=== PATIENT | male | born 1940 | race Caucasian/White ===

== ENCOUNTER 2023-10-19 17:32 | Emergency (ER) | payer MEDICARE, SELFPAY ==
--- NOTE | ~2023-10-19 | CT_ITS ---
EXAMINATION: CT abdomen pelvis wo/w con DATE: 10/19/2023 21:24 INDICATION: Hematuria. Flank pain. TECHNIQUE: Computed tomography (CT) of the abdomen and pelvis was performed without and with intraven ous contrast using a total of 130 mL Omnipaque-350 intravenous contrast with a double-bolus technique for simultaneous opacification of the renal parenchyma and renal collecting system. Automated exposu re control and iterative reconstruction technique were employed. The dose-length product was 2902.31 mGy-cm. COMPARISON: None FINDINGS: The visualized portions of the lung bases demonstrate mild atelectasis. A calcified right lung nodule is consistent with old granulomatous disease. No pleural effusion. Cardiomegaly is noted. There are coronary artery calcifications. No pericardial effusion. The liver, gallbladder, spleen, pancreas, ad renal glands, and right kidney are normal. There is an 8 mm cyst in left kidney. There is no urolithi asis. The ureters are well opacified and are normal. The bladder is normal. The prostate is mildly en larged. There are brachytherapy seeds in the prostate. There is diverticulosis of the colon without e vidence of diverticulitis. There are no dilated loops of bowel. The appendix is normal. Aortic athero sclerosis is noted. There is a small sliding hiatal hernia. There are no pathologically enlarged lymp h nodes. There is no free intraperitoneal fluid. There is a total left hip arthroplasty. There is a c hronic burst fracture of L1. There is mild chronic anterior wedging of multiple thoracic vertebral janna dies. IMPRESSION: 1. No specific etiology for the patient's symptoms. Reviewed, dictated and finalized at location E.
[2023-10-19 17:34] VITALS: BP 138/85; PULSE 84; RESP 16; TEMP 36.5; O2SAT 97
[2023-10-19 17:37] VITALS: BP 138/85; PULSE 94; RESP 16; TEMP 36.5; O2SAT 97
--- NOTE | 2023-10-19 17:56 | PC.NURSE ---
Pt able to urinate and provide urine sample. Urine sample is dark red in color.
[2023-10-19 18:26] LABS: Add Urine Microscopic? YES; Appearance Urine Cloudy (Clear); Bacteria Urine Rare /hpf; Bilirubin Urine Negative (Negative); Blood Urine 2+ (Negative); Glucose Urine UA Negative (Negative); Ketones Urine Negative (Negative); Leukocyte Esterase Ur Negative LEU/UL (Negative); Need Manual Microscopic Reviewed; Nitrate Urine Negative (Negative); Non Pathogenic Casts 0-2; Protein Urine 3+ mg/dL (Negative); Specific Grav Ur 1.021 (1.001-1.035); Squamous Epithelial Cell Urine None Seen /hpf (Few)
[2023-10-19 18:27] LABS: RBC Urine >100 /hpf (0-2)
[2023-10-19 18:28] LABS: Color Urine Red (Yellow)
[2023-10-19 19:36] VITALS: BP 148/96; PULSE 69; RESP 18; O2SAT 100
[2023-10-19] MEDS: cefTRIAXone 2 GM/NS 100 ML 2 GM/100 ML BAG IVPB (19:36)
[2023-10-19 19:43] LABS: Basophils Percent Auto 0.3 % (0.2-1.2); Eosinophils Absolute Auto 0.1 K/mm3 (0-0.3); Eosinophils Percent Auto 1.5 % (0-4.4); Hematocrit 41.3 % (42.0-52.0); Hemoglobin 14.1 g/dL (14.0-18.0); Immature Granulocyte Absolute 0.01 K/mm3 (0.00-0.031); Immature Granulocyte Percent A 0.3 % (0-0.5); Lymphocytes Percent Auto 32.5 % (18.3-44.2); Mean Corpuscular HGB Conc 34.1 g/dl (32-36); Mean Corpuscular Hemoglobin 31.2 pg (26-34); Mean Corpuscular Volume 91.4 fl (80-100); Mean Platelet Volume 10.8 fl (7.4-10.4); Monocytes Absolute Auto 0.3 K/mm3 (0.1-0.6); Monocytes Percent Auto 7.4 % (2.6-8.5); Platelet Count Result 146 k/mm3 (150-375); Red Blood Count 4.52 M/mm3 (4.6-6.20); Red Cell Distribution Width 13.2 % (11.5-14.5); White Blood Count 3.4 K/mm3 (4.5-10.0)
[2023-10-19 19:54] LABS: Anion Gap 12 mmol/L (4-12); Blood Urea Nitrogen 24 mg/dL (9-20); Calcium 8.6 mg/dL (8.4-10.2); Carbon Dioxide 23 mmol/L (22-30); Chloride 101 mmol/L (98-107); Estimated CRCL calculation 48 ml/min; Estimated Glomerular Filt Rate 48; Glucose 152 mg/dL (65-110); Sodium 136 mmol/L (137-145)
--- NOTE | 2023-10-19 19:57 | ED.MALEGU ---
HPI - Male Genitourinary General Chief complaint: Urogenital-Male Stated complaint: inability to urinate, bleeding noted Time Seen by Provider: 10/19/23 19:22 History of Present Illness HPI Narrative: Patient has been having difficulty urinating and what is coming out is bloody. Has some mild back pain. Does have history of kidney stones. Related Data Allergies Allergy/AdvReac Type Severity Reaction Status Date / Time No Known Drug Allergies Allergy Verified 04/11/12 13:48 Review of Systems Review of Systems: All systems reviewed & are unremarkable except as noted in HPI and below Exam Narrative: EXAMINATION OF ORGAN SYSTEMS/BODY AREAS: Constitutional: Vital signs per nursing GENERAL:[No acute distress, non-toxic appearing.] HEAD: Normal with no signs of head trauma. EYES: EOMI, conjunctiva normal ENT: Hearing grossly intact LUNGS: Nonlabored breathing. HEART: [Regular rate and rhythm] ABD: [Soft], [nontender to palpation] EXT: Normal range of motion SKIN: [No rashes or lesions.] NEURO: [Alert and oriented x 3. No gross focal sensory or strength deficits.] PSYCH: Normal affect Course Vital Signs Vital signs: Vital Signs Temperature 97.7 F 10/19/23 17:34 Pulse Rate 84 10/19/23 17:34 Respiratory Rate 16 10/19/23 17:34 Blood Pressure 138/85 10/19/23 17:34 Pulse Oximetry 97 10/19/23 17:34 Temperature 97.7 F 10/19/23 17:37 Pulse Rate 69 10/19/23 19:36 Respiratory Rate 18 10/19/23 19:36 Blood Pressure 148/96 H 10/19/23 19:36 Pulse Oximetry 100 10/19/23 19:36 MDM - Male Genitourinary MDM Narrative Medical decision making narrative: Very pleasant gentleman presenting with urinary retention and gross hematuria. He is well-appearing in no distress, initial plan was to place a catheter for his CBI and to resolve her urinary retention, however he was actually able to urinate here in the emergency room and the bleeding has actually resolved as has the urinary retention. He would prefer to avoid a catheter at this time. I did obtain a CT with and without due to concern for possible etiologies including infection, stone, malignancy. UA with gross hematuria and some wbc's with rare bacteria so I will tentatively treated him as UTI and have him follow-up with his urologist. Strict return precautions provided for his return of hematuria and urinary retention which would require catheterization, Patient agreeable to this plan. Lab Data 10/19/23 19:37 10/19/23 19:37 Labs: Lab Results 10/19/23 10/19/23 Range/Units 17:55 19:37 WBC 3.4 L (4.5-10.0) K/mm3 RBC 4.52 L (4.6-6.20) M/mm3 Hgb 14.1 (14.0-18.0) g/dL Hct 41.3 L (42.0-52.0) % MCV 91.4 (80-100) fl MCH 31.2 (26-34) pg MCHC 34.1 (32-36) g/dl RDW 13.2 (11.5-14.5) % Plt Count 146 L (150-375) k/mm3 MPV 10.8 H (7.4-10.4) fl Immature Gran % (Auto) 0.3 (0-0.5) % Neut % (Auto) 58.0 (45.5-73.1) % Lymph % (Auto) 32.5 (18.3-44.2) % Labette % (Auto) 7.4 (2.6-8.5) % Eos % (Auto) 1.5 (0-4.4) % Baso % (Auto) 0.3 (0.2-1.2) % Lymph # (Auto) 1.10 (0.9-3.2) K/mm3 Labette # (Auto) 0.3 (0.1-0.6) K/mm3 Eos # (Auto) 0.1 (0-0.3) K/mm3 Baso # (Auto) 0.0 (0.0-0.1) K/mm3 Abs Immat Gran (auto) 0.01 (0.00-0.031) K/mm3 Absolute Neuts (auto) 2.0 (1.3-6.7) K/mm3 Absolute Nucleated RBC 0.000 (0.0-0.012) K/mm3 Nucleated RBC % 0.0 (0.0-0.2) % Sodium 136 L (137-145) mmol/L Potassium 4.0 (3.4-5.0) mmol/L Chloride 101 (98-107) mmol/L Carbon Dioxide 23 (22-30) mmol/L Anion Gap 12 (4-12) mmol/L BUN 24 H (9-20) mg/dL Creatinine 1.40 H (0.7-1.3) mg/dL Estim Creat Clear Calc 48 ml/min Estimated GFR 48 L (59 - ) Glucose 152 H (65-110) mg/dL Calcium 8.6 (8.4-10.2) mg/dL Urine Color Red H (Yellow) Urine Appearance Cloudy H (Clear) Urine pH 7.0 (5.0-9.0) Ur Specific [place] 1.021
--- NOTE | 2023-10-19 20:24 | PC.NURSE ---
pt refusing urinary catheter at this time. pt states, I know when to pee and can pee . edp dr. stroud made aware.
== END 2023-10-19 22:00 | disposition home or self-care (01) ==
PROVIDERS: Student in an Organized Health Care Education/Training Program; Emergency Provider Emergency Medicine
DX: N39.0 Urinary tract infection, site not specified (principal); R31.9 Hematuria, unspecified; Z87.442 Personal history of urinary calculi
CPT/HCPCS: 36415; 51702; 74178; 80048; 81001; 85025; 87086; 96365; 99284; J0696; Q9967

== ENCOUNTER 2024-08-10 16:57 | Emergency (ER) | payer MEDICARE, SELFPAY ==
--- OUTSIDE RECORDS SUMMARY | 2024-08-10 16:59 | XMS_ITS | Encounter Summary ---
Author Organization [facility] Address [address] [place] [address] Care Team Providers Care Spike Machine Operator Name Role Phone Sunil Zelaya MD Unavailable [phone] Mundo Smith MD Unavailable [phone] Filiberto Madrid MD Primary Care Provider [phone] Viviana Wagner MD Unavailable [phone] Heather Grant NP Unavailable [phone] Quinn Flannery MD Unavailable [phone] Nena Rogers PTA Unavailable Unavailable Omid Hoffman MD Unavailable [phone] Steffany Solomon NP Unavailable [phone] Carlos Ford MD Unavailable Gerardo Chávez MD Unavailable Irineo Moe MD Unavailable Nelson Schneider MD Unavailable [phone] Mirta Angeles Unavailable + [phone] John Khan MD PhD Unavailable [phone] Omid Emanuel DO Unavailable [phone] Sam Whelan MD Unavailable [phone] Quinn Flannery MD Unavailable [phone] Cristy Rodriguez MD Unavailable [phone] Brock Segura MD Unavailable [phone] MikalaTavonTung Sanjiv OD Unavailable [phone] Janell Orellana PA Unavailable [phone] Ashtyn Morrow Unavailable [phone] Ashtyn Morrow Unavailable [phone] Terence Edgar DMD Unavailable [phone] Encounter Details Date Type Department Care Team (Late st Contact Info) Description 10/04/2020 Telephone [facility] Radiation Oncology [address] [facility] [place] [address] Aida Blackburn RN Social History Tobacco Use Types Packs/Day Years Used Date Smoking Tobacco: Never Smokeless Tobacco: Never Alcohol Use Standard Drinks/Week Comments Yes 0 (1 standard drink = 0.6 oz pur e alcohol) Rarely AUDIT-C Answer Date Recorded Q1: How often do you have a drink containing alc ohol? Monthly or less 08/15/2020 Q2: How many drinks containi ng alcohol do you have on a typical day when you are drinking? 1 or 2 08/15/2020 Q3: How often do you have si x or more drinks on one occasion? 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 Gender Identity Not on file Sexual Orientation Not on file documented as of this encounter Plan of Treatment Not on file documented as of this encounter Visit Diagnoses Not on filedocumented in this encounter Additional Health Concerns Infection Onset Date Last Indicated Resolved Time COVID: Suspected 01/13/2022 01/13/2022 01/13/2022 5:25 PM OIL FIELD TESTER documented as of this encounter Care Teams Spike Machine Operator Relationship Specialty Start Date End Date Filiberto Madrid MD [address] [place] [address] PCP - General 12/18/16 Sunil Zelaya MD Consulting Physician Cardiovascular Disease 11/18/16 Mundo Smith MD Consulting Physician Neurosurgery 12/10/16 Viviana Wagner MD [address] [place] [address] Consulting Physician Pain Management 02/26/17 Heather Grant NP [address] [place] [address] Nurse Practitioner Neurosurgery 04/06/17 Quinn Flannery MD [address] [place] [address] Consulting Physician Pain Management 05/10/17 Nena Rogers [facility] Bacteriology Research Assistant Physical Therapy 10/06/17 Omid Hoffman MD Surgeon Orthopedic Surgery 11/02/17 Steffany Solomon NP Nurse Practitioner Pain Management 07/05/18 Carlos Ford MD Consulting Physician Neurology 09/20/18 Gerardo Chávez MD Referring Physician Urology 01/28/19 Irineo Moe MD Consulting Physician Dermatology 01/28/19 Nelson Schneider MD [address] [facility] [address] [place] [address] Consulting Physician Orthopedic Surgery 02/22/19 Mirta Angeles PA [address] [facility] [address] [place] [address] Physician Dental Service Technician Orthopedic Surgery 10/08/19 John Khan MD PhD [address] [facility] [place] [address] Radiation Oncologist Radiation Oncology 08/30/20 Omid Emanuel DO [address] [facility] [address] [place] [address] Consulting Physician Cardiovascular Disease 11/08/20 Sam Whelan MD [address] [facility] [address] [place] [address] Consulting Physician Ophthalmology 04/02/22 Quinn Flannery MD [address] [place] [place] [address] Consulting Physician Pain Management 06/19/22 [place] [address] [place] [address] Consulting Physician Neurosurgery 06/21/22 Brock Segura MD [address] [place] [address] [place] [address] Consulting Physician Cardiology 08/26/22 Tung Bach OD [address] [place] [address] Consulting Physician Optometry 07/31/22 Janell Orellana PA [address] [place] [address] Physician Dental Service Technician Orthopedic Surgery 09/12/22 Ashtyn Morrow PA [address] [place] [id number] [place] [address] Physician Dental Service Technician Colon and Rectal Surgery 04/04/23 05/27/23 Ashtyn Morrow PA [address] [place] [id number] [place] [address] Physician Dental Service Technician Colon and Rectal Surgery 04/30/23 Terence Edgar DMD [id number] [place] [address] Dentist Oral Surgery 09/04/23 documented as of this encounter
--- OUTSIDE RECORDS SUMMARY | 2024-08-10 16:59 | XMS_ITS | Encounter Summary ---
Author Organization [facility] Address [address] [place] [address] Care Team Providers Care Reliability Technician Name Role Phone Sunil Zelaya MD Unavailable [phone] Mundo Smith MD Unavailable [phone] Filiberto Madrid MD Primary Care Provider [phone] Viviana Wagner MD Unavailable [phone] Heather Grant NP Unavailable [phone] Quinn Flannery MD Unavailable [phone] Nena Rogers PTA Unavailable Unavailable Omid Hoffman MD Unavailable [phone] Steffany Solomon NP Unavailable [phone] Carlos Ford MD Unavailable Gerardo Chávez MD Unavailable Irineo Moe MD Unavailable Nelson Schneider MD Unavailable [phone] Mirta Angeles Unavailable + [phone] John Khan MD PhD Unavailable [phone] Adelfo Omid CalderonMyra KELLY Unavailable +[phone] Sam Whelan MD Unavailable [phone] Quinn Flannery MD Unavailable [phone] Cristy Rodriguez MD Unavailable [phone] Brock Segura MD Unavailable [phone] BachTung chaparro OD Unavailable [phone] Janell Orellana PA Unavailable [phone] Ashtyn Morrow PA Unavailable [phone] Ashtyn Morrow Unavailable [phone] Herve Terence Preston DMD Unavailable [phone] Encounter Details Date Type Department Care Team (Late st Contact Info) Description 09/01/2020 Orders Only [facility] Advanced Medicine Radiation Oncology [address] [facility] [place] [address] Jostin Baez MD [address] [facility] [address] [place] [address] Prostate cancer (HCC) (Primary Dx); Pre-operative laboratory examination Social History Tobacco Use Types Packs/Day Years [...] on file 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 Gender Identity Not on file Sexual Orientation Not on file documented as of this encounter Plan of Treatment Not on file documented as of this encounter Results * (ABNORMAL) Urinalysis reflex to microscopic and culture Urine, clean voided (09/15/2020 11:15 AM CDT) Color, ur Yellow Yellow [facility] Clarity, ur Clear Clear [facility]) Specific gravity, ur 1.009(L) 1.010 - 1.025 [facility]) pH, urine 6.0 [facility]) Protein, ur ql Negative Negative [facility]) Glucose, ur ql Negative Negative [facility]) Ketones, ur Negative Negative [facility]) Bilirubin, ur Negative Negative [facility]) Blood, ur Negative Negative [facility]) Urobilinogen, ur <2.0 <2.0 mg/dL [facility]) Nitrite, ur Negative Negative [facility]) Leukocyte esterase, ur Negative Negative [facility]) UA reflex comment Reflex conditions for microscopic UA and culture not met. [facility] Urine, clean voided 09/15/2020 11:15 AM CDT 09/15/2020 12:17 PM CDT Narrative [facility]) - 09/15/2020 12:27 PM CDT Urine pH is affected by diet, medications, systemic acid-base disturbances, and renal tubular function. pH may affect urinary stone formation. For example, urine pH below 6.0 may help reduce the tendency for calcium phosphate stones and pH greater than 6.0 may reduce the tendency for uric acid stone formation. Source: [employer]. Last revised 03-20-2017 us Jostin Baez MD LAB MICROBIOLOGY - GENERAL ORDERABLES Final Result [facility] ([place]) [address] [facility] Department [place] [address] documented in this encounter Visit Diagnoses Diagnosis Prostate cancer (HCC)- Primary Malignant neoplasm of prostate Pre-operative laboratory examination Pre-procedural laboratory examination Prostate cancer (HCC) Malignant neoplasm of prostate Pre-operative laboratory examination Pre-procedural laboratory examination documented in this encounter Additional Health Concerns Infection Onset Date Last Indicated Resolved Time COVID: Suspected 01/13/2022 01/13/2022 01/13/2022 5:25 PM HOTEL RECREATIONAL FACILITIES MANAGER documented as of this encounter Care Teams Reliability Technician Relationship Specialty Start Date End Date Filiberto Madrid MD [address] [place] [address] PCP - General 12/18/16 Sunil Zelaya MD Consulting Physician Cardiovascular Disease 11/18/16 Mundo Smith MD Consulting Physician Neurosurgery 12/10/16 Viviana Wagner MD [address] [place] [address] Consulting Physician Pain Management 02/26/17 Heather Grant NP [address] [place] [address] Nurse Practitioner Neurosurgery 04/06/17 Quinn Flannery MD [address] [place] [address] Consulting Physician Pain Management 05/10/17 Nena Rogers PTA Division Chair Physical Therapy 10/06/17 Omid Hoffman MD Surgeon Orthopedic Surgery 11/02/17 Steffany Solomon NP Nurse Practitioner Pain Management 07/05/18 Carlos Ford MD Consulting Physician Neurology 09/20/18 Gerardo Chávez MD Referring Physician Urology 01/28/19 Irineo Moe MD Consulting Physician Dermatology 01/28/19 Nelson Schneider MD [address] [facility] [address] [place], [place] [address] Consulting Physician Orthopedic Surgery 02/22/19 Mirta [place] PA [address] [facility] [address] [place], [place] [address] Physician Biostatistics Professor Orthopedic Surgery 10/08/19 John Khan MD PhD [address] [facility] [place] [address] Radiation Oncologist Radiation Oncology 08/30/20 Omid Emanuel DO [address] [facility] [address] [address] Consulting Physician Cardiovascular Disease 11/08/20 Sam Whelan MD [address] [facility] [address] [place] [address] Consulting Physician Ophthalmology 04/02/22 Quinn Flannery MD [address] [place] [address] Consulting Physician Pain Management 06/19/22 [place] [address] [place] [address] Consulting Physician Neurosurgery 06/21/22 Brock Segura MD [address] [place] [address] [address], [place] [address] Consulting Physician Cardiology 08/26/22 Tung Bach OD [address] [place], [place] [address] Consulting Physician Optometry 07/31/22 Janell Orellana PA [address] [place] [address] Physician Biostatistics Professor Orthopedic Surgery 09/12/22 Ashtyn Morrow PA [address] [place] [id number] [place] [address] Physician Biostatistics Professor Colon and Rectal Surgery 04/04/23 05/27/23 Ashtyn Morrow PA [address] [place] [id number] [place] [address] Physician Biostatistics Professor Colon and Rectal Surgery 04/30/23 Terence Edgar DMD [address] [place] [address] Dentist Oral Surgery 09/04/23 documented as of this encounter
--- OUTSIDE RECORDS SUMMARY | 2024-08-10 16:59 | XMS_ITS | Encounter Summary ---
Author Organization [facility] Address [address] [place] [address] Phone Care Team Providers Care Chief Airline Radio Operator Name Role Phone Sunil Zelaya MD Unavailable [phone] Joel Jamison MD Unavailable Mundo Smith MD Unavailable [phone] Filiberto Madrid MD Primary Care Provider [phone] Viviana Wagnre MD Unavailable [phone] Heather Grant NP Unavailable [phone] Quinn Flannery MD Unavailable [phone] Nena Rogers PTA Unavailable Unavailable Omid Hoffman MD Unavailable Steffany Solomon NP Unavailable [phone] Carlos Ford MD Unavailable Gerardo Chávez MD Unavailable Irineo Moe MD Unavailable Nelson Schneider MD Unavailable Mirta Angeles Unavailable [phone] John Khan MD PhD Unavailable Omid Emanuel DO Unavailable [phone] Sam Whelan MD Unavailable Quinn Flannery MD Unavailable [phone] Cristy Rodriguez MD Unavailable Brock Segura MD Unavailable [phone] Mikala Tung Sanjiv OD Unavailable Janell Orellana PA Unavailable Ashtyn Morrow Unavailable [phone] Ashtyn Morrow Unavailable [phone] Terence Edgar DMD Unavailable Encounter Details Date Type Department Care Team (Late st Contact Info) Description 12/23/2016 Orders Only [facility] [address] [place] [address] Filiberto Madrid MD [address] [address] Social History Tobacco Use Types Packs/Day Years Used Date Smoking Tobacco: Never Smokeless Tobacco: Never Alcohol Use Standard Drinks/Week Comments Yes 0 (1 standard drink = 0.6 oz pur e alcohol) Rarely Sex and Gender Information Value Date Recorded Sex Assigned at Not on file 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 Gender Identity Not on file Sexual Orientation Not on file documented as of this encounter Plan of Treatment Not on file documented as of this encounter Procedures Procedure Name Priority Date/Time Associated Diagnosis Comments SCAN - RADIOLOGY/IMAGING 12/23/2016 3:45 PM CDT documented in this encounter Results * SCAN - RADIOLOGY/IMAGING (12/23/2016 3:45 PM CDT) Anatomical Region Laterality Modality Other us Filiberto Madrid MD Final Result documented in this encounter Visit Diagnoses Not on filedocumented in this encounter Additional Health Concerns Infection Onset Date Last Indicated Resolved Time COVID: Suspected 01/13/2022 01/13/2022 01/13/2022 5:25 PM FIREARMS INSTRUCTOR documented as of this encounter Care Teams Chief Airline Radio Operator Relationship Specialty Start Date End Date Filiberto Madrid MD [address] [place] [address] PCP - General 12/18/16 Sunil Zelaya MD Consulting Physician Cardiovascular Disease 11/18/16 Joel Jamison MD [address] [facility] [facility] [address] [place] [address] Consulting Physician Urology 04/16/16 01/27/19 Mundo Smith MD [address] [facility] [address] [facility] [address] [place] [address] Consulting Physician Neurosurgery 12/10/16 Viviana Wagner MD [address] [place] [address] Consulting Physician Pain Management 02/26/17 Heather Grant NP [address] [place] [address] Nurse Practitioner Neurosurgery 04/06/17 Quinn Flannery MD [address] [place] [address] Consulting Physician Pain Management 05/10/17 Nena Rogers [facility] Textile Screen Maker Physical Therapy 10/06/17 Omid Hoffman MD Surgeon Orthopedic Surgery 11/02/17 Steffany Solomon INTERACTIVE DIGITAL MEDIA SPECIALIST Nurse Practitioner Pain Management 07/05/18 Carlos Ford MD Consulting Physician Neurology 09/20/18 Gerardo Chávez MD Referring Physician Urology 01/28/19 Irineo Moe MD Consulting Physician Dermatology 01/28/19 Nelson Schneider MD [address] [facility] [address] [place] [address] Consulting Physician Orthopedic Surgery 02/22/19 Mirta [place] PA [address] [facility] [address] [place] [address] Physician Applications Developer Orthopedic Surgery 10/08/19 John Khan MD PhD [address] [place] [address] Radiation Oncologist Radiation Oncology 08/30/20 Omid Emanuel DO [address] [place] [address] Consulting Physician Cardiovascular Disease 11/08/20 Sam Whelan MD [address] [place] [address] Consulting Physician Ophthalmology 04/02/22 Quinn Flannery MD [address] [place] [address] Consulting Physician Pain Management 06/19/22 [place] [address] [place] [address] Consulting Physician Neurosurgery 06/21/22 Brock Segura MD [address] [place] [address] [address], [place] [address] Consulting Physician Cardiology 08/26/22 Tung Bach OD [address] [place], [place] [address] Consulting Physician Optometry 07/31/22 Janell Orellana PA [address] [place] [address] Physician Applications Developer Orthopedic Surgery 09/12/22 Ashtyn Morrow PA [address] [place] [id number] [place] [address] Physician Applications Developer Colon and Rectal Surgery 04/04/23 05/27/23 Ashtyn Morrow PA [address] [place] [id number] [place] [address] Physician Applications Developer Colon and Rectal Surgery 04/30/23 Terence Edgar DMD [address] [place] [address] Dentist Oral Surgery 09/04/23 documented as of this encounter
--- OUTSIDE RECORDS SUMMARY | 2024-08-10 16:59 | XMS_ITS | Encounter Summary ---
Author Organization [facility] Address [address] [place] [address] Phone Care Team Providers Care Plant Director Name Role Phone Sunil Zelaya MD Unavailable [phone] Joel Jamison MD Unavailable Mundo Smith MD Unavailable [phone] Filiberto Madrid MD Primary Care Provider [phone] Viviana Wagner MD Unavailable [phone] Heather Grant NP Unavailable [phone] Quinn Flannery MD Unavailable [phone] Nena Rogers PTA Unavailable Unavailable Omid Hoffman MD Unavailable [phone] Steffany Solomon NP Unavailable [phone] Carlos Ford MD Unavailable Gerardo Chávez MD Unavailable Irineo Moe MD Unavailable Nelson Schneider MD Unavailable [phone] Mirta Angeles Unavailable [phone] John Khan MD PhD Unavailable [phone] Omid Emanuel MMyra KELLY Unavailable Sam Whelan MD Unavailable Quinn Flannery MD Unavailable [phone] Cristy Rodriguez MD Unavailable Brock Segura MD Unavailable [phone] Mikala Tung Kincaid OD Unavailable [phone] Janell Orellana PA Unavailable Ashtyn Morrow Unavailable [phone] Ashtyn Morrow Unavailable [phone] Terence Edgar DMD Unavailable Encounter Details Date Type Department Care Team (Late st Contact Info) Description 05/30/2017 Orders Only [facility] [address] [place] [address] Filiberto Madrid MD [address] [address] Social History Tobacco Use Types Packs/Day Years Used Date Smoking Tobacco: Never Smokeless Tobacco: Never Alcohol Use Standard Drinks/Week Comments Yes 0 (1 standard drink = 0.6 oz pur e alcohol) Rarely Sex and Gender Information Value Date Recorded Sex Assigned at Not on file Legal Sex 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 Gender Identity Not on file Sexual Orientation Not on file documented as of this encounter Plan of Treatment Not on file documented as of this encounter Procedures Procedure Name Priority Date/Time Associated Diagnosis Comments SCAN - LABS 05/30/2017 2:30 PM CDT documented in this encounter Results * SCAN - LABS (05/30/2017 2:30 PM CDT) us Filiberto Madrid MD Final Result documented in this encounter Visit Diagnoses Not on filedocumented in this encounter Additional Health Concerns Infection Onset Date Last Indicated Resolved Time COVID: Suspected 01/13/2022 01/13/2022 01/13/2022 5:25 PM UNIVERSITY PRESIDENT documented as of this encounter Care Teams Plant Director Relationship Specialty Start Date End Date Filiberto Madrid MD [address] [place] [address] PCP - General 12/18/16 Sunil Zelaya MD Consulting Physician Cardiovascular Disease 11/18/16 Joel Jamison MD [address] [facility] [address] [place] [address] Consulting Physician Urology 04/16/16 01/27/19 Mundo Smith MD [address] [facility] [address] [place] [address] Consulting Physician Neurosurgery 12/10/16 Viviana Wagner MD [address] [place] [address] Consulting Physician Pain Management 02/26/17 Heather Grant, JENNIFER [address] [place] [address] Nurse Practitioner Neurosurgery 04/06/17 Quinn Flannery MD [address] [place] [address] Consulting Physician Pain Management 05/10/17 Nena Rogers [facility] Machine Staker Physical Therapy 10/06/17 Omid Hoffman MD Surgeon Orthopedic Surgery 11/02/17 Steffany Solomon CROSSBAR SWITCH ADJUSTER Nurse Practitioner Pain Management 07/05/18 Carlos Ford MD Consulting Physician Neurology 09/20/18 Gerardo Chávez MD Referring Physician Urology 01/28/19 Irineo Moe MD Consulting Physician Dermatology 01/28/19 Nelson Schneider MD [address] [facility] [address] [place] [address] Consulting Physician Orthopedic Surgery 02/22/19 Mirta Angeles PA [address] [facility] [address] [place] [address] Physician Cigarette Making Machine Operator Orthopedic Surgery 10/08/19 John Khan MD PhD [address] [place] [address] Radiation Oncologist Radiation Oncology 08/30/20 Omid Emanuel DO [address] [place] [address] Consulting Physician Cardiovascular Disease 11/08/20 Sam Whelan MD [address] [place] [address] Consulting Physician Ophthalmology 04/02/22 Quinn Flannery MD [address] [place] [address] Consulting Physician Pain Management 06/19/22 [place] [address] [place] [address] Consulting Physician Neurosurgery 06/21/22 Brock Segura MD [address] [place] [address] [address], [place] [address] Consulting Physician Cardiology 08/26/22 Tung Bach OD [address] [place] [address] Consulting Physician Optometry 07/31/22 Janell Orellana PA [address] [place] [address] Physician Cigarette Making Machine Operator Orthopedic Surgery 09/12/22 Ashtyn Morrow PA [address] [place] [id number] [place] [address] Physician Cigarette Making Machine Operator Colon and Rectal Surgery 04/04/23 05/27/23 Ashtyn Morrow PA [address] [place] [id number] [place] [address] Physician Cigarette Making Machine Operator Colon and Rectal Surgery 04/30/23 Terence Edgar DMD [address] [place] [address] Dentist Oral Surgery 09/04/23 documented as of this encounter
--- OUTSIDE RECORDS SUMMARY | 2024-08-10 16:59 | XMS_ITS | Encounter Summary ---
Author Organization [facility] Address [address] [place] [address] Phone Care Team Providers Care Lead Technician Name Role Phone Pedro Cosme MD Primary Care Provider Sunil Zelaya MD Unavailable [phone] Joel Jamison MD Unavailable [phone] Mundo Smith MD Unavailable [phone] Filiberto Madrid MD Primary Care Provider [phone] Viviana Wagner MD Unavailable [phone] Heather Grant NP Unavailable [phone] Quinn Flannery MD Unavailable [phone] Nena Rogers PTA Unavailable Unavailable Omid Hoffman MD Unavailable [phone] Steffany Solomon NP Unavailable [phone] Carlos Ford MD Unavailable Gerardo Chávez MD Unavailable Irineo Moe MD Unavailable Nelson Schneider MD Unavailable Mirta Angeles Unavailable [phone] John Khan MD PhD Unavailable Omid Emanuel MMyra KELLY Unavailable [phone] Sam Whelan MD Unavailable Quinn Flannery MD Unavailable [phone] Cristy Rodriguez MD Unavailable Brock Segura MD Unavailable [phone] MikalaTung OD Unavailable Janell Orellana PA Unavailable [phone] Ashtyn Morrow Unavailable [phone] Ashtyn Morrow Unavailable [phone] Terence Edgar DMD Unavailable [phone] Encounter Details Date Type Department Care Team (Late st Contact Info) Description 12/03/2016 Orders Only [facility] [address] [place] [id number] Filiberto Madrid MD [address] [address] Social History Tobacco Use Types Packs/Day Years Used Date Smoking Tobacco: Never Smokeless Tobacco: Never Alcohol Use Standard Drinks/Week Comments Yes 0 (1 standard drink = 0.6 oz pur e alcohol) Rarely Sex and Gender Information Value Date Recorded Sex Assigned at Not on file 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 Gender Identity Not on file Sexual Orientation Not on file documented as of this encounter Plan of Treatment Not on file documented as of this encounter Procedures Procedure Name Priority Date/Time Associated Diagnosis Comments SCAN - RADIOLOGY/IMAGING 12/03/2016 9:37 AM CDT documented in this encounter Results * SCAN - RADIOLOGY/IMAGING (12/03/2016 9:37 AM CDT) Anatomical Region Laterality Modality Other Filiberto Madrid MD Final Result documented in this encounter Visit Diagnoses Not on filedocumented in this encounter Additional Health Concerns Infection Onset Date Last Indicated Resolved Time COVID: Suspected 01/13/2022 01/13/2022 01/13/2022 5:25 PM AUTOMOTIVE GLASS TECHNICIAN documented as of this encounter Care Teams Lead Technician Relationship Specialty Start Date End Date Pedro Cosme MD [address] [facility] [address] [place] [address] PCP - General 09/03/16 12/17/16 Filiberto Madrid MD [address] [place] [address] PCP - General 12/18/16 [place] [address] [place] [address] [address] [place] [address] Consulting Physician Cardiovascular Disease 11/18/16 Joel Jamison MD [address] [facility] [address] [place] [address] Consulting Physician Urology 04/16/16 01/27/19 Mundo Smith MD [address] [facility] [address] [place] [address] Consulting Physician Neurosurgery 12/10/16 Viviana Wagner MD [address] [place] [address] Consulting Physician Pain Management 02/26/17 Heather Grant NP [address] [place] [address] Nurse Practitioner Neurosurgery 04/06/17 Quinn Flannery MD [address] [address] Consulting Physician Pain Management 05/10/17 Nena Rogers SPREADER BOX OPERATOR [employer] Crm Developer Physical Therapy 10/06/17 Omid Hoffman MD Surgeon Orthopedic Surgery 11/02/17 Steffany Solomon NP Nurse Practitioner Pain Management 07/05/18 Carlos Ford MD Consulting Physician Neurology 09/20/18 Gerardo Chávez MD Referring Physician Urology 01/28/19 Irineo Moe MD Consulting Physician Dermatology 01/28/19 Nelson Schneider MD [address] [facility] [address] [place] [address] Consulting Physician Orthopedic Surgery 02/22/19 Mirta Angeles PA [address] [facility] [address] [place] [address] Physician Cooling Tower Operator Orthopedic Surgery 10/08/19 John Khan MD PhD [address] [place] [address] Radiation Oncologist Radiation Oncology 08/30/20 Omid Emanuel DO [address] [facility] [address] [place] [address] Consulting Physician Cardiovascular Disease 11/08/20 Sam Whelan MD [address] [place] [address] [address] [place] [address] Consulting Physician Ophthalmology 04/02/22 Quinn Flannery MD [address] [place] [address] Consulting Physician Pain Management 06/19/22 [place] [address] [place] [address] Consulting Physician Neurosurgery 06/21/22 Brock Segura MD [address] [place] [address] [address] [address] Consulting Physician Cardiology 08/26/22 Tung Bach OD [address] [place] [address] Consulting Physician Optometry 07/31/22 Janell Orellana PA [address] [place] [address] Physician Cooling Tower Operator Orthopedic Surgery 09/12/22 Ashtyn Morrow PA [address] [place] [phone] [place] [address] Physician Cooling Tower Operator Colon and Rectal Surgery 04/04/23 05/27/23 Ashtyn Morrow PA [address] [place] [phone] [place] [address] Physician Cooling Tower Operator Colon and Rectal Surgery 04/30/23 Terence Edgar, AISHWARYA [address] [place] [address] Dentist Oral Surgery 09/04/23 documented as of this encounter
--- OUTSIDE RECORDS SUMMARY | 2024-08-10 17:00 | XMS_ITS | Continuity of Care Document ---
Author Organization [facility] Address [address] [place] [address] [address] [place] [address] Phone Care Team Providers Care Bowling Ball Mold Assembler Name Role Phone Doisy, Edward Unavailable Unavailable Advance Directives Directive Yes / No Effective Date File Name No Information Encounters Encounter Description Practice Location Reason(s) For Visit Diagnoses Date Provider Providers Copied on Encounter [facility], [address] [place] [address] [address], [place], [place], [id number], [place] tel:[phone] [facility] No Information July-0 3-200 6 Doisy Edward. [address] , [address], [place], [address], [place]. tel:[phone] Family History Family Member Type Diagnosis Age At Onset No Information Payers Payer name Insurance type Covered green party ID Authoriza tion(s) Medicare [facility] [id number] [employer] [place] [id number] Social History Type Description Quantity Date Captured Comments Sex Male Smoking Status No Information Chief Complaint And Reason For Visit No Information Reason For Referral Reason For Referral No Information History Of Present Illness Encounter Date Complaint History Of Prese nt Illness No Information Functional Status Date Functional Assessmen t No Information Instructions Date Instruction Additional Infor mation No Information Assessments Type Assessment Date No Information Patient Care Teams Name Effective Dates (start - stop) Status Members No Information
--- OUTSIDE RECORDS SUMMARY | 2024-08-10 17:00 | XMS_ITS | Referral Summary ---
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 Name Role Phone Mundo Smith MD Unavailable [phone] Irena Rebolledo MD Primary Care Provider Viviana Wagner MD Unavailable [phone] Heather Grant NP Unavailable [phone] Quinn Flannery MD Unavailable [phone] Nena Rogers PTA Unavailable Unavailable Omid Hoffman MD Unavailable [phone] Steffany Solomon NP Unavailable [phone] Carlos Ford MD Unavailable Gerardo Chávez MD Unavailable Irineo Moe MD Unavailable Nelson Schneider MD Unavailable Mirta Angeles Unavailable [phone] John Khan MD PhD Unavailable [phone] Sam Whelan MD Unavailable [phone] Quinn Flannery MD Unavailable [phone] Cristy Rodriguez MD Unavailable Brock Segura MD Unavailable Tung Bach OD Unavailable [phone] Janell Orellana PA Unavailable [phone] Ashtyn Morrow PA Unavailable EdgarTerence DMD Unavailable Encounters Date Type Department Care Team Description 08/10/2024 Telephone [facility] [address] [place] [address] Irena Rebolledo MD 07/03/2024 Telephone [facility] [address] [place] [phone] Irena Rebolledo MD 07/03/2024 Results Follow-Up [facility] [address] [place] [id number] Irena Rebolledo MD Hepatitis B surface antibody (immune status) Blood, Hepatitis B Surface Antigen Blood, Basic metabolic panel, Additional followed-up results: 5 07/01/2024 2:30 PM CDT Office Visit [facility] [address] [place] [address] John Khan MD PhD Malignant neoplasm prostate (CMS/HCC) (HCC) 06/29/2024 12:00 PM CDT Lab [address] [address] Medicare annual wellness visit, subsequent; Need for hepatitis B screening test; Acute midline low back pain without sciatica 06/29/2024 11:55 AM CDT Lab [address] [address] Malignant neoplasm prostate (CMS/HCC) (HCC) 06/08/2024 Telephone [facility] [address] [place] [address] Irena Rebolledo MD 06/03/2024 1:00 PM CDT Office Visit [facility] [address] [place] [address] Genevieve Torres NP Upper respiratory tract infection, unspecified type (Primary Dx) 06/01/2024 Telephone [facility] [address] [place] [address] Irena Rebolledo MD Chest Congestion 05/10/2024 Telephone [facility] [address] [place] [address] Irena Rebolledo MD 05/10/2024 1:00 PM CARE GIVER Office Visit [facility] [address] [place] [address] Genevieve Torres NP Viral URI with cough (Primary Dx); Other chest pain; Paroxysmal atrial fibrillation (HCC) from Last 3 Months Allergies No known active allergies Medications Xarelto 20 mg tablet Take 1 tablet (20 mg total) by mouth daily Takes only 1/2 tablet due to urethral bleeding. 2 Active diphenhydrAMINE (BENADRYL) 25 mg capsule Take 1 tablet/capsule (25 mg total) by mouth nightly as needed 2 Active tamsulosin (FLOMAX) 0.4 mg extended release capsule TAKE 1 CAPSULE BY MOUTH IN THE EVENING AFTER DINNER 3 Active olopatadine (PATADAY) 0.2 % ophthalmic solution Administer 1 drop into both eyes daily as needed for allergies 3 Active amoxicillin 500 mg capsule Take 4 tablet/capsule (2,000 mg total) by mouth once as needed (Dental procedures.) 3 Active cholecalciferol, vitamin D3, 1,000 unit tablet,chewableI ndications:Vitam in D Deficiency Take 1 tablet/chew tab by mouth daily 3 Active dronedarone (MULTAQ) 400 mg tabletIndication s:Paroxysmal atrial fibrillation (HCC) Take 1 tablet (400 mg total) by mouth daily Prescribed 2 x daily, patient takes it once a day. 4 Active acetaminophen (Tylenol Extra Strength) 500 mg tablet Take 1-2 tablets (500-1,000 mg total) by mouth every 8 (eight) hours as needed for pain 4 Active tadalafiL (CIALIS) 5 mg tabletIndication s:Malignant neoplasm prostate (HCC) Take 1 tablet (5 mg total) by mouth daily as needed for erectile dysfunction 10 tablet 4 Active doxycycline hyclate (VIBRAMYCIN) 50 mg capsuleIndicatio ns:Acne rosacea Take 1 capsule (50 mg total) by mouth daily 90 capsule 3 4 Active Active Problems Problem Noted Date Diagnosed Date Acute cough 05/30/2024 Upper respiratory tract infection 05/10/2024 Assessment & Plan (05/10/2024 9:37 PM CARE GIVER): Acute, symptoms for approximately 1 week. Afebrile, no sick contacts. No acute findings on exam, lungs clear satting 97% on room air. Likely viral, You may take a cough suppressant to calm your cough (Robitussin, delsym, or nyquil). If your cough is productive or you have tight chest congestion with thick mucus- you can use a cough expectorant like Mucinex. Benadryl/Zyrtec/roland can be used to dry up a runny nose or post nasal drip. Avoid sudafed as it will raise your blood pressure and upset your heart. Flonase or Nasacort will also help with sinus pressure and nasal drip both. Tylenol/Ibuprofen as needed for pain. Increase fluids (water) Cool mist humidifier at night Use sinus rinses to help flush bacteria and help with congestion. Encouraged honey, marshmallows, gelatin, or chloraseptic to help coat throat. Call with any worsening or persistent symptoms. Microscopic hematuria 12/12/2023 Assessment & Plan (12/12/2023 4:37 PM CDT): Acute, symptoms for 1 week. See HPI for details. No acute findings, lesions, urethral discharge on exam today. PSA in June that was normal. CT KUB in October that was unremarkable. Keep follow with Oncology as scheduled. Discussed possibility of urethral irritation and or interstitial cystitis status post radiation-we will refer to Urology for likely cystoscopy. Finish Cipro as instructed. Push fluids, avoid caffeine and citrus. Gross hematuria 10/09/2023 Overview (04/12/2024): For several weeks when traveling in [place], saw a doctor there, got a medicine. He cut Xarelto dose in 03/11. Assessment & Plan (04/18/2024 6:17 AM CARE GIVER): Acute problem when he was travelling in [place] last fall, resolved with treatment sought there, details lacking. Consider follow up with urology. Other chest pain 09/25/2023 Assessment & Plan (05/10/2024 9:35 PM CARE GIVER): Acute, symptoms for 1 week. Tenderness to upper right sternal border, likely due to coughing from URI. See plan above. No acute cardiac symptoms or findings on exam, vitals stable. Assessment & Plan (09/25/2023 8:54 PM CDT): New problem, uncertain significance. About two weeks ago he had two days of fairly severe retrosternal pain. He denies associated symptoms such as nausea or diaphoresis. He denies radiation of the pain into the jaw, back or arms. On the second day, he started belching a lot which alleviated the discomfort, and by the third day the pain was gone. He denies any recurrence since then. There is no known prior history of coronary disease. There is a prior history of paroxysmal atrial fibrillation and diastolic dysfunction. He takes Xarelto and Multaq. EKG in the office today shows an sinus rhythm with PACs and a PVC, 72 BPM with no acute changes or evidence of old FL. The patient's symptoms are likely noncardiac. He reports having several stress tests many years ago at [facility]. He does not want to go through the chemical stress test ever again because of reported side effects, and he is not ready or in any shape to get on the treadmill due to gaining weight and still recovering from infection of left knee hardware. He has a scheduled follow-up with his investigation manager, Dr. Segura, in about two weeks. We discussed the EKG findings and his symptoms with his investigation manager. Return here early as needed, otherwise as scheduled for his annual in October. Low bone density 08/29/2022 Assessment & Plan (10/02/2022 3:28 PM CDT): He has low bone density at the lumbar spine, hip and femoral neck. We discussed this in relation to his recent vertebral body fragility fracture. Treatment with medication is an option, but unfortunately he is probably going to have some dental work including implants in the near future, so we are deferring any medical therapy at this time. Vitamin-D level was a little low and he will take an oral supplement. He used to take a supplement, but then read that sunlight will increase vitamin- D levels. However, the rate of vitamin-D synthesis is diminished in older folks so a supplement is appropriate. Iron deficiency anemia 08/26/2022 Assessment & Plan (02/20/2023 1:36 PM CARE GIVER): He continues to take an iron supplement about every 48 hours. We will check follow-up CBC and iron profile. Tricuspid regurgitation 06/20/2022 Fall 06/11/2022 Overview (06/21/2022): Fell at home in driveway. Acute back pain, MRI C/W L1 acute compression fracture. Assessment & Plan (07/01/2022 3:39 PM CDT): He is much more mobile. Gait appears stable at this time. Assessment & Plan (06/12/2022 9:21 AM CDT): Acute problem, occurred on Friday (about 3 days ago) Physical examination as documented - no signs/symptoms of serious illness noted CT scan of lumbar spine from 06/11/2022: IMPRESSION: No acute lumbar spine abnormality. Moderately severe degenerative changes with regions of spinal and neural foraminal stenosis as above. CT scan of abdomen/pelvis from 06/11/2022: IMPRESSION: No acute finding. Xray of lumbar spine from 06/11/2022: IMPRESSION: 1. Rotatory levoscoliosis. No acute findings lumbar spine. Xray of pelvis from 06/11/2022: IMPRESSION: 1. Changes of left hip arthroplasty. 2. No acute fracture. 3. 0.8 cm linear radiopaque foreign bodies x3 overlie the pelvis. Xray of sacrum/coccyx from 06/11/2022: IMPRESSION: Limited evaluation demonstrates no acute fracture within limitations of this examination. Small linear radiopaque foreign bodies overlie the pelvis. Recommended continuing pain medications as prescribed, trying lidocaine patches, managing constipation with supportive measures, and adding Medrol dose pack and muscle relaxant to regimen - patient agreeable to plan Patient educated that muscle relaxant can cause sedation and increased risk of falls, so he needs to be more careful when taking - patient verbalized understanding Recommended scheduling PT to start next week if feeling better - patient agreed initially with plan, but upon checking out, patient decided to delay PT referral at this time - patient would rather call back in 1 week if feeling better and have office place PT referral at this time Orders for [facility] STAFF to arrange PT referral - fall, low back pain Orders for Roman Stanley to arrange FOR CONSTIPATION: Continue drinking plenty of fluid Consider drinking prune juice Consider adding Miralax as needed Consider using OTC Colace as needed Continue monitoring symptoms - report persistent or worsening symptoms to the office or go to ER FOR LOW BACK PAIN: Start Medrol dose pack as prescribed - complete course, take with food in the morning to prevent stomach upset and insomnia Start cyclobenzaprine as needed for back spasm Continue oxycodone as needed for pain Consider ice/heat as needed Follow up with PT as recommended Continue monitoring symptoms - report persistent or worsening symptoms to the office or go to ER Call in 1 week with an update on condition - may have to get MRI to assess bulging disc noted on CT scan of lumbar spine Follow up as scheduled with Dr. Rebolledo or sooner if necessary Closed compression fracture of body of L1 verteb ra 06/11/2022 Assessment & Plan (07/21/2022 12:52 PM CDT): He still has moderate pain but is doing much better. He is much more mobile. He wears a Velcro binder which apparently helps. He was provided a clamshell brace for his torso but did not wear it, apparently due to poor fit (not custom made). We will refer him to physical therapy for appropriate evaluation and treatment. 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 He will participate in therapy and then do the exercises at home. Assessment & Plan (06/21/2022 3:12 PM CDT): MRI of the lumbar spine showed acute compression fracture of L1 with 30% loss of vertebral body height. He saw pain management yesterday and was given the option of a thoracolumbar brace versus kyphoplasty or vertebroplasty. He was uneasy about these options, so he got a second opinion in neurosurgery at [facility] today. They basically had the same recommendations. Exam today is stable. His pain has improved over the past 7 days or so. He does not like the side effects of the oxycodone, so he stopped taking it yesterday. It was causing constipation. We discussed options for treatment and settled on resuming Celebrex which he took in the past following an orthopedic procedure. Risks of medication discussed. For his constipation, I recommended MiraLax. Follow-up as scheduled in 10 days. Vitreous syneresis of both eyes 05/14/2022 Overview (06/15/2022): Sees Dr. Whelan, retinal detachment warnings provided. Age-related macular degeneration 04/02/2022 Overview (07/10/2024): Images from the original note were not included. Sees Sam Whelan MD, [facility]. Wet on right, dry on left. Also bilateral vitreous syneresis. [facility] note on 06/18/2024: Status post total left knee replacement 01/15/20 Assessment & Plan (01/30/2022 5:27 PM CARE GIVER): There is concern for his left prosthetic knee which has exhibited some warmth and swelling. This was tapped yesterday in orthopedics and there are around 65,000 nucleated cells. Microbiology preliminary report is negative. We will keep him on antibiotics (penicillin) pending further discussion with orthopedics. Assessment & Plan (01/15/2022 3:32 PM CARE GIVER): Patient had L total Knee arthroplasty on 08/28/21. Current use of mcc anticoagulation 021 Overview (11/24/2020): Xarelto for Afib. Assessment & Plan (12/12/2023 4:39 PM CDT): Takes xarelto daily for h/o a-fib. C/o blood from urethra as described above. No acute findings on exam, vitals stable. Heart rate regular without murmur today. No recent echo in chart. Ok to stop xarelto for 3 days to see if symptoms improve. See plan for microscopic hemturia above. Anxiety 07/07/2020 Assessment & Plan (11/06/2020 10:25 AM CDT): He has some anxiety, but rarely uses Xanax. We left it on his list for now. Assessment & Plan (07/28/2020 2:55 PM CDT): The patient was in the office about a month ago with moderate to severe anxiety. He could not sleep. He was given some Xanax which he took for a few doses, then the crisis resolved. He has not taken any further doses. We will monitor clinically. Assessment & Plan (07/07/2020 2:14 PM CDT): Patient is reporting increasing feelings of anxiety surrounding work. 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 Last night he felt so anxious and could not sleep, he reports he almost went to the ER for the anxiety. This am he is feeling improved. He has use alprazolam in the past and it has been helpful. Have discussed with Dr. Rebolledo and will prescribe for acute anxiety episodes. Discussed with patient that medication can be sedating and that he should avoid driving or alcohol while using medication. Patient voiced understanding. Patient has f/u in July with Dr. Rebolledo and can readdress at that time to determine continue need. Primary osteoarthritis of left knee 03/25/2019 Overview (02/20/2023): S/P LTKR 07/16/2021, got infected, had to have 2 stage replacement. Assessment & Plan (06/18/2021 11:28 AM CDT): He is scheduled for left total knee replacement with Dr. Hoffman on July 16. He is here for preoperative medical clearance. Labs are ordered but not done yet. If labs are unremarkable, there are no medical contraindications to having this surgery. He will also see his investigation manager for a specific cardiac clearance. Assessment & Plan (08/06/2020 10:39 AM CDT): He has severe osteoarthritis of the left knee. It is preventing him from staying active. A replacement is planned on 08/22/2020. There is no medical contraindication to having the surgery. He tolerated hip replacement a couple of years ago. He had an arthroscopy on the left knee more recently which did not alleviate his knee pain. He will be getting preoperative labs next week which we will review. He will stop his anticoagulation about five days prior to the surgery and wanted to know the possible risks. Risk is minimal but he should discuss this with his investigation manager as well. He can resume the anticoagulation after the knee surgery when it is okay with the surgeon, and this will reduce the risk of postoperative DVT. Rosacea 01/08/2019 Overview (01/28/2019): Sees Luis Hughes. Assessment & Plan (12/03/2019 2:46 PM CDT): He takes doxycycline for rosacea which seems to be under fair control, although exam is compromised by wearing a mask. Malignant neoplasm prostate (CMS/HCC) 11/18/2018 Cancer Staging:Clinical stage from 08/30/2020:Stage IIB(cT2b, cN0, cM0, PSA: 7.6, Grade Group: 2) - Signed by John Khan MD PhD on 08/30/2020 Overview (08/17/2020): Cancer in 6 cores, [place] 3 + 3 = 6 in 5 cores, 3 + 4 = 7 in [address] Chávez. Patient electing observation as of November 2018. MRI 08/15/2020: There is a lesion centered in the left medial mid gland and apex with gross extraprostatic extension contacting but not directly invading the rectum, obliterating the retro-prostatic angle and involving the neurovascular bundle. This lesion is at very high suspicion for malignancy with an overall PI RADS score of 5. Assessment & Plan (04/12/2024 4:25 AM CARE GIVER): Chronic, diagnosed 3-4 years ago, status post definitive radiation therapy, comanaged with Urology and Radiation therapy. Assessment & Plan (04/09/2023 4:58 PM CARE GIVER): He was treated with definitive radiation therapy alone (no androgen deprivation) which was completed on 11/23/2020. He is followed by Dr. Khan. He is doing well post radiation. Lab Results Component Value Date PSA 0.92 12/24/2022 PSA 0.99 06/14/2022 PSA 1.12 12/12/2021 Assessment & Plan (07/01/2022 3:40 PM CDT): He is followed by Dr. Khan. PSA is decreasing with radiation therapy. Lab Results Component Value Date PSA 0.99 06/14/2022 PSA 1.12 12/12/2021 PSA 1.44 08/20/2021 Assessment & Plan (12/19/2021 3:49 PM CDT): He has a follow-up soon with Dr. Khan. PSA has remained fairly low. He denies any significant urinary complaints. He does take tamsulosin to help him void completely. Assessment & Plan (01/29/2021 4:09 PM CARE GIVER): He completed radiation therapy. He has a follow-up PSA scheduled for February. He will also see Dr. Khan. Bone scan was negative for evidence of metastatic disease. Assessment & Plan (12/10/2020 6:44 PM CDT): He finished his last radiation treatment I believe yesterday. White blood cell count was a little bit low when last checked, but not severely depressed. He had some problems with diarrhea and constipation, and had a flare of hemorrhoids which she says he has never had before. There was a little bleeding. Examination shows circumferential external hemorrhoids without inflammation or bleeding at this time. He wanted a referral so we sent one to the surgeons to have them take a look and possibly treat. In the meantime if he has a flare, he can use hemorrhoidal cream or ointment obtained OTC. Assessment & Plan (11/07/2020 8:08 AM CDT): He is receiving radiation therapy for a prostate cancer that has extended outside the prostate but has not invaded the rectum. He gets five treatments a week. He has about two weeks to go. About a month ago, he started experiencing more fatigue than he is used to. He feels a little short of breath with exertion. He denies chest pain or pressure. He had a little trouble with urination when he first started radiation therapy, but this seems to have returned to his baseline frequency with no dysuria or hematuria. The radiation could be contributing to his fatigue. We will check some labs and monitor this situation clinically. Assessment & Plan (07/28/2020 2:51 PM CDT): He has a relatively low risk prostate cancer that is being observed. A follow-up MRI is planned about one week before his scheduled left total knee joint replacement. It will be done with some sedation because he is claustrophobic. The patient wanted to know if this would interfere with the planned knee surgery, but I do not see any contraindication to having the MRI with some sedation a week before the surgery. Assessment & Plan (12/03/2019 2:46 PM CDT): He has a small localized prostate cancer which is monitored by Dr. Chávez. He reports no urinary symptoms of concern. Obstructive sleep apnea 09/24/2018 Overview (12/03/2019): Moderate, see home sleep study. CPAP was delivered, but he never used. It. Assessment & Plan (04/09/2023 5:01 PM CARE GIVER): He was prescribed CPAP, but never used it. He has a lot of daytime sleepiness bit does not believe that he has sleep apnea. He has poor sleep hygiene which we discussed today. We encouraged him to improve his sleep habits. We will see him back in six months. Assessment & Plan (08/26/2022 11:24 AM CDT): He had moderate sleep apnea on a home study about four years ago. CPAP equipment was delivered but he never used it because of intolerance. He has poor sleep hygiene which we discussed today. This could definitely contribute to his current level of fatigue. He is not interested in pursuing any treatment of sleep apnea at this time. Assessment & Plan (06/21/2021 8:37 AM CDT): He never started using CPAP. He says he is sleeping well. He sleeps for 4-5 hours a night, gets up and watches a little TV and works on the computer, then goes back to bed for couple of hours. This is not ideal but he does not think he has a sleep problem and is not interested in re-evaluating his possible need for CPAP.. Assessment & Plan (12/10/2020 6:46 PM CDT): I encouraged him to start using his CPAP. He told me an anecdote about a friend whose lungs were weakened by CPAP, but I told him I think this is spurious information. Assessment & Plan (11/07/2020 8:07 AM CDT): He has been experiencing a lot of fatigue. Some of this could be due to untreated sleep apnea. He has the machine and all the associated equipment, but he has never used it because he did not think it would work for him. He is up frequently at night to urinate and the logistics are just to difficult. I did encourage him to try using it to see if this would help his energy level. Follow-up in two weeks. Assessment & Plan (12/11/2019 2:25 PM CDT): He has moderate obstructive sleep apnea documented by a home sleep study about a year ago. CPAP was ordered, but he never started it. He does not think he could tolerate the mask. He has a lot of fatigue, and untreated sleep apnea could be contributing. I encouraged him to consider a follow-up with Dr. Ford to discuss options for treatment. He wants to decrease caffeine intake, take Benadryl, and lose some weight first. Other chronic pain 09/20/2018 Overview (04/28/2019): Chronic LBP pain and other joints. Assessment & Plan (06/21/2021 8:31 AM CDT): He has various chronic pains including in the right upper posterior neck which radiates into his right scalp area. This pain occurs intermittently and a muscle relaxer he has from a prescription two years ago does help. He would like some physical therapy to assess and treat this area. We will put in a referral. Primary osteoarthritis of left hip 09/26/2017 Overview (09/26/2017): Added automatically from request for surgery [id number] Chronic left-sided headaches 03/19/2017 Overview (03/19/2017): New onset 3 months - CT & neuro consult Chronic fatigue 03/10/2017 Assessment & Plan (10/02/2022 3:27 PM CDT): His energy level is much better. He is taking iron tablets which make him a little constipated, but which he is otherwise tolerating well. We are deferring any additional evaluation. Assessment & Plan (09/15/2022 3:30 PM CDT): He has fairly longstanding complaints of fatigue, but symptoms seem worse since he had a left prosthetic knee infection requiring a two stage replacement. Symptoms were much worse last week so he made this appointment. Today he feels a little better. He denies running a fever. He has some congestion in his throat. Bowel and urinary habits are basically normal except for decreased urinary stream since having radiation for prostate cancer. We explored his symptoms a little more. He has poor sleep hygiene, naps during the daytime, watches TV until he falls asleep at night, then wakes up and has trouble falling back asleep. He has a history of obstructive sleep apnea but did not tolerate CPAP. He is also up frequently to urinate. Other possible contributing factors include a moderate anemia postoperatively. He also saw his investigation manager at [facility], and a test of some kind was done which was n ormal. The patient's fatigue is probably multifactorial. We will check some follow-up labs. We will get the report from Cardiology. We discussed the importance of good sleep hygiene. He plans to follow-up with Urology regarding the nocturia. We will see him back in a month as scheduled. Assessment & Plan (06/21/2021 8:33 AM CDT): His energy level seems about the same. We have evaluated multiple possible etiologies of this complaint, the main one being untreated sleep apnea. He actually had CPAP equipment but never used it. Assessment & Plan (02/18/2021 3:03 PM CARE GIVER): His energy level has improved considerably. He probably had some side effects from radiation therapy for prostate cancer. We will monitor clinically. Assessment & Plan (12/10/2020 6:46 PM CDT): He finished his last radiation treatment for prostate cancer. He is starting to feel a little bit better, a little more energy. Hopefully this will improve over time. We will monitor clinically. Follow-up in January as scheduled, or sooner if needed. Assessment & Plan (11/06/2020 10:26 AM CDT): He has a history of fatigue which we have evaluated in the past, but it seems to be worse since he started radiation therapy for prostate cancer. He feels dizzy and lightheaded at times. He does not have the exercise tolerance he once had. Exam shows he is back in atrial fibrillation, confirmed by EKG. This could definitely be a factor. Will refer him to Cardiology. We will check some labs. Follow-up in two weeks. Assessment & Plan (12/03/2019 2:42 PM CDT): He continues to complain of a lot of fatigue. He just has no energy. We checked another round of labs, and everything is normal. We reviewed his risks for sleep apnea. He did have a sleep study at home about a year ago and was noted to have moderate sleep apnea. He actually got the machine but never used it. See discussion elsewhere. He says he will cut back on coffee, take some Benadryl to help him sleep at night, and try to lose some more weight to see if this helps his energy level. He asked about testosterone replacement for a low normal level, but it is contraindicated because of the recent diagnosis of prostate cancer. Assessment & Plan (11/19/2019 4:36 PM CDT): Pt notices fatigue after having his knee scoped about 5-6 weeks ago. We will do labs: CBC, CMP, TSH, Vit B12 to R/O anemias, deficiencies, and other lab abnormalities that may help us determine the cause of his fatigue. I have also advised a chest x-ray today to R/O heart/lung problems that could be contributing. There is no chest x-ray on file. He has not seen Dr. De Los Santos since March so I advise that he f/u with him in 10-14 days. Assessment & Plan (09/02/2018 3:10 PM CDT): He continues to complain of fatigue. About a year ago, we did a complete metabolic evaluation and did not find an explanation. He is scheduled for a sleep study next week to see if he might have sleep apnea. We will be in touch with him about the results. Assessment & Plan (11/24/2017 3:56 PM CDT): He was in the office a couple of months ago complaining of fatigue. We checked some follow-up labs which were all normal except for a borderline elevation of blood sugar. He subsequently had his left hip replaced and did well. He has had good pain relief. He had a mild postoperative anemia. He was unable to take the prescribed iron because of stomach upset and constipation. He continues to have fatigue and wonders if his anemia has worsened. We will check a follow-up CBC. Otherwise fatigue seems to be fairly nonspecific. He has a fairly sedentary lifestyle and maybe deconditioned. Sleep seems to be somewhat of an issue. He goes to bed at 9:00 p.m. and wakes up at 7:00 a.m. giving him 10 hr to sleep. However, he is up at least once a night because of nocturia, and then stays up for a couple of hours playing computer games before he falls back asleep. He also takes a nap at noon for about 30 min. He says he could fall asleep at any time. He does not want a referral to a sleep specialist. We will see him back in about three months or sooner as needed. Assessment & Plan (09/27/2017 9:35 PM CDT): He continues to complain of fatigue. Says it has been worse over the last six months or so. We have checked thyroid hormone and B12 in the past, and they were normal. Last B12 may have been on a slight trend downward, so we will check again. Also check a CBC because he is on blood thinners. We explored his sleep regimen. He sleeps at least 7 or 8 hr a night and wakes up feeling refreshed. He does have to get up several times during the night to urinate. His hip pain also interferes with sleep sometimes. He has always taken a short 15 or 20 min nap during the day, even when he was younger. This pattern is unchanged. It does not sound like he has a high risk for sleep apnea. He does admit to being under a lot of stress for his age. 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 This could be a factor in his fatigue. For now, we are checking labs as ordered. Depending on result, additional workup and/or referral may be needed. Gastroesophageal reflux disease without esophagi tis 01/03/2017 Assessment & Plan (07/01/2022 3:40 PM CDT): He takes famotidine as needed. Continue same. Assessment & Plan (01/14/2022 4:00 PM CARE GIVER): Patient has a hx of GERD and takes Pepcid 20mg daily. Assessment & Plan (12/19/2021 3:49 PM CDT): He has tried Pepcid and omeprazole. The Pepcid seems to work better when taken as needed which is every few days or so depending on his diet. We sent in some refills. Assessment & Plan (07/07/2020 2:15 PM CDT): Patient is reporting over the last 6 months he has had increasing mucus production. There is concern that this is GERD related given known history, increased caffeine intake and discontinuation of PPI. Patient encouraged to resume medication and avoid irritants for reflux as discussed in AVS. He is to call or return with any worsening or persistent symptoms. Assessment & Plan (12/03/2019 2:42 PM CDT): He gets occasional heartburn. He takes omeprazole. Continue same. Assessment & Plan (11/19/2019 4:30 PM CDT): GERD most likely brought on by taking Ibuprofen after his knee scope. Will give him omeprazole 20mg to take daily. Other GERD instructions as outlined on the GERD guidelines from patient education. Assessment & Plan (09/27/2017 9:34 PM CDT): He only takes omeprazole as needed. He finds that if he takes his other medicine with a little food, he does not need the medicine for acid reflux. Continue to monitor. Spinal stenosis of lumbar region 12/16/2016 Assessment & Plan (12/03/2019 2:46 PM CDT): He seems to be doing okay with his back pain. He staying active. Assessment & Plan (09/08/2017 4:41 PM CDT): He was planning to see a spine surgeon about his spinal stenosis, but the doctor was too busy, so he saw the nurse practitioner who evaluated the situation. Apparently his chance of improvement with surgery is around 50% or less. The patient says he will probably not pursue this option. Assessment & Plan (01/22/2017 2:20 PM CARE GIVER): He never got a call from the spine surgeon where we had sent his records. However he notes an improvement in the low back pain so that it is not quite is debilitating. Dr. Wagner may be able to help him with this problem as well if it flares up again. Vitamin D deficiency 04/10/2016 Assessment & Plan (10/15/2022 7:26 PM CDT): He will start taking vitamin D3 1000 units daily obtained OTC. Male erectile disorder 02/08/2016 Overview (02/08/2017): Improved with Viagra. Other intervertebral disc degeneration, lumbar r egion 09/01/2015 Lumbosacral spondylosis without myelopathy 08/31 Basal cell carcinoma (BCC) of upper back 016 Thrombocytopenia 01/18/2015 Overview (06/30/2022): Mild, transient/intermittent. Assessment & Plan (04/15/2023 11:29 AM CARE GIVER): We are monitoring a mild and intermittent thrombocytopenia which could be due to radiation of his prostate cancer. There is also a mild chronic decrease in his white blood cell count of unknown cause or significance. Lab Results Component Value Date WBC 3.7 (L) 04/04/2023 HGB 13.6 04/04/2023 HCT 39.9 04/04/2023 MCV 89.1 04/04/2023 LABPLAT 175 04/04/2023 Assessment & Plan (07/01/2022 3:43 PM CDT): He had a mild thrombocytopenia of unknown cause which resolved on follow-up testing. It might have been due to other illness at the time (multiple issues over the last couple of years). We will continue to monitor periodically. Lab Results Component Value Date WBC 5.0 06/14/2022 HGB 10.2 (L) 06/14/2022 HCT 33.0 (L) 06/14/2022 MCV 78.6 (L) 06/14/2022 LABPLAT 247 06/14/2022 Assessment & Plan (08/06/2020 10:38 AM CDT): He has had some mild thrombocytopenia in the past, which seems to be transient, possibly related to low B12 levels. We will check a follow-up as part of his preoperative labs. Assessment & Plan (02/23/2018 3:30 PM CARE GIVER): Platelet count in the hospital when last checked at the time of left hip replacement was normal. He was taking B12 for awhile, but no longer takes it. We will monitor labs periodically. Assessment & Plan (01/22/2017 2:21 PM CARE GIVER): This was noted on one of his blood counts, and as I recall his B12 level was also slightly low so we asked him to take a supplement which she takes irregularly. Things seem to be stable so we will continue to monitor. Paroxysmal atrial fibrillation 11/08/2014 Overview (12/03/2019): On Multaq and Xarelto. Assessment & Plan (05/10/2024 9:36 PM CARE GIVER): Chronic, controlled on Multaq and Xarelto at this time. Heart rate regular upon auscultation camejo, vitals stable. See plan for URI above. Assessment & Plan (04/12/2024 4:25 AM CARE GIVER): Chronic/intermittent, present for 10 or more years, controlled on dronedarone 400 mg daily (patient's idiosyncratic dosing), and rivaroxaban 20 mg daily, comanaged with Cardiology. Assessment & Plan (10/09/2023 3:30 PM CDT): Chronic, heart rhythm is irregular but rate is controlled. He is on Xarelto and Multaq. He will keep his follow ups with Dr. Lee. Assessment & Plan (04/09/2023 5:00 PM CARE GIVER): Heart rhythm is regular. He is on Multaq and Xarelto. He denies any bleeding complications in the stool or urine. Assessment & Plan (10/02/2022 3:29 PM CDT): He is on Xarelto and Multaq. Heart rhythm is a little irregular, so we could be in atrial fibrillation at this time but rate is controlled and he is otherwise asymptomatic. We will have him continue current therapy and follow-up in six months. Assessment & Plan (07/01/2022 3:41 PM CDT): Heart rhythm is regular. He is on Multaq and Xarelto. Continue same. Assessment & Plan (04/16/2022 10:49 AM CARE GIVER): He is on Multaq and Xarelto. Continue same. The Xarelto will be held for two days before reimplantation of his left knee. Assessment & Plan (01/30/2022 5:24 PM CARE GIVER): He remains on Multaq. We corrected the dose to reflect what the patient reports he is taking, namely 400 mg twice a day instead the non standard 400 mg daily he took previously. Assessment & Plan (01/14/2022 3:57 PM CARE GIVER): Patient has a hx of A-fib and on Xarelto. Currently withheld in the setting of left knee joint effusion and recent fall. Assessment & Plan (12/19/2021 3:50 PM CDT): He is on Multaq and Xarelto. He is not requiring anything for rate control. Continue same. Assessment & Plan (06/21/2021 8:30 AM CDT): Cardiac rhythm is regular. He reduced the dose of Multaq about two or three weeks ago to once a day instead of twice a day because he was worried about possible side effects. He will discuss this with his investigation manager when he sees him for a cardiac clearance to have his left knee replaced. Assessment & Plan (01/29/2021 4:14 PM CARE GIVER): Heart rhythm is currently regular. He is on Multaq and Xarelto. He followed up once with a investigation manager but did not do the testing that was recommended because he started to feel much better. We will see him back in six months. Assessment & Plan (11/24/2020 10:29 AM CDT): He saw Dr. Emanuel who thought the EKG done several weeks ago actually showed an ectopic atrial rhythm, not atrial fibrillation. Today his rhythm is regular on the higher dose of Multaq. Several tests are pending including nuclear stress, echo, and rhythm monitoring. He will get these done and follow-up with Dr. Emanuel. Assessment & Plan (11/07/2020 8:07 AM CDT): He has been fatigued lately. He wonders if he is back in atrial fibrillation, and exam and EKG confirm that he is. He has only been taking one Multaq a day instead of the two doses daily that is usually recommended. He has done this for years and until now it seemed to be working. We will refer him to Cardiology to consider alternative therapy or possibly cardioversion given his symptoms. Assessment & Plan (08/07/2020 12:30 PM CDT): Scanned office note, Dr. Zelaya, [facility]. Also in Care Everywhere. Assessment & Plan (08/06/2020 10:39 AM CDT): Heart rhythm is regular. He is on Multaq and Xarelto. He plans to see his investigation manager, Dr. Zelaya, sometime next week to get a cardiac clearance for his upcoming replacement. He says an EKG will be done in the cardiology office. I asked him to get us a copy. Assessment & Plan (12/03/2019 2:44 PM CDT): He is on Multaq and Xarelto. Heart rhythm is regular. Continue same including follow-up with Cardiology. Assessment & Plan (09/02/2018 3:05 PM CDT): Heart rhythm is a little irregular in the office today. He probably has a recurrence of atrial fibrillation. It comes and goes. He remains on Multaq and Xarelto. He follows up with Cardiology as well. Assessment & Plan (02/23/2018 3:29 PM CARE GIVER): There is a history of paroxysmal atrial fibrillation. The patient seems skeptical of this diagnosis but he is taking Multaq and Xarelto. Exam today shows a slightly irregular heart rhythm which in the past on EKG has been read as showing junctional rhythm with frequent premature supraventricular beats. He will follow up with Cardiology and continue current therapy. Assessment & Plan (09/27/2017 9:36 PM CDT): Heart rhythm is regular today. He actually had a Holter monitor not too long ago which showed a few short runs of SVT that were thought to be atrial tachycardia. There was no atrial fibrillation. He continues on Multaq and Xarelto from his investigation manager. Sometimes he cuts the Multaq dose down if he is taking Motrin for his hip, because he does not want his blood to be too thin. He will follow up with Cardiology for all of these issues. Assessment & Plan (02/02/2017 5:13 PM CARE GIVER): Recent Holter ordered by Dr. Montanez showed sinus with PACs and short runs of SVT, but no atrial fibrillation (24 hours). Patient will discuss this with Dr. Montanez. A 30 day event monitor may give a better picture of his burden of atrial fibrillation. Pulse in the office today is regular. Rate is under good control, we may be able to stop the anticoagulation and have more flexibility in treating his osteoarthritic pain. Currently he generally avoids nonsteroidals but does take an occasional Advil or Aleve. He has been told to avoid nonsteroidals because of the anticoagulation which might put him at risk for gastric bleeding. If he chooses to take nonsteroidals, taking the omeprazole might provide some protection. Chronic diastolic heart failure 11/08/2013 Overview (04/12/2024): >>OVERVIEW FOR ACUTE ON CHRONIC DIASTOLIC HEART FAILURE (CMS/HCC) ([facility]) WRITTEN ON 04/09/2023 4:51 PM BY IRENA REBOLLEDO MD Hospital diagnosis, entered during stay for cellulitis of the left thigh. >>OVERVIEW FOR DIASTOLIC DYSFUNCTION WRITTEN ON 04/12/2024 4:21 AM BY IRENA REBOLLEDO MD Overview: Grade 2 Assessment & Plan (04/12/2024 4:24 AM CARE GIVER): Chronic, present for 10 or more years, not currently requiring diuretic or other medical therapy. We will monitor on periodic followups. Assessment & Plan (04/12/2024 4:21 AM CARE GIVER): >>ASSESSMENT AND PLAN FOR DIASTOLIC DYSFUNCTION WRITTEN ON 12/07/2017 5:56 AM BY IRENA REBOLLEDO MD About four years ago, he had an echocardiogram that showed early stage diastolic dysfunction. He does have trouble with recurring swelling in his legs. It is usually present at the end of the day, and goes down at night when he has his legs elevated. He has poor exercise tolerance, but denies dyspnea on exertion. Cardiac exam is unremarkable. He does have trace edema in his legs. Diastolic dysfunction is a possible explanation or contributing factor to his complaints of fatigue. He sees his investigation manager, Dr. Montanez, in about a month or two, and will ask him about diastolic dysfunction as a possible cause or contributing factor to his symptoms. Assessment & Plan (04/12/2024 4:21 AM CARE GIVER): >>ASSESSMENT AND PLAN FOR DIASTOLIC DYSFUNCTION WRITTEN ON 02/23/2018 3:27 PM BY IRENA REBOLLEDO MD He seems to be doing well. Blood pressure is normal. Lungs are clear. Oxygen saturation is satisfactory. He has a investigation manager he sees regularly, Dr. Zelaya. Continue to monitor. Assessment & Plan (04/12/2024 4:21 AM CARE GIVER): >>ASSESSMENT AND PLAN FOR DIASTOLIC DYSFUNCTION WRITTEN ON 08/26/2022 11:23 AM BY IRENA REBOLLEDO MD He wonders if he could have some blockage somewhere. He denies having chest pain. He had a test of some kind recently in Cardiology which we are requesting. Apparently there is a history of diastolic dysfunction but I do not have immediate access to the echocardiogram. There is no clinical evidence at this time of decompensated diastolic heart failure. He will keep his follow ups with Cardiology. Assessment & Plan (04/09/2023 4:53 PM CARE GIVER): He has trace pretibial pitting edema. Lungs are clear in oxygenation is normal. He has not requiring any diuretic therapy at this time. We will monitor clinically. Assessment & Plan (04/03/2022 2:45 PM CARE GIVER): He seems to be clinically stable with no significant edema, no crackles in his lungs. Oxygen saturation is normal. We will monitor clinically without medication. Primary osteoarthritis involving multiple joints 07/08/2012 Assessment & Plan (04/12/2024 4:26 AM CARE GIVER): Chronic, present for 10 or more years, uncontrolled but managed with acetaminophen 500-1000 mg every 8 hours as needed. Assessment & Plan (10/09/2023 3:31 PM CDT): Chronic, fair to poor control. He sometimes resorts to Motrin to control symptoms, which I advised against due to also being on Xarelto. He will try Tylenol instead. Assessment & Plan (12/19/2021 3:51 PM CDT): He seems to be getting along pretty well. He had his left knee replaced in July of this year, and his left hip about four years ago. There is a little more swelling in his left leg than the right, but everything else seems in good shape. Assessment & Plan (02/18/2021 3:01 PM CARE GIVER): He continues to have various aches and pains, currently in the right shoulder where he has a longstanding rotator cuff injury, and left knee which gets stiff if he walks too much. He wanted to know about surgery on either of these joints. This would depend on the level of disability and pain. He will keep his follow ups with orthopedics. Assessment & Plan (12/11/2019 2:26 PM CDT): He has had lot of trouble with various joint pains, most recently the left knee which required an arthroscopy for a damaged cartilage. It took him quite a while to get over this procedure but he is finally doing better. For awhile he took a lot of ibuprofen but stopped taking it about two weeks ago. He is trying to stay active. Weight loss would help his joints. Assessment & Plan (02/23/2018 3:30 PM CARE GIVER): He continues to have problems with aches and pains here and there. He did have a very good result left hip replacement recently. He stays active with swimming and other activities. Varicose veins of both lower extremities with pa in 08/08/2006 Overview (06/14/2016): Varicose veins Assessment & Plan (12/19/2021 3:53 PM CDT): He has bilateral lower leg varicose veins which pop out when he stands up. They are otherwise asymptomatic and he wondered if he should get them fixed. Years ago he had a procedure, but since his current veins are asymptomatic I recommended that we simply monitor clinically. Assessment & Plan (09/08/2018 3:33 PM CDT): He has varicose veins in both lower legs with some discomfort. He also feels they are ugly looking. There are no complications such as venous stasis ulcers, but he does have swelling during the daytime that resolves overnight. Many years ago, he had a procedure on some of the varicose veins. We will refer back to vascular surgery for evaluation of possible vein stripping or other procedure. Mixed hyperlipidemia 07/08/2006 Overview (08/02/2016): Hyperlipidemia Assessment & Plan (10/09/2023 3:30 PM CDT): Chronic, uncontrolled. Mostly HDL is low, and triglycerides are slightly elevated. He enjoys his sweets. He had an episode of chest pain recently that was evaluated by his investigation manager at [facility], Dr. Lee. It was felt to be noncardiac. He will continue current therapy and try to improve his diet. Lab Results Component Value Date CHOL 200 (H) 10/03/2023 CHOL 198 06/14/2022 CHOL 223 (H) 08/24/2018 Lab Results Component Value Date HDL 37 (L) 10/03/2023 HDL 52 06/14/2022 HDL 33 (L) 08/24/2018 Lab Results Component Value Date LDLCALC 128 10/03/2023 LDLCALC 123 06/14/2022 LDLCALC 141 (H) 08/24/2018 LDL 142 (H) 09/12/2017 LDL 167 (H) 11/22/2015 Lab Results Component Value Date TRIG 176 (H) 10/03/2023 TRIG 113 06/14/2022 TRIG 244 (H) 08/24/2018 Lab Results Component Value Date ALT 10 10/03/2023 AST 16 10/03/2023 ALKPHOS 68 10/03/2023 BILITOT 0.7 10/03/2023 Assessment & Plan (04/09/2023 4:58 PM CARE GIVER): He does not take anything for cholesterol at this time. We recommended attention to his diet. We will check lipids before his next visit in six months. Assessment & Plan (07/01/2022 3:41 PM CDT): He is not currently taking anything for cholesterol. We will review again at his next office visit in three months. Lab Results Component Value Date CHOL 198 06/14/2022 CHOL 223 (H) 08/24/2018 CHOL 214 (H) 09/12/2017 Lab Results Component Value Date HDL 52 06/14/2022 HDL 33 (L) 08/24/2018 HDL 33 (L) 09/12/2017 Lab Results Component Value Date LDLCALC 123 06/14/2022 LDLCALC 141 (H) 08/24/2018 LDL 142 (H) 09/12/2017 LDL 167 (H) 11/22/2015 Lab Results Component Value Date TRIG 113 06/14/2022 TRIG 244 (H) 08/24/2018 TRIG 255 (H) 09/12/2017 Assessment & Plan (12/19/2021 3:50 PM CDT): He is not taking anything for cholesterol right now and would like to check his lipids before his next visit in six months. Assessment & Plan (06/18/2021 11:31 AM CDT): He is not currently taking anything for his cholesterol. He does not like taking medications, especially with those with possible side effects on the liver. We will check a follow-up lipid profile before his next in about six months. This will give him feedback on his diet. Assessment & Plan (01/29/2021 4:10 PM CARE GIVER): He is not currently taking anything for cholesterol. We will check his lipids before his next visit and reconsider therapy. Assessment & Plan (12/03/2019 2:43 PM CDT): He has moderate cholesterol abnormalities which probably reflect his diet. He is not currently taking any medication for cholesterol. We have discussed this in the past. He will work on his diet. Assessment & Plan (09/08/2018 3:32 PM CDT): His cholesterol numbers are not the greatest. He realizes he has to eat better and lose some weight and is working on that. For awhile, he was taking statin medication, initially simvastatin and then resuvastatin. Nothing is currently on his medication list in this regard. Consider resuming cholesterol medicine. Assessment & Plan (02/23/2018 3:27 PM CARE GIVER): He decided to stop taking cholesterol medicine awhile back. His most recent cholesterol panel about six months ago was somewhat unfavorable. We discussed cardiovascular risk. He wants to work on his diet and check it again before his next visit in six months. Assessment & Plan (09/08/2017 4:34 PM CDT): He is on a low-dose of generic Crestor. He seems to be tolerating it reasonably well, but needs a refill. We will check for samples, if no samples are available, we will send in a prescription. Assessment & Plan (01/22/2017 2:16 PM CARE GIVER): He is tolerating his medication without apparent side effects. We will continue the same and monitor labs periodically when appropriate. Idiopathic chronic gout of multiple sites alfie ponce 08[birth year]08/1998 Overview (06/14/2016): Gout Assessment & Plan (12/11/2019 2:23 PM CDT): He is on allopurinol. Uric acid levels still run a little high but he has had no gouty attacks recently. Continue to monitor clinically. Assessment & Plan (11/19/2019 4:36 PM CDT): Pt requesting uric acid level along with his other labs as he states he has not been taking his allopurinol. Last uric acid WNL at 7.3 in August 2018. Assessment & Plan (09/02/2018 3:01 PM CDT): He has not taken gout medicine for over a year now, he has not had a flare of gout. Uric acid is actually improved from about a year ago. He is trying to eat better. Continue same. Assessment & Plan (09/08/2017 4:33 PM CDT): For awhile, he was taking allopurinol, but his sister in [place] told him it was bad for his liver, so he stopped taking it. He has not had a flare of gout. Typically it will show up first in his hands, sometimes in his feet. Exam today is unremarkable. We will check a follow-up uric acid. Consider resuming allopurinol if he is willing to take it. Assessment & Plan (01/22/2017 1:59 PM CARE GIVER): No new attacks of gout while on allopurinol. Resolved Problems Problem Noted Date Diagnosed Date Resolved Date Rectal bleeding 05/30/2023 12/12/2023 Chronic infection of left knee 04/08/2023 04/12/2024 Overview (04/12/2024): Resolved after two stage replacement of prosthetic joint. Assessment & Plan (04/09/2023 4:53 PM CARE GIVER): There is no evidence of any relapse of the left prosthetic knee infection following two-stage replacement. He is thinking of going back to [place] to swim, and I think this would be fine. Intractable left heel pain 02/03/2023 1 Assessment & Plan (04/15/2023 11:25 AM CARE GIVER): He seems to be doing well with regard to most pain complaints, including left heel pain. However, his right wrist carpometacarpal joints flare up from time to time. He presumes it is due to gout. When it happens, he eats cherries which he says makes the problem go away. Assessment & Plan (02/20/2023 1:35 PM CARE GIVER): He notes a sharp pain in his left heel, mostly at nighttime. It is intermittent. It interferes with sleep. Exam is unremarkable. There is a history of plantar fasciitis in the past, but details are lacking. This is a possible consideration for the current pain. Neuropathy is a consideration. He has relatively flat feet. We recommended that he get good shoe inserts to see if this helps alleviate the discomfort. He does not want a referral or other investigation at this time. He wants to try the shoe inserts first. Follow-up as currently scheduled in about six weeks. Influenza B 12/10/2022 04/08/2023 Overview (04/08/2023): Saw HERON Ferris, Tamiflu Rx. Assessment & Plan (12/24/2022 8:22 AM CDT): Patient presents with cough, sneezing, runny nose, mild aches and chills x 3 days. Has recently returned from a trip to [place]. No acute findings on exam today. Patient is positive for Influenza B in office today. Rx for Tamiflu x 5 days, tessalon perles every 8 hours as needed for cough. Patient to call or follow-up as needed if symptoms do not improve. Orthostatic hypotension 07/27/2022 10/0 06/2023 Assessment & Plan (08/18/2022 5:26 PM CDT): See office BP readings. Infection of total left knee replacement, subsequent encounter 04/10/2022 06/30/2022 Overview (06/30/2022): Orthopedics, Dr. Hoffman. 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 Assessment & Plan (04/03/2022 2:46 PM CARE GIVER): Surgery to reimplant his left knee is planned for next week. He sees Dr. Hoffman tomorrow for a preoperative evaluation. 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 Assessment & Plan (04/03/2022 2:47 PM CARE GIVER): He had explantation of the infected joint prosthesis followed by six weeks of ceftriaxone which was discontinued last week. Sedimentation rate and CRP are still mildly elevated but definitely improved. He has moderate pain with weight- bearing and movement of the left knee which is not surprising. There is also some persistent warmth and redness surrounding the knee, but no definite joint effusion. He sees Dr. Hoffman for further evaluation tomorrow. Lab Results Component Value Date SEDRATE 37 (H) 04/03/2022 Lab Results Component Value Date CRP 15.6 (H) 04/03/2022 Lab Results Component Value Date WBC 3.6 (L) 04/03/2022 HGB 13.2 04/03/2022 HCT 38.7 (L) 04/03/2022 MCV 86.8 04/03/2022 LABPLAT 271 04/03/2022 Lab Results Component Value Date GLUCOSE 114 04/03/2022 CALCIUM 9.4 04/03/2022 SODIUM 137 04/03/2022 POTASSIUM 4.4 04/03/2022 CO2 26 04/03/2022 CHLORIDE 101 04/03/2022 BUNSER 15 04/03/2022 CREATININE 1.12 04/03/2022 Antibiotic-associated diarrhea 01/22/2022 06/30/2022 Overview (06/30/2022): Omnicef and Clinda, clinda stopped. Penicillin started. Diarrhea resolved. Assessment & Plan (01/30/2022 5:23 PM CARE GIVER): His diarrhea has improved significantly. He has two more days of Omnicef. We are extending his antibiotics, but with a more narrow spectrum antibiotic, namely penicillin to cover the Strep dysgalactiae that was in his blood and could possibly have infected his left prosthetic knee. Hypophosphatemia 01/16/2022 06/30/2022 Overview (06/30/2022): During hospitalization for cellulitis and sepsis. Cellulitis of left knee 01/15/202206/09 Overview (06/30/2022): See hospital and office records. Assessment & Plan (01/19/2022 3:49 PM CARE GIVER): The cellulitis involved much of the left leg including the area over the knee. He does have a moderate apparent left knee effusion, but CT of the knee (replaced about 6 months ago) did not show any evidence of definite acute infection. He is ambulating with mild discomfort using a cane. We will continue his antibiotics. We hope that he has not seeded the prosthetic joint. We will see him back early as needed. Bacteremia 01/14/2022 06/30/2022 Overview (01/29/2022): Strep dysgalactiae due to left leg cellulitis. Assessment & Plan (01/19/2022 3:48 PM CARE GIVER): He was hospitalized recently for a streptococcal bacteremia. The presumed source was left leg cellulitis. Only one of four blood cultures was positive (have not been finalized). He was treated with IV antibiotics in the hospital and is now on Omnicef and clindamycin. He denies having fever. The swelling and discomfort in the left leg is improving and shows considerable clinical improvement compared to my evaluation about five days ago. We will see him back in 1-2 weeks if he does not get back to his baseline. Assessment & Plan (01/15/2022 3:32 PM CARE GIVER): Blood cultures from 01/12 now growing strep dysgalactiae with repeat blood cultures pending. - On Cefepime and vancomycin (01/13- Post-procedural fever 01/13/20222022 Overview (06/30/2022): Cellulitis of left leg resulting in sepsis and infection of left knee replacement. Assessment & Plan (01/13/2022 6:48 PM CARE GIVER): I was called by the patient's son at 14:15 p.m. (same name) who reported that the patient was not well. He was in the ER yesterday evening. He was thought to be behind on fluids. Admission was recommended but the patient refused. He had an injection of some kind in the eye (I believe the right side) the previous day. He had been extremely nervous about the procedure, but got through it with some Xanax prescribed for that purpose. Otherwise symptoms were reported as fairly nonspecific, just extreme weakness, being unable to get out of bed to use the bathroom, being lethargic and not communicating well. I went to the patient's home and arrived there at 15:00 p.m. BP was 106/60, P 75 and slightly irregular. Temperature was 102 F. Respirations were unlabored without tachypnea. He was oriented to person and place only. He followed simple commands and no focal deficits were noted on exam, although he seemed generally and diffusely lethargic. He denied headache, chest pain, shortness of breath, abdominal pain or other symptoms of concern. He had slight difficulty opening his right eye, but there was no swelling, redness or discharge from either eye. Pupils appeared equal, and gaze was conjugate. There was no tenderness with neck movement. Lungs were clear. Heart rhythm was slightly irregular (history of Afib) and no murmur was audible. Bowels sounds were normal, and there was no tenderness on palpation. There was 2+ symmetrical pitting edema in the distal lower extremities. There was mild hypoperfusion of the ands (cool to touch), but no cyanosis. I advised the patient's son that the patient could be septic and evaluation in the ER was recommended. He planned to call an ambulance. I left the home at 15:20 p.m. Delirium 01/13/2022 06/30/2022 Assessment & Plan (01/18/2022 5:10 PM CARE GIVER): When I assessed him five days ago at his home, he was markedly confused, more properly encephalopathic then delirious. He improved rapidly with treatment in the hospital and seems back to normal. Assessment & Plan (01/13/2022 6:49 PM CARE GIVER): Probably due to fever and suspected sepsis. Cellulitis of left thigh 01/13/2022 Overview (06/30/2022): See hospital records, [facility]. Assessment & Plan (01/18/2022 5:09 PM CARE GIVER): He says the cellulitis started on his lower leg and spread up to the thigh. On exam, most of the left leg shows significant improvement with minimal warmth still noted over the knee joint and some redness over the anterior thigh but no areas of significant induration, and no ulcers or drainage. He has about another week of antibiotics. We will see him back early as needed. Assessment & Plan (01/15/2022 3:33 PM CARE GIVER): Patient currently has a left knee that is erythematous, swollen and tender concerning for cellulitis s/p left TKA by Dr. Hoffman in July of this year. - started on cefepime 1g IV Q8 hrs and vancomycin 1,750 mg Q12 hours - Ortho consulted and recommended plan to monitor the patient on continued IV antibiotics, may consider an aspiration shall his symptoms fail to improve. Difficult to determine if this is an acute hemarthrosis versus septic TKA. In the setting of his overlying cellulitis, there is a risk of introducing bacteria into the knee via aspiration if it is not already septic. - Patient continues to improve and will transition to oral abx tomorrow. Dehydration 01/13/2022 12/12/2023 Assessment & Plan (08/18/2022 5:24 PM CDT): He was feeling dehydrated. The visiting nurse documented orthostatic changes in blood pressure so he was referred to the emergency room where he was evaluated, treated and released. He admits to avoiding fluids, especially later in the day due to nocturia x4 if he drinks too much. Other contributions to orthostatic change in blood pressure and pulse probably include Flomax which he takes for his prostate. He is also weak and deconditioned from a recent two-stage left knee replacement for infection. He was laid up for long period of time, so vascular reflexes are probably somewhat compromised. Having said all that, currently he seems to be doing well. Orthostatic blood pressure readings in the office today show no significant change from lying to sitting to standing. We encouraged him to stay hydrated, stay active to improve his generalized weakness and deconditioning, and to return as needed if he thinks he is getting dehydrated. Assessment & Plan (01/30/2022 5:23 PM CARE GIVER): He has been drinking fluid and is making plenty of urine. Blood pressure is in a better range. Assessment & Plan (01/29/2022 5:54 AM CARE GIVER): He called the office today. He has been feeling very weak, and has no energy. No fever. He is getting over a left leg cellulitis with bacteremia. Appetite has been poor. He has intermittent loose stools and firm stools but no abdominal pain. Exam is fairly unremarkable except for significant orthostatic drop in his blood pressure. Labs done at the hospital today are unremarkable. He is probably significantly behind on his fluids. He does not want to go to the ER for IV hydration. We advised him to drink 8-12 oz of fluid every 1-2 hours over the next 24 hours while awake. Goal is to drink about 1.5 gal of fluid over the next 24 hours. We will check on him by phone tomorrow. In the meantime, if he gets worse, he should go to the emergency room. COVID-19 11/01/2021 06/30/2022 Overview (06/30/2022): Moderate symptoms, positive home test, MAB ordered. Exhaustion 11/15/2020 01/18/2022 Overview (01/18/2022): Multifactorial, saw cardiology, Dr. Emanuel. Assessment & Plan (11/15/2020 10:55 AM CDT): Patient's exhaustion is likely multifactorial including his recent need for radiation, potentially some underlying diastolic CHF, possible paroxysmal atrial fibrillation with persistent recurrence, sleep apnea, deconditioning. A plan to further investigate this with event monitoring looking for evidence for recurrence of PAF. Upon my review of his electrocardiogram in October this was not atrial fibrillation but ectopic atrial rhythm. I do agree with the b.i.d. dosing of Multaq as Multaq is not intended to be a once a day med. It is not clear to me why he is on Xarelto 15 mg per day. Would appear his dosing regimen should be 20 mg daily. I plan to further investigate his filling pressures with echocardiography and proBNP value. Because of his exertional symptoms I have also suggested Cardiolite treadmill stress testing. I will see him in follow-up to discuss those results and establish plan of care. Obesity due to excess calories 11/15/2020 06/17/2021 Overview (06/17/2021): Duplicate entry. Assessment & Plan (11/15/2020 10:53 AM CDT): In light of the patient's history of atrial fibrillation and obesity would be reasonable to consider further evaluation for RADHA. Acute gout involving toe of left foot 11/14/2020 12/12/2023 Overview (11/24/2020): Resolved with colchicine. Assessment & Plan (12/10/2020 6:45 PM CDT): We sent in a refill of colchicine which he requested. Orthopedic aftercare 10/18/2019 020 Overview (12/03/2019): See office notes. Acute medial meniscus tear of left knee 09/28/2019 12/03/2019 Overview (12/03/2019): Added automatically from request for surgery [id number], arthroscopy 10/08/2019, Dr. Hoffman, [facility]. Internal derangement of left knee 09/28/2019 12/03/2019 Overview (12/03/2019): Added automatically from request for surgery [id number], arthroscopy 10/08/2019. Acute gout of knee 03/08/2019 0 Overview (12/03/2019): See office note. Assessment & Plan (03/27/2019 3:18 PM CARE GIVER): He has a history of gout, but has not had an attack for quite a while. He had some colchicine from prior prescriptions which he discarded a couple of months ago because he figured it was out of date. About 2 weeks ago, he called the office and requested a refill of allopurinol. It's a little unclear if he was having left knee at that time, or if it developed later. There is no history of fever or injury to the knee. He says he has never had problems with his knees before. His pain persists despite is use of ibuprofen. He would like to try colchicine. We sent in a prescription for acute use. If he does not have a response, we will most likely give him some steroids. Acute pain of left knee 03/08/201911/09 Overview (12/03/2019): Sudden onset of pain and swelling in left knee, no fever. Treated empirically as gout, see office note. Assessment & Plan (03/27/2019 3:20 PM CARE GIVER): He denies any history of knee pain prior to this episode in his left knee starting around the New Year. The pain was sudden in onset in that when he woke up in the morning, he could barely stand on it. It is not improved with Motrin. He is not running a fever. There is no history of injury. Exam shows no evidence of inflammatory change in either knee. The knees are stable. There is no palpable effusion. We discussed the differential diagnosis which includes gout (see discussion elsewhere), degenerative joint disease, septic arthritis, and possibly others. I think the most likely diagnosis is gout. We are trying colchicine first. If that doesn't help, we will give him a course of steroids if this is okay with his orthopedic surgeon, Dr. Schneider. His right shoulder is due for surgery soon, so the steroids might delay intervention on the shoulder. He will call tomorrow with results of colchicine therapy. We will consider imaging, referral for arthrocentesis, or other intervention. Nontraumatic complete tear o f right rotator cuff 02/26/2019 12/12/2023 Overview (02/27/2019): IMPRESSION: 1. Large, full-thickness right rotator cuff tear involving the the entire supraspinatus and infraspinatus tendons, with a smaller subcentimeter subscapularis tendon tear anteriorly. 2. Moderate right subacromial/subdeltoid bursitis. Radiculopathy of lumbosacral region 09/20/2018 12/12/2023 Left shoulder tendonitis 09/20/201806/2023 Assessment & Plan (01/28/2019 2:16 PM CARE GIVER): The left superior trapezius/supraspinatus area has been bothering him for the last 1-2 weeks. He says it feels tight. It is somewhat painful. This, along with his chronic right upper arm pain is suggestive of possible disc disease. Other etiologies are possible such as tendinitis or myositis. We will have him follow up with Dr. Wagner for further evaluation of his pain complaints. Right arm pain 01/08/2018 12/12/2023 Overview (02/27/2019): Likely due to rotator cuff tear and subacromial bursitis, see MRI report. Assessment & Plan (01/28/2019 2:15 PM CARE GIVER): He has had pain in his right upper arm for about a year now. He first came by the office in March of this year with this complaint. We did an x-ray of the shoulder and the arm which showed no abnormality. The pain localizes to the mid to distal humerus, biceps and triceps, mostly lateral aspect. The patient was referred to Dr. Wagner for this symptom. He had a couple injections in or around the shoulder which he says helped a little bit, but the pain persists. Now he is also having left supraspinatus/superior trapezius pain in the last couple of weeks. Symptoms are somewhat suggestive of a possible disc problem with referred pain. Otherwise, I do not have a good explanation for the localized pain in his right upper arm. It could be due to overuse. We will try some topical capsaicin cream. We will get a CT of his neck to evaluate for disc disease (he is very claustrophobic and can't have an MRI). We recommend he go back and see Dr. Wagner for further evaluation and treatment. Return here as scheduled in March or sooner as needed. Assessment & Plan (03/26/2018 9:46 AM CARE GIVER): For a couple of months or more he has had a discomfort in the right upper arm. It seems to localize mostly around the mid to distal humerus, biceps and triceps. He does have some discomfort in his shoulder with certain movements, especially external rotation of the shoulder. He seems to have full range of motion for his age with some limitation probably based on degenerative changes, especially in external rotation. Both shoulders and arms are similar in passive and active range of motion and in size. He has a good right radial artery pulse. Left radial artery pulses not detected, but left ulnar pulse is 1+ or 2+. We will get a baseline x-ray of his shoulder and arm. He does swim a lot, so I recommended a couple weeks of rest for possible overuse syndrome. Consider referral to Pain Management for a shoulder injection if indicated. Aftercare following left hip joint replacement surgery 10/26/2017 03/08/2019 Osteoarthritis of left hip 01/08/2017 1 04/26/2017 Overview (02/23/2018): S/P left THR. Dr. Hoffman [facility]. Assessment & Plan (09/08/2017 4:40 PM CDT): He has radiographically severe osteoarthritis in his left hip. He has quite a bit of pain there as well, and takes Motrin fairly frequently in order to function. He wanted advice about possibly having a hip replacement. It sounds like he may be a good candidate because the pain really does interfere with his activities and even his sleep. He says he will start looking for a surgeon that may be able to help him with this issue. Assessment & Plan (02/02/2017 5:14 PM CARE GIVER): This is his main concern at this time. It really impairs his quality of life. He has trouble getting his left sock and shoe on. Right now it is not so bad, but there are times when pain is quite severe, and he resorts to an [id number] nonsteroidal. Recent x-ray showed severe osteoarthritis of the left hip. We will refer to physical therapy and also to Dr. Wagner. A local injection may be helpful. Ultimately, joint replacement may be necessary but we should try to delay that if possible. Elevated prostate specific antigen (PSA) 04/10/2016 11/06/2020 Overview (03/08/2019): Elevated PSA, referred to urology, Dr. Kolton Jamison in 2017, Dr. Chávez in 2019. Localized Ca diagnosed 11/2018. Assessment & Plan (09/02/2018 3:00 PM CDT): About 18 months ago, a a PSA was mildly elevated at 4.9, and he followed up with Dr. Kolton Jamison. No further procedures were performed. He had another rectal exam about a year ago in Dr. Jamison's office he thinks. Today, prostate is moderately enlarged and quite firm. The median raphae is obliterated. There may be a nodule. He does not have any new prostate symptoms. We will check a follow-up PSA and if higher than before, refer to Dr. Jamison for re-evaluation. Assessment & Plan (09/08/2017 4:31 PM CDT): This is being followed by Dr. Ulises Jamison. The patient denies having any new urinary symptoms of concern. PSA has been stable, only minimally elevated. He will continue follow-up with Urology. Skin neoplasm 07/04/2015 12/12/2023 Increased frequency of urination 08/08/2014 12/12/2023 Overview (06/14/2016): Urinary frequency Assessment & Plan (11/06/2020 10:24 AM CDT): He has urinary frequency. Dr. Khan started him on oxybutynin, but the patient read about the side effects and decided not to take it. He said the difficulty he was having with urination when he first started prostate cancer radiation has resolved and he is back to his usual nocturia times 3-4 as well as daytime frequency. He does take one tamsulosin a day. Dependent edema 08/08/2014 12/12/2023 Overview (06/14/2016): Dependent edema Pain in testicle 12/31/2011 03/08/2019 Overview (03/08/2019): Details lacking. Acute midline low back pain without sciatica 6 12/12/2023 Overview (06/19/2022): Low back pain, chronic. Acute flare after fall at home June 2022. Assessment & Plan (10/09/2023 3:28 PM CDT): Acute problem, ongoing. He has periodic flares of lower back pain including recently when he overdid it in the swimming pool. He denies radiation of the pain into his legs. Symptoms improved by taking ibuprofen which I cautioned against due to being on Xarelto. Tylenol would be safer. We also suggested a trial of nighttime Flexeril which he has at home from prior prescriptions. Straight leg raise is negative. Gait is normal. We ordered physical therapy to facilitate additional improvement. Assessment & Plan (06/21/2022 3:12 PM CDT): There is no tenderness over the spine at this time. Imaging findings are discussed elsewhere. Assessment & Plan (06/29/2022 10:26 AM CDT): He fell in his driveway on 06/11/2022. He went to the ER because of pain. CT showed disc bulging at L4-5 which could be chronic. There was some moderate to severe foraminal narrowing and some spinal canal stenosis. Other levels looked okay. He saw HERON Manzanares yesterday and was given a muscle relaxer and a Medrol Dosepak. His pain remains very severe. He says it radiates from the lower back up into his midback along both sides of the spine. He denies any change in bowel or urinary habits such as retention or incontinence. He is a little constipated from the oxycodone prescribed by orthopedics for his left knee replacement so he has not been taking it regularly. He does not think the muscle relaxer is helping his pain. On exam, he has a mildly antalgic gait. Strength is normal in both legs. There is no subjective or overt objective sensory deficit. He seems relatively mobile and states he did take oxycodone before coming to the office with some relief of pain. I reviewed the ER record including personally reviewing the CT scan and comparing it to a CT abdomen and pelvis from about two years ago. The patient has severe pain. It is unbearable at times, but he has not been taking oxycodone because it makes him constipated. I suggested that he could take the oxycodone more regularly since it did provide him with pain relief. He could counteract the constipation with MiraLax. We added gabapentin to hopefully modulate his pain. We will check a blood count to see if there is undetected soft tissue bleeding (he is on Xarelto). We discussed getting an MRI which will probably be needed if his pain persists. We will arrange for follow-up with pain management. Return here in one week, or sooner if needed. Assessment & Plan (06/12/2022 9:20 AM CDT): Chronic problem, recently exacerbated due to fall See assessment and plan for fall Obesity (BMI 30-39.9) 11/08/19842024 Overview (06/14/2016): Obesity Assessment & Plan (04/09/2023 4:59 PM CARE GIVER): He struggles with his weight. He eats supper early and then feels hungry in the middle of the night so he gets up and eats again. He has poor sleep hygiene, see discussion elsewhere. We discussed options for improving sleep, but after reviewing risks versus benefits of various medications, he decided to stick with Benadryl which he uses at night as needed. Assessment & Plan (02/20/2023 1:37 PM CARE GIVER): He would like to lose some weight. However, he has a sweet tooth and is constantly hungry. He wondered about trying one of the GLP-1 agonists. I think lifestyle changes would be our first recommendations so he will give that a try and we will discuss possible medical aids to weight loss at his next visit in about six weeks. Assessment & Plan (01/14/2022 3:56 PM CARE GIVER): Patient BMI of 32.83. Assessment & Plan (12/19/2021 3:50 PM CDT): We encouraged attention to his diet, and hopefully some weight loss. Assessment & Plan (06/21/2021 8:31 AM CDT): I urged attention to his diet, and hopefully some weight loss. Assessment & Plan (01/29/2021 4:10 PM CARE GIVER): We encouraged attention to his diet, and hopefully a little bit of weight loss. Assessment & Plan (11/06/2020 10:21 AM CDT): He has reformed his eating habits and has lost about 10 lb. Hopefully this will help some of his nonspecific symptoms including fatigue. Assessment & Plan (12/03/2019 2:43 PM CDT): He has lost few lb and plans to continue efforts. I think this will help his joints a lot, and may also help his sleep apnea. Assessment & Plan (01/22/2017 2:17 PM CARE GIVER): Weight loss could help some of his other issues, especially the pain he has from spinal stenosis and left hip osteoarthritis. He is down a few pounds, and he will continue efforts in this regard. Sepsis due to Streptococcus species without acute organ dysfunction 01/29/2022 06/30/2022 Overview (06/30/2022): See hospital records, [facility]. Assessment & Plan (01/30/2022 5:27 PM CARE GIVER): One of several lood cultures was positive for Strep dysgalactiae. Follow-up blood cultures on antibiotics were negative. There is concern for his left prosthetic knee which has exhibited some warmth and swelling. See discussion elsewhere. Assessment & Plan (01/18/2022 5:11 PM CARE GIVER): He was septic, but organ function remained normal with good urine output. He denies any significant new symptoms now except for infrequent loose stools which could be antibiotic associated as opposed to C diff. There is no cramping or blood in the stools. We suggested a trial of a bulk fiber laxative to absorb some of the fluid. If things do not improve, he will need some testing or empiric treatment for C diff. Immunizations Immunization Administration Dates Next Due Influenza, Quad, Adjuvantate d, Intramuscular 12/12/2019 Influenza, Quadrivalent, Hig h Dose, Preservative Free, Intrr 12/19/2021,12/09/2020 Influenza, Quadrivalent, Spl it, Preservative Free, Intramuscular 01/05/2015,01/05/2015 Influenza, Trivalent, High D ose, Split, Preservative Free, Intramuscular 11/12/2023,12/10/2018,12/12/2017,12/11,03/05/2016 Influenza, Trivalent, IM (MDV) 12/13/2013,2012 Influenza, Unspecified 01/02/2023(Deferr ed: Patient Refused),12/18/2022(Deferred: Patient Refused),03/06/2016,03/06/2016, 014,12/13/2013 Pfizer SARS-CoV-2 Monovalent Vaccination (12+ Yrs) PURPLE 11/01/2020,05/03/2020,04/12/2020 Pneumococcal Conjugate PCV 13 01/13/2015, 015 Pneumococcal Polysaccharide PPV23 03/10/2011,03/2011 RSV, Bivalent, Protein Subun it Rsvpref, Diluent (Abrysvo) 10/15/2023 TD Preservative Free 10/29/2023 ZOSTER LIVE 01/08/2012 ZOSTER Recombinant 03/24/2017,03/24/2017 Social History Tobacco Use Types Packs/Day Years Used Date Smoking Tobacco: Never Smokeless Tobacco: Never Tobacco Cessation:Counseling Given: Not Answered Alcohol Use Standard Drinks/Week Comments Yes 0 (1 standard drink = 0.6 oz pur e alcohol) Rarely OASIS D0700: Social Isolation Answer Da te Recorded Frequency of experiencing loneliness or isolatio n Never 04/26/2022 OASIS A1250: Transportation Answer Date Recorded Lack of Transportation (Medical) No 04/26/2022 Lack of Transportation (Non-Medical) No 04/26/2022 Patient Unable or Declines to Respond No 04/26/2022 OASIS B1300: Health Literacy Answer Ar e Recorded Frequency of needing help to read materials from doctor or pharmacy Never 04/26/2022 Social Connection and Isolat ion Panel [NHANES] Answer Date Recorded In a typical week, how many times do you talk on the phone with family, friends, or neighbors? More than three times a week 02/06/2022 How often do you get togethe r with friends or relatives? More than three times a week 02/06/2022 Attends Congregation Services Not on file 02/06 Do you belong to any clubs o r organizations such as mormonism groups, unions, fraternal or athletic groups, or school groups? No 02/06/2022 How often do you attend meet ings of the clubs or organizations you belong to? Never 02/06/2022 Are you , , di vorced, , never , or living with a partner? 02/06/2022 AUDIT-C Answer Date Recorded Q1: How often do you have a drink containing alc ohol? Monthly or less 06/24/2023 Average Number of Drinks Not on file 024 Frequency of Binge Drinking Not on file 06/08 Overall Financial Resource Strain (CARDIA) Answe r Date Recorded How hard is it for you to pa y for the very basics like food, housing, medical care, and heating? Not hard at all 02/06/2022 PHQ-2 Answer Date Recorded PHQ-2 Total Score (If total score is 3 or more points, staff should administer the PHQ-9) 0 05/10/2024 Hunger Vital Sign Answer Date Recorded Within the past 12 months, y ou worried that your food would run out before you got the money to buy more. Never true 02/07/20 22 Within the past 12 months, t he food you bought just didn't last and you didn't have money to get more. Never true 02/06/2022 PRAPARE - Transportation Answer Date Re corded In the past 12 months, has l ack of transportation kept you from medical appointments or from getting medications? No 01/10 In the past 12 months, has l ack of transportation kept you from meetings, work, or from getting things needed for daily living? No 02/06/2022 Personal Safety Answer Date Recorded Have you ever been in or are you currently in a harmful physical or emotional relationship or is someone making you feel afraid or unsafe? Denies 06/24/2023 Sex and Gender Information Value Date Recorded Sex Assigned at Not on file Legal Sex Male 7:22 PM CARE GIVER Gender Identity Not on file Sexual Orientation Not on file Last Filed Vital Signs Vital Sign Reading Time Taken Comments Blood Pressure 133/85 07/01/2024 2:30 PM CDT Pulse 65 07/01/2024 2:30 PM CDT Temperature 36.6 C (97.8 F) 07/01/2024 2:30 PM CDT Respiratory Rate 18 07/01/2024 2:30 PM CDT Oxygen Saturation 98% 07/01/2024 2:30 PM CDT Inhaled Oxygen Concentration - - Weight 115.7 kg (255 lb) 07/01/2024 2:30 PM CDT Height 185.4 cm (6' 1) 06/03/2024 12:57 PM CDT Body Mass Index 33.64 06/03/2024 12:57 PM CDT Plan of Treatment Not on file Medical Devices Implanted Type Area Preschool Head Teacher Device Identifier Shelf Expiration Date Model / Serial / Lot [employer] [id number] Colbert 58mm Sector Hip Shell Acetabular Gription Sterile Latex Free - [id number] Implanted:Qty: 1 on 10/13/2017 by Omid Hoffman MD at [facility] Left: Hip [employer] 03/09/2027 [id number] / / [id number] [employer] [id number] Colbert 58mm 36mm Hip Neutral Liner Acetabular Altrx Sterile Latex Free - [id number] Implanted:Qty: 1 on 10/13/2017 by Omid Hoffman MD at [facility] Left: Hip [employer] 06/07/2022 [id number] / / [id number] [employer] [id number] Actis Collar Hip 8 Standard Offset Stem Femoral - [id number] Implanted:Qty: 1 on 10/13/2017 by Omid Hoffman MD at [facility] Left: Hip [employer] 07/08/2027 [id number] / / [id number] [employer] 1365-36-330 Articul/Giacomo 36mm Cementless Hip +8.5mm 12/14 Taper Head Femoral Latex Free - [id number] Implanted:Qty: 1 on 10/13/2017 by Omid Hoffman MD at [facility] Left: Hip [employer] 08/07/2022 1365-36-330 / / [id number] [employer] Cement Bone Simplex Gentamicin High Viscosity 40 6195-1-001 - [id number] Implanted:Qty: 1 on 07/16/2021 by Omid Hoffman MD at [facility] Left: Knee [employer] 12/07/2022 6195-1-001 / / [id number] [employer] Cement Bone Simplex Gentamicin High Viscosity 40 6195-1-001 - [id number] Implanted:Qty: 1 on 07/16/2021 by Omid Hoffman MD at [facility] Left: Knee [employer] 12/07/2022 6195-1-001 / / [id number] [employer] Palacos R+G High Viscosity Cement Bone Gentamicin Arthroplasty 9134212 - [id number] Implanted:Qty: 1 on 02/04/2022 by Omid Hoffman MD at [facility] Left: Knee [employer] C1713 05/07/2022 [id number] / / [id number] [employer] Palacos R+G High Viscosity Cement Bone Gentamicin Arthroplasty 6364927 - [id number] Implanted:Qty: 1 on 02/04/2022 by Omid Hoffman MD at [facility] Left: Knee [employer] C1713 05/07/2022 [id number] / / [id number] [employer] [place] R+G High Viscosity Cement Bone Gentamicin Arthroplasty 4449058 - [id number] Implanted:Qty: 1 on 02/04/2022 by Omid Hoffman MD at [facility] Left: Knee [employer] C1713 05/07/2022 [id number] / / [id number] [employer] [place] R+G High Viscosity Cement Bone Gentamicin Arthroplasty 5510821 - [id number] Implanted:Qty: 1 on 02/04/2022 by Omid Hoffman MD at [facility] Left: Knee [employer] C1713 05/07/2022 [id number] / / [id number] [employer] Cement Bone Simplex Gentamicin High Viscosity 40 6195-1-001 - [id number] Implanted:Qty: 1 on 04/10/2022 by Omid Hoffman MD at [facility] Left: Knee [employer] 06/08/2023 6195-1-001 / / [id number] [employer] Cement Bone Simplex Gentamicin High Viscosity [employer] 6195-1-001 - [id number] Implanted:Qty: 1 on 04/10/2022 by Omid Hoffman MD at [facility] Left: Knee [employer] 06/08/2023 6195-1-001 / / [id number] [employer] Attune Cement Revision Rotate Platform Knee 6 Baseplate Tibial [id number] - [id number] Implanted:Qty: 1 on 04/10/2022 by Omid Hoffman MD at [facility] Left: Knee [employer] [id number] 09/07/2031 [id number] / / [id number] [employer] Attune 22mm 60mm Revision Press Fit Knee Stem Femoral Sterile Latex Free [id number] - [id number] Implanted:Qty: 1 on 04/10/2022 by Omid Hoffman MD at [facility] Left: Knee [employer] [id number] 09/06/2028 [id number] / / [id number] [employer] Attune L53 Mm Revision Full Coated Knee Sleeve Tibial Porocoat Sterile Latex Free 235167535 - [id number] Implanted:Qty: 1 on 04/10/2022 by Omid Hoffman MD at [facility] Left: Knee [employer] 05/08/2031 [id number] / / [id number] Attune Knee System Revision Femoral Sleeve Porocoat Fully Coated Implanted:Qty: 1 on 04/10/2022 by Omid Hoffman MD at [facility] Left: Knee [employer] C1776 06/07/2029 [id number] / / [id number] [employer] Attune H4 Mm Revision Cement Knee Distal 7 Augment Femoral Sterile Latex Free [id number] - [id number] Implanted:Qty: 1 on 04/10/2022 by Omid Hoffman MD at [facility] Left: Knee [employer] 04/09/2031 [id number] / / [id number] [employer] Attune Revision Cement Constrain Knee Left 7 Component Femoral Sterile 526633035 - [id number] Implanted:Qty: 1 on 04/10/2022 by Omid Hoffman MD at [facility] Left: Knee [employer] 03/09/2031 [id number] / / [id number] [employer] Attune 22mm 60mm Revision Press Fit Knee Stem Femoral Sterile Latex Free [id number] - [id number] Implanted:Qty: 1 on 04/10/2022 by Omid Hoffman MD at [facility] Left: Knee [employer] 10/07/2029 [id number] / / [id number] [employer] Attune H4 Mm Revision Cement Knee Posterior 7 Augment Femoral Sterile Latex Free 525205072 - [id number] Implanted:Qty: 1 on 04/10/2022 by Omid Hoffman MD at [facility] Left: Knee [employer] 03/09/2031 [id number] / / [id number] [employer] Attune H4 Mm Revision Cement Knee Distal 7 Augment Femoral Sterile Latex Free 112922422 - [id number] Implanted:Qty: 1 on 04/10/2022 by Omid Hoffman MD at [facility] Left: Knee [employer] 04/09/2031 [id number] / / [id number] [employer] Attune 38mm Cemented Medialize Knee Dome Patellar Aox Sterile [id number] - [id number] Implanted:Qty: 1 on 04/10/2022 by Omid Hoffman MD at [facility] Left: Knee [employer] 01/07/2027 [id number] / / [id number] [employer] Attune H8 Mm Revision Constrain Rotate Platform Knee 6 Insert Tibial Aox Sterile [id number] - Sn/A - [id number] Implanted:Qty: 1 on 04/10/2022 by Omid Hoffman MD at [facility] Left: Knee [employer] C1776 10/07/2022 [id number] / N/A / [id number] Explanted Type Area Preschool Head Teacher Device Identifier Shelf Expiration Date Model / Serial / Lot [employer] [id number] Attune S+ Cement Fix Bearing Knee 7 Baseplate Tibial - [id number] Implanted:Qty: 1 on 07/16/2021 by Omid Hoffman MD at [facility] Explanted:Qty: 1 on 02/04/2022 at [facility] Left: Knee [employer] 06/08/2031 [id number] / / [id number] [employer] [id number] Attune Cemented Posterior Stabilize Knee Left 7 Component Femoral - [id number] Implanted:Qty: 1 on 07/16/2021 by Omid Hoffman MD at [facility] Explanted:Qty: 1 on 02/04/2022 at [facility] Left: Knee [employer] 11/07/2028 [id number] / / [id number] [employer] [id number] Attune 8mm Posterior Stabilize Fix Bearing Knee 7 Insert Tibial - [id number] Implanted:Qty: 1 on 07/16/2021 by Omid Hoffman MD at [facility] Explanted:Qty: 1 on 02/04/2022 at [facility] Left: Knee [employer] 04/09/2026 [id number] / / [id number] Procedures Procedure Name Priority Date/Time Associated Diagnosis Comments EGFR Routine 06/29/2024 12:10 PM CDT Medicare annual wellness visit, subsequent DIFFERENTIAL AUTO Routine 06/29/2024 12: 10 PM CDT Medicare annual wellness visit, subsequent URIC ACID Routine 06/29/2024 12:10 PM CDT Medicare annual wellness visit, subsequent Acute midline low back pain without sciatica CBC WITH AUTO DIFFERENTIAL Routine 06/29/2024 12:10 PM CDT Medicare annual wellness visit, subsequent BASIC METABOLIC PANEL Routine 06/29/2024 12:10 PM CDT Medicare annual wellness visit, subsequent PSA DIAGNOSTIC Routine 06/29/2024 12:10 PM CDT Malignant neoplasm prostate (CMS/HCC) (HCC) HEPATITIS B CORE ANTIBODY, TOTAL Routine 06/29/2024 12:10 PM CDT Medicare annual wellness visit, subsequent Need for hepatitis B screening test HEPATITIS B SURFACE ANTIGEN Routine 06/29/2024 12:10 PM CDT Medicare annual wellness visit, subsequent Need for hepatitis B screening test HEPATITIS B SURFACE ANTIBODY (IMMUNE STATUS) Routine 06/29/2024 12:10 PM CDT Medicare annual wellness visit, subsequent Need for hepatitis B screening test from Last 3 Months Results * (ABNORMAL) eGFR (06/29/2024 12:10 PM CDT) eGFR 56(L) >=60 mL/min/1. 73 m2 Comment: Interpretive Data Reference Interval Normal >/= 90 mL/min/1.73m2 Mildly decreased* 60 - 89 mL/min/1.73m2 Mildly to moderately decreased 45 - 59 mL/min/1.73m2 Moderately to severely decreased 30 - 44 mL/min/1.73m2 Severely decreased 15 - 29 mL/min/1.73m2 Kidney Failure < 15 mL/min/1.73m2 *Relative to young adult level Estimated glomerular filtration rate is determined by the 2020 CKD-EPI equation recommended by the National Kidney Foundation (A Unifying Approach to GFR Estimation: Recommendations of the NKF-ASK Task Force on Reassessing the Inclusion of Race in Diagnosing Kidney Disease, JASN 2020). The CKD-EPI equation should not be used for patients with unstable renal function and has not been validated in children and those over 70. Current interpretive data was last reviewed 2021. Blood 06/29/2024 12:1 0 PM CDT 06/29/2024 12:20 PM CDT us Irena Rebolledo MD LAB BLOOD ORDERABLES Final Re sult [facility] ([place]) [address] [facility] [place] [address] * Differential, auto (06/29/2024 12:10 PM CDT) Neutrophil abs 1.80 1.50 - 6.50 K/cumm Imm gran abs 0.01 0.00 - 0.10 K/cumm [facility] ([place]) Lymphocyte abs 1.01 0.80 - 3.30 K/cumm [facility] ([place]) Monocyte abs 0.30 0.20 - 0.80 K/cumm [facility] ([place]) Eosinophil abs 0.05 0.00 - 0.50 K/cumm [facility] ([place]) Basophil abs 0.01 0.00 - 0.10 K/cumm [facility] ([place]) Neutrophil pct 56.6 % [facility] ([place]) Comment: Interpretive Data Percent cell count reference ranges are not reported, since discordance with absolute values may lead to misinterpretation of CBC data. Current Interpretive Data was last revised on 2017. Imm gran pct 0.3 % [facility] ([place]) Comment: Interpretive Data Percent cell count reference ranges are not reported, since discordance with absolute values may lead to misinterpretation of CBC data. Current Interpretive Data was last revised on 2017. Lymphocyte pct 31.8 % [facility] ([place]) Comment: Interpretive Data Percent cell count reference ranges are not reported, since discordance with absolute values may lead to misinterpretation of CBC data. Current Interpretive Data was last revised on 2017. Monocyte pct 9.4 % [facility] ([place]) Comment: Interpretive Data Percent cell count reference ranges are not reported, since discordance with absolute values may lead to misinterpretation of CBC data. Current Interpretive Data was last revised on 2017. Eosinophil pct 1.6 % [facility] ([place]) Comment: Interpretive Data Percent cell count reference ranges are not reported, since discordance with absolute values may lead to misinterpretation of CBC data. Current Interpretive Data was last revised on 2017. Basophil pct 0.3 % [facility] ([place]) Comment: Interpretive Data Percent cell count reference ranges are not reported, since discordance with absolute values may lead to misinterpretation of CBC data. Current Interpretive Data was last revised on 2017. Blood 06/29/2024 12:1 0 PM CDT 06/29/2024 12:20 PM CDT us Irena Rebolledo MD LAB BLOOD ORDERABLES Final Re sult [facility] ([place]) [address] [facility] [place] [address] * (ABNORMAL) CBC with auto differential (06/29/2024 12:10 PM CDT) WBC 3.18(L) 3.80 - 9.90 K/cumm Hgb 13.8 13.0 - 17.5 g/dL [facility]) Hct 40.0 38.9 - 50.3 % [facility] ([place]) Plt 138(L) 150 - 400 K/cumm [facility] ([place]) MPV 10.6 9.1 - 12.3 fL [facility] ([place]) RBC 4.44 4.30 - 5.80 M/cumm [facility] ([place]) MCV 90.1 81.3 - 96.4 fL [facility] MCH 31.1 27.1 - 33.3 pg [facility] MCHC 34.5 32.3 - 35.7 g/dL [facility] ([place]) RDW CV 12.9 11.1 - 14.9 % [facility] RDW SD 42.5 35.7 - 48.1 fL [facility] NRBC abs 0.00 0.00 - 0.01 K/cumm [facility] Blood 06/29/2024 12:1 0 PM CDT 06/29/2024 12:20 PM CDT us Irena Rebolledo MD LAB BLOOD ORDERABLES Final Re sult Performing Organization Address City/[facility]/ZIP Co de Phone Number [facility] ([place]) [address] [facility] [employer] [place], [place] [id number] * (ABNORMAL) Hepatitis B core antibody, total Blood (06/29/2024 12:10 PM CDT) Hep B core IgG/IgM Reactive( A) Nonreactive Comment:Testing performed by : , [address] [place]., [address] Blood 06/29/2024 12:1 0 PM CDT 06/29/2024 8:10 PM CDT Irena Rebolledo MD LAB MICROBIOLOGY - GENERAL OR DERABLES Final Result [facility] ([place]) [address] [facility] [employer] [place] [address] * Hepatitis B surface antibody (immune status) Blood (06/29/2024 12:10 PM CDT) Pathologist [facility] HBsAb (immune status) Reactive Comment: Interpretive Data Nonreactive: This result is consistent with a lack of immunity to Hepatitis B Virus when used in the setting of routine screening. Equivocal: The immune status of the individual should be further assessed, if appropriate, after consideration of clinical status, risk factors, and additional diagnostic information. Reactive: This result is consistent with immunity to Hepatitis B Virus when used in the setting of routine screening. Current interpretive data was last revised on 19. Testing performed by: [facility], [address] [place] [address]., [id number] HBsAb (immune status) index 967.0 mIUnits/m L [facility] ([place]) Comment:Testing performed by : [address], [address] Blood 06/29/2024 12:1 0 PM CDT 06/29/2024 4:42 PM CDT Irena Rebolledo MD LAB MICROBIOLOGY - GENERAL OR DERABLES Final Result [facility] ([place]) [address] [facility] [place] [address] * Hepatitis B Surface Antigen Blood (06/29/2024 12:10 PM CDT) [facility] HepBsAg Nonreactive Nonreactive Comment:Testing performed by : [facility], [address] [place] [address]., [id number] Blood 06/29/2024 12:1 0 PM CDT 06/29/2024 4:42 PM CDT Irena Rebolledo MD LAB MICROBIOLOGY - GENERAL OR DERABLES Final Result [facility] ([place]) 1 [facility] [place] [address] * Uric acid (06/29/2024 12:10 PM CDT) [facility] Uric acid 7.3 3.0 - 8.0 mg/dL Blood 06/29/2024 12:1 0 PM CDT 06/29/2024 12:20 PM CDT Irena Rebolledo MD LAB BLOOD ORDERABLES Final Re sult Performing Organization Address [facility] Co de Phone Number [facility] ([place] 1 [place] [address] * PSA diagnostic (06/29/2024 12:10 PM CDT) [facility] PSA-Total 1.66 <=6.20 ng/mL Comment: Interpretive Data AGE SEX REFERENCE INTERVAL 0 minutes-150 years Female None 0 minutes-49 years Male None 50-59 years Male 0-3.90 60-69 years Male 0-5.40 70-79 years Male 0-6.20 80-150 years Male 0-6.20 The Levy PSA Total assay procedure was used. Results from different manufacturers or methods may not be comparable. Serial testing should be performed using the same method. Current interpretive data last revised 21. Blood 06/29/2024 12:1 0 PM CDT 06/29/2024 12:20 PM CDT John Khan MD PhD LAB BLOOD ORDERABLES F inal Result Performing Organization Address [facility] Co de Phone Number [facility] ([place] 1 [place] [address] * Basic metabolic panel (06/29/2024 12:10 PM CDT) Pathologist [facility] Sodium 140 135 - 145 mmol/L Potassium, pl 4.2 3.3 - 4.9 mmol/L [facility] ([place]) Chloride 106 97 - 110 mmol/L [facility] ([place]) CO2 23 22 - 32 mmol/L [facility] ([place]) Anion gap 11 2 - 15 mmol/L [facility] ([place]) BUN 22 6 - 25 mg/dL [facility] Creatinine 1.26 0.80 - 1.30 mg/dL [facility] ([place]) Glucose 107 70 - 199 mg/dL [facility] ([place]) Comment: Interpretive Data Fasting glucose >/= 126 mg/dl is diagnostic for diabetes. Fasting is defined as no caloric intake for at least 8 hours. Fasting glucose between 100 mg/dl to 125 mg/dl is diagnostic of prediabetes. In a patient with classic symptoms of hyperglycemia or hyperglycemic crisis, a random glucose >/= 200 mg/dl is diagnostic for diabetes. In the absence of unequivocal hyperglycemia, results should be confirmed by repeat testing. The classification and Diagnosis of Diabetes Diabetes Care 202; 46: S19-S40. Current interpretive data was last revised 2022. Calcium 9.1 8.5 - 10.3 mg/dL [facility] Blood 06/29/2024 12:1 0 PM CDT 06/29/2024 12:20 PM CDT Irena Rebolledo MD LAB BLOOD ORDERABLES Final Re sult [facility] ([place]) 1 [facility] [place] [address] from Last 3 Months Insurance MEDICARE [facility] MEDICARE [facility] MEDICARE SUPPLEMENT MEDICARE [facility] MEDICARE [facility] MEDICARE [facility] MEDICARE SUPPLEMENT [facility] Advance Directives For more information, please contact: [phone] * Full Code (Latest Code Status on File) Date Activated Date Inactivated Comments 04/10/2022 4:59 PM 04/11/2022 8:42 PM * Full Code Date Activated Date Inactivated Comments 02/04/2022 6:26 PM 02/08/2022 5:59 PM * Full Code Date Activated Date Inactivated Comments 01/13/2022 7:39 PM 01/17/2022 7:25 PM * Full Code Date Activated Date Inactivated Comments 07/16/2021 2:26 PM 07/17/2021 4:45 PM * Full Code Date Activated Date Inactivated Comments 10/15/2017 4:12 PM 10/19/2017 9:01 PM Care Teams Cable Maintainer Relationship Specialty Start Date End Date Irena Rebolledo MD [address] [place] [address] PCP - General 12/18/16 Mundo Smith MD Consulting Physician Neurosurgery 12/10/16 Viviana Wagner MD [address] [address] Consulting Physician Pain Management 02/26/17 Heather Grant NP [address] [place] [address] Nurse Practitioner Neurosurgery 04/06/17 Quinn Flannery MD [address] [place] [address] Consulting Physician Pain Management 05/10/[address] [facility] Road Cleaner Physical Therapy 10/06/17 Omid Hoffman MD Surgeon Orthopedic Surgery 11/02/17 Steffany Solomon NP Nurse Practitioner Pain Management 07/05/18 Carlos Ford MD Consulting Physician Neurology 09/20/18 Gerardo Chávez MD Referring Physician Urology 01/28/19 Irineo Moe MD Consulting Physician Dermatology 01/28/19 Nelson Schneider MD [address] [facility] [address] [place] [address] Consulting Physician Orthopedic Surgery 02/22/19 Mirta Angeles PA [address] [facility] [address] [place] [address] Physician Finger Waver Orthopedic Surgery 10/08/19 John Khan MD PhD [address] [place] [address] Radiation Oncologist Radiation Oncology 08/30/20 Sam Whelan MD [address] [place] [address] Consulting Physician Ophthalmology 04/02/22 Quinn Flannery MD [address] [address] Consulting Physician Pain Management 06/19/22 [place] [address] [place] [address] Consulting Physician Neurosurgery 06/21/22 Brock Segura MD [address] [place] [address] [address], [place] [address] Consulting Physician Cardiology 08/26/22 Tung Bach OD [address] [place] [address] Consulting Physician Optometry 07/31/22 Janell Orellana PA [address] [place] [id number] Physician Finger Waver Orthopedic Surgery 09/12/22 Ashtyn Morrow PA [address] [place] [phone] [place] [address] Physician Finger Waver Colon and Rectal Surgery 04/30/23 Terence Edgar DMD [address] [place] [address] Dentist Oral Surgery 09/04/23
--- OUTSIDE RECORDS SUMMARY | 2024-08-10 17:00 | XMS_ITS | Clinical Summary ---
Author Organization [facility] Address [address] [facility] [place] [address] Care Team Providers Care Licensing Representative Name Role Phone Sunil Zelaya MD Unavailable [phone] Filiberto Madrid MD Primary Care Provider [phone] Source Comments [facility],non-owned Affiliates and Associated Physician Practices is amultiple site organization consisting of ambulatory clinics and hospital sitesin [place], [place], [place] and [place]. This disclosure is being madepursuant to the Care Everywhere program and may not contain all information available regarding this patient. Last updated 17.[facility] Allergies No known active allergies Medications * Be aware that medications may not be up to date on this document. Alwaysverify current medications with the patient. sildenafil (VIAGRA) 50 MG tablet Take 1 Tab by mouth once as needed for up to 1 dose. 6 Tab 0 4 Active ibuprofen (MOTRIN) 800 MG tablet Take 1 (one) tablet by mouth every 6 hours as needed pain 50 tablet 2 1 Active omeprazole (PRILOSEC) 40 MG capsule Take 1 (one) capsule by mouth once daily as needed for Heartburn 1 Active XARELTO 15 MG tablet TAKE 1 TABLET BY MOUTH DAILY WITH FOOD 90 tablet 3 1 Active MULTAQ 400 MG tablet TAKE 1 TABLET BY MOUTH TWICE DAILY WITH THE MORNING AND EVENING MEAL 180 tablet 3 2 Active Active Problems Problem Noted Date Diagnosed Date Gastroesophageal reflux disease without esophagi tis 01/03/2017 Thrombocytopenia 01/18/2015 Gout Hyperlipidemia LDL goal <130 Paroxysmal atrial fibrillation Diastolic dysfunction Overview (10/17/2013): Grade 2 Immunizations Immunization Administration Dates Next Due INFLUENZA VACCINE 12/13/2013 INFLUENZA VACCINE, QUADR. (F LUZONE; FLULAVAL; FLUARIX; AFLURIA QUADRIVALENT; 6MO+), 0.5 ML (IIV4) 01/05/2015 PNEUMOCOCCAL PPSV23 03/10/2011 Pneumococcal Pcv13 Conj 01/08/2015 Family History Medical History Relation Name Comments CAD (Coronary Artery Disease) Mother Relation Name Status Comments Father (Age 85) [place] Mother (Age 91) Social History Tobacco Use Types Packs/Day Years Used Date Smoking Tobacco: Never Smokeless Tobacco: Never Tobacco Cessation:Counseling Given: Yes Alcohol Use Standard Drinks/Week Comments Yes 0 (1 standard drink = 0.6 oz pur e alcohol) Glass of wine occasionally PHQ-2 Answer Date Recorded PHQ2 TOTAL SCORE 0 06/19/2021 Sex and Gender Information Value Date Recorded Sex Assigned at Not on file Legal Sex Male 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 Gender Identity Not on file Sexual Orientation Not on file Last Filed Vital Signs Vital Sign Reading Time Taken Comments Blood Pressure 128/70 06/19/2021 1:55 PM CDT Pulse 72 06/19/2021 1:55 PM CDT Temperature 36.2 C (97.2 F) 06/19/2021 1:55 PM CDT Respiratory Rate 17 02/20/2019 1:54 PM PIANO REGULATOR Oxygen Saturation 98% 10/23/2020 2:45 PM CDT Inhaled Oxygen Concentration - - Weight 114.5 kg (252 lb 6.4 oz) 06/19/2021 1:55 PM CDT Height 188 cm (6' 2) 02/20/2019 1:28 PM PIANO REGULATOR Body Mass Index 32.41 02/20/2019 1:28 PM PIANO REGULATOR Plan of Treatment Health Maintenance Due Date Last Done Comments DTAP/TDAP/TD VACCINES (1 - Tdap) 1957 ZOSTER VACCINE (1 of 2) 1988 Respiratory Syncytial Virus (RSV) Vaccine Pt: or over 60 yrs (1 - 1-dose 75+ series) 2013 MEDICARE AWV 12 MONTHS 06/30/2015 06/29/2014 PROSTATE CA SCREENING 06/15/2023 06/14/2022 , 01/14/2014, 03/10/2013 COVID-19 VACCINE ( season) 2023 11/01/2020, 05/03/2020, 04/12/2020 DEPRESSION SCREENING 03/10/2024 INFLUENZA VACCINE (Season Ended) 2024 12/12/2019, 12/10/2018, 12/12/2017, Additional history exists PNEUMOCOCCAL VACCINE 50+ Completed 01/08/2015, 03/2011 HEPATITIS B VACCINE Aged Out No longe r eligible based on patient's age to complete this topic HIB VACCINE Aged Out No longer eligi ble based on patient's age to complete this topic HPV VACCINE Aged Out No longer eligi ble based on patient's age to complete this topic MENINGOCOCCAL (Group B) VACCINE SHARED DECISION-MAKING Aged Out No longer eligible based on patient's age to complete this topic MENINGOCOCCAL GROUPS A/C/Y/W VACCINE Aged Out No longer eligible based on patient's age to complete this topic Procedures Procedure Name Priority Date/Time Associated Diagnosis Comments PROSTATE SPECIFIC ANTIGEN SCREEN Routine 01/14/2014 7:14 AM PIANO REGULATOR Prostate cancer screening from Last 3 Months or Most Recently Relevant to Health Maintenance Results * PROSTATE SPECIFIC ANTIGEN SCREEN (01/14/2014 7:14 AM PIANO REGULATOR) PSA 3.9 0.0 - 4.0 ng/mL [facility] INSURANCE BILL Comment: Levy ECLIA methodology. . According to the [place] [employer], Serum PSA should decrease and remain at undetectable levels after radical prostatectomy. The AUA defines biochemical recurrence as an initial PSA value 0.2 ng/mL or greater followed by a subsequent confirmatory PSA value 0.2 ng/mL or greater. Values obtained with different assay methods or kits cannot be used interchangeably. Results cannot be interpreted as absolute evidence of the presence or absence of malignant disease. Blood specimen (specimen) BLOOD SPECIMEN / Unknown 01/14/2014 7:14 AM PIANO REGULATOR 01/14/2014 2:18 PM PIANO REGULATOR Narrative Resulting Agency Comment [place] [id number] [facility] [id number] Pedro Cosme MD LAB - CHEMISTRY ORDERABLES Final Result [facility] INSURANCE BILL [address] [place] [address] from Last 3 Months or Most Recently Relevant to Health Maintenance Insurance [facility]ICARE [facility] Care Teams Licensing Representative Relationship Specialty Start Date End Date Filiberto Madrid MD [address] [place] [address] PCP - General Internal Medicine 05/03/16 Sunil Zelaya MD [address] [facility] [address] [place] [address] Cardiovascular Disease 12/29/13
--- OUTSIDE RECORDS SUMMARY | 2024-08-10 17:00 | XMS_ITS | Encounter Summary ---
Author Organization [facility] Address [address] [place] [address] Care Team Providers Care Bilingual Middle School Teacher Name Role Phone Mundo Smith MD Unavailable [phone] Filiberto Madrid MD Primary Care Provider [phone] Viviana Wagner MD Unavailable [phone] Heather Grant NP Unavailable Quinn Flannery MD Unavailable [phone] Nena Rogers PTA Unavailable Unavailable Omid Hoffman MD Unavailable [phone] Steffany Solomon NP Unavailable [phone] Carlos Ford MD Unavailable Gerardo Chávez MD Unavailable Irineo Moe MD Unavailable Nelson Schneider MD Unavailable [phone] Mirta Angeles Unavailable [phone] John Khan MD PhD Unavailable Sam Whelan MD Unavailable [phone] Quinn Flannery MD Unavailable [phone] Cristy Rodriguez MD Unavailable [phone] Brock Segura MD Unavailable [phone] MikalaTung OD Unavailable Janell Orellana PA Unavailable Ashtyn Morrow PA Unavailable [phone] Terence Edgar DMD Unavailable Encounter Details Date Type Department Care Team (Late st Contact Info) Description 07/03/2024 Results Follow-Up [facility] [address] [place] [address] Filiberto Madrid MD [address] [place] [address] Hepatitis B surface antibody (immune status) Blood, Hepatitis B Surface Antigen Blood, Basic metabolic panel, Additional followed-up results: 5 Social History Tobacco Use Types Packs/Day Years [...] than three times a week 02/06/2022 Attends Gnosticist Services Not on file 02/06 Do you belong to any clubs o r organizations such as gnosticist groups, unions, fraternal or athletic groups, or [...] on file Legal 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 Gender Identity Not on file Sexual Orientation Not on file documented as of this encounter Plan of Treatment Not on file documented as of this encounter Visit Diagnoses Not on filedocumented in this encounter Care Teams Bilingual [employer] Teacher Relationship Specialty Start Date End Date Filiberto Madrid MD [address] [place] [address] PCP - General 12/18/16 Munod Smith MD Consulting Physician Neurosurgery 12/10/16 Viviana Wagner MD [address] [place] [address] Consulting Physician Pain Management 02/26/17 Heather Grant NP [address] [place] [address] Nurse Practitioner Neurosurgery 04/06/17 Quinn Flannery MD [address] [place] [address] Consulting Physician Pain Management 05/10/17 Nena Rogers [facility] Supervisor Beam Department Physical Therapy 10/06/17 Omid Hoffman MD Surgeon Orthopedic Surgery 11/02/17 Steffany Solomon NP Nurse Practitioner Pain Management 07/05/18 Carlos Ford MD Consulting Physician Neurology 09/20/18 Gerardo Chávez MD Referring Physician Urology 01/28/19 Irineo Moe MD Consulting Physician Dermatology 01/28/19 Nelson Schneider MD [address] [facility] [address] [facility] [address] [place] [address] Consulting Physician Orthopedic Surgery 02/22/19 Mirta Angeles PA [address] [facility] [address] [facility] [address] [place] [address] Physician Sorter Lumber Straightener Orthopedic Surgery 10/08/19 John Khan MD PhD [address] [place] [address] Radiation Oncologist Radiation Oncology 08/30/20 Sam Whelan MD [address] [place] [address] Consulting Physician Ophthalmology 04/02/22 Quinn Flannery MD [address] [place] [address] Consulting Physician Pain Management 06/19/22 [place] [address] [place] [address] Consulting Physician Neurosurgery 06/21/22 Brock Segura MD [address] [place] [address] [address], [place] [address] Consulting Physician Cardiology 08/26/22 Tung Bach OD [address] [facility] [address] Consulting Physician Optometry 07/31/22 Janell Orellana PA [address] [place] [address] Physician Sorter Lumber Straightener Orthopedic Surgery 09/12/22 Ashtyn Morrow PA [address] [place] [place] [phone] [place] [address] Physician Sorter Lumber Straightener Colon and Rectal Surgery 04/30/23 Terence Edgar DMD [address] [place] [address] Dentist Oral Surgery 09/04/23 documented as of this encounter
--- OUTSIDE RECORDS SUMMARY | 2024-08-10 17:00 | XMS_ITS ---
Author Organization [facility] [employer] Address [address] [place] [address] Phone Care Team Providers Care Hearing Aid Assistant Name Role Phone Mundo Smith MD Unavailable [phone] Irena Rebolledo MD Primary Care Provider Viviana Wagner MD Unavailable [phone] Heather Grant NP Unavailable [phone] Quinn Flannery MD Unavailable [phone] Nena Rogers PTA Unavailable Unavailable Omid Hoffman MD Unavailable [phone] Steffany Solomon NP Unavailable [phone] Carlos Ford MD Unavailable Gerardo Chávez MD Unavailable Iirneo Moe MD Unavailable Nelson Schneider MD Unavailable Mrita Angeles Unavailable [phone] John Khan MD PhD Unavailable [phone] Sma Whelan MD Unavailable Quinn Flannery MD Unavailable [phone] Cristy Rodriguez MD Unavailable [phone] Brock Segura MD Unavailable [phone] Tung Bach OD Unavailable [phone] Janell Orellana PA Unavailable [phone] Ashtyn Morrow PA Unavailable Terence Edgar DMD Unavailable Active Problems Problem Noted Date Diagnosed Date Acute cough 05/30/2024 Upper respiratory tract infection 05/10/2024 Assessment & Plan (05/10/2024 9:37 PM AEROLOGIST): Acute, symptoms for approximately 1 week. Afebrile, [...] 03/11. Assessment & Plan (04/18/2024 6:17 AM AEROLOGIST): Acute problem when he was travelling in [place] last fall, resolved with treatment sought there, details lacking. Consider follow up with urology. Other chest pain 09/25/2023 Assessment & Plan (05/10/2024 9:35 PM AEROLOGIST): Acute, symptoms for 1 week. Tenderness to [...] no acute changes or evidence of old MA. The patient's symptoms are likely noncardiac. He reports having several stress tests many years ago at [facility]. He does not want to go through the chemical stress test ever again because of reported side effects, and he is not ready or in any shape to get on the treadmill due to gaining weight and still recovering from infection of left knee hardware. He has a scheduled follow-up with his personal property appraiser, Dr. Segura, in about two weeks. We discussed the EKG findings and his symptoms with his personal property appraiser. Return here early as needed, otherwise as [...] 08/26/2022 Assessment & Plan (02/20/2023 1:36 PM AEROLOGIST): He continues to take an iron supplement [...] - fall, low back pain Orders for Pancho Fischer to arrange FOR CONSTIPATION: Continue drinking plenty [...] got a second opinion in neurosurgery at [facility] today. They basically had the same [...] not included. Sees Sam Whelan MD, Retina Secretary. Wet on right, dry on left. Also bilateral vitreous syneresis. Retina Secretary note on 06/18/2024: Status post total left knee replacement 01/15/20 Assessment & Plan (01/30/2022 5:27 PM AEROLOGIST): There is concern for his left prosthetic knee which has exhibited some warmth and swelling. This was tapped yesterday in orthopedics and there are around 65,000 nucleated cells. Microbiology preliminary report is negative. We will keep him on antibiotics (penicillin) pending further discussion with orthopedics. Assessment & Plan (01/15/2022 3:32 PM AEROLOGIST): Patient had L total Knee arthroplasty on 08/28/21. Current use of police surgeon anticoagulation 021 Overview (11/24/2020): Xarelto for Afib. [...] this surgery. He will also see his personal property appraiser for a specific cardiac clearance. Assessment & [...] but he should discuss this with his personal property appraiser as well. 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 Assessment & Plan (04/12/2024 4:25 AM AEROLOGIST): Chronic, diagnosed 3-4 years ago, status post definitive radiation therapy, comanaged with Urology and Radiation therapy. Assessment & Plan (04/09/2023 4:58 PM AEROLOGIST): He was treated with definitive radiation therapy [...] completely. Assessment & Plan (01/29/2021 4:09 PM AEROLOGIST): He completed radiation therapy. He has a [...] It. Assessment & Plan (04/09/2023 5:01 PM AEROLOGIST): He was prescribed CPAP, but never used [...] (09/26/2017): Added automatically from request for surgery [id number] Chronic left-sided headaches 03/19/2017 Overview (03/19/2017): New [...] moderate anemia postoperatively. He also saw his personal property appraiser at [facility], and a test of some kind was [...] it. Assessment & Plan (02/18/2021 3:03 PM AEROLOGIST): His energy level has improved considerably. He [...] same. Assessment & Plan (01/14/2022 4:00 PM AEROLOGIST): Patient has a hx of GERD and [...] option. Assessment & Plan (01/22/2017 2:20 PM AEROLOGIST): He never got a call from the [...] transient/intermittent. Assessment & Plan (04/15/2023 11:29 AM AEROLOGIST): We are monitoring a mild and intermittent [...] labs. Assessment & Plan (02/23/2018 3:30 PM AEROLOGIST): Platelet count in the hospital when last checked at the time of left hip replacement was normal. He was taking B12 for awhile, but no longer takes it. We will monitor labs periodically. Assessment & Plan (01/22/2017 2:21 PM AEROLOGIST): This was noted on one of his blood counts, and as I recall his B12 level was also slightly low so we asked him to take a supplement which she takes irregularly. Things seem to be stable so we will continue to monitor. Paroxysmal atrial fibrillation 11/08/2014 Overview (12/03/2019): On Multaq and Xarelto. Assessment & Plan (05/10/2024 9:36 PM AEROLOGIST): Chronic, controlled on Multaq and Xarelto at this time. Heart rate regular upon auscultation camejo, vitals stable. See plan for URI above. Assessment & Plan (04/12/2024 4:25 AM AEROLOGIST): Chronic/intermittent, present for 10 or more years, controlled on dronedarone 400 mg daily (patient's idiosyncratic dosing), and rivaroxaban 20 mg daily, comanaged with Cardiology. Assessment & Plan (10/09/2023 3:30 PM CDT): Chronic, heart rhythm is irregular but rate is controlled. He is on Xarelto and Multaq. He will keep his follow ups with Dr. Lee. Assessment & Plan (04/09/2023 5:00 PM AEROLOGIST): Heart rhythm is regular. He is on [...] same. Assessment & Plan (04/16/2022 10:49 AM AEROLOGIST): He is on Multaq and Xarelto. Continue same. The Xarelto will be held for two days before reimplantation of his left knee. Assessment & Plan (01/30/2022 5:24 PM AEROLOGIST): He remains on Multaq. We corrected the dose to reflect what the patient reports he is taking, namely 400 mg twice a day instead the non standard 400 mg daily he took previously. Assessment & Plan (01/14/2022 3:57 PM AEROLOGIST): Patient has a hx of A-fib and [...] effects. He will discuss this with his personal property appraiser when he sees him for a cardiac clearance to have his left knee replaced. Assessment & Plan (01/29/2021 4:14 PM AEROLOGIST): Heart rhythm is currently regular. He is on Multaq and Xarelto. He followed up once with a personal property appraiser but did not do the testing that [...] PM CDT): Scanned office note, Dr. Zelaya, [facility]. Also in Care Everywhere. Assessment & Plan (08/06/2020 10:39 AM CDT): Heart rhythm is regular. He is on Multaq and Xarelto. He plans to see his personal property appraiser, Dr. Zelaya, sometime next week to get [...] well. Assessment & Plan (02/23/2018 3:29 PM AEROLOGIST): There is a history of paroxysmal atrial [...] continues on Multaq and Xarelto from his personal property appraiser. Sometimes he cuts the Multaq dose down if he is taking Motrin for his hip, because he does not want his blood to be too thin. He will follow up with Cardiology for all of these issues. Assessment & Plan (02/02/2017 5:13 PM AEROLOGIST): Recent Holter ordered by Dr. Montanez showed [...] ACUTE ON CHRONIC DIASTOLIC HEART FAILURE (CMS/HCC) (HCC) WRITTEN ON 04/09/2023 4:51 PM BY IRENA REBOLLEDO MD Hospital diagnosis, entered during stay for cellulitis of the left thigh. >>OVERVIEW FOR DIASTOLIC DYSFUNCTION WRITTEN ON 04/12/2024 4:21 AM BY IRENA REBOLLEDO MD Overview: Grade 2 Assessment & Plan (04/12/2024 4:24 AM AEROLOGIST): Chronic, present for 10 or more years, not currently requiring diuretic or other medical therapy. We will monitor on periodic followups. Assessment & Plan (04/12/2024 4:21 AM AEROLOGIST): >>ASSESSMENT AND PLAN FOR DIASTOLIC DYSFUNCTION WRITTEN [...] his complaints of fatigue. He sees his personal property appraiser, Dr. Montanez, in about a month or two, and will ask him about diastolic dysfunction as a possible cause or contributing factor to his symptoms. Assessment & Plan (04/12/2024 4:21 AM AEROLOGIST): >>ASSESSMENT AND PLAN FOR DIASTOLIC DYSFUNCTION WRITTEN ON 02/23/2018 3:27 PM BY IRENA REBOLLEDO MD He seems to be doing well. Blood pressure is normal. Lungs are clear. Oxygen saturation is satisfactory. He has a personal property appraiser he sees regularly, Dr. Zelaya. Continue to monitor. Assessment & Plan (04/12/2024 4:21 AM AEROLOGIST): >>ASSESSMENT AND PLAN FOR DIASTOLIC DYSFUNCTION WRITTEN [...] Cardiology. Assessment & Plan (04/09/2023 4:53 PM AEROLOGIST): He has trace pretibial pitting edema. Lungs are clear in oxygenation is normal. He has not requiring any diuretic therapy at this time. We will monitor clinically. Assessment & Plan (04/03/2022 2:45 PM AEROLOGIST): He seems to be clinically stable with no significant edema, no crackles in his lungs. Oxygen saturation is normal. We will monitor clinically without medication. Primary osteoarthritis involving multiple joints 07/08/2012 Assessment & Plan (04/12/2024 4:26 AM AEROLOGIST): Chronic, present for 10 or more years, [...] shape. Assessment & Plan (02/18/2021 3:01 PM AEROLOGIST): He continues to have various aches and [...] joints. Assessment & Plan (02/23/2018 3:30 PM AEROLOGIST): He continues to have problems with aches [...] pain recently that was evaluated by his personal property appraiser at [facility], Dr. Lee. It was felt to [...] 10/03/2023 Assessment & Plan (04/09/2023 4:58 PM AEROLOGIST): He does not take anything for cholesterol [...] diet. Assessment & Plan (01/29/2021 4:10 PM AEROLOGIST): He is not currently taking anything for [...] medicine. Assessment & Plan (02/23/2018 3:27 PM AEROLOGIST): He decided to stop taking cholesterol medicine [...] prescription. Assessment & Plan (01/22/2017 2:16 PM AEROLOGIST): He is tolerating his medication without apparent [...] it. Assessment & Plan (01/22/2017 1:59 PM AEROLOGIST): No new attacks of gout while on allopurinol. Current Treatment and Therapy Plans No current plan information found. Past Treatment and Therapy Plans Radiation Treatments * Course C1 10/05/2020 - 11/23/2020 Treatment Period Energy Fraction Dose Fractions Total Dose Plans Planned IMRT Pelvis 11/20/2020 - 11/23/2020 250 4 / 1,000 P+ PELVIS_r 10/09/2020 - 11/16/2020 250 23 / 6,750 P+ PELVIS 10/05/2020 - 10/05/2020 250 1 / 7,000 Reference Points Delivered PTV_7000 11/20/2020 - 11/23/2020 1,000 P+ PELVIS_r 10/09/2020 - 11/16/2020 5,758 P+ PELVIS1 10/05/2020 - 10/05/2020 250 Lifetime Dose Tracking * Chemical Lifetime Dose Automatic Entry Manual Entr y Fluoro Time 0.233 minutes 0.233 minutes 0 minutes Resolved Problems Problem Noted Date Diagnosed Date Resolved Date Rectal bleeding 05/30/2023 12/12/2023 Chronic infection of left knee 04/08/2023 04/12/2024 Overview (04/12/2024): Resolved after two stage replacement of prosthetic joint. Assessment & Plan (04/09/2023 4:53 PM AEROLOGIST): There is no evidence of any relapse of the left prosthetic knee infection following two-stage replacement. He is thinking of going back to [place] to swim, and I think this would be fine. Intractable left heel pain 02/03/2023 1 Assessment & Plan (04/15/2023 11:25 AM AEROLOGIST): He seems to be doing well with regard to most pain complaints, including left heel pain. However, his right wrist carpometacarpal joints flare up from time to time. He presumes it is due to gout. When it happens, he eats cherries which he says makes the problem go away. Assessment & Plan (02/20/2023 1:35 PM AEROLOGIST): He notes a sharp pain in his [...] (06/30/2022): Added automatically from request for surgery [id number], s/p successful 2-stage replacement (revision on 04/10/2022). Assessment & Plan (04/03/2022 2:46 PM AEROLOGIST): Surgery to reimplant his left knee is planned for next week. He sees Dr. Hoffman tomorrow for a preoperative evaluation. 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 Assessment & Plan (04/03/2022 2:47 PM AEROLOGIST): He had explantation of the infected joint [...] resolved. Assessment & Plan (01/30/2022 5:23 PM AEROLOGIST): His diarrhea has improved significantly. He has [...] records. Assessment & Plan (01/19/2022 3:49 PM AEROLOGIST): The cellulitis involved much of the left [...] cellulitis. Assessment & Plan (01/19/2022 3:48 PM AEROLOGIST): He was hospitalized recently for a streptococcal [...] baseline. Assessment & Plan (01/15/2022 3:32 PM AEROLOGIST): Blood cultures from 01/12 now growing strep dysgalactiae with repeat blood cultures pending. - On Cefepime and vancomycin (01/13- Post-procedural fever 01/13/20222022 Overview (06/30/2022): Cellulitis of left leg resulting in sepsis and infection of left knee replacement. Assessment & Plan (01/13/2022 6:48 PM AEROLOGIST): I was called by the patient's son [...] 06/30/2022 Assessment & Plan (01/18/2022 5:10 PM AEROLOGIST): When I assessed him five days ago at his home, he was markedly confused, more properly encephalopathic then delirious. He improved rapidly with treatment in the hospital and seems back to normal. Assessment & Plan (01/13/2022 6:49 PM AEROLOGIST): Probably due to fever and suspected sepsis. Cellulitis of left thigh 01/13/2022 Overview (06/30/2022): See hospital records, [facility]. Assessment & Plan (01/18/2022 5:09 PM AEROLOGIST): He says the cellulitis started on his [...] needed. Assessment & Plan (01/15/2022 3:33 PM AEROLOGIST): Patient currently has a left knee that [...] dehydrated. Assessment & Plan (01/30/2022 5:23 PM AEROLOGIST): He has been drinking fluid and is making plenty of urine. Blood pressure is in a better range. Assessment & Plan (01/29/2022 5:54 AM AEROLOGIST): He called the office today. He has [...] (12/03/2019): Added automatically from request for surgery [id number], arthroscopy 10/08/2019, Dr. Hoffman, [facility]. Internal derangement of left knee 09/28/2019 12/03/2019 Overview (12/03/2019): Added automatically from request for surgery [id number], arthroscopy 10/08/2019. Acute gout of knee 03/08/2019 0 Overview (12/03/2019): See office note. Assessment & Plan (03/27/2019 3:18 PM AEROLOGIST): He has a history of gout, but [...] note. Assessment & Plan (03/27/2019 3:20 PM AEROLOGIST): He denies any history of knee pain [...] 09/20/201806/2023 Assessment & Plan (01/28/2019 2:16 PM AEROLOGIST): The left superior trapezius/supraspinatus area has been [...] report. Assessment & Plan (01/28/2019 2:15 PM AEROLOGIST): He has had pain in his right [...] needed. Assessment & Plan (03/26/2018 9:46 AM AEROLOGIST): For a couple of months or more [...] 04/26/2017 Overview (02/23/2018): S/P left THR. Dr. Yasmin BOWLING. Assessment & Plan (09/08/2017 4:40 PM CDT): [...] issue. Assessment & Plan (02/02/2017 5:14 PM AEROLOGIST): This is his main concern at this time. It really impairs his quality of life. He has trouble getting his left sock and shoe on. Right now it is not so bad, but there are times when pain is quite severe, and he resorts to an [id number] nonsteroidal. Recent x-ray showed severe osteoarthritis of [...] Obesity Assessment & Plan (04/09/2023 4:59 PM AEROLOGIST): He struggles with his weight. He eats [...] needed. Assessment & Plan (02/20/2023 1:37 PM AEROLOGIST): He would like to lose some weight. [...] weeks. Assessment & Plan (01/14/2022 3:56 PM AEROLOGIST): Patient BMI of 32.83. Assessment & Plan (12/19/2021 3:50 PM CDT): We encouraged attention to his diet, and hopefully some weight loss. Assessment & Plan (06/21/2021 8:31 AM CDT): I urged attention to his diet, and hopefully some weight loss. Assessment & Plan (01/29/2021 4:10 PM AEROLOGIST): We encouraged attention to his diet, and [...] apnea. Assessment & Plan (01/22/2017 2:17 PM AEROLOGIST): Weight loss could help some of his other issues, especially the pain he has from spinal stenosis and left hip osteoarthritis. He is down a few pounds, and he will continue efforts in this regard. Sepsis due to Streptococcus species without acute organ dysfunction 01/29/2022 06/30/2022 Overview (06/30/2022): See hospital records, [facility]. Assessment & Plan (01/30/2022 5:27 PM AEROLOGIST): One of several lood cultures was positive for Strep dysgalactiae. Follow-up blood cultures on antibiotics were negative. There is concern for his left prosthetic knee which has exhibited some warmth and swelling. See discussion elsewhere. Assessment & Plan (01/18/2022 5:11 PM AEROLOGIST): He was septic, but organ function remained [...]
--- OUTSIDE RECORDS SUMMARY | 2024-08-10 17:00 | XMS_ITS | Clinical Summary ---
Author Organization [facility] [address] [employer] Address [address] [place] [address] Phone Care Team Providers Care Washtub Worker Name Role Phone Mundo Smith MD Unavailable [phone] Irena Rebolledo MD Primary Care Provider Viviana Wagner MD Unavailable [phone] Heather Grant NP Unavailable [phone] Quinn Flannery MD Unavailable [phone] Nena Rogers PTA Unavailable Unavailable Omid Hoffman MD Unavailable [phone] Steffany Solomon NP Unavailable [phone] Carlos Ford MD Unavailable Gerardo Chávez MD Unavailable Irineo Moe MD Unavailable Nelson Schneider MD Unavailable Mirta Angeles Unavailable [phone] John Khan MD PhD Unavailable [phone] Sam Whelan MD Unavailable Quinn Flannery MD Unavailable [phone] Cristy Rodriguez MD Unavailable Brock Segura MD Unavailable BachTung OD Unavailable Janell Orellana PA Unavailable [phone] Ashtyn Morrow PA Unavailable HerveTerence DMD Unavailable [phone] Allergies No known active allergies Medications Xarelto [...] 05/10/2024 Assessment & Plan (05/10/2024 9:37 PM HEEL WASHER STRINGING MACHINE OPERATOR): Acute, symptoms for approximately 1 week. Afebrile, [...] 03/11. Assessment & Plan (04/18/2024 6:17 AM HEEL WASHER STRINGING MACHINE OPERATOR): Acute problem when he was travelling in [place] last fall, resolved with treatment sought there, details lacking. Consider follow up with urology. Other chest pain 09/25/2023 Assessment & Plan (05/10/2024 9:35 PM HEEL WASHER STRINGING MACHINE OPERATOR): Acute, symptoms for 1 week. Tenderness to [...] no acute changes or evidence of old GA. The patient's symptoms are likely noncardiac. He reports having several stress tests many years ago at [facility]. He does not want to go through the chemical stress test ever again because of reported side effects, and he is not ready or in any shape to get on the treadmill due to gaining weight and still recovering from infection of left knee hardware. He has a scheduled follow-up with his safety instructor, Dr. Segura, in about two weeks. We discussed the EKG findings and his symptoms with his safety instructor. Return here early as needed, otherwise as [...] 08/26/2022 Assessment & Plan (02/20/2023 1:36 PM HEEL WASHER STRINGING MACHINE OPERATOR): He continues to take an iron supplement [...] got a second opinion in neurosurgery at [facility] today. They basically had the [...] not included. Sees Sam Whelan MD, [facility]. Wet on right, dry on left. Also bilateral vitreous syneresis. [facility] note on 06/18/2024: Status post total left knee replacement 01/15/20 22 Assessment & Plan (01/30/2022 5:27 PM HEEL WASHER STRINGING MACHINE OPERATOR): There is concern for his left prosthetic knee which has exhibited some warmth and swelling. This was tapped yesterday in orthopedics and there are around 65,000 nucleated cells. Microbiology preliminary report is negative. We will keep him on antibiotics (penicillin) pending further discussion with orthopedics. Assessment & Plan (01/15/2022 3:32 PM HEEL WASHER STRINGING MACHINE OPERATOR): Patient had L total Knee arthroplasty on 08/28/21. Current use of intermediate accountant anticoagulation 021 Overview (11/24/2020): Xarelto for Afib. [...] this surgery. He will also see his safety instructor for a specific cardiac clearance. Assessment & [...] but he should discuss this with his safety instructor as well. He can resume the anticoagulation [...] by wearing a mask. Malignant neoplasm prostate ([facility]) 11/18/2018 Cancer Staging:Clinical stage from 08/30/2020:Stage IIB(cT2b, cN0, cM0, PSA: 7.6, Grade Group: 2) - Signed by John Khan MD PhD on 08/30/2020 Overview (08/17/2020): Cancer in 6 cores, Ubaldo 3 + 3 = 6 in 5 [...] 5. Assessment & Plan (04/12/2024 4:25 AM HEEL WASHER STRINGING MACHINE OPERATOR): Chronic, diagnosed 3-4 years ago, status post definitive radiation therapy, comanaged with Urology and Radiation therapy. Assessment & Plan (04/09/2023 4:58 PM HEEL WASHER STRINGING MACHINE OPERATOR): He was treated with definitive radiation therapy [...] completely. Assessment & Plan (01/29/2021 4:09 PM HEEL WASHER STRINGING MACHINE OPERATOR): He completed radiation therapy. He has a [...] It. Assessment & Plan (04/09/2023 5:01 PM HEEL WASHER STRINGING MACHINE OPERATOR): He was prescribed CPAP, but never used [...] (09/26/2017): Added automatically from request for surgery [id number] Chronic left-sided headaches 03/19/2017 Overview (03/19/2017): New [...] moderate anemia postoperatively. He also saw his safety instructor at [facility] recently, and a test of some kind was [...] it. Assessment & Plan (02/18/2021 3:03 PM HEEL WASHER STRINGING MACHINE OPERATOR): His energy level has improved considerably. He [...] same. Assessment & Plan (01/14/2022 4:00 PM HEEL WASHER STRINGING MACHINE OPERATOR): Patient has a hx of GERD and [...] option. Assessment & Plan (01/22/2017 2:20 PM HEEL WASHER STRINGING MACHINE OPERATOR): He never got a call from the [...] transient/intermittent. Assessment & Plan (04/15/2023 11:29 AM HEEL WASHER STRINGING MACHINE OPERATOR): We are monitoring a mild and intermittent [...] labs. Assessment & Plan (02/23/2018 3:30 PM HEEL WASHER STRINGING MACHINE OPERATOR): Platelet count in the hospital when last checked at the time of left hip replacement was normal. He was taking B12 for awhile, but no longer takes it. We will monitor labs periodically. Assessment & Plan (01/22/2017 2:21 PM HEEL WASHER STRINGING MACHINE OPERATOR): This was noted on one of his blood counts, and as I recall his B12 level was also slightly low so we asked him to take a supplement which she takes irregularly. Things seem to be stable so we will continue to monitor. Paroxysmal atrial fibrillation 11/08/2014 Overview (12/03/2019): On Multaq and Xarelto. Assessment & Plan (05/10/2024 9:36 PM HEEL WASHER STRINGING MACHINE OPERATOR): Chronic, controlled on Multaq and Xarelto at this time. Heart rate regular upon auscultation camejo, vitals stable. See plan for URI above. Assessment & Plan (04/12/2024 4:25 AM HEEL WASHER STRINGING MACHINE OPERATOR): Chronic/intermittent, present for 10 or more years, controlled on dronedarone 400 mg daily (patient's idiosyncratic dosing), and rivaroxaban 20 mg daily, comanaged with Cardiology. Assessment & Plan (10/09/2023 3:30 PM CDT): Chronic, heart rhythm is irregular but rate is controlled. He is on Xarelto and Multaq. He will keep his follow ups with Dr. Lee. Assessment & Plan (04/09/2023 5:00 PM HEEL WASHER STRINGING MACHINE OPERATOR): Heart rhythm is regular. He is on [...] same. Assessment & Plan (04/16/2022 10:49 AM HEEL WASHER STRINGING MACHINE OPERATOR): He is on Multaq and Xarelto. Continue same. The Xarelto will be held for two days before reimplantation of his left knee. Assessment & Plan (01/30/2022 5:24 PM HEEL WASHER STRINGING MACHINE OPERATOR): He remains on Multaq. We corrected the dose to reflect what the patient reports he is taking, namely 400 mg twice a day instead the non standard 400 mg daily he took previously. Assessment & Plan (01/14/2022 3:57 PM HEEL WASHER STRINGING MACHINE OPERATOR): Patient has a hx of A-fib and [...] effects. He will discuss this with his safety instructor when he sees him for a cardiac clearance to have his left knee replaced. Assessment & Plan (01/29/2021 4:14 PM HEEL WASHER STRINGING MACHINE OPERATOR): Heart rhythm is currently regular. He is on Multaq and Xarelto. He followed up once with a safety instructor but did not do the testing that [...] PM CDT): Scanned office note, Dr. Zelaya, [facility]. Also in Care Everywhere. Assessment & Plan (08/06/2020 10:39 AM CDT): Heart rhythm is regular. He is on Multaq and Xarelto. He plans to see his safety instructor, Dr. Zelaya, sometime next week to get [...] well. Assessment & Plan (02/23/2018 3:29 PM HEEL WASHER STRINGING MACHINE OPERATOR): There is a history of paroxysmal atrial [...] continues on Multaq and Xarelto from his safety instructor. Sometimes he cuts the Multaq dose down if he is taking Motrin for his hip, because he does not want his blood to be too thin. He will follow up with Cardiology for all of these issues. Assessment & Plan (02/02/2017 5:13 PM HEEL WASHER STRINGING MACHINE OPERATOR): Recent Holter ordered by Dr. Montanez showed [...] 2 Assessment & Plan (04/12/2024 4:24 AM HEEL WASHER STRINGING MACHINE OPERATOR): Chronic, present for 10 or more years, not currently requiring diuretic or other medical therapy. We will monitor on periodic followups. Assessment & Plan (04/12/2024 4:21 AM HEEL WASHER STRINGING MACHINE OPERATOR): >>ASSESSMENT AND PLAN FOR DIASTOLIC DYSFUNCTION WRITTEN [...] his complaints of fatigue. He sees his safety instructor, Dr. Montanez, in about a month or two, and will ask him about diastolic dysfunction as a possible cause or contributing factor to his symptoms. Assessment & Plan (04/12/2024 4:21 AM HEEL WASHER STRINGING MACHINE OPERATOR): >>ASSESSMENT AND PLAN FOR DIASTOLIC DYSFUNCTION WRITTEN ON 02/23/2018 3:27 PM BY IRENA REBOLLEDO MD He seems to be doing well. Blood pressure is normal. Lungs are clear. Oxygen saturation is satisfactory. He has a safety instructor he sees regularly, Dr. Zelaya. Continue to monitor. Assessment & Plan (04/12/2024 4:21 AM HEEL WASHER STRINGING MACHINE OPERATOR): >>ASSESSMENT AND PLAN FOR DIASTOLIC DYSFUNCTION WRITTEN [...] Cardiology. Assessment & Plan (04/09/2023 4:53 PM HEEL WASHER STRINGING MACHINE OPERATOR): He has trace pretibial pitting edema. Lungs are clear in oxygenation is normal. He has not requiring any diuretic therapy at this time. We will monitor clinically. Assessment & Plan (04/03/2022 2:45 PM HEEL WASHER STRINGING MACHINE OPERATOR): He seems to be clinically stable with no significant edema, no crackles in his lungs. Oxygen saturation is normal. We will monitor clinically without medication. Primary osteoarthritis involving multiple joints 07/08/2012 Assessment & Plan (04/12/2024 4:26 AM HEEL WASHER STRINGING MACHINE OPERATOR): Chronic, present for 10 or more years, [...] shape. Assessment & Plan (02/18/2021 3:01 PM HEEL WASHER STRINGING MACHINE OPERATOR): He continues to have various aches and [...] joints. Assessment & Plan (02/23/2018 3:30 PM HEEL WASHER STRINGING MACHINE OPERATOR): He continues to have problems with aches [...] pain recently that was evaluated by his safety instructor at [facility], Dr. Lee. It was felt [...] 10/03/2023 Assessment & Plan (04/09/2023 4:58 PM HEEL WASHER STRINGING MACHINE OPERATOR): He does not take anything for cholesterol [...] diet. Assessment & Plan (01/29/2021 4:10 PM HEEL WASHER STRINGING MACHINE OPERATOR): He is not currently taking anything for [...] medicine. Assessment & Plan (02/23/2018 3:27 PM HEEL WASHER STRINGING MACHINE OPERATOR): He decided to stop taking cholesterol medicine [...] prescription. Assessment & Plan (01/22/2017 2:16 PM HEEL WASHER STRINGING MACHINE OPERATOR): He is tolerating his medication without apparent [...] it. Assessment & Plan (01/22/2017 1:59 PM HEEL WASHER STRINGING MACHINE OPERATOR): No new attacks of gout while on allopurinol. Resolved Problems Problem Noted Date Diagnosed Date Resolved Date Rectal bleeding 05/30/2023 12/12/2023 Chronic infection of left knee 04/08/2023 04/12/2024 Overview (04/12/2024): Resolved after two stage replacement of prosthetic joint. Assessment & Plan (04/09/2023 4:53 PM HEEL WASHER STRINGING MACHINE OPERATOR): There is no evidence of any relapse of the left prosthetic knee infection following two-stage replacement. He is thinking of going back to [place] to swim, and I think this would be fine. Intractable left heel pain 02/03/2023 1 Assessment & Plan (04/15/2023 11:25 AM HEEL WASHER STRINGING MACHINE OPERATOR): He seems to be doing well with regard to most pain complaints, including left heel pain. However, his right wrist carpometacarpal joints flare up from time to time. He presumes it is due to gout. When it happens, he eats cherries which he says makes the problem go away. Assessment & Plan (02/20/2023 1:35 PM HEEL WASHER STRINGING MACHINE OPERATOR): He notes a sharp pain in his [...] (06/30/2022): Added automatically from request for surgery [id number], s/p successful 2-stage replacement (revision on 04/10/2022). Assessment & Plan (04/03/2022 2:46 PM HEEL WASHER STRINGING MACHINE OPERATOR): Surgery to reimplant his left knee is planned for next week. He sees Dr. Hoffman tomorrow for a preoperative evaluation. 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 Assessment & Plan (04/03/2022 2:47 PM HEEL WASHER STRINGING MACHINE OPERATOR): He had explantation of the infected joint [...] resolved. Assessment & Plan (01/30/2022 5:23 PM HEEL WASHER STRINGING MACHINE OPERATOR): His diarrhea has improved significantly. He has [...] records. Assessment & Plan (01/19/2022 3:49 PM HEEL WASHER STRINGING MACHINE OPERATOR): The cellulitis involved much of the left [...] cellulitis. Assessment & Plan (01/19/2022 3:48 PM HEEL WASHER STRINGING MACHINE OPERATOR): He was hospitalized recently for a streptococcal [...] baseline. Assessment & Plan (01/15/2022 3:32 PM HEEL WASHER STRINGING MACHINE OPERATOR): Blood cultures from 01/12 now growing strep dysgalactiae with repeat blood cultures pending. - On Cefepime and vancomycin (01/13- Post-procedural fever 01/13/20222022 Overview (06/30/2022): Cellulitis of left leg resulting in sepsis and infection of left knee replacement. Assessment & Plan (01/13/2022 6:48 PM HEEL WASHER STRINGING MACHINE OPERATOR): I was called by the patient's son [...] 06/30/2022 Assessment & Plan (01/18/2022 5:10 PM HEEL WASHER STRINGING MACHINE OPERATOR): When I assessed him five days ago at his home, he was markedly confused, more properly encephalopathic then delirious. He improved rapidly with treatment in the hospital and seems back to normal. Assessment & Plan (01/13/2022 6:49 PM HEEL WASHER STRINGING MACHINE OPERATOR): Probably due to fever and suspected sepsis. Cellulitis of left thigh 01/13/2022 Overview (06/30/2022): See hospital records, [facility]. Assessment & Plan (01/18/2022 5:09 PM HEEL WASHER STRINGING MACHINE OPERATOR): He says the cellulitis started on his [...] needed. Assessment & Plan (01/15/2022 3:33 PM HEEL WASHER STRINGING MACHINE OPERATOR): Patient currently has a left knee that [...] dehydrated. Assessment & Plan (01/30/2022 5:23 PM HEEL WASHER STRINGING MACHINE OPERATOR): He has been drinking fluid and is making plenty of urine. Blood pressure is in a better range. Assessment & Plan (01/29/2022 5:54 AM HEEL WASHER STRINGING MACHINE OPERATOR): He called the office today. He has [...] (12/03/2019): Added automatically from request for surgery [id number], arthroscopy 10/08/2019, Dr. Hoffman, [facility]. Internal derangement of left knee 09/28/2019 12/03/2019 Overview (12/03/2019): Added automatically from request for surgery [id number], arthroscopy 10/08/2019. Acute gout of knee 03/08/2019 0 Overview (12/03/2019): See office note. Assessment & Plan (03/27/2019 3:18 PM HEEL WASHER STRINGING MACHINE OPERATOR): He has a history of gout, but [...] note. Assessment & Plan (03/27/2019 3:20 PM HEEL WASHER STRINGING MACHINE OPERATOR): He denies any history of knee pain [...] is okay with his orthopedic surgeon, Dr. Wyatt. His right shoulder is due for surgery [...] 09/20/201806/2023 Assessment & Plan (01/28/2019 2:16 PM HEEL WASHER STRINGING MACHINE OPERATOR): The left superior trapezius/supraspinatus area has been [...] report. Assessment & Plan (01/28/2019 2:15 PM HEEL WASHER STRINGING MACHINE OPERATOR): He has had pain in his right [...] needed. Assessment & Plan (03/26/2018 9:46 AM HEEL WASHER STRINGING MACHINE OPERATOR): For a couple of months or more [...] Overview (02/23/2018): S/P left THR. Dr. Hoffman [facility]. Assessment & Plan (09/08/2017 4:40 PM CDT): [...] issue. Assessment & Plan (02/02/2017 5:14 PM HEEL WASHER STRINGING MACHINE OPERATOR): This is his main concern at this time. It really impairs his quality of life. He has trouble getting his left sock and shoe on. Right now it is not so bad, but there are times when pain is quite severe, and he resorts to an [id number] nonsteroidal. Recent x-ray showed severe osteoarthritis of the left hip. We will refer to physical therapy and also to Dr. Wagner. A local injection may be helpful. Ultimately, joint replacement may be necessary but we should try to delay that if possible. Elevated prostate specific antigen (PSA) 04/10/2016 11/06/2020 Overview (03/08/2019): Elevated PSA, referred to urology, Dr. Kolton Jamison in 2016, Dr. Chávez in 2019. Localized Ca diagnosed [...] Obesity Assessment & Plan (04/09/2023 4:59 PM HEEL WASHER STRINGING MACHINE OPERATOR): He struggles with his weight. He eats [...] needed. Assessment & Plan (02/20/2023 1:37 PM HEEL WASHER STRINGING MACHINE OPERATOR): He would like to lose some weight. [...] weeks. Assessment & Plan (01/14/2022 3:56 PM HEEL WASHER STRINGING MACHINE OPERATOR): Patient BMI of 32.83. Assessment & Plan (12/19/2021 3:50 PM CDT): We encouraged attention to his diet, and hopefully some weight loss. Assessment & Plan (06/21/2021 8:31 AM CDT): I urged attention to his diet, and hopefully some weight loss. Assessment & Plan (01/29/2021 4:10 PM HEEL WASHER STRINGING MACHINE OPERATOR): We encouraged attention to his diet, and [...] apnea. Assessment & Plan (01/22/2017 2:17 PM HEEL WASHER STRINGING MACHINE OPERATOR): Weight loss could help some of his other issues, especially the pain he has from spinal stenosis and left hip osteoarthritis. He is down a few pounds, and he will continue efforts in this regard. Sepsis due to Streptococcus species without acute organ dysfunction 01/29/2022 06/30/2022 Overview (06/30/2022): See hospital records, [facility]. Assessment & Plan (01/30/2022 5:27 PM HEEL WASHER STRINGING MACHINE OPERATOR): One of several lood cultures was positive for Strep dysgalactiae. Follow-up blood cultures on antibiotics were negative. There is concern for his left prosthetic knee which has exhibited some warmth and swelling. See discussion elsewhere. Assessment & Plan (01/18/2022 5:11 PM HEEL WASHER STRINGING MACHINE OPERATOR): He was septic, but organ function remained [...] testing or empiric treatment for C diff. Encounters Date Type Department Care Team Description 08/10/2024 Telephone [facility] [address] [place] [phone] Irena Rebolledo MD 07/03/2024 Telephone [facility] [address] [facility] [address] [place] [address] Irena Rebolledo MD 07/03/2024 Results Follow-Up [facility] [address] [place] [phone] Irena Rebolledo MD Hepatitis B surface antibody (immune status) Blood, Hepatitis B Surface Antigen Blood, Basic metabolic panel, Additional followed-up results: 5 07/01/2024 2:30 PM CDT Office Visit [facility] [address] [place] [address] John Khan MD PhD Malignant neoplasm prostate (CMS/HCC) (HCC) 06/29/2024 12:00 PM CDT Lab [address] [phone] Medicare annual wellness visit, subsequent; Need for hepatitis B screening test; Acute midline low back pain without sciatica 06/29/2024 11:55 AM CDT Lab [address] [phone] Malignant neoplasm prostate (CMS/HCC) (HCC) 06/08/2024 Telephone [facility] [address] [place] [address] Irena Rebolledo MD 06/03/2024 1:00 PM CDT Office Visit [facility] [address] [place] [phone] Genevieve Torres, TIGHT BARREL INSPECTOR Upper respiratory tract infection, unspecified type (Primary Dx) 06/01/2024 Telephone [facility] [address] [place] [phone] Irena Rebolledo MD Chest Congestion 05/10/2024 1:00 PM HEEL WASHER STRINGING MACHINE OPERATOR Office Visit [facility] [address] [place] [phone] Genevieve Torres, JENNIFER Viral URI with cough (Primary Dx); Other chest pain; Paroxysmal atrial fibrillation (HCC) 05/10/2024 Telephone [facility] [address] [place] [address] Irena Rebolledo MD from Last 3 Months Immunizations Immunization Administration Dates Next Due Influenza, [...] 10/29/2023 ZOSTER LIVE 01/08/2012 ZOSTER Recombinant 03/24/2017,03/24/2017 Surgical History Surgery Date Site/Laterality Comments TOTAL HIP ARTHROPLASTY 10/13/[address] Hoffman, [facility]. BASAL CELL CARCINOMA EXCISION 07/04/2015 Left Shave biopsy, left shoulder. ORAL SURGERY 07/07/1998 Resection of benign fibrolipoma, Luis. BASAL CELL CARCINOMA EXCISION 10/28/2007 Right Resection from right side of jaw, tumor present at margin. PROSTATE BIOPSY 11/11/2018 Positive for prostate cancer, Dr. Chávez, [facility]. KNEE ARTHROSCOPY 10/08/2019 Left Partial medial & lateral meniscectomies, lateral & patellofemoral compartment chondroplasties, Dr. Hoffman, [facility]. DC ARTHRP ACETBLR/PROX FEM PROSTC AGRFT/ALGRFT Left TOTAL KNEE ARTHROPLASTY 07/16/[address] Hoffman, [facility]. KNEE SURGERY 02/04/2022 Left Stage I complete revision left total knee arthroplasty, entire femoral and entire tibial components. This includes explant of existing components, radical synovectomy with thorough irrigation and debridement, and implantation of static antibiotic spacer with femoral and tibial intramedullary dowels, Dr. Hoffman. REVISION TOTAL KNEE ARTHROPLASTY 04/10/2022 Left Left knee stage II complete revision, femoral, tibial, and patellar components with reimplantation, Dr. Hoffman, [facility]. HM DEXA SCAN 08/28/2022 N/A Low Bone Mass. FLEXIBLE SIGMOIDOSCOPY 06/24/2023 N/A Multiple small localized angioectasias with stigmata of recent bleeding were found in the distal rectum. kA few diverticuli noted, Dr. Bell. Medical History Medical History Date Comments Hypercholesteremia Gout Atrial fibrillation (HCC) Elevated PSA 04/10/2016 PSA = 4.9 on 04/10 Osteoarthritis of left hip 01/08/2017 S/P l eft THR. Dr. Hoffman [facility]. Prostate cancer (HCC) 11/18/2018 Cancer in 6 cores, Ubaldo 3 + 3 = 6 in 5 cores, 3 + 4 = 7 in 1 core. Aftercare following left hip joint replacement surgery 10/26/2017 Pain in testicle 12/31/2011 Details lacking . Acute medial meniscus tear of left knee 09/28/19 20 Added automatically from request for surgery [id number], arthroscopy 10/08/2019, Dr. Hoffman, [facility]. Acute pain of left knee 03/08/2019 Sudden o nset of pain and swelling in left knee, no fever. Treated empirically as gout, see office note. Acute gout of knee 03/08/2019 See office no te. Internal derangement of left knee 09/28/2019 Added automatically from request for surgery [id number], arthroscopy 10/08/2019. Orthopedic aftercare 10/18/2019 See office notes. Obstructive sleep apnea 09/24/2018 Elevated prostate specific a ntigen (PSA) 04/10/2016 Elevated PSA, referred to leni, Dr. Kolton Jamison in 2017, Dr. Chávez in 2018. Localized Ca diagnosed 11/2018. Non morbid obesity 11/08/1984 Obesity Obesity due to excess calories 11/15/2020 D uplicate entry. Exhaustion 11/15/2020 Multifactorial, saw cardiology, Dr. Emanuel. GERD (gastroesophageal reflux disease) Hypoglycemic reaction Post-procedural fever 01/13/2022 Cellulitis of left leg resulting in sepsis and infection of left knee replacement. Sepsis due to Streptococcus species without acute organ dysfunction (HCC) 01/13/2022 See hospital rec ords, [facility]. 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 History of removal of joint prosthesis of left knee due to infection 03/27/2022 Added automatically from request for surgery [id number], s/p successful 2-stage replacement (revision on 04/10/2022). Hypophosphatemia 01/16/2022 During hospital ization for cellulitis and sepsis. Infection of total left knee replacement, subsequent encounter 04/10/2022 Orthopedics, [place]. Covid-19 11/01/2021 Moderate symptom s, positive home test, MAB ordered. Duplicate entry Covid-19 11/01/2021 Moderate symptom s, positive home test, MAB ordered. Delirium 01/13/2022 Cellulitis of left thigh 01/13/2022 See hos pital records, [facility]. Cellulitis of left knee 01/15/2022 See hosp ital and office records. Bacteremia 01/14/2022 Strep dysgalacti ae due to left leg cellulitis. Antibiotic-associated diarrhea 01/22/2022 O mnicef and Clinda, clinda stopped. Penicillin started. Diarrhea resolved. Influenza B 12/10/2022 Saw Brenda Bergeron, ANP, Tamiflu Rx. 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 Gender Identity Not on file Sexual Orientation Not on file Obstetrics History Last Filed Vital Signs Vital Sign Reading [...] 06/03/2024 12:57 PM CDT Plan of Treatment Health Maintenance Due Date Last Done Comments DTaP/Tdap/Td Vaccine (1 - Tdap) 2023 Covid-19 Vaccine (2023-2 5 season) 2024 11/17/2023, 02/25/2023, 07/04/2021, Additional history exists Fall Risk Assessment 10/08/2024 10/09/2023, 06/24/2023, 07/01/2022, Additional history exists Well Visit 65+ 10/08/2024 10/09/2023, 06/09, 01/29/2021, Additional history exists Depression Screening 05/10/2025 05/10/2024, 10/09/2023, 07/01/2022, Additional history exists Pneumococcal vaccine 65+ Completed 015, 01/08/2015, 03/10/2011, Additional history exists Zoster Vaccine Completed 03/24/2017, 03/10, 01/08/2012 Influenza Vaccine Completed 11/12/2023, , 12/09/2020, Additional history exists Hepatitis B Screening Completed 06/29/2024 Medical Devices Implanted Type Area Link Cutter Device Identifier Shelf Expiration Date Model / Serial / Lot [employer] [id number] [place] 58mm Sector Hip Shell Acetabular Gription Sterile Latex Free - [id number] Implanted:Qty: 1 on 10/13/2017 by Omid Hoffman MD at [facility] Left: Hip [employer] 03/09/2027 [id number] / / [id number] [employer] [id number] [place] 58mm 36mm Hip Neutral Liner Acetabular Altrx Sterile Latex Free - [id number] Implanted:Qty: 1 on 10/13/2017 by Omid Hoffman MD at [facility] Left: Hip [employer] 06/07/2022 [id number] / / [id number] [employer] [id number] Actis Collar Hip 8 Standard Offset Stem Femoral - [id number] Implanted:Qty: 1 on 10/13/2017 by Omid Hoffman MD at [facility] Left: Hip [employer] 07/08/2027 [id number] / / [id number] [employer] 1365-36-330 Articul/Giacomo 36mm Cementless Hip +8.5mm 12/14 Taper Head Femoral Latex Free - [id number] Implanted:Qty: 1 on 10/13/2017 by Omid Hoffman MD at [facility] Left: Hip [employer] 08/07/2022 136536-330 / / [id number] [employer] Cement Bone Simplex Gentamicin High Viscosity [facility] 6195-1-001 - [id number] Implanted:Qty: 1 on 07/16/2021 by Omid Hoffman MD at [facility] Left: Knee [employer] 12/07/2022 6195-1-001 / / [id number] [employer] Cement Bone Simplex Gentamicin High Viscosity [facility] 6195-1-001 - [id number] Implanted:Qty: 1 on 07/16/2021 by Omid Hoffman MD at [facility] Left: Knee [employer] 12/07/2022 6195-1-001 / / [id number] [employer] Palacos R+G High Viscosity Cement Bone Gentamicin Arthroplasty 5342930 - [id number] Implanted:Qty: 1 on 02/04/2022 by Omid Hoffman MD at [facility] Left: Knee [employer] C1713 05/07/2022 [id number] / / [id number] [employer] Palacos R+G High Viscosity Cement Bone Gentamicin Arthroplasty 8634446 - [id number] Implanted:Qty: 1 on 02/04/2022 by Omid Hoffman MD at [facility] Left: Knee [employer] C1713 05/07/2022 [id number] / / [id number] [employer] [place]os R+G High Viscosity Cement Bone Gentamicin Arthroplasty 8399504 - [id number] Implanted:Qty: 1 on 02/04/2022 by Omid Hoffman MD at [facility] Left: Knee [employer] C1713 05/07/2022 [id number] / / [id number] [employer] [place]os R+G High Viscosity Cement Bone Gentamicin Arthroplasty 1376066 - [id number] Implanted:Qty: 1 on 02/04/2022 by Omid Hoffman MD at [facility] Left: Knee [employer] C1713 05/07/2022 [id number] / / [id number] [employer] Cement Bone Simplex Gentamicin High Viscosity 40 6195-1-001 - [id number] Implanted:Qty: 1 on 04/10/2022 by Omid Hoffman MD at [facility] Left: Knee [employer] 06/08/2023 6195-1-001 / / [id number] [employer] Cement Bone Simplex Gentamicin High Viscosity 40 6195-1-001 - [id number] Implanted:Qty: 1 on 04/10/2022 by Omid Hoffman MD at [facility] Left: Knee [employer] 06/08/2023 6195-1-001 / / [id number] [employer] Attune Cement Revision Rotate Platform Knee 6 Baseplate Tibial 755900144 - [id number] Implanted:Qty: 1 on 04/10/2022 by Omid Hoffman MD at [facility] Left: Knee [employer] [id number] 09/07/2031 [id number] / / [id number] [employer] Attune 22mm 60mm Revision Press Fit Knee Stem Femoral Sterile Latex Free 783789161 - [id number] Implanted:Qty: 1 on 04/10/2022 by Omid Hoffman MD at [facility] Left: Knee [employer] [id number] 09/06/2028 [id number] / / [id number] [employer] Attune L53 Mm Revision Full Coated Knee Sleeve Tibial Porocoat Sterile Latex Free 948903060 - [id number] Implanted:Qty: 1 on 04/10/2022 by Omid Hoffman MD at [facility] Left: Knee [employer] 05/08/2031 [id number] / / [id number] Attune Knee System Revision Femoral Sleeve Porocoat Fully Coated Implanted:Qty: 1 on 04/10/2022 by Omid Hoffman MD at [facility] Left: Knee [employer]uy [employer] C1776 06/07/2029 [id number] / / [id number] [employer] Attune H4 Mm Revision Cement Knee Distal 7 Augment Femoral Sterile Latex Free [id number] - [id number] Implanted:Qty: 1 on 04/10/2022 by Omid Hoffman MD at [facility] Left: Knee [employer] 04/09/2031 [id number] / / [id number] [employer] Attune Revision Cement Constrain Knee Left 7 Component Femoral Sterile 663192291 - [id number] Implanted:Qty: 1 on 04/10/2022 by Omid Hoffman MD at [facility] Left: Knee [employer] 03/09/2031 [id number] / / [id number] [employer] Attune 22mm 60mm Revision Press Fit Knee Stem Femoral Sterile Latex Free 598772732 - [id number] Implanted:Qty: 1 on 04/10/2022 by Omid Hoffman MD at [facility] Left: Knee [employer] 10/07/2029 [id number] / / [id number] [employer] Attune H4 Mm Revision Cement Knee Posterior 7 Augment Femoral Sterile Latex Free 993140333 - [id number] Implanted:Qty: 1 on 04/10/2022 by Omid Hoffman MD at [facility] Left: Knee [employer] 03/09/2031 [id number] / / [id number] [employer] Attune H4 Mm Revision Cement Knee Distal 7 Augment Femoral Sterile Latex Free [id number] - [id number] Implanted:Qty: 1 on 04/10/2022 by Omid Hoffman MD at [facility] Left: Knee [employer] 04/09/2031 [id number] / / [id number] [employer] Attune 38mm Cemented Medialize Knee Dome Patellar Aox Sterile 416667692 - [id number] Implanted:Qty: 1 on 04/10/2022 by Omid Hoffman MD at [facility] Left: Knee [employer] 01/07/2027 [id number] / / [id number] [employer] Attune H8 Mm Revision Constrain Rotate Platform Knee 6 Insert Tibial Aox Sterile 472410128 - Sn/A - [id number] Implanted:Qty: 1 on 04/10/2022 by Omid Hoffman MD at [facility] Left: Knee [employer] C1776 10/07/2022 [id number] / N/A / [id number] Explanted Type Area Link Cutter Device Identifier Shelf Expiration Date Model / Serial / Lot [employer] [id number] Attune S+ Cement Fix Bearing Knee 7 Baseplate Tibial - [id number] Implanted:Qty: 1 on 07/16/2021 by Omid Hoffman MD at [facility] Explanted:Qty: 1 on 02/04/2022 at [facility] Left: Knee [employer] 06/08/2031 [id number] / / [id number] [employer] [id number] Attune Cemented Posterior Stabilize Knee Left 7 Component Femoral - [id number] Implanted:Qty: 1 on 07/16/2021 by Omid Hoffman MD at [facility] Explanted:Qty: 1 on 02/04/2022 at [facility] Left: Knee [employer] 11/07/2028 [id number] / / [id number] [employer] [id number] Attune 8mm Posterior Stabilize Fix Bearing Knee 7 Insert Tibial - [id number] Implanted:Qty: 1 on 07/16/2021 by Omid Hoffman MD at [facility] Explanted:Qty: 1 on 02/04/2022 at [facility] Left: Knee [employer] 04/09/2026 [id number] / / [id number] Procedures Procedure Name Priority Date/Time Associated Diagnosis [...] LAB BLOOD ORDERABLES Final Re sult [facility] 1 [facility] [place] [address] * Differential, auto (06/29/2024 12:10 PM CDT) Neutrophil abs 1.80 1.50 - 6.50 K/cumm Imm gran abs 0.01 0.00 - 0.10 K/cumm [facility] ([place]) Lymphocyte abs 1.01 0.80 - 3.30 K/cumm [facility] ([place]) Monocyte abs 0.30 0.20 - 0.80 K/cumm [facility] ([place]) Eosinophil abs 0.05 0.00 - 0.50 K/cumm [facility] ([place]) Basophil abs 0.01 0.00 - 0.10 K/cumm [facility] ([place]) Neutrophil pct 56.6 % [facility] Comment: Interpretive Data Percent cell count reference ranges are not reported, since discordance with absolute values may lead to misinterpretation of CBC data. Current Interpretive Data was last revised on 2017. Imm gran pct 0.3 % [facility] ([place]) Comment: Interpretive Data Percent cell count reference ranges are not reported, since discordance with absolute values may lead to misinterpretation of CBC data. Current Interpretive Data was last revised on 2017. Lymphocyte pct 31.8 % [facility] Comment: Interpretive Data Percent cell count reference ranges are not reported, since discordance with absolute values may lead to misinterpretation of CBC data. Current Interpretive Data was last revised on 2017. Monocyte pct 9.4 % [facility] ([place]) Comment: Interpretive Data Percent cell count reference [...] revised on 2017. Basophil pct 0.3 % [facility] ([place]) Comment: Interpretive Data Percent cell count reference ranges are not reported, since discordance with absolute values may lead to misinterpretation of CBC data. Current Interpretive Data was last revised on 2017. Blood 06/29/2024 12:1 0 PM CDT 06/29/2024 12:20 PM CDT us Irena Rebolledo MD LAB BLOOD ORDERABLES Final Re sult [facility] ([place]) 1 [facility] [place] [address] * (ABNORMAL) CBC with auto differential (06/29/2024 12:10 PM CDT) WBC 3.18(L) 3.80 - 9.90 K/cumm Hgb 13.8 13.0 - 17.5 g/dL [facility] Hct 40.0 38.9 - 50.3 % [facility] Plt 138(L) 150 - 400 K/cumm [facility] ([place]) MPV 10.6 9.1 - 12.3 fL [facility] RBC 4.44 4.30 - 5.80 M/cumm [facility] MCV 90.1 81.3 - 96.4 fL [facility] MCH 31.1 27.1 - 33.3 pg [facility] MCHC 34.5 32.3 - 35.7 g/dL [facility] RDW CV 12.9 11.1 - 14.9 % [facility] RDW SD 42.5 35.7 - 48.1 fL [facility] NRBC abs 0.00 0.00 - 0.01 K/cumm [facility] Blood 06/29/2024 12:1 0 PM CDT 06/29/2024 12:20 PM CDT Irena Rebolledo MD LAB BLOOD ORDERABLES Final Re sult [facility] ([place] 1 [facility] [place] [address] * (ABNORMAL) Hepatitis B core antibody, total Blood (06/29/2024 12:10 PM CDT) Hep B core IgG/IgM Reactive( A) Nonreactive Comment:Testing performed by : [facility], [address] [place] [address], [address] Blood 06/29/2024 12:1 0 PM CDT 06/29/2024 8:10 PM CDT Irena Rebolledo MD LAB MICROBIOLOGY - GENERAL OR DERABLES Final Result Performing Organization Address City/[facility]/ZIP Co de Phone Number [facility] ([place]) [address] [place] [address] [employer] [place] [address] * Hepatitis B surface antibody (immune status) Blood (06/29/2024 12:10 PM CDT) HBsAb (immune status) Reactive Comment: Interpretive Data [...] last revised on 19. Testing performed by: [address] [address] HBsAb (immune status) index 967.0 mIUnits/m L [facility] ([place]) Comment:Testing performed by : [address] [place]., [address] Blood 06/29/2024 12:1 0 PM CDT 06/29/2024 4:42 PM CDT Irena Rebolledo MD LAB MICROBIOLOGY - GENERAL OR DERABLES Final Result Performing Organization Address [facility]/ZIP Co de Phone Number [facility] ([place]) 1 [facility] [employer] [place] [address] * Hepatitis B Surface Antigen Blood (06/29/2024 12:10 PM CDT) HepBsAg Nonreactive Nonreactive Comment:Testing performed by : [facility], [address] [place] [address], [address] Blood 06/29/2024 12:1 0 PM CDT 06/29/2024 4:42 PM CDT us Irena Rebolledo MD LAB MICROBIOLOGY - GENERAL OR DERABLES Final Result Performing Organization Address [facility] Co de Phone Number [facility] ([place]) 1 [facility] [employer] [place] [address] * Uric acid (06/29/2024 12:10 PM CDT) Uric acid 7.3 3.0 - 8.0 mg/dL Blood 06/29/2024 12:1 0 PM CDT 06/29/2024 12:20 PM CDT Irena Rebolledo MD LAB BLOOD ORDERABLES Final Re sult Performing Organization Address City/[facility]/ZIP Co de Phone Number [facility] ([place]) 1 [facility] [place] [address] * PSA diagnostic (06/29/2024 12:10 PM CDT) PSA-Total 1.66 <=6.20 ng/mL Comment: Interpretive Data [...] PM CDT 06/29/2024 12:20 PM CDT us John Khan MD PhD LAB BLOOD ORDERABLES F inal Result [facility] ([place] 1 [facility] [place] [address] * Basic metabolic panel (06/29/2024 12:10 PM CDT) Sodium 140 135 - 145 mmol/L Potassium, pl 4.2 3.3 - 4.9 mmol/L [facility] Chloride 106 97 - 110 mmol/L [facility] CO2 23 22 - 32 mmol/L [facility]) Anion gap 11 2 - 15 mmol/L [facility] ([place]) BUN 22 6 - 25 mg/dL [facility]) Creatinine 1.26 0.80 - 1.30 mg/dL [facility] ([place]) Glucose 107 70 - 199 mg/dL [facility] ([place]) Comment: Interpretive Data Fasting glucose [...] 2022. Calcium 9.1 8.5 - 10.3 mg/dL [facility] ([place]) Blood 06/29/2024 12:1 0 PM CDT 06/29/2024 12:20 PM CDT Irena Rebolledo MD LAB BLOOD ORDERABLES Final Re sult [facility] ([place] 1 [facility] [place] [address] from Last 3 Months Insurance MEDICARE [facility] MEDICARE [employer]UE [employer] MEDICARE SUPPLEMENT MEDICARE [facility] MEDICARE [facility] MEDICARE [employer] MEDICARE SUPPLEMENT [facility] Advance Directives For more information, please contact: [phone] * Full Code (Latest Code Status on [...] 4:12 PM 10/19/2017 9:01 PM Care Teams Washtub Worker Relationship Specialty Start Date End Date Irena Rebolledo MD [address] [place] [address] PCP - General 12/18/16 Mundo Smith MD Consulting Physician Neurosurgery 12/10/16 Viviana Wagner MD [address] [place] [address] Consulting Physician Pain Management 02/26/17 Heather Grant NP [address] [place] [address] Nurse Practitioner Neurosurgery 04/06/17 Quinn Flannery MD [address] [address] Consulting Physician Pain Management 05/10/[address] [facility] Data Collection Interviewer Physical Therapy 10/06/17 Omid Hoffman MD Surgeon Orthopedic Surgery 11/02/17 Steffany Solomon NP Nurse Practitioner Pain Management 07/05/18 Carlos Ford MD Consulting Physician Neurology 09/20/18 Gerardo Chávez MD Referring Physician Urology 01/28/19 Irineo Moe MD Consulting Physician Dermatology 01/28/19 Nelson Schneider MD [address] [facility] [address] [place], [place] [id number] Consulting Physician Orthopedic Surgery 02/22/19 Mirta Angeles PA [address] [facility] [address] [place], [place] [id number] [facility] Orthopedic Surgery 10/08/19 John Khan MD PhD [address] [place] [address] Radiation Oncologist Radiation Oncology 08/30/20 Sam Whelan MD [address] [place] [address] [place] [address] Consulting Physician Ophthalmology 04/02/22 Quinn Flanenry MD [address] [place] [address] Consulting Physician Pain Management 06/19/22 [place] [address] [place] [address] Consulting Physician Neurosurgery 06/21/22 Brock Segura MD [address] [place] [address] [address], [place] [address] Consulting Physician Cardiology 08/26/22 Tung Bach OD [address] [place] [address] Consulting Physician Optometry 07/31/22 Janell Orellana PA [address] [place] [address] [facility] Orthopedic Surgery 09/12/22 Ashtyn Morrow PA [address] [place] [id number] [place] [address] [facility] Colon and Rectal Surgery 04/30/23 Terence Edgar DMD [address] [place] [address] Dentist Oral Surgery 09/04/23
--- OUTSIDE RECORDS SUMMARY | 2024-08-10 17:00 | XMS_ITS | Continuity of Care Document ---
Author Organization [facility] Address [address] [facility] [address] [place] [address] Phone Care Team Providers Care Boat Buffer Plastic Name Role Phone Tomi Villalobos MD Unavailable Unavailable Allergies, Adverse Reactions, Alerts Substance Reaction Status Criticality No Known Allergies Active No Inform ation Medications Medication Instructions Dosage Effective Dates (start - stop) Status Comments Ultram 50 mg tablet Take 1 or 2 tablets by mouth every 6 to 8 hours as needed for pain - Active MULTAQ (unknown strength) Not Available - Active Xarelto 10 mg tablet - Active Procedures Procedure Date POSTOP FOLLOW-UP VISIT POSTOP FOLLOW-UP VISIT OFFICE/OUTPATIENT VISIT EST OFFICE/OUTPATIENT VISIT EST OFFICE/OUTPATIENT VISIT EST OFFICE/OUTPATIENT VISIT EST OFFICE/OUTPATIENT VISIT NEW OFFICE/OUTPATIENT VISIT EST Advance Directives Directive Yes / No Effective Date File Name No Information Encounters Encounter Description Practice Location Reason(s) For Visit Diagnoses Date Provider Providers Copied on Encounter [facility], [address] [place] [address], [address], [place] tel:[phone] [facility] facet jt injection (chief complaint) Spondylosis of lumbosacral joint without myelopathy 7 Wilfredo Krishna. [address] [place] [address], [id number] . tel: [phone] [facility], [address] [place] [address], [address], [place] tel:[phone] [facility] Follow Up of lbp (chief complaint) Spondylosis of lumbosacral joint without myelopathyLow back pain 7 Wilfredo Krishna. [address] [place], [place], [id number] . 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 [address], [place], [place], [id number] . tel: [phone] OFFICE/OUTPA TIENT VISIT [facility], [address] [place] [address], [address], [place] [phone] [facility] BACK RAKESH (chief complaint) Spinal stenosis of lumbar regionRadiculo ward of lumbosacral region Sep-0 6 Hamilton Mcnair. [address], [place], [place], [id number] . tel: [phone] OFFICE/OUTPA TIENT VISIT [facility], [address] [place] [address], [address], [place] [phone] [facility] [place] Follow Up of mri lumbar spine (chief complaint) Spinal stenosis of lumbar regionOther intervertebral disc degeneration, lumbar regionSpondylo sis of lumbosacral joint without myelopathy 6 Hamilton Mcnair. [address], [place], [place], [id number] . tel: [phone] [facility], [address] [place] [address], [address], [place] [phone] [facility] facet joint injection (chief complaint) Spondyls w/o myelopathy or radiculopathy, lumbosacr regionLow back painOther intervertebral disc degeneration, lumbar region Adriano- 6 Hamilton Mcnair. [address], [place], [place], [id number] . tel: [phone] OFFICE/OUTPA TIENT VISIT [facility], [address] [address], [place], [address], [place] [phone] [facility] [place] lbp (chief complaint) Other intervertebral disc degeneration, lumbar regionSpondylo sis of lumbosacral joint without myelopathy 6 Hamilton Mcnair. [address], [place], [place], [id number] . tel: [phone] [facility], [address] [place] [address], [place], [address], [place] [phone] [facility] Follow Up of lbp (chief complaint) Lumbosacral spondylosis without myelopathyLumb ago 5 Wilfredo Krishna. [address] [place], [place], [id number] . tel: [phone] OFFICE/OUTPA TIENT VISIT [facility], [address] [place] [address], [place], [address], [place] [phone] [facility] [place] Follow Up of chronic LBP (chief complaint) Spinal stenosis, lumbarChronic low back painOther chronic pain 5 Trey Krishna. [address], [place], [place], [id number] . tel: [phone] OFFICE/OUTPA TIENT VISIT [facility], [address] [place] [address], [place], [address], [place] [phone] [facility] Facet injections L4/5 (chief complaint) Lumbosacral spondylosis without myelopathyLumb ago 3 Wilfredo Krishna. [address] [place] [address], [id number] . tel: [phone] Referring Provider: Sherif Banerjee, Not in Practice [address] [facility], [place], [address] . tel:[phone] [facility], [address] [place] [address], [place], [address], tel:[phone] [facility] Ruth low back pain (chief complaint) Lumbosacral spondylosis without myelopathy 3 Wilfredomelita Krishna. [address] [place], [place], [id number] . tel: [phone] Family History Family Member Type Diagnosis Age At Onset Father Problem (finding) 85 Father Problem (finding) congestive hea rt failure (Cause Of ) 75 Payers Payer name Insurance type Covered constitution party ID Authoriza tion(s) Medicare E2 OT [id number] Social History Type Description Quantity Date Captured Comments Alcohol Use Details Unknown Caffeine Use Details Unknown Tobacco Use Status No Information Smoking Status No Information Sex Male Chief Complaint And Reason For Visit From encounter dated '07/19/2016 11:20'. facet jt injection (chief complaint) Reason For Referral Reason For Referral No Information Plan Of Treatment Date Type Action Status Referral Ordered: MRI SPI CANAL&CNTS LMBR C-MATRL Appointment date/timeframe: 09/14/2015 ordered History Of Present Illness Encounter Date Complaint History Of Prese nt Illness facet jt injection Follow Up of lbp op/storm sash maker eval Lt shoulder BACK RAKESH Follow Up of mri lumbar spine facet joint injection Patient pr esents for planned spinal injection. Continues to endorse axial low back pain. facet joint injection lbp Follow Up of lbp Last seen in . Facet injections at that time helped. Having increased LBP. Interested in repeat injection. HH and meds reviewed. Off Xarelto for a week. Follow Up of chronic LBP Functional Status Date Functional Assessmen t No Information Instructions Date Instruction Additional Infor mation Activity as tolerated. Related t o Spondylosis of lumbosacral joint without myelopathy Avoid prolonged bed rest. Relate d to Spondylosis of lumbosacral joint without myelopathy Take medication as directed. Rel ated to Spinal stenosis of lumbar region Activity as tolerated. Related t o Spinal stenosis of lumbar region Activity as tolerated. Related t o Spondyls w/o myelopathy or radiculopathy, lumbosacr region Avoid prolonged bed rest. Relate d to Spondyls w/o myelopathy or radiculopathy, lumbosacr region Activity as tolerated. Related t o Spondyls w/o myelopathy or radiculopathy, lumbosacr region Avoid prolonged bed rest. Relate d to Spondyls w/o myelopathy or radiculopathy, lumbosacr region Activity as tolerated. Related t o Spondylosis of lumbosacral joint without myelopathy Avoid prolonged bed rest. Relate d to Spondylosis of lumbosacral joint without myelopathy Activity as tolerated. Related t o Lumbosacral spondylosis without myelopathy Avoid prolonged bed rest. Relate d to Lumbosacral spondylosis without myelopathy Take medication as prescribed. R elated to Lumbosacral spondylosis without myelopathy Assessments Type Assessment Date assessment Spondylosis of lumbosacral joint without myelopathy Patient Care Teams Name Effective Dates (start - stop) Status Members No Information
--- OUTSIDE RECORDS SUMMARY | 2024-08-10 17:00 | XMS_ITS | Encounter Summary ---
Author Organization formerly [facility] Address [address] [place] [address] Care Team Providers Care Sales And Marketing Executive Name Role Phone Mundo Smith MD Unavailable [phone] Filiberto Madrid MD Primary Care Provider Viviana Wagner MD Unavailable [phone] Heather Grant NP Unavailable [phone] Quinn Flannery MD Unavailable [phone] Nena Rogers PTA Unavailable Unavailable Omid Hoffman MD Unavailable [phone] Steffany Solomon NP Unavailable [phone] Carlos Ford MD Unavailable Gerardo Chávez MD Unavailable Irineo Moe MD Unavailable Nelson Schneider MD Unavailable Mirta Angeles Unavailable [phone] John Khan MD PhD Unavailable Sam Whelan MD Unavailable [phone] Quinn Flannery MD Unavailable [phone] Cristy Rodriguez MD Unavailable Brock Segura MD Unavailable [phone] MikalaTavonTung Sanjiv OD Unavailable Janell Orellana PA Unavailable Ashtyn Morrow PA Unavailable Terence Edgar DMD Unavailable Encounter Details Date Type Department Care Team (Late st Contact Info) Description 08/10/2024 Telephone [facility] [address] [place] [address] Filiberto Madrid MD [address] [place] [address] Social History Tobacco Use Types Packs/Day [...] than three times a week 02/06/2022 Attends Religion Services Not on file 02/06 Do you belong to any clubs o r organizations such as voodoo groups, unions, fraternal or athletic groups, or [...] on file 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 * Telephone Encounter - Natasha Emery - 08/10/2024 2:17 PM CDT Patient called stating that on 08/08 he was bit by a bat. States that he was bit on the right hand index finger. [phone] Spoke to ANITA Hall who stated that patient needs to go to ER for shots. Let patient know. Patient voiced understanding. documented in this encounter Plan of Treatment Not on file documented as of this encounter Visit Diagnoses Not on filedocumented in this encounter Care Teams Sales And Marketing Executive Relationship Specialty Start Date End Date Filiberto Madrid MD [address] [place] [address] PCP - General 12/18/16 Mundo Smith MD Consulting Physician Neurosurgery 12/10/16 Viviana Wagner MD [address] [place] [address] Consulting Physician Pain Management 02/26/17 Heather Grant NP [address] [place] [address] Nurse Practitioner Neurosurgery 04/06/17 Quinn Flannery MD [address] [place] [address] Consulting Physician Pain Management 05/10/17 Nena Rogers PTA Health Care Assistant Physical Therapy 10/06/17 Omid Hoffman MD Surgeon Orthopedic Surgery 11/02/17 Steffany Solomon NASCAR [employer]AC[employer] Nurse Practitioner Pain Management 07/05/18 Carlos Ford MD Consulting Physician Neurology 09/20/18 Gerardo Chávez MD Referring Physician Urology 01/28/19 Irineo Moe MD Consulting Physician Dermatology 01/28/19 Nelson Schneider MD [address] [facility] [address] [place] [address] Consulting Physician Orthopedic Surgery 02/22/19 Mirta Angeles PA [address] [facility] [address] [place] [address] Physician Rail Equipment Operator Orthopedic Surgery 10/08/19 John Khan MD PhD [address] [place] [address] Radiation Oncologist Radiation Oncology 08/30/20 Sam Whelan MD [address] [place] [address] Consulting Physician Ophthalmology 04/02/22 Quinn Flannery MD [address] [address] Consulting Physician Pain Management 06/19/22 [place] [address] [place] [address] Consulting Physician Neurosurgery 06/21/22 Brock Segura MD [address] [place] [address] [place] [address] Consulting Physician Cardiology 08/26/22 Tung Bach OD [address] [place], [place] [address] Consulting Physician Optometry 07/31/22 Janell Orellana PA [address] [place], [place] [address] Physician Rail Equipment Operator Orthopedic Surgery 09/12/22 Ashtyn Morrow PA [address] [place] [address] [place] [address] Physician Rail Equipment Operator Colon and Rectal Surgery 04/30/23 Terence Edgar DMD [address] [place] [address] Dentist Oral Surgery 09/04/23 documented as of this encounter
--- OUTSIDE RECORDS SUMMARY | 2024-08-10 17:02 | XMS_ITS | CONTINUITY OF CARE DOCUMENT ---
Author Name yu nicholas Address Unknown Organization [facility] Address [address] [place] [address] [address] [place] [address] Phone [phone] Care Team Providers Care Labor Relations Manager Name Role Phone Manda GONZALES, Anahy Unavailable ADDISON REBOLLEDO MD Unavailable [phone] ADDISON REBOLLEDO MD Unavailable [phone] INSURANCE PROVIDERS Payer name Policy type / Coverage type [place] red republican ID [facility] [id number] [place] Medicare [id number]
--- OUTSIDE RECORDS SUMMARY | 2024-08-10 17:02 | XMS_ITS | Encounter Summary ---
Author Organization [facility] Address [address] [place] [address] Care Team Providers Care Tobacco Wrapping Machine Tender Name Role Phone Mundo Smith MD Unavailable [phone] Filiberto Madrid MD Primary Care Provider Viviana Wagner MD Unavailable [phone] Heather Grant NP Unavailable [phone] Quinn Flannery MD Unavailable [phone] Nena Rogers PTA Unavailable Unavailable Omid Hoffman MD Unavailable Steffany Solomon NP Unavailable [phone] Carlos Ford MD Unavailable Gerardo Chávez MD Unavailable Irineo Moe MD Unavailable Nelson Schneider MD Unavailable Mirta Angeles Unavailable [phone] John Khan MD PhD Unavailable Omid Emanuel DO Unavailable [phone] Sam Whelan MD Unavailable [phone] Quinn Flannery MD Unavailable [phone] Cristy Rodriguez MD Unavailable [phone] Brock Segura MD Unavailable [phone] Tung Bach OD Unavailable [phone] Janell Orellana PA Unavailable [phone] Ashtyn Morrow Unavailable [phone] Ashtyn Morrow Unavailable [phone] Terence Preston DMD Unavailable [phone] Encounter Details Date Type Department Care Team (Late st Contact Info) Description 08/28/2022 Telephone [facility] [address] [place] [address] Chyna Wall, Social History Tobacco Use Types Packs/Day Years [...] than three times a week 02/06/2022 Attends Yarsani Services Not on file 02/06 Do you belong to any clubs o r organizations such as uatsdin groups, unions, fraternal or athletic groups, or school groups? No 02/06/2022 How often do you attend meet ings of the clubs or organizations you belong to? Never 02/06/2022 Are you , , di vorced, , never , or living with a partner? 02/06/2022 AUDIT-C Answer Date Recorded Q1: How often do you have a drink containing alc ohol? 2-4 times a month 04/10/2022 Q2: How many drinks containi ng alcohol do you have on a typical day when you are drinking? 1 or 2 04/10/2022 Q3: How often do you have si x or more drinks on one occasion? Never 04/10/2022 Overall Financial Resource Strain (CARDIA) Answe r Date Recorded How hard is it for you to pa y for the very basics like food, housing, medical care, and heating? Not hard at all 02/06/2022 PHQ-2 Answer Date Recorded PHQ-2 Total Score (If total score is 3 or more points, staff should administer the PHQ-9) 0 07/01/2022 Hunger Vital Sign Answer Date Recorded Within the past 12 months, y ou worried that your food would run out before you got the money to buy more. Never true 02/07/20 Within the past 12 months, t he [...] making you feel afraid or unsafe? 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 Gender Identity Not on file Sexual Orientation Not on file documented as of this encounter Plan of Treatment Not on file documented as of this encounter Visit Diagnoses Not on filedocumented in this encounter Care Teams Tobacco Wrapping Machine Tender Relationship Specialty Start Date End Date Filiberto Madrid MD [address] [place] PCP - General 12/18/16 Mundo Smith MD Consulting Physician Neurosurgery 12/10/16 Viviana Wagner MD [address] [place] [address] Consulting Physician Pain Management 02/26/17 Heather Grant, JENNIFER [address] [place] [address] Nurse Practitioner Neurosurgery 04/06/17 Quinn Flannery MD [address] [place] [address] Consulting Physician Pain Management 05/10/17 Nena Rogers [facility] Apprenticeship Training Representative Physical Therapy 10/06/17 Omid Hoffman MD Surgeon Orthopedic Surgery 11/02/17 Steffany Solomon NP Nurse Practitioner Pain Management 07/05/18 Carlos Ford MD Consulting Physician Neurology 09/20/18 Gerardo Chávez MD Referring Physician Urology 01/28/19 Irineo Moe MD Consulting Physician Dermatology 01/28/19 Nelson Schneider MD [address] [facility] [address] [place] [address] Consulting Physician Orthopedic Surgery 02/22/19 Mirta Angeles PA [address] [facility] [address] [place] [address] Physician Cook Pressure Orthopedic Surgery 10/08/19 John Khan MD PhD [address] [place] [address] [place] [address] Radiation Oncologist Radiation Oncology 08/30/20 Omid Emanuel DO [address] [facility] [address] [place] [address] Consulting Physician Cardiovascular Disease 11/08/20 Sam Whelan MD [address] [facility] [address] [place] [address] Consulting Physician Ophthalmology 04/02/22 Quinn Flannery MD [address] [place] [address] Consulting Physician Pain Management 06/19/22 [place] [address] [place] [address] Consulting Physician Neurosurgery 06/21/22 Brock Segura MD [address] [place] [address] [address], [place] [address] Consulting Physician Cardiology 08/26/22 Tung Bach, EDMAR [address] [place] [address] Consulting Physician Optometry 07/31/22 Janell Orellana PA [address] [place] [address] Physician Cook Pressure Orthopedic Surgery 09/12/22 Ashtyn Morrow PA [address] [place] [id number] [place] [address] Physician Cook Pressure Colon and Rectal Surgery 04/04/23 05/27/23 Ashtyn Morrow PA [address] [place] [id number] [place] [address] Physician Cook Pressure Colon and Rectal Surgery 04/30/23 Terence Edgar DMD [id number] [place] [address] Dentist Oral Surgery 09/04/23 documented as of this encounter
--- OUTSIDE RECORDS SUMMARY | 2024-08-10 17:02 | XMS_ITS | Continuity of Care Document ---
Author Organization [facility] Address [address] [place] [address] [place] [phone] Phone Care Team Providers Care Fur Ironer Name Role Phone Gretta Anaya PT Unavailable Unavailable Procedures Procedure Date Progress Note Therapeutic Exercise Therapeutic Activities Therapeutic Exercise Neuromuscular Re-Ed Therapeutic Exercise Neuromuscular Re-Ed Neuromuscular Re-Ed Therapeutic Exercise Therapeutic Activities Therapeutic Activities Neuromuscular Re-Ed Therapeutic Exercise Therapeutic Activities Neuromuscular Re-Ed Therapeutic Exercise Therapeutic Activities Neuromuscular Re-Ed Therapeutic Exercise Therapeutic Activities Neuromuscular Re-Ed Therapeutic Exercise Progress Note Therapeutic Activities Neuromuscular Re-Ed Therapeutic Exercise Therapeutic Activities Neuromuscular Re-Ed Therapeutic Exercise Therapeutic Exercise Therapeutic Activities Neuromuscular Re-Ed Therapeutic Activities Neuromuscular Re-Ed Therapeutic Exercise Therapeutic Activities Neuromuscular Re-Ed Therapeutic Exercise Therapeutic Activities Therapeutic Exercise Neuromuscular Re-Ed Therapeutic Activities Neuromuscular Re-Ed Therapeutic Exercise Therapeutic Activities Neuromuscular Re-Ed Therapeutic Exercise Therapeutic Activities Neuromuscular Re-Ed Therapeutic Exercise Progress Note Neuromuscular Re-Ed Therapeutic Exercise Therapeutic Activities Therapeutic Activities Therapeutic Exercise Therapeutic Activities Neuromuscular Re-Ed Therapeutic Exercise Therapeutic Activities Neuromuscular Re-Ed Manual Therapy Therapeutic Activities Neuromuscular Re-Ed Therapeutic Exercise Therapeutic Activities Therapeutic Exercise Neuromuscular Re-Ed Therapeutic Exercise Neuromuscular Re-Ed Therapeutic Exercise Neuromuscular Re-Ed Therapeutic Exercise PT Evaluation Low Complexity Therapeutic Activities Therapeutic Exercise Therapeutic Activities Therapeutic Exercise Therapeutic Exercise Therapeutic Activities Hot or Cold Pack Therapeutic Exercise Therapeutic Activities Hot or Cold Pack Therapeutic Activities Progress Note Hot or Cold Pack Therapeutic Exercise Therapeutic Exercise Neuromuscular Re-Ed Therapeutic Activities Therapeutic Activities Therapeutic Exercise Therapeutic Activities Therapeutic Exercise Therapeutic Activities Therapeutic Exercise Therapeutic Activities Therapeutic Exercise Hot or Cold Pack Progress Note Therapeutic Exercise Therapeutic Activities Therapeutic Activities Therapeutic Exercise Therapeutic Activities Therapeutic Exercise Hot or Cold Pack Therapeutic Activities Hot or Cold Pack Therapeutic Exercise Therapeutic Exercise Hot or Cold Pack Therapeutic Activities Therapeutic Exercise Hot or Cold Pack Therapeutic Exercise Therapeutic Activities Hot or Cold Pack PT Evaluation Low Complexity Therapeutic Exercise Hot or Cold Pack Therapeutic Activities Hot or Cold Pack Therapeutic Exercise Therapeutic Activities Therapeutic Exercise Hot or Cold Pack Therapeutic Activities Therapeutic Exercise Hot or Cold Pack Progress Note Therapeutic Activities Therapeutic Exercise Hot or Cold Pack Hot or Cold Pack Therapeutic Exercise Therapeutic Activities Hot or Cold Pack Therapeutic Activities Therapeutic Exercise Therapeutic Activities Therapeutic Exercise Hot or Cold Pack Therapeutic Exercise Hot or Cold Pack Therapeutic Activities Therapeutic Activities Therapeutic Exercise Hot or Cold Pack Therapeutic Activities Therapeutic Exercise Hot or Cold Pack Therapeutic Activities Hot or Cold Pack Therapeutic Exercise Therapeutic Activities Therapeutic Exercise Hot or Cold Pack Progress Note Therapeutic Activities Therapeutic Exercise Hot or Cold Pack Therapeutic Activities Therapeutic Exercise Hot or Cold Pack Therapeutic Activities Therapeutic Exercise Hot or Cold Pack Therapeutic Activities Therapeutic Exercise Hot or Cold Pack Therapeutic Activities Therapeutic Exercise Therapeutic Activities Therapeutic Exercise Hot or Cold Pack Therapeutic Activities Therapeutic Exercise Hot or Cold Pack PT Evaluation Low Complexity Therapeutic Activities Therapeutic Exercise Hot or Cold Pack Advance Directives Directive Yes / No Effective Date File Name No Information Encounters Encounter Description Practice Location Reason(s) For Visit Diagnoses Date Provider Providers Copied on Encounter [facility], [id number], tel:[phone] [facility] No Information 1 Crawford Rgetta. . Referring Provider: Filiberto Madrid, [address], [place], [address]. tel:[phone] [address] [place] [address] [address], [id number], tel:[phone] [facility] No Information 1 Crawford Gretta. . Referring Provider: Filiberto Madrid, [address], [place], [address]. tel:[phone] [place] [address] [address], [id number], tel:[phone] [facility] No Information 1 Crawford Gretta. . Referring Provider: Filiberto Madrid, [address], [place], [address]. tel:[phone] [place] [address] [address], [id number], tel:[phone] [facility] No Information 1 Crawford Gretta. . Referring Provider: Filiberto Madrid, [address], [place], [address]. tel:[phone] [place] [address] [facility] [address], [place], [id number], tel:[phone] [facility] No Information Apr-2 1 Crawford Gretta. . Referring Provider: Filiberto Madrid, [address], [place], [address]. tel:[phone] [place] [address] [address], [place], [address], [place] tel:[phone] [facility] No Information 2 1 Crawford Gretat. . Referring Provider: Filiberto Madrid, [address], [place], [address]. tel:[phone] [place] [address] [facility] [address], [place], [address], [place] tel:[phone] [facility] No Information Apr-1 1 Crawford Gretta. . Referring Provider: Filiberto Madrid, [address], [place], [address]. tel:[phone] [place], [place] [address], [place], [address], [place] tel:[phone] [facility] No Information Jun-1 1 Crawford Gretta. . Referring Provider: Filiberto Madrid, [address], [place], [address]. tel:[phone] [place] [address] [facility] [address], [place], [address], [place] tel:[phone] [facility] No Information Apr-0 1 Crawford Gretta. . Referring Provider: Filiberto Madrid, [address], [place], [address]. tel:[phone] [place] [address] [facility] [address], [place], [address], [place] tel:[phone] [facility] No Information Apr-0 1 Crawford Gretta. . Referring Provider: Filiberto Madrid, [address], [place], [address]. tel:[phone] [place] [address] [facility] [address], [place], [place], [address], tel:[phone] [facility] No Information May- 1 Crawford Gretta. . Referring Provider: Filiberto Madrid, [address], [place], [address]. tel:[phone] [place] [address] [facility] [address], [place], [address], [place] tel:[phone] [facility] No Information May- 1 Crawford Gretta. . Referring Provider: Filiberto Madrid, [address], [place], [address]. tel:[phone] [place] [address] [facility] [address], [place], [address], [place] tel:[phone] [facility] No Information May- 1 Crawford Gretta. . Referring Provider: Filiberto Madrid, [address], [place], [address]. tel:[phone] [place] [address] [facility] [address], [place], [address], [place] tel:[phone] [facility] No Information 1 Crawford Gretta. . Referring Provider: Filiberto Madrid, [address], [place], [address]. tel:[phone] [place] [address] [facility] [address], [place], [address], [place] tel:[phone] [facility] No Information 1 Crawford Gretta. . Referring Provider: Filiberto Madrid, [address], [place], [address]. tel:[phone] [place] [address] [address], [place], [address], [place] tel:[phone] [facility] No Information May- 2- 1 Crawford Gretta. . Referring Provider: Filiberto Madrid, [address], [place], [address]. tel:[phone] [place] [address], [facility] [address], [place], [address], tel:[phone] [facility] No Information May- 0- 1 Crawford Gretta. . Referring Provider: Filiberto Madrid, [address], [place], [address]. tel:[phone] [place] [address] [address], [place], [address], tel:[phone] [facility] No Information May-0 - 1 Crawford Gretta. . Referring Provider: Filiberto Madrid, [address], [place], [address]. tel:[phone] [place] [address] [place], [place] [address], [place], [address], [place] tel:[phone] [facility] No Information May-0 1 Crawford Gretta. . Referring Provider: Filiberto Madrid, [address], [place], [address]. tel:[phone] [place], [place] [address], [place], [address], tel:[phone] [facility] No Information 1 Crawford Gretta. . Referring Provider: Filiberto Madrid, [address], [place], [address]. tel:[phone] [place] [address] [address], [place], [address], [place] tel:[phone] [facility] No Information 1 Simba Ibarra. . Referring Provider: Filiberto Madrid, [address], [place], [address]. tel:[phone] [place] [address], [place], [address], [place] tel:[phone] [facility] No Information 1 Simba Ibarra. . Referring Provider: Filiberto Madrid, [address], [place], [address]. tel:[phone] [place] [address], [address] [facility], [place], [address], [place] tel:[phone] [facility] No Information 1 Simba Ibarra. . Referring Provider: Filiberto Madrid, [address], [place], [address]. tel:[phone] [place] [address] [address] [facility], [place], [address], [place] tel:[phone] [facility] No Information 1 Crawford Gretta. . Referring Provider: Filiberto Madrid, [address], [place], [address]. tel:[phone] [place] [address], [address] [facility], [place], [address], [place] tel:[phone] [facility] No Information 1 Crawford Gretta. . Referring Provider: Filiberto Madrid, [address], [place], [address]. tel:[phone] [place] [address] [address] [facility], [place], [address], [place] tel:[phone] [facility] No Information 1 Crawford Gretta. . Referring Provider: Filiberto Madrid, [address], [place], [address]. tel:[phone] [place] [address] [facility] [address], [place], [address], [place] tel:[phone] [facility] No Information 1 Crawford Gretta. . Referring Provider: Filiberto Madrid, [address], [place], [address]. tel:[phone] [facility] [address] [place] [address], [place], [address], [place] tel:[phone] [facility] No Information Nov-0 4-202 0 Crawford Gretta. . Referring Provider: Susana Street, [address] [place] [address], [address]. tel:[phone] [place] [address], [id number], [place] tel:[phone] [facility] No Information Oct-3 0-202 0 Crawford Gretta. . Referring Provider: Susana Street, [address] [place] [address], [address]. tel:[phone] [place] [address] [place] [address], [place], [address], tel:[phone] [facility] No Information Oct-2 8-202 0 Crawford Gretta. . Referring Provider: Susana Street, [address] [place] [address], [address]. tel:[phone] [place] [address] [place] [address], [id number], [place] tel:[phone] [facility] No Information Oct-2 3-202 0 Crawford Gretta. . Referring Provider: Susana Street [address] [place] [address], [address]. tel:[phone] [place] [address] [place] [address], [id number], [place] tel:[phone] [facility] No Information Oct-1 4-202 0 Sabanagic Eric. . Referring Provider: Susana Street [address] [place] [address], [address]. tel:[phone] [place] [address] [address] [facility] [address], [place], [address], [place] tel:[phone] [facility] No Information Oct-0 9-202 0 Crawford Gretta. . Referring Provider: Susana Street, [address] [place] [address], [address]. tel:[phone] [place] [address] [address] [facility], [place], [address], [place] tel:[phone] [facility] No Information Oct-0 7-202 0 Crawford Gretta. . Referring Provider: Susana Street, [address] [place] [address], [address]. tel:[phone] [place] [address] [facility] 300, [place], [address], [place] tel:[phone] [facility] No Information Oct-0 2-202 0 Crawford Gretta. . Referring Provider: Susana Street, [address] [place] [address], [address]. tel:[phone] [place] [address] [place] [address], [place], [address], [place] tel:[phone] [facility] No Information Sep-3 0-202 0 Crawford Gretta. . Referring Provider: Susana Street, [address] [place] [address], [address]. tel:[phone] [place] [address] [place] [address], [id number], [place] tel:[phone] [facility] No Information Sep-1 8-202 0 Crawford Gretta. . Referring Provider: Susana Street, [address] [place] [address], [address]. tel:[phone] [place] [address] 2[address] [facility] 300, [place], [place], [address], [place] tel:[phone] [facility] No Information Sep-1 6-202 0 Crawford Gretta. . Referring Provider: Susana Street, [address] [place] [address], [address]. tel:[phone] [place] [address] [facility] [address], [place], [address], [place] tel:[phone] [facility] No Information Sep-0 4-202 0 Crawford Gretta. . Referring Provider: Susana Street, [address] [place] [address], [address]. tel:[phone] [place] [address] [facility] [address], [place], [address], [place] tel:[phone] [facility] No Information Sep-0 2-202 0 Crawford Gretta. . Referring Provider: Susana Street, [address] [place] [address], [address]. tel:[phone] [place] [address] [address] [place] [address], [place], [address], [place] tel:[phone] [facility] No Information 8 0 Crawford Gretta. . Referring Provider: Susana Street, [address] [place] [address], [address]. tel:[phone] [place] [address] [facility] [address], [place], [address], [place] tel:[phone] [facility] No Information Oct-2 6- 0 Crawford Gretta. . Referring Provider: Susana Street, [address] [place] [address], [address]. tel:[phone] [place] [address] [place], [place] [address], [place], [address], [place] tel:[phone] [facility] No Information 0 Crawford Gretta. . Referring Provider: Susana tSreet, [address] [place] [address], [address]. tel:[phone] [place] [address] [address] [place] [address], [place], [address], [place] tel:[phone] [facility] No Information 0 Crawford Gretta. . Referring Provider: Susana Street, [address] [place] [address], [address]. tel:[phone] [place] [address] [place] [address], [place], [address], [place] tel:[phone] [facility] No Information Gee-2 9-202 0 Crawford Gretta. . Referring Provider: Nelson Banerjee [address] [facility] [address], [place], [address]. tel:[phone] [place] [address], [address] [place] [address] 300, [place], [address], tel:[phone] [facility] No Information Sep-2 4-202 0 Crawford Gretta. . Referring Provider: Nelson Banerjee [address] [facility] [address], [place], [address]. tel:[phone] [place] [address], [address] [place] [address] 300, [place], [address], [place] tel:[phone] [facility] No Information Sep-2 2-202 0 Crawford Gretta. . Referring Provider: Nelson Banerjee [address] [address], [place], [address]. tel:[phone] [place] [address] 300, [place], [address], [place] tel:[phone] [facility] No Information Gee-0 8-202 0 Crawford Gretta. . Referring Provider: Nelson Banerjee [address] [address], [place], [address]. tel:[phone] [place] [address], [place], [address], tel:[phone] [facility] No Information Gee-0 1-202 0 Crawford Gretta. . Referring Provider: Nelson Banerjee [address] [facility] [address], [place], [address]. tel:[phone] [place] [address] 300, [place], [address], [place] tel:[phone] [facility] No Information Adriano-2 6-202 0 Crawford Gretta. . Referring Provider: Nelson Banerjee [address] [address], [place], [address]. tel:[phone] [place] [address], [address] [facility] [address], [place], [place], [address], [place] tel:[phone] [facility] No Information Adriano-2 4-202 0 Crawford Gretta. . Referring Provider: Nelson Banerjee [address] [facility] [address], [place], [address]. tel:[phone] [place], [place] [address], [place], [place], [address], [place] tel:[phone] [facility] No Information Adriano-1 7-202 0 Crawford Gretta. . Referring Provider: Nelson Banerjee [address] [facility] [address], [place], [address]. tel:[phone] [place] [address], [address] [place], [place] [address]e 300, [place], [address], [place] tel:[phone] [facility] No Information Adriano-1 2-202 0 Crawford Gretta. . Referring Provider: Nelson Banerjee [address] [facility] [address], [place], [address]. tel:[phone] [place] [address] 300, [place], [address], [place] tel:[phone] [facility] No Information Adriano-1 0-202 0 Crawford Gretta. . Referring Provider: Nelson Banerjee [address] [facility] [address], [place], [address]. tel:[phone] [place] [address], [address] [facility] [address], [place], [address], [place] tel:[phone] [facility] No Information Adriano-0 5-202 0 Crawford Gretta. . Referring Provider: Nelson Banerjee [address] [facility] [address], [place], [address]. tel:[phone] [place] [address], [address] [place], [place] [address] [address], [place], [address], [place] tel:[phone] [facility] No Information Adriano-0 3-202 0 Crawford Gretta. . Referring Provider: Nelson Banerjee [address] [address], [place], [address]. tel:[phone] [place] [address], [address] [place] [address] 300, [place], [address], tel:[phone] [facility] No Information July-2 9-202 0 Crawford Gretta. . Referring Provider: Nelson Banerjee [address] [address], [place], [address]. tel:[phone] [place] [address], [address] [place] [address] 300, [place], [address], [place] tel:[phone] [facility] No Information July-2 7-202 0 Crawford Gretta. . Referring Provider: Nelson Banerjee [address] [address], [place], [address]. tel:[phone] [place] [address] 300, [place], [address], [place] tel:[phone] [facility] No Information July-2 0-202 0 Crawford Gretta. . Referring Provider: Nelson Banerjee [address] [address], [place], [address]. tel:[phone] [place] [address], [place], [address], tel:[phone] [facility] No Information July-1 5-202 0 Crawford Gretta. . Referring Provider: Nelson Banerjee [address] [address], [place], [address]. tel:[phone] [place] [address] 300, [place], [address], [place] tel:[phone] [facility] No Information July-1 3-202 0 Crawford Gretta. . Referring Provider: Nelson Banerjee [address] [address], [place], [address]. tel:[phone] [place] [address], [address] [facility] 300, [place], [place], [address], tel:[phone] [facility] No Information May-0 8-202 0 Crawford Gretta. . Referring Provider: Nelson Banerjee, [address] [facility] [address], [place], [address]. tel:[phone] [place] [address], [address] [place] [address] 300, [place], [address], tel:[phone] [facility] No Information May-0 4-202 0 Crawford Gretta. . Referring Provider: Nelson Banerjee, [address] [facility] [address], [place], [address]. tel:[phone] [address] [place] [address], [address] [place] [address] 300, [place], [address], tel:[phone] [facility] No Information May-0 1-202 0 Crawford Gretta. . Referring Provider: Nelson Banerjee, [address] [facility] [address], [place], [address]. tel:[phone] Family History Family Member Type Diagnosis Age At Onset No Information Payers Payer name Insurance type Covered libertarian ID Baylee siddiqui(s) [place] [id number] [facility] [id number] Social History Type Description Quantity Date Captured Comments Sex Male Smoking Status No Information Chief Complaint And Reason For Visit No Information Reason For Referral Reason For Referral No Information History Of Present Illness Encounter Date Complaint History Of Prese nt Illness No Information Functional Status Date Functional Assessmen t No Information Instructions Date Instruction Additional Infor mation Giving encouragement to exercise Related to Overweight Giving encouragement to exercise Related to Overweight Giving encouragement to exercise Related to Overweight Giving encouragement to exercise Related to Overweight Giving encouragement to exercise Related to Overweight Assessments Type Assessment Date No Information Patient Care Teams Name Effective Dates (start - stop) Status Members No Information
[2024-08-10 17:03] VITALS: BP 116/67; PULSE 99; RESP 16; TEMP 36.8; O2SAT 99
--- NOTE | 2024-08-10 17:32 | ED.ANIMALBIT ---
HPI - Animal Bite General Chief Complaint: Animal Bite Stated Complaint: BAT BITE Time Seen by Provider: 08/10/24 17:08 History of Present Illness HPI narrative: Patient had noticed something wedged between the window and grabbed it, it turned out to be a bat which bit his R index finger then flew away. This happened 2 days ago. Related Data Allergies Allergy/AdvReac Type Severity Reaction Status Date / Time No Known Drug Allergies Allergy Verified 04/11/12 13:48 Review of Systems Review of Systems: All systems reviewed & are unremarkable except as noted in HPI and below Exam Narrative: EXAMINATION OF ORGAN SYSTEMS/BODY AREAS: Constitutional: Vital signs per nursing GENERAL:[No acute distress, non-toxic appearing.] HEAD: Normal with no signs of head trauma. EYES: EOMI, conjunctiva normal ENT: Hearing grossly intact LUNGS: Nonlabored breathing. HEART: [Regular rate and rhythm] ABD: [Soft], [nontender to palpation] EXT: Normal range of motion SKIN: [No rashes or lesions.] NEURO: [Alert and oriented x 3. No gross focal sensory or strength deficits.] PSYCH: Normal affect Course Vital Signs Vital signs: Vital Signs Temperature 98.3 F 08/10/24 17:03 Pulse Rate 99 08/10/24 17:03 Respiratory Rate 16 08/10/24 17:03 Blood Pressure 116/67 08/10/24 17:03 Pulse Oximetry 99 08/10/24 17:03 Oxygen Delivery Room Air 08/10/24 17:03 Temperature 98.3 F 08/10/24 17:03 Pulse Rate 99 08/10/24 17:03 Respiratory Rate 16 08/10/24 17:03 Blood Pressure 116/67 08/10/24 17:03 Pulse Oximetry 99 08/10/24 17:03 Oxygen Delivery Room Air 08/10/24 17:03 MDM - Animal Bite MDM Narrative Medical decision making narrative: Patient presents here after being bitten by a bat, he is very well-appearing in no distress, there is barely any wound visible on his right index finger. His tetanus is up-to-date. I will start him on Augmentin and the rabies vaccine is initiated here with instructions on follow-up for the next 3 doses. Patient tolerated the injection well. I have given him return precautions and follow-up instructions. Discharge Plan Discharge Clinical Impression: Bat bite of finger Patient Disposition: Home Condition: Stable Instructions: Antibiotic Form, Animal Bite (ED), Rabies (ED) Additional Instructions: Please come back for the rest of your rabies vaccines on 08/13, 08/17, and 08/24. Patient Language: East Timorese Prescriptions: New amoxicillin-pot clavulanate 875-125 mg tablet 1 tablet PO Q12H Qty: 10 0RF No Action levofloxacin 750 mg tablet 750 mg PO DAILY Qty: 6 0RF Follow-up/Referrals: [facility],Filiberto Thrasher MD [Primary Care Provider] -
--- OUTSIDE RECORDS SUMMARY | 2024-08-10 18:03 | XMS_ITS ---
Author Organization [facility] [address] Address [address] [place] [address] Phone Care Team Providers Care Overlock Elastic Attacher Name Role Phone Mundo Smith MD Unavailable [phone] Irena Rebolledo MD Primary Care Provider Viviana Wagner MD Unavailable [phone] Heather Grant NP Unavailable [phone] Quinn Flannery MD Unavailable [phone] Nena Rogers PTA Unavailable Unavailable Omid Hoffman MD Unavailable [phone] Steffany Solomon NP Unavailable [phone] Carlos Ford MD Unavailable Gerardo Chávez MD Unavailable Irineo Moe MD Unavailable Nelson Schneider MD Unavailable Mirta Angeles Unavailable [phone] John Khan MD PhD Unavailable [phone] Sam Whelan MD Unavailable Quinn Flannery MD Unavailable [phone] Cristy Rodriguez MD Unavailable Brock Segura MD Unavailable Tung Bach OD Unavailable [phone] Janell Orellana PA Unavailable Ashtyn Morrow PA Unavailable [phone] Terence Edgar DMD Unavailable [phone] Active Problems Problem Noted Date Diagnosed Date Acute cough 05/30/2024 Upper respiratory tract infection 05/10/2024 Assessment & Plan (05/10/2024 9:37 PM FRONT DESK ASSISTANT): Acute, symptoms for approximately 1 week. Afebrile, [...] 03/11. Assessment & Plan (04/18/2024 6:17 AM FRONT DESK ASSISTANT): Acute problem when he was travelling in [place] last fall, resolved with treatment sought there, details lacking. Consider follow up with urology. Other chest pain 09/25/2023 Assessment & Plan (05/10/2024 9:35 PM FRONT DESK ASSISTANT): Acute, symptoms for 1 week. Tenderness to [...] no acute changes or evidence of old VT. The patient's symptoms are likely noncardiac. He [...] He has a scheduled follow-up with his university demonstrator, Dr. Segura, in about two weeks. We discussed the EKG findings and his symptoms with his university demonstrator. Return here early as needed, otherwise as [...] 08/26/2022 Assessment & Plan (02/20/2023 1:36 PM FRONT DESK ASSISTANT): He continues to take an iron supplement [...] got a second opinion in neurosurgery at [facility] today. They basically had the same recommendations. [...] not included. Sees Sam Whelan MD, [facility]. Wet on right, dry on left. Also bilateral vitreous syneresis. [facility] note on 06/18/2024: Status post total left knee replacement 01/15/20 Assessment & Plan (01/30/2022 5:27 PM FRONT DESK ASSISTANT): There is concern for his left prosthetic knee which has exhibited some warmth and swelling. This was tapped yesterday in orthopedics and there are around 65,000 nucleated cells. Microbiology preliminary report is negative. We will keep him on antibiotics (penicillin) pending further discussion with orthopedics. Assessment & Plan (01/15/2022 3:32 PM FRONT DESK ASSISTANT): Patient had L total Knee arthroplasty on 08/28/21. Current use of termite treater anticoagulation 021 Overview (11/24/2020): Xarelto for Afib. [...] this surgery. He will also see his university demonstrator for a specific cardiac clearance. Assessment & [...] but he should discuss this with his university demonstrator as well. 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 Assessment & Plan (04/12/2024 4:25 AM FRONT DESK ASSISTANT): Chronic, diagnosed 3-4 years ago, status post definitive radiation therapy, comanaged with Urology and Radiation therapy. Assessment & Plan (04/09/2023 4:58 PM FRONT DESK ASSISTANT): He was treated with definitive radiation therapy [...] completely. Assessment & Plan (01/29/2021 4:09 PM FRONT DESK ASSISTANT): He completed radiation therapy. He has a [...] It. Assessment & Plan (04/09/2023 5:01 PM FRONT DESK ASSISTANT): He was prescribed CPAP, but never used [...] (09/26/2017): Added automatically from request for surgery [id number] Chronic left-sided headaches 03/19/2017 Overview (03/19/2017): New [...] moderate anemia postoperatively. He also saw his university demonstrator at [facility], and a test of some kind was [...] it. Assessment & Plan (02/18/2021 3:03 PM FRONT DESK ASSISTANT): His energy level has improved considerably. He [...] same. Assessment & Plan (01/14/2022 4:00 PM FRONT DESK ASSISTANT): Patient has a hx of GERD and [...] option. Assessment & Plan (01/22/2017 2:20 PM FRONT DESK ASSISTANT): He never got a call from the [...] transient/intermittent. Assessment & Plan (04/15/2023 11:29 AM FRONT DESK ASSISTANT): We are monitoring a mild and intermittent [...] labs. Assessment & Plan (02/23/2018 3:30 PM FRONT DESK ASSISTANT): Platelet count in the hospital when last checked at the time of left hip replacement was normal. He was taking B12 for awhile, but no longer takes it. We will monitor labs periodically. Assessment & Plan (01/22/2017 2:21 PM FRONT DESK ASSISTANT): This was noted on one of his blood counts, and as I recall his B12 level was also slightly low so we asked him to take a supplement which she takes irregularly. Things seem to be stable so we will continue to monitor. Paroxysmal atrial fibrillation 11/08/2014 Overview (12/03/2019): On Multaq and Xarelto. Assessment & Plan (05/10/2024 9:36 PM FRONT DESK ASSISTANT): Chronic, controlled on Multaq and Xarelto at this time. Heart rate regular upon auscultation camejo, vitals stable. See plan for URI above. Assessment & Plan (04/12/2024 4:25 AM FRONT DESK ASSISTANT): Chronic/intermittent, present for 10 or more years, controlled on dronedarone 400 mg daily (patient's idiosyncratic dosing), and rivaroxaban 20 mg daily, comanaged with Cardiology. Assessment & Plan (10/09/2023 3:30 PM CDT): Chronic, heart rhythm is irregular but rate is controlled. He is on Xarelto and Multaq. He will keep his follow ups with Dr. Lee. Assessment & Plan (04/09/2023 5:00 PM FRONT DESK ASSISTANT): Heart rhythm is regular. He is on [...] same. Assessment & Plan (04/16/2022 10:49 AM FRONT DESK ASSISTANT): He is on Multaq and Xarelto. Continue same. The Xarelto will be held for two days before reimplantation of his left knee. Assessment & Plan (01/30/2022 5:24 PM FRONT DESK ASSISTANT): He remains on Multaq. We corrected the dose to reflect what the patient reports he is taking, namely 400 mg twice a day instead the non standard 400 mg daily he took previously. Assessment & Plan (01/14/2022 3:57 PM FRONT DESK ASSISTANT): Patient has a hx of A-fib and [...] effects. He will discuss this with his university demonstrator when he sees him for a cardiac clearance to have his left knee replaced. Assessment & Plan (01/29/2021 4:14 PM FRONT DESK ASSISTANT): Heart rhythm is currently regular. He is on Multaq and Xarelto. He followed up once with a university demonstrator but did not do the testing that [...] PM CDT): Scanned office note, Dr. Zelaya, [facility]. Also in Care Everywhere. Assessment & Plan (08/06/2020 10:39 AM CDT): Heart rhythm is regular. He is on Multaq and Xarelto. He plans to see his university demonstrator, Dr. Zelaya, sometime next week to get [...] well. Assessment & Plan (02/23/2018 3:29 PM FRONT DESK ASSISTANT): There is a history of paroxysmal atrial [...] continues on Multaq and Xarelto from his university demonstrator. Sometimes he cuts the Multaq dose down if he is taking Motrin for his hip, because he does not want his blood to be too thin. He will follow up with Cardiology for all of these issues. Assessment & Plan (02/02/2017 5:13 PM FRONT DESK ASSISTANT): Recent Holter ordered by Dr. Montanez showed [...] 2 Assessment & Plan (04/12/2024 4:24 AM FRONT DESK ASSISTANT): Chronic, present for 10 or more years, not currently requiring diuretic or other medical therapy. We will monitor on periodic followups. Assessment & Plan (04/12/2024 4:21 AM FRONT DESK ASSISTANT): >>ASSESSMENT AND PLAN FOR DIASTOLIC DYSFUNCTION WRITTEN [...] his complaints of fatigue. He sees his university demonstrator, Dr. Montanez, in about a month or two, and will ask him about diastolic dysfunction as a possible cause or contributing factor to his symptoms. Assessment & Plan (04/12/2024 4:21 AM FRONT DESK ASSISTANT): >>ASSESSMENT AND PLAN FOR DIASTOLIC DYSFUNCTION WRITTEN ON 02/23/2018 3:27 PM BY IRENA REBOLLEDO MD He seems to be doing well. Blood pressure is normal. Lungs are clear. Oxygen saturation is satisfactory. He has a university demonstrator he sees regularly, Dr. Zelaya. Continue to monitor. Assessment & Plan (04/12/2024 4:21 AM FRONT DESK ASSISTANT): >>ASSESSMENT AND PLAN FOR DIASTOLIC DYSFUNCTION WRITTEN [...] Cardiology. Assessment & Plan (04/09/2023 4:53 PM FRONT DESK ASSISTANT): He has trace pretibial pitting edema. Lungs are clear in oxygenation is normal. He has not requiring any diuretic therapy at this time. We will monitor clinically. Assessment & Plan (04/03/2022 2:45 PM FRONT DESK ASSISTANT): He seems to be clinically stable with no significant edema, no crackles in his lungs. Oxygen saturation is normal. We will monitor clinically without medication. Primary osteoarthritis involving multiple joints 07/08/2012 Assessment & Plan (04/12/2024 4:26 AM FRONT DESK ASSISTANT): Chronic, present for 10 or more years, [...] shape. Assessment & Plan (02/18/2021 3:01 PM FRONT DESK ASSISTANT): He continues to have various aches and [...] joints. Assessment & Plan (02/23/2018 3:30 PM FRONT DESK ASSISTANT): He continues to have problems with aches [...] pain recently that was evaluated by his university demonstrator at [facility], Dr. Lee. It was felt to be [...] 10/03/2023 Assessment & Plan (04/09/2023 4:58 PM FRONT DESK ASSISTANT): He does not take anything for cholesterol [...] diet. Assessment & Plan (01/29/2021 4:10 PM FRONT DESK ASSISTANT): He is not currently taking anything for [...] medicine. Assessment & Plan (02/23/2018 3:27 PM FRONT DESK ASSISTANT): He decided to stop taking cholesterol medicine [...] prescription. Assessment & Plan (01/22/2017 2:16 PM FRONT DESK ASSISTANT): He is tolerating his medication without apparent [...] it. Assessment & Plan (01/22/2017 1:59 PM FRONT DESK ASSISTANT): No new attacks of gout while on [...] joint. 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 He is thinking of going back to [place] to swim, and I think this would be fine. Intractable left heel pain 02/03/2023 1 Assessment & Plan (04/15/2023 11:25 AM FRONT DESK ASSISTANT): He seems to be doing well with regard to most pain complaints, including left heel pain. However, his right wrist carpometacarpal joints flare up from time to time. He presumes it is due to gout. When it happens, he eats cherries which he says makes the problem go away. Assessment & Plan (02/20/2023 1:35 PM FRONT DESK ASSISTANT): He notes a sharp pain in his [...] (06/30/2022): Added automatically from request for surgery [id number], s/p successful 2-stage replacement (revision on 04/10/2022). Assessment & Plan (04/03/2022 2:46 PM FRONT DESK ASSISTANT): Surgery to reimplant his left knee is planned for next week. He sees Dr. Hoffman tomorrow for a preoperative evaluation. 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 Assessment & Plan (04/03/2022 2:47 PM FRONT DESK ASSISTANT): He had explantation of the infected joint [...] resolved. Assessment & Plan (01/30/2022 5:23 PM FRONT DESK ASSISTANT): His diarrhea has improved significantly. He has [...] records. Assessment & Plan (01/19/2022 3:49 PM FRONT DESK ASSISTANT): The cellulitis involved much of the left [...] cellulitis. Assessment & Plan (01/19/2022 3:48 PM FRONT DESK ASSISTANT): He was hospitalized recently for a streptococcal [...] baseline. Assessment & Plan (01/15/2022 3:32 PM FRONT DESK ASSISTANT): Blood cultures from 01/12 now growing strep dysgalactiae with repeat blood cultures pending. - On Cefepime and vancomycin (01/13- Post-procedural fever 01/13/20222022 Overview (06/30/2022): Cellulitis of left leg resulting in sepsis and infection of left knee replacement. Assessment & Plan (01/13/2022 6:48 PM FRONT DESK ASSISTANT): I was called by the patient's son [...] 06/30/2022 Assessment & Plan (01/18/2022 5:10 PM FRONT DESK ASSISTANT): When I assessed him five days ago at his home, he was markedly confused, more properly encephalopathic then delirious. He improved rapidly with treatment in the hospital and seems back to normal. Assessment & Plan (01/13/2022 6:49 PM FRONT DESK ASSISTANT): Probably due to fever and suspected sepsis. Cellulitis of left thigh 01/13/2022 Overview (06/30/2022): See hospital records, [facility]. Assessment & Plan (01/18/2022 5:09 PM FRONT DESK ASSISTANT): He says the cellulitis started on his [...] needed. Assessment & Plan (01/15/2022 3:33 PM FRONT DESK ASSISTANT): Patient currently has a left knee that [...] dehydrated. Assessment & Plan (01/30/2022 5:23 PM FRONT DESK ASSISTANT): He has been drinking fluid and is making plenty of urine. Blood pressure is in a better range. Assessment & Plan (01/29/2022 5:54 AM FRONT DESK ASSISTANT): He called the office today. He has [...] (12/03/2019): Added automatically from request for surgery [id number], arthroscopy 10/08/2019, Dr. Hoffman, [facility]. Internal derangement of left knee 09/28/2019 12/03/2019 Overview (12/03/2019): Added automatically from request for surgery [id number], arthroscopy 10/08/2019. Acute gout of knee 03/08/2019 0 Overview (12/03/2019): See office note. Assessment & Plan (03/27/2019 3:18 PM FRONT DESK ASSISTANT): He has a history of gout, but [...] note. Assessment & Plan (03/27/2019 3:20 PM FRONT DESK ASSISTANT): He denies any history of knee pain [...] 09/20/201806/2023 Assessment & Plan (01/28/2019 2:16 PM FRONT DESK ASSISTANT): The left superior trapezius/supraspinatus area has been [...] report. Assessment & Plan (01/28/2019 2:15 PM FRONT DESK ASSISTANT): He has had pain in his right [...] needed. Assessment & Plan (03/26/2018 9:46 AM FRONT DESK ASSISTANT): For a couple of months or more [...] issue. Assessment & Plan (02/02/2017 5:14 PM FRONT DESK ASSISTANT): This is his main concern at this time. It really impairs his quality of life. He has trouble getting his left sock and shoe on. Right now it is not so bad, but there are times when pain is quite severe, and he resorts to an [id number] nonsteroidal. Recent x-ray showed severe osteoarthritis of [...] Obesity Assessment & Plan (04/09/2023 4:59 PM FRONT DESK ASSISTANT): He struggles with his weight. He eats [...] needed. Assessment & Plan (02/20/2023 1:37 PM FRONT DESK ASSISTANT): He would like to lose some weight. [...] weeks. Assessment & Plan (01/14/2022 3:56 PM FRONT DESK ASSISTANT): Patient BMI of 32.83. Assessment & Plan (12/19/2021 3:50 PM CDT): We encouraged attention to his diet, and hopefully some weight loss. Assessment & Plan (06/21/2021 8:31 AM CDT): I urged attention to his diet, and hopefully some weight loss. Assessment & Plan (01/29/2021 4:10 PM FRONT DESK ASSISTANT): We encouraged attention to his diet, and [...] apnea. Assessment & Plan (01/22/2017 2:17 PM FRONT DESK ASSISTANT): Weight loss could help some of his other issues, especially the pain he has from spinal stenosis and left hip osteoarthritis. He is down a few pounds, and he will continue efforts in this regard. Sepsis due to Streptococcus species without acute organ dysfunction 01/29/2022 06/30/2022 Overview (06/30/2022): See hospital records, [facility]. Assessment & Plan (01/30/2022 5:27 PM FRONT DESK ASSISTANT): One of several lood cultures was positive for Strep dysgalactiae. Follow-up blood cultures on antibiotics were negative. There is concern for his left prosthetic knee which has exhibited some warmth and swelling. See discussion elsewhere. Assessment & Plan (01/18/2022 5:11 PM FRONT DESK ASSISTANT): He was septic, but organ function remained [...]
--- OUTSIDE RECORDS SUMMARY | 2024-08-10 18:03 | XMS_ITS | Encounter Summary ---
Author Organization [facility] Address [address] [place] [address] Care Team Providers Care Honey Processor Name Role Phone Mundo Smith MD Unavailable [phone] Filiberto Madrid MD Primary Care Provider [phone] Viviana Wagner MD Unavailable [phone] Heather Grant NP Unavailable [phone] Quinn Flannery MD Unavailable [phone] Nena Rogers PTA Unavailable Unavailable Omid Hoffman MD Unavailable Steffany Solomon NP Unavailable [phone] Carlos Ford MD Unavailable Gerardo Chávez MD Unavailable Irineo Moe MD Unavailable Nelson Schneider MD Unavailable Mirta Angeles Unavailable [phone] John Khan MD PhD Unavailable Sam Whelan MD Unavailable [phone] Quinn Flannery MD Unavailable [phone] Cristy Rodriguez MD Unavailable Brock Segura MD Unavailable [phone] MikalaTung OD Unavailable [phone] Janell Orellana PA Unavailable Ashtyn Morrow PA Unavailable [phone] Terence Edgar DMD Unavailable Encounter Details Date Type Department Care Team (Late st Contact Info) Description 07/03/2024 Results Follow-Up [facility] [address] [place] [address] Filiberto Madrid MD [address] [place] [address] Hepatitis B surface antibody (immune [...] than three times a week 02/06/2022 Attends [employer] Not on file 02/06 Do you belong to any clubs o r organizations such as orthodoxy groups, unions, fraternal or athletic groups, or [...] on file Legal Sex Male 7:22 PM ADVANCED REGISTERED NURSE Gender Identity Not on file Sexual Orientation Not on file documented as of this encounter Plan of Treatment Not on file documented as of this encounter Visit Diagnoses Not on filedocumented in this encounter Care Teams Honey Processor Relationship Specialty Start Date End Date Filiberto Madrid MD [address] [place] [address] PCP - General 12/18/16 Mundo Smith MD Consulting Physician Neurosurgery 12/10/16 Viviana Wagnre MD [address] [place] [address] Consulting Physician Pain Management 02/26/17 Heather Grant NP [address] [place] [address] Nurse Practitioner Neurosurgery 04/06/17 Quinn Flannery MD [address] [place] [address] Consulting Physician Pain Management 05/10/17 Nena Rogers [facility] Mails Supervisor Physical Therapy 10/06/17 Omid Hoffman MD Surgeon Orthopedic Surgery 11/02/17 Steffany Solomon NP Nurse Practitioner Pain Management 07/05/18 Carlos Ford MD Consulting Physician Neurology 09/20/18 Gerardo Chávez MD Referring Physician Urology 01/28/19 Irineo Moe MD Consulting Physician Dermatology 01/28/19 Nelson Schneider MD [address] [facility] [address] [place] [address] Consulting Physician Orthopedic Surgery 02/22/19 Mirta Angeles PA [address] [facility] [address] [place] [address] Physician Risk Developer Orthopedic Surgery 10/08/19 John Khan MD PhD [address] [place] [address] Radiation Oncologist Radiation Oncology 08/30/20 Sam Whelan MD [address] [place] [address] Consulting Physician Ophthalmology 04/02/22 Quinn Flannery MD [address] [place] [address] Consulting Physician Pain Management 06/19/22 [place] [address] [place] [address] Consulting Physician Neurosurgery 06/21/22 Brock Segura MD [address] [place] [address] [address] [address] Consulting Physician Cardiology 08/26/22 Tung Bach OD [address] [facility] [place] [address] Consulting Physician Optometry 07/31/22 Janell Orellana PA [address] [place] [address] Physician Risk Developer Orthopedic Surgery 09/12/22 Ashtyn Morrow PA [address] [place] [id number] [place] [address] Physician Risk Developer Colon and Rectal Surgery 04/30/23 Terence Edgar DMD [address] [place] [address] Dentist Oral Surgery 09/04/23 documented as of this encounter
--- OUTSIDE RECORDS SUMMARY | 2024-08-10 18:03 | XMS_ITS | Encounter Summary ---
Author Organization [facility] Address [address] [place] [address] Phone Care Team Providers Care Substance Abuse Clinician Name Role Phone Sunil Zelaya MD Unavailable [phone] Joel Jamison MD Unavailable Mundo Smith MD Unavailable [phone] Filiberto Madrid MD Primary Care Provider [phone] Viviana Wagner MD Unavailable +[phone] Heather Grant NP Unavailable [phone] Quinn Flannery MD Unavailable +[phone] Nena Rogers PTA Unavailable Unavailable Omid Hoffman MD Unavailable Steffany Solomon NP Unavailable [phone] Carlos Ford MD Unavailable Gerardo Chávez MD Unavailable Irineo Moe MD Unavailable Nelson Schneider MD Unavailable Mirta Angeles Unavailable [phone] John Khan MD PhD Unavailable Omid Emanuel MMyra KELLY Unavailable +[phone] Sam Whelan MD Unavailable [phone] Quinn Flannery MD Unavailable [phone] Cristy Rodriguez MD Unavailable Brock Segura MD Unavailable [phone] Mikala Tung Kincaid OD Unavailable [phone] Janell Orellana PA Unavailable Ashtyn Morrow Unavailable +[phone] Ashtyn Morrow Unavailable [phone] Terence Edgar DMD Unavailable Encounter Details Date Type Department Care Team (Late st Contact Info) Description 05/30/2017 Orders Only [facility] [address] [place] [address] Filiberto Madrid MD [address] [address] Social History Tobacco Use Types Packs/Day Years Used Date Smoking Tobacco: Never Smokeless Tobacco: Never Alcohol Use Standard Drinks/Week Comments Yes 0 (1 standard drink = 0.6 oz pur e alcohol) Rarely Sex and Gender Information Value Date Recorded Sex Assigned at Not on file Legal Sex Male 7:22 PM FABRICATOR FOAM RUBBER Gender Identity Not on file Sexual Orientation [...] COVID: Suspected 01/13/2022 01/13/2022 01/13/2022 5:25 PM FABRICATOR FOAM RUBBER documented as of this encounter Care Teams Substance Abuse Clinician Relationship Specialty Start Date End Date Filiberto Madrid MD [address] [place] [address] PCP - General 12/18/16 Sunil Zelaya MD Consulting Physician Cardiovascular Disease 11/18/16 Joel Jamison MD [address] [facility] [address] [place] [address] Consulting Physician Urology 04/16/16 01/27/19 Mundo Smith MD [address] [facility] [address] [place] [address] Consulting Physician Neurosurgery 12/10/16 Viviana Wagner MD [address] [place] [address] Consulting Physician Pain Management 02/26/17 Heather Grant, JENNIFER [address] [place] [address] Nurse Practitioner Neurosurgery 04/06/17 Quinn Flannery MD [address] [place] [address] Consulting Physician Pain Management 05/10/17 Nena Rogers [facility] Quitline Counselor Physical Therapy 10/06/17 Omid Hoffman MD Surgeon Orthopedic Surgery 11/02/17 Steffany Solomon BOTANY TEACHER Nurse Practitioner Pain Management 07/05/18 Carlos Ford MD Consulting Physician Neurology 09/20/18 Gerardo Chávez MD Referring Physician Urology 01/28/19 Irineo Moe MD Consulting Physician Dermatology 01/28/19 Nelson Schneider MD [address] [facility] [address] [place] [address] Consulting Physician Orthopedic Surgery 02/22/19 Mirta Angeles PA [address] [facility] [address] [place] [address] Physician Can Capper Orthopedic Surgery 10/08/19 John Khan MD PhD 6 [place] [address] Radiation Oncologist Radiation Oncology 08/30/20 Omid Emanuel DO [address] [place] [address] Consulting Physician Cardiovascular Disease 11/08/20 Sam Whelan MD [address] [place] [address] Consulting Physician Ophthalmology 04/02/22 Quinn Flannery MD [address] [place] [address] Consulting Physician Pain Management 06/19/22 [place] [address] [place] [address] Consulting Physician Neurosurgery 06/21/22 Brock Segura MD [address] [place] [address] [address], [place] [address] Consulting Physician Cardiology 08/26/22 Tung Bach OD [address] [place] [address] Consulting Physician Optometry 07/31/22 Janell Orellana PA [address] [place] [address] Physician Can Capper Orthopedic Surgery 09/12/22 Ashtyn Morrow PA [address] [place] 5738-6870-59 [place] [address] Physician Can Capper Colon and Rectal Surgery 04/04/23 05/27/23 Ashtyn Morrow PA [address] [place] 7967-4236-75 [place] [address] Physician Can Capper Colon and Rectal Surgery 04/30/23 Terence Edgar DMD [address] [place] [address] Dentist Oral Surgery 09/04/23 documented as of this encounter
--- OUTSIDE RECORDS SUMMARY | 2024-08-10 18:03 | XMS_ITS | Encounter Summary ---
Author Organization [facility] Address [address] [place] [address] Phone Care Team Providers Care Insurance Sales Supervisor Name Role Phone Pedro Cosme MD Primary Care Provider Sunil Zelaya MD Unavailable [phone] Joel Jamison MD Unavailable Mundo Smith MD Unavailable [phone] Filiberto Madrid MD Primary Care Provider [phone] Viviana Wagner MD Unavailable [phone] Heather Grant NP Unavailable [phone] Quinn Flannery MD Unavailable +[phone] Nena Rogers PTA Unavailable Unavailable Omid Hoffman MD Unavailable +[phone] Steffany Solomon NP Unavailable [phone] Carlos Ford MD Unavailable Gerardo Chávez MD Unavailable Irineo Moe MD Unavailable Nelson Schneider MD Unavailable Mirta Angeles Unavailable [phone] John Khan MD PhD Unavailable [phone] Omid Emanuel MMyra KELLY Unavailable Sam Whelan MD Unavailable Quinn Flannery MD Unavailable [phone] Cristy Rodriguez MD Unavailable Brock Segura MD Unavailable [phone] MikalaTung OD Unavailable [phone] Janell Orellana PA Unavailable Ashtyn Morrow Unavailable [phone] Ashtyn Morrow Unavailable [phone] Terence Edgar DMD Unavailable Encounter Details Date Type Department Care Team (Late st Contact Info) Description 12/03/2016 Orders Only [facility] [address] [place] [id number] iFliberto Madrid MD [address] [address] Social History Tobacco Use Types Packs/Day Years Used Date Smoking Tobacco: Never Smokeless Tobacco: Never Alcohol Use Standard Drinks/Week Comments Yes 0 (1 standard drink = 0.6 oz pur e alcohol) Rarely Sex and Gender Information Value Date Recorded Sex Assigned at Not on file 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 Gender Identity Not on file Sexual [...] COVID: Suspected 01/13/2022 01/13/2022 01/13/2022 5:25 PM COMPUTER SUPPORT TECHNICIAN documented as of this encounter Care Teams Insurance Sales Supervisor Relationship Specialty Start Date End Date Pedro Cosme MD [address] [facility] [address] [place] [address] PCP - General 09/03/16 12/17/16 Filiberto Madrid MD [address] [place] [address] PCP - General 12/18/16 [place] [address] [place] [address] [address] [place] [address] Consulting Physician Cardiovascular Disease 11/18/16 Joel Jamison MD [address] [facility] [address] [place] [address] Consulting Physician Urology 04/16/16 01/27/19 Mundo Smith MD [address] [facility] [address] [place] [address] Consulting Physician Neurosurgery 12/10/16 Viviana Wagner MD [address] [place] [address] Consulting Physician Pain Management 02/26/17 Heather Grant NP [address] [place] [address] Nurse Practitioner Neurosurgery 04/06/17 Quinn Flannery MD [address] [address] Consulting Physician Pain Management 05/10/17 Nena Rogers ETHERNET NETWORK ARCHITECT Bill Poster Installer Physical Therapy 10/06/17 Omid Hoffman MD Surgeon Orthopedic Surgery 11/02/17 Steffany Solomon NP Nurse Practitioner Pain Management 07/05/18 Carlos Ford MD Consulting Physician Neurology 09/20/18 Gerardo Chávez MD Referring Physician Urology 01/28/19 Irineo Moe MD Consulting Physician Dermatology 01/28/19 Nelson Schneider MD [address] [facility] 130 [place] [address] Consulting Physician Orthopedic Surgery 02/22/19 Mirta Angeles PA [address] [facility] [address] [place] [address] Physician Pickling Machine Operator Orthopedic Surgery 10/08/19 John Khan MD PhD 6 [place] [address] Radiation Oncologist Radiation Oncology 08/30/20 Omid Emanuel DO [address] [facility] [address] [place] [address] Consulting Physician Cardiovascular Disease 11/08/20 Sam Whelan MD [address] [place] [address] [address] [place] [address] Consulting Physician Ophthalmology 04/02/22 Quinn Flannery MD [address] [place] [address] Consulting Physician Pain Management 06/19/22 [place] [address] [place] [address] Consulting Physician Neurosurgery 06/21/22 Brock Segura MD [address] [place] [address] [address], [place] [address] Consulting Physician Cardiology 08/26/22 Tung Bach OD [address] [place] [address] Consulting Physician Optometry 07/31/22 Janell Orellana PA [address] [place] [address] Physician Pickling Machine Operator Orthopedic Surgery 09/12/22 Ashtyn Morrow PA [address] [place] [address]-39 [place] [address] Physician Pickling Machine Operator Colon and Rectal Surgery 04/04/23 05/27/23 Ashtyn Morrow PA [address] [place] 2825-[address]-27 [place] [address] Physician Pickling Machine Operator Colon and Rectal Surgery 04/30/23 Terence Edgar, AISHWARYA [address] [place] [address] Dentist Oral Surgery 09/04/23 documented as of this encounter
--- OUTSIDE RECORDS SUMMARY | 2024-08-10 18:03 | XMS_ITS | Encounter Summary ---
Author Organization [facility] Address [address] [place] [address] Care Team Providers Care Cabin Cleaner Name Role Phone Mundo Smith MD Unavailable [phone] Filiberto Madrid MD Primary Care Provider [phone] Viviana Wagner MD Unavailable [phone] Heather Grant NP Unavailable [phone] Quinn Flannery MD Unavailable +[phone] Nena Rogers PTA Unavailable Unavailable Omid Hoffman MD Unavailable +[phone] Steffany Solomon NP Unavailable [phone] Carlos Ford MD Unavailable Gerardo Chávez MD Unavailable Irineo Moe MD Unavailable Nelson Schneider MD Unavailable Mirta Angeles Unavailable [phone] John Khan MD PhD Unavailable Sam Whelan MD Unavailable [phone] Quinn Flannery MD Unavailable Cristy Rodriguez MD Unavailable Brock Segura MD Unavailable MikalaTavonTung Sanjiv OD Unavailable [phone] Janell Orellana PA Unavailable [phone] Ashtyn Morrow PA Unavailable Terence Edgar DMD Unavailable [phone] Encounter Details Date Type Department Care Team (Late st Contact Info) Description 08/10/2024 Telephone [facility] [address] [place] [address] Filiberto Madrid MD [address] [place] [address] Social History Tobacco Use Types [...] than three times a week 02/06/2022 Attends [employer] Services Not on file 02/06 Do you belong to any clubs o r organizations such as rastafarian groups, unions, fraternal or athletic groups, or [...] on file 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 [phone] Spoke to ANITA Hall who stated that patient needs to go to ER for shots. Let patient know. Patient voiced understanding. documented in this encounter Plan of Treatment Not on file documented as of this encounter Visit Diagnoses Not on filedocumented in this encounter Care Teams Cabin Cleaner Relationship Specialty Start Date End Date Filiberto Madrid MD [address] [place] [address] PCP - General 12/18/16 Mundo Smith MD Consulting Physician Neurosurgery 12/10/16 Viviana Wagner MD [address] [place] [address] Consulting Physician Pain Management 02/26/17 Heather Grant NP [address] [place] [address] Nurse Practitioner Neurosurgery 04/06/17 Quinn Flannery MD [address] [place] [address] Consulting Physician Pain Management 05/10/17 Nena Rogers PTA Material Control Clerk Physical Therapy 10/06/17 Omid Hoffman MD Surgeon Orthopedic Surgery 11/02/17 Steffany Solomon ENTRY LEVEL ACCOUNT REPRESENTATIVE Nurse Practitioner Pain Management 07/05/18 Carlos Ford MD Consulting Physician Neurology 09/20/18 Gerardo Chávez MD Referring Physician Urology 01/28/19 Irineo Moe MD Consulting Physician Dermatology 01/28/19 Nelson Schneider MD [address] [facility] 130 [place] [address] Consulting Physician Orthopedic Surgery 02/22/19 Mirta Angeles PA [address] [facility] [address] [place] [address] Physician Child Care Development Specialist Orthopedic Surgery 10/08/19 John Khan MD PhD [address] [place] [address] Radiation Oncologist Radiation Oncology 08/30/20 Sam Whelan MD [address] [place] [address] Consulting Physician Ophthalmology 04/02/22 Quinn Flannery MD [address] [address] Consulting Physician Pain Management 06/19/22 [place] [address] [place] [address] Consulting Physician Neurosurgery 06/21/22 Brock Segura MD [address] [place] [address] [place] [address] Consulting Physician Cardiology 08/26/22 Tung Bach OD [address] [place], [place] [address] Consulting Physician Optometry 07/31/22 Janell Orellana PA [address] [place], [place] [address] Physician Child Care Development Specialist Orthopedic Surgery 09/12/22 Ashtyn [place] PA [address] [place] 5650-8060-70 [place] [address] Physician Child Care Development Specialist Colon and Rectal Surgery 04/30/23 Terence Edgar DMD [address] [place] [address] Dentist Oral Surgery 09/04/23 documented as of this encounter
--- OUTSIDE RECORDS SUMMARY | 2024-08-10 18:03 | XMS_ITS | Encounter Summary ---
Author Organization [facility] Address [address] [place] [address] Care Team Providers Care Manager Strategy & Account Name Role Phone Sunil Zelaya MD Unavailable [phone] Mundo Smith MD Unavailable [phone] Filiberto Madrid MD Primary Care Provider [phone] Viviana Wagner MD Unavailable +[phone] Heather Grant NP Unavailable [phone] Quinn Flannery MD Unavailable +[phone] Nena Rogers PTA Unavailable Unavailable Omid Hoffman MD Unavailable [phone] Steffany Solomon NP Unavailable [phone] Carlos Ford MD Unavailable Gerardo Chávez MD Unavailable Irineo Moe MD Unavailable Nelson Schneider MD Unavailable +[phone] Mirta Angeles Unavailable + [phone] John Khan MD PhD Unavailable [phone] Omid Emanuel DO Unavailable [phone] Sam Whelan MD Unavailable [phone] Quinn Flannery MD Unavailable [phone] Cristy Rodriguez MD Unavailable [phone] Brock Segura MD Unavailable [phone] MikalaTavonTung Sanjiv OD Unavailable [phone] Janell Orellana PA Unavailable [phone] Ashtyn Morrow Unavailable +[phone] Ashtyn [place]row Unavailable +[phone] Terence Edgar DMD Unavailable [phone] Encounter Details Date Type Department Care Team (Late st Contact Info) Description 10/04/2020 Telephone [facility] Advanced Medicine Radiation Oncology [address] [facility] [place] [address] Aida Blackburn RN Social History Tobacco Use [...] on file Legal Sex 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 Gender Identity Not on file Sexual Orientation Not on file documented as of this encounter Plan of Treatment Not on file documented as of this encounter Visit Diagnoses Not on filedocumented in this encounter Additional Health Concerns Infection Onset Date Last Indicated Resolved Time COVID: Suspected 01/13/2022 01/13/2022 01/13/2022 5:25 PM LEGAL ADMINISTRATIVE ASSISTANT documented as of this encounter Care Teams Manager Strategy & Account Relationship Specialty Start Date End Date Filiberto Madrid MD [address] [place] [address] PCP - General 12/18/16 Sunil Zelaya MD Consulting Physician Cardiovascular Disease 11/18/16 Mundo Smith MD Consulting Physician Neurosurgery 12/10/16 Viviana Wagner MD [address] [place] [address] Consulting Physician Pain Management 02/26/17 Heather Grant NP [address] [place] [address] Nurse Practitioner Neurosurgery 04/06/17 Quinn Flannery MD [address] [place] [address] Consulting Physician Pain Management 05/10/17 Nena Rogers [facility] Otologist Physical Therapy 10/06/17 Omid Hoffman MD Surgeon Orthopedic Surgery 11/02/17 Steffany Solomon NP Nurse Practitioner Pain Management 07/05/18 Carlos Ford MD Consulting Physician Neurology 09/20/18 Gerardo Chávez MD Referring Physician Urology 01/28/19 Irineo Moe MD Consulting Physician Dermatology 01/28/19 Nelson Schneider MD [address] [facility] [address] [place] [address] Consulting Physician Orthopedic Surgery 02/22/19 Mirta Angeles PA [address] [facility] [address] [place] [address] Physician Doll Surgeon Orthopedic Surgery 10/08/19 John Khan MD PhD [address] [facility] [place] [address] Radiation Oncologist Radiation Oncology 08/30/20 Omid Emanuel DO [address] [facility] [address] [place] [address] Consulting Physician Cardiovascular Disease 11/08/20 Sam Whelan MD [address] [facility] [address] [place] [address] Consulting Physician Ophthalmology 04/02/22 Quinn Flannery MD [address] [place] [address] Consulting Physician Pain Management 06/19/22 [place] [address] [place] [address] Consulting Physician Neurosurgery 06/21/22 Brock Segura MD [address] [place] [address] [place] [address] Consulting Physician Cardiology 08/26/22 Tung Bach OD [address] [place] [address] Consulting Physician Optometry 07/31/22 Janell Orellana PA [address] [place] [address] Physician Doll Surgeon Orthopedic Surgery 09/12/22 Ashtyn Morrow PA [address] 4703-7767-53 [place] [address] Physician Doll Surgeon Colon and Rectal Surgery 04/04/23 05/27/23 Ashtyn Morrow PA [address] 7232-0415-42 [place] [address] Physician Doll Surgeon Colon and Rectal Surgery 04/30/23 Terence Edgar DMD [id number] [place] [address] Dentist Oral Surgery 09/04/23 documented as of this encounter
--- OUTSIDE RECORDS SUMMARY | 2024-08-10 18:03 | XMS_ITS | Encounter Summary ---
Author Organization [facility] Address [address] [place] [address] Care Team Providers Care Service Coordinator Elderly Facility Name Role Phone Sunil Zelaya MD Unavailable [phone] Mundo Smith MD Unavailable +[phone] Filiberto Madrid MD Primary Care Provider [phone] Viviana Wagner MD Unavailable +[phone] Heather Grant NP Unavailable [phone] Quinn Flannery MD Unavailable +[phone] Nena Rogers PTA Unavailable Unavailable Omid Hoffman MD Unavailable +[phone] Steffany Solomon NP Unavailable +[phone] Carlos Ford MD Unavailable Gerardo Chávez MD Unavailable Irineo Moe MD Unavailable Nelson Schneider MD Unavailable +[phone] Mirta Angeles Unavailable + [phone] John Khan MD PhD Unavailable [phone] Adelfo Omid CalderonMyra KELLY Unavailable +[phone] Sam Whelan MD Unavailable [phone] Quinn Flannery MD Unavailable [phone] Cristy Rodriguez MD Unavailable [phone] Brock Segura MD Unavailable [phone] BachTung chaparro OD Unavailable +[phone] Janell Orellana PA Unavailable +[phone] Ashtyn Morrow PA Unavailable +[phone] Ashtyn [place]row Unavailable +[phone] Herve Terence Preston DMD Unavailable +[phone] Encounter Details Date Type Department Care Team (Late st Contact Info) Description 09/01/2020 Orders Only [facility] Advanced Medicine Radiation Oncology [address] [facility] Advanced Medicine [place] [address] Jostin Baez MD [address] [facility] [address] [facility] [address] [place] [address] Prostate cancer (HCC) (Primary Dx); Pre-operative laboratory [...] on file 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 Source: [employer]isto. Last revised 03-20-2017 us Jostin Baez MD LAB MICROBIOLOGY - GENERAL ORDERABLES Final Result LISA BOWLING ([place]) 1 [facility] Department [place] [address] documented in this encounter Visit Diagnoses Diagnosis Prostate cancer (HCC)- Primary Malignant neoplasm of prostate Pre-operative laboratory examination Pre-procedural laboratory examination Prostate cancer (HCC) Malignant neoplasm of prostate Pre-operative laboratory examination Pre-procedural laboratory examination documented in this encounter Additional Health Concerns Infection Onset Date Last Indicated Resolved Time COVID: Suspected 01/13/2022 01/13/2022 01/13/2022 5:25 PM PHOTOGRAPHIC HAND DEVELOPER documented as of this encounter Care Teams Service Coordinator Elderly Facility Relationship Specialty Start Date End Date Filiberto Madrid MD [address] [place] [address] PCP - General 12/18/16 Sunil Zelaya MD Consulting Physician Cardiovascular Disease 11/18/16 Mundo Smith MD Consulting Physician Neurosurgery 12/10/16 Viivana Wagner MD [address] [place] [address] Consulting Physician Pain Management 02/26/17 Heather Grant NP [address] [place] [address] Nurse Practitioner Neurosurgery 04/06/17 Quinn Flannery MD [address] [place] [address] Consulting Physician Pain Management 05/10/17 Nena Rogers PTA Contracts Analyst Physical Therapy 10/06/17 Omid Hoffman MD Surgeon Orthopedic Surgery 11/02/17 Steffany Solomon NP Nurse Practitioner Pain Management 07/05/18 Carlos Ford MD Consulting Physician Neurology 09/20/18 Gerardo Chávez MD Referring Physician Urology 01/28/19 Irineo Moe MD Consulting Physician Dermatology 01/28/19 Nelson Schneider MD [address] [facility] [address] [place], [place] [address] Consulting Physician Orthopedic Surgery 02/22/19 Mirta Angeles PA [address] [facility] 130 [place], [place] [address] Physician Operator Bearer Systems Orthopedic Surgery 10/08/19 John Khan MD PhD 6 [facility] [place] [address] Radiation Oncologist Radiation Oncology 08/30/20 Omid Emanuel DO 2 [facility] [address] [address] Consulting Physician Cardiovascular Disease 11/08/20 Sam Whelan MD [address] [facility] [address] [place] [address] Consulting Physician Ophthalmology 04/02/22 Quinn Flannery MD [address] [place] [address] Consulting Physician Pain Management 06/19/22 [place] [address] [place] [address] Consulting Physician Neurosurgery 06/21/22 Brock Segura MD [address] [place] [address] [address], [place] [address] Consulting Physician Cardiology 08/26/22 Tung Bach OD [address] [place], [place] [address] Consulting Physician Optometry 07/31/22 Janell Orellana PA [address] [place] [address] Physician Operator Be[employer] Systems Orthopedic Surgery 09/12/22 Ashtyn [place] PA [address] 6759-4224-31 [place] [address] Physician Operator [employer] Systems Colon and Rectal Surgery 04/04/23 05/27/23 Ashtyn Morrow PA [address] 4197-8531-52 [place] [address] Physician Operator [employer] Systems Colon and Rectal Surgery 04/30/23 Terence Edgar DMD [address] [place] [address] Dentist Oral Surgery 09/04/23 documented as of this encounter
--- OUTSIDE RECORDS SUMMARY | 2024-08-10 18:03 | XMS_ITS | Referral Summary ---
Author Organization [facility] [address] [email or web address] [address] Phone Care Team Providers Care Director Of Occupational Health Name Role Phone Mundo Smith MD Unavailable [phone] Irena Rebolledo MD Primary Care Provider Viviana Wagner MD Unavailable [phone] Heather Grant NP Unavailable [phone] Quinn Flannery MD Unavailable [phone] Nena Rogers PTA Unavailable Unavailable Omid Hoffman MD Unavailable [phone] Steffany Solomon NP Unavailable [phone] Carlos Ford MD Unavailable Gerardo Chávez MD Unavailable Irineo Moe MD Unavailable Nelson Schneider MD Unavailable Mirta Angeles Unavailable [phone] John Khan MD PhD Unavailable [phone] Sam Whelan MD Unavailable Quinn Flannery MD Unavailable [phone] Cristy Rodriguez MD Unavailable [phone] Brock Segura MD Unavailable Tung Bach OD Unavailable Janell Orellana PA Unavailable Ashtyn Morrow PA Unavailable EdgarTerence DMD Unavailable [phone] Encounters Date Type Department Care Team Description 08/10/2024 [facility]phone [facility] [address] [place] [address] Irena Rebolledo MD 07/03/2024 Telephone [facility] [address] [place] [phone] Irena Rebolledo MD 07/03/2024 Results Follow-Up [facility] [address] [place] [phone] Irena Rebolledo MD Hepatitis B surface antibody (immune status) Blood, Hepatitis B Surface Antigen Blood, Basic metabolic panel, Additional followed-up results: 5 07/01/2024 2:30 PM CDT Office Visit [facility] [address] [place] [address] John Khan MD PhD Malignant neoplasm prostate (CMS/HCC) (HCC) 06/29/2024 12:00 PM CDT Lab [address] [phone] Medicare annual wellness visit, subsequent; Need for hepatitis B screening test; Acute midline low back pain without sciatica 06/29/2024 11:55 AM CDT Lab [address] [address] Malignant neoplasm prostate (CMS/HCC) (HCC) 06/08/2024 Telephone [facility] [address] [place] [address] Irena Rebolledo MD 06/03/2024 1:00 PM CDT Office Visit [facility] [address] [place] [address] Genevieve Torres NP Upper respiratory tract infection, unspecified type (Primary Dx) 06/01/2024 Telephone [facility] [address] [place] [address] Irena Rebolledo MD Chest Congestion 05/10/2024 Telephone [facility] [address] [place] [address] Irena Rebolledo MD 05/10/2024 1:00 PM CLIENT ADVISOR Office Visit [facility] [address] [place] [address] Genevieve Torres NP Viral URI with cough [...] 05/10/2024 Assessment & Plan (05/10/2024 9:37 PM CLIENT ADVISOR): Acute, symptoms for approximately 1 week. Afebrile, [...] 03/11. Assessment & Plan (04/18/2024 6:17 AM CLIENT ADVISOR): Acute problem when he was travelling in [place] last fall, resolved with treatment sought there, details lacking. Consider follow up with urology. Other chest pain 09/25/2023 Assessment & Plan (05/10/2024 9:35 PM CLIENT ADVISOR): Acute, symptoms for 1 week. Tenderness to [...] no acute changes or evidence of old [place]. The patient's symptoms are likely noncardiac. He reports having several stress tests many years ago at [facility]. He does not want to go through the chemical stress test ever again because of reported side effects, and he is not ready or in any shape to get on the treadmill due to gaining weight and still recovering from infection of left knee hardware. He has a scheduled follow-up with his apple peeler operator, Dr. Segura, in about two weeks. We discussed the EKG findings and his symptoms with his apple peeler operator. Return here early as needed, otherwise as [...] 08/26/2022 Assessment & Plan (02/20/2023 1:36 PM CLIENT ADVISOR): He continues to take an iron supplement [...] got a second opinion in neurosurgery at [facility] today. They basically had the same [...] not included. Sees Sam Whelan MD, [facility]. Wet on right, dry on left. Also bilateral vitreous syneresis. [facility] note on 06/18/2024: Status post total left knee replacement 01/15/20 Assessment & Plan (01/30/2022 5:27 PM CLIENT ADVISOR): There is concern for his left prosthetic knee which has exhibited some warmth and swelling. This was tapped yesterday in orthopedics and there are around 65,000 nucleated cells. Microbiology preliminary report is negative. We will keep him on antibiotics (penicillin) pending further discussion with orthopedics. Assessment & Plan (01/15/2022 3:32 PM CLIENT ADVISOR): Patient had L total Knee arthroplasty on 08/28/21. Current use of penitentiary anticoagulation 021 Overview (11/24/2020): Xarelto for Afib. [...] this surgery. He will also see his apple peeler operator for a specific cardiac clearance. Assessment & [...] but he should discuss this with his apple peeler operator as well. 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 Assessment & Plan (04/12/2024 4:25 AM CLIENT ADVISOR): Chronic, diagnosed 3-4 years ago, status post definitive radiation therapy, comanaged with Urology and Radiation therapy. Assessment & Plan (04/09/2023 4:58 PM CLIENT ADVISOR): He was treated with definitive radiation therapy [...] completely. Assessment & Plan (01/29/2021 4:09 PM CLIENT ADVISOR): He completed radiation therapy. He has a [...] It. Assessment & Plan (04/09/2023 5:01 PM CLIENT ADVISOR): He was prescribed CPAP, but never used [...] (09/26/2017): Added automatically from request for surgery [id number] Chronic left-sided headaches 03/19/2017 Overview (03/19/2017): New [...] moderate anemia postoperatively. He also saw his apple peeler operator at [facility], and a test of some kind [...] it. Assessment & Plan (02/18/2021 3:03 PM CLIENT ADVISOR): His energy level has improved considerably. He [...] same. Assessment & Plan (01/14/2022 4:00 PM CLIENT ADVISOR): Patient has a hx of GERD and [...] option. Assessment & Plan (01/22/2017 2:20 PM CLIENT ADVISOR): He never got a call from the [...] transient/intermittent. Assessment & Plan (04/15/2023 11:29 AM CLIENT ADVISOR): We are monitoring a mild and intermittent [...] labs. Assessment & Plan (02/23/2018 3:30 PM CLIENT ADVISOR): Platelet count in the hospital when last checked at the time of left hip replacement was normal. He was taking B12 for awhile, but no longer takes it. We will monitor labs periodically. Assessment & Plan (01/22/2017 2:21 PM CLIENT ADVISOR): This was noted on one of his blood counts, and as I recall his B12 level was also slightly low so we asked him to take a supplement which she takes irregularly. Things seem to be stable so we will continue to monitor. Paroxysmal atrial fibrillation 11/08/2014 Overview (12/03/2019): On Multaq and Xarelto. Assessment & Plan (05/10/2024 9:36 PM CLIENT ADVISOR): Chronic, controlled on Multaq and Xarelto at this time. Heart rate regular upon auscultation camejo, vitals stable. See plan for URI above. Assessment & Plan (04/12/2024 4:25 AM CLIENT ADVISOR): Chronic/intermittent, present for 10 or more years, controlled on dronedarone 400 mg daily (patient's idiosyncratic dosing), and rivaroxaban 20 mg daily, comanaged with Cardiology. Assessment & Plan (10/09/2023 3:30 PM CDT): Chronic, heart rhythm is irregular but rate is controlled. He is on Xarelto and Multaq. He will keep his follow ups with Dr. Lee. Assessment & Plan (04/09/2023 5:00 PM CLIENT ADVISOR): Heart rhythm is regular. He is on [...] same. Assessment & Plan (04/16/2022 10:49 AM CLIENT ADVISOR): He is on Multaq and Xarelto. Continue same. The Xarelto will be held for two days before reimplantation of his left knee. Assessment & Plan (01/30/2022 5:24 PM CLIENT ADVISOR): He remains on Multaq. We corrected the dose to reflect what the patient reports he is taking, namely 400 mg twice a day instead the non standard 400 mg daily he took previously. Assessment & Plan (01/14/2022 3:57 PM CLIENT ADVISOR): Patient has a hx of A-fib and [...] effects. He will discuss this with his apple peeler operator when he sees him for a cardiac clearance to have his left knee replaced. Assessment & Plan (01/29/2021 4:14 PM CLIENT ADVISOR): Heart rhythm is currently regular. He is on Multaq and Xarelto. He followed up once with a apple peeler operator but did not do the testing that [...] PM CDT): Scanned office note, Dr. Zelaya, [facility]. Also in Care Everywhere. Assessment & Plan (08/06/2020 10:39 AM CDT): Heart rhythm is regular. He is on Multaq and Xarelto. He plans to see his apple peeler operator, Dr. Zelaya, sometime next week to get [...] well. Assessment & Plan (02/23/2018 3:29 PM CLIENT ADVISOR): There is a history of paroxysmal atrial [...] continues on Multaq and Xarelto from his apple peeler operator. Sometimes he cuts the Multaq dose down if he is taking Motrin for his hip, because he does not want his blood to be too thin. He will follow up with Cardiology for all of these issues. Assessment & Plan (02/02/2017 5:13 PM CLIENT ADVISOR): Recent Holter ordered by Dr. Montanez showed [...] ACUTE ON CHRONIC DIASTOLIC HEART FAILURE (CMS/HCC) ([facility]) WRITTEN ON 04/09/2023 4:51 PM BY IRENA REBOLLEDO MD Hospital diagnosis, entered during stay for cellulitis of the left thigh. >>OVERVIEW FOR DIASTOLIC DYSFUNCTION WRITTEN ON 04/12/2024 4:21 AM BY IRENA REBOLLEDO MD Overview: Grade 2 Assessment & Plan (04/12/2024 4:24 AM CLIENT ADVISOR): Chronic, present for 10 or more years, not currently requiring diuretic or other medical therapy. We will monitor on periodic followups. Assessment & Plan (04/12/2024 4:21 AM CLIENT ADVISOR): >>ASSESSMENT AND PLAN FOR DIASTOLIC DYSFUNCTION WRITTEN [...] his complaints of fatigue. He sees his apple peeler operator, Dr. Montanez, in about a month or two, and will ask him about diastolic dysfunction as a possible cause or contributing factor to his symptoms. Assessment & Plan (04/12/2024 4:21 AM CLIENT ADVISOR): >>ASSESSMENT AND PLAN FOR DIASTOLIC DYSFUNCTION WRITTEN ON 02/23/2018 3:27 PM BY IRENA REBOLLEDO MD He seems to be doing well. Blood pressure is normal. Lungs are clear. Oxygen saturation is satisfactory. He has a apple peeler operator he sees regularly, Dr. Zelaya. Continue to monitor. Assessment & Plan (04/12/2024 4:21 AM CLIENT ADVISOR): >>ASSESSMENT AND PLAN FOR DIASTOLIC DYSFUNCTION WRITTEN [...] Cardiology. Assessment & Plan (04/09/2023 4:53 PM CLIENT ADVISOR): He has trace pretibial pitting edema. Lungs are clear in oxygenation is normal. He has not requiring any diuretic therapy at this time. We will monitor clinically. Assessment & Plan (04/03/2022 2:45 PM CLIENT ADVISOR): He seems to be clinically stable with no significant edema, no crackles in his lungs. Oxygen saturation is normal. We will monitor clinically without medication. Primary osteoarthritis involving multiple joints 07/08/2012 Assessment & Plan (04/12/2024 4:26 AM CLIENT ADVISOR): Chronic, present for 10 or more years, [...] shape. Assessment & Plan (02/18/2021 3:01 PM CLIENT ADVISOR): He continues to have various aches and [...] joints. Assessment & Plan (02/23/2018 3:30 PM CLIENT ADVISOR): He continues to have problems with aches [...] pain recently that was evaluated by his apple peeler operator at [facility], Dr. Lee. It was felt to [...] 10/03/2023 Assessment & Plan (04/09/2023 4:58 PM CLIENT ADVISOR): He does not take anything for cholesterol [...] diet. Assessment & Plan (01/29/2021 4:10 PM CLIENT ADVISOR): He is not currently taking anything for [...] medicine. Assessment & Plan (02/23/2018 3:27 PM CLIENT ADVISOR): He decided to stop taking cholesterol medicine [...] prescription. Assessment & Plan (01/22/2017 2:16 PM CLIENT ADVISOR): He is tolerating his medication without apparent [...] it. Assessment & Plan (01/22/2017 1:59 PM CLIENT ADVISOR): No new attacks of gout while on allopurinol. Resolved Problems Problem Noted Date Diagnosed Date Resolved Date Rectal bleeding 05/30/2023 12/12/2023 Chronic infection of left knee 04/08/2023 04/12/2024 Overview (04/12/2024): Resolved after two stage replacement of prosthetic joint. Assessment & Plan (04/09/2023 4:53 PM CLIENT ADVISOR): There is no evidence of any relapse of the left prosthetic knee infection following two-stage replacement. He is thinking of going back to [place] to swim, and I think this would be fine. Intractable left heel pain 02/03/2023 1 Assessment & Plan (04/15/2023 11:25 AM CLIENT ADVISOR): He seems to be doing well with regard to most pain complaints, including left heel pain. However, his right wrist carpometacarpal joints flare up from time to time. He presumes it is due to gout. When it happens, he eats cherries which he says makes the problem go away. Assessment & Plan (02/20/2023 1:35 PM CLIENT ADVISOR): He notes a sharp pain in his [...] (06/30/2022): Added automatically from request for surgery [id number], s/p successful 2-stage replacement (revision on 04/10/2022). Assessment & Plan (04/03/2022 2:46 PM CLIENT ADVISOR): Surgery to reimplant his left knee is planned for next week. He sees Dr. Hoffman tomorrow for a preoperative evaluation. 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 Assessment & Plan (04/03/2022 2:47 PM CLIENT ADVISOR): He had explantation of the infected joint [...] resolved. Assessment & Plan (01/30/2022 5:23 PM CLIENT ADVISOR): His diarrhea has improved significantly. He has [...] records. Assessment & Plan (01/19/2022 3:49 PM CLIENT ADVISOR): The cellulitis involved much of the left [...] cellulitis. Assessment & Plan (01/19/2022 3:48 PM CLIENT ADVISOR): He was hospitalized recently for a streptococcal [...] baseline. Assessment & Plan (01/15/2022 3:32 PM CLIENT ADVISOR): Blood cultures from 01/12 now growing strep dysgalactiae with repeat blood cultures pending. - On Cefepime and vancomycin (01/13- Post-procedural fever 01/13/20222022 Overview (06/30/2022): Cellulitis of left leg resulting in sepsis and infection of left knee replacement. Assessment & Plan (01/13/2022 6:48 PM CLIENT ADVISOR): I was called by the patient's son [...] 06/30/2022 Assessment & Plan (01/18/2022 5:10 PM CLIENT ADVISOR): When I assessed him five days ago at his home, he was markedly confused, more properly encephalopathic then delirious. He improved rapidly with treatment in the hospital and seems back to normal. Assessment & Plan (01/13/2022 6:49 PM CLIENT ADVISOR): Probably due to fever and suspected sepsis. Cellulitis of left thigh 01/13/2022 Overview (06/30/2022): See hospital records, [facility]. Assessment & Plan (01/18/2022 5:09 PM CLIENT ADVISOR): He says the cellulitis started on his [...] needed. Assessment & Plan (01/15/2022 3:33 PM CLIENT ADVISOR): Patient currently has a left knee that [...] dehydrated. Assessment & Plan (01/30/2022 5:23 PM CLIENT ADVISOR): He has been drinking fluid and is making plenty of urine. Blood pressure is in a better range. Assessment & Plan (01/29/2022 5:54 AM CLIENT ADVISOR): He called the office today. He has [...] (12/03/2019): Added automatically from request for surgery [id number], arthroscopy 10/08/2019, Dr. Hoffman, [facility]. Internal derangement of left knee 09/28/2019 12/03/2019 Overview (12/03/2019): Added automatically from request for surgery [id number], arthroscopy 10/08/2019. Acute gout of knee 03/08/2019 0 Overview (12/03/2019): See office note. Assessment & Plan (03/27/2019 3:18 PM CLIENT ADVISOR): He has a history of gout, but [...] note. Assessment & Plan (03/27/2019 3:20 PM CLIENT ADVISOR): He denies any history of knee pain [...] 09/20/201806/2023 Assessment & Plan (01/28/2019 2:16 PM CLIENT ADVISOR): The left superior trapezius/supraspinatus area has been [...] report. Assessment & Plan (01/28/2019 2:15 PM CLIENT ADVISOR): He has had pain in his right [...] needed. Assessment & Plan (03/26/2018 9:46 AM CLIENT ADVISOR): For a couple of months or more [...] Overview (02/23/2018): S/P left THR. Dr. Hoffman [facility]. Assessment & Plan (09/08/2017 4:40 PM CDT): [...] issue. Assessment & Plan (02/02/2017 5:14 PM CLIENT ADVISOR): This is his main concern at this time. It really impairs his quality of life. He has trouble getting his left sock and shoe on. Right now it is not so bad, but there are times when pain is quite severe, and he resorts to an pusn-lus-cvgkzka nonsteroidal. Recent x-ray showed severe osteoarthritis of [...] Obesity Assessment & Plan (04/09/2023 4:59 PM CLIENT ADVISOR): He struggles with his weight. He eats [...] needed. Assessment & Plan (02/20/2023 1:37 PM CLIENT ADVISOR): He would like to lose some weight. [...] weeks. Assessment & Plan (01/14/2022 3:56 PM CLIENT ADVISOR): Patient BMI of 32.83. Assessment & Plan (12/19/2021 3:50 PM CDT): We encouraged attention to his diet, and hopefully some weight loss. Assessment & Plan (06/21/2021 8:31 AM CDT): I urged attention to his diet, and hopefully some weight loss. Assessment & Plan (01/29/2021 4:10 PM CLIENT ADVISOR): We encouraged attention to his diet, and [...] apnea. Assessment & Plan (01/22/2017 2:17 PM CLIENT ADVISOR): Weight loss could help some of his other issues, especially the pain he has from spinal stenosis and left hip osteoarthritis. He is down a few pounds, and he will continue efforts in this regard. Sepsis due to Streptococcus species without acute organ dysfunction 01/29/2022 06/30/2022 Overview (06/30/2022): See hospital records, [facility]. Assessment & Plan (01/30/2022 5:27 PM CLIENT ADVISOR): One of several lood cultures was positive for Strep dysgalactiae. Follow-up blood cultures on antibiotics were negative. There is concern for his left prosthetic knee which has exhibited some warmth and swelling. See discussion elsewhere. Assessment & Plan (01/18/2022 5:11 PM CLIENT ADVISOR): He was septic, but organ function remained [...] than three times a week 02/06/2022 Attends Shinto Services Not on file 02/06 Do you belong to any clubs o r organizations such as mandaeism groups, unions, fraternal or athletic groups, or [...] on file Legal Sex Male 7:22 PM CLIENT ADVISOR Gender Identity Not on file Sexual Orientation [...] on file Medical Devices Implanted Type [employer] [facility] Coach Device Identifier Shelf Expiration Date Model / Serial / Lot [employer] [id number] [place] 58mm Sector Hip Shell Acetabular Gription Sterile Latex Free - [id number] Implanted:Qty: 1 on 10/13/2017 by Omid Hoffman MD at [facility] Left: Hip [employer] 03/09/2027 [id number] / / [id number] [employer] [id number] [place] 58mm 36mm Hip Neutral Liner Acetabular Altrx Sterile Latex Free - [id number] Implanted:Qty: 1 on 10/13/2017 by Omid Hoffman MD at [facility] Left: Hip [employer] 06/07/2022 [id number] / / [id number] [employer] [id number] Actis Collar Hip 8 Standard Offset Stem Femoral - [id number] Implanted:Qty: 1 on 10/13/2017 by Omid Hoffman MD at [facility] Left: Hip [employer] 07/08/2027 [id number] / / [id number] [employer] 1365-36-330 Articul/G[place]omo 36mm Cementless Hip +8.5mm 12/14 T[place] Head Femoral Latex Free - [id number] Implanted:Qty: 1 on 10/13/2017 by Omid Hoffman MD at [facility] Left: Hip [employer] 08/07/2022 1365-36-330 / / [id number] [employer] Cement Bone Simplex Gentamicin High Viscosity 40 6195-1-001 - [id number] Implanted:Qty: 1 on 07/16/2021 by Omid Hoffman MD at [facility] Left: Knee [employer] 12/07/2022 6195-1-001 / / [id number] [employer] Cement Bone Simplex Gentamicin High Viscosity 40 6195-1-001 - [id number] Implanted:Qty: 1 on 07/16/2021 by Omid Hoffman MD at [facility] Left: Knee [employer] 12/07/2022 6195-1-001 / / [id number] [employer] [place]os R+G High Viscosity Cement Bone Gentamicin Arthroplasty 5117637 - [id number] Implanted:Qty: 1 on 02/04/2022 by Omid Hoffman MD at [facility] Left: Knee [employer] C1713 05/07/2022 [id number] / / [id number] [employer] [place] R+G High Viscosity Cement Bone Gentamicin Arthroplasty 0565805 - [id number] Implanted:Qty: 1 on 02/04/2022 by Omid Hoffman MD at [facility] Left: Knee [employer] C1713 05/07/2022 [id number] / / [id number] [employer] [place] R+G High Viscosity Cement Bone Gentamicin Arthroplasty 4137931 - [id number] Implanted:Qty: 1 on 02/04/2022 by Omid Hoffman MD at [facility] Left: Knee [employer] C1713 05/07/2022 [id number] / / [id number] [employer] [place] R+G High Viscosity Cement Bone Gentamicin Arthroplasty 5163627 - [id number] Implanted:Qty: 1 on 02/04/2022 by Omid Hoffman MD at [facility] Left: Knee [employer] C1713 05/07/2022 [id number] / / [id number] [employer] Cement Bone Simplex Gentamicin High Viscosity 40 6195-1-001 - [id number] Implanted:Qty: 1 on 04/10/2022 by Omid Hoffman MD at [facility] Left: Knee [employer] 06/08/2023 6195-1-001 / / [id number] [employer] Cement Bone Simplex Gentamicin High Viscosity [facility] 6195-1-001 - [id number] Implanted:Qty: 1 on 04/10/2022 by Omid Hoffman MD at [facility] Left: Knee [employer] 06/08/2023 6195-1-001 / / [id number] [employer] Attune Cement Revision Rotate Platform Knee 6 Baseplate Tibial [id number] - [id number] Implanted:Qty: 1 on 04/10/2022 by Omid Hoffman MD at [facility] Left: Knee [employer] [id number] 09/07/2031 [id number] / / [id number] [employer] Attune 22mm 60mm Revision Press Fit Knee Stem Femoral Sterile Latex Free [id number] - [id number] Implanted:Qty: 1 on 04/10/2022 by Omid Hoffman MD at [facility] Left: Knee [employer] [id number] 09/06/2028 [id number] / / [id number] [employer] Attune L53 Mm Revision Full Coated Knee Sleeve Tibial [place]oat Sterile Latex Free [id number] - [id number] Implanted:Qty: 1 on 04/10/2022 by Omid Hoffman MD at [facility] Left: Knee [employer] 05/08/2031 [id number] / / [id number] Attune Knee System Revision Femoral Sleeve [place] Fully Coated Implanted:Qty: 1 on 04/10/2022 by Omid Hoffman MD at [facility] Left: Knee [employer]uy [employer] [id number] 06/07/2029 [id number] / / [id number] [employer] Attune H4 Mm Revision Cement Knee Distal 7 Augment Femoral Sterile Latex Free [id number] - [id number] Implanted:Qty: 1 on 04/10/2022 by Omid Hoffman MD at [facility] Left: Knee [employer] 04/09/2031 [id number] / / [id number] [employer] Attune Revision Cement Constrain Knee Left 7 Component Femoral Sterile [id number] - [id number] Implanted:Qty: 1 on 04/10/2022 by Omid Hoffman MD at [facility] Left: Knee [employer] 03/09/2031 [id number] / / [id number] [employer] Attune 22mm 60mm Revision Press Fit Knee Stem Femoral Sterile Latex Free [id number] - [id number] Implanted:Qty: 1 on 04/10/2022 by Omid Hoffman MD at [facility] Left: Knee [employer] 10/07/2029 [id number] / / [id number] [employer] Attune H4 Mm Revision Cement Knee Posterior 7 Augment Femoral Sterile Latex Free 788442806 - [id number] Implanted:Qty: 1 on 04/10/2022 by Omid Hoffman MD at [facility] Left: Knee [employer] 03/09/2031 [id number] / / [id number] [employer] Attune H4 Mm Revision Cement Knee Distal 7 Augment Femoral Sterile Latex Free [id number] - [id number] Implanted:Qty: 1 on 04/10/2022 by Omid Hoffman MD at [facility] Left: Knee [employer] 04/09/2031 [id number] / / [id number] [employer] Attune 38mm Cemented Medialize Knee Dome Patellar Aox Sterile [id number] - [id number] Implanted:Qty: 1 on 04/10/2022 by Omid Hoffman MD at [facility] Left: Knee [employer] 01/07/2027 [id number] / / [id number] [employer] Attune H8 Mm Revision Constrain Rotate Platform Knee 6 Insert Tibial Aox Sterile [id number] - Sn/A - [id number] Implanted:Qty: 1 on 04/10/2022 by Omid Hoffman MD at [facility] Left: Knee [employer] [id number] 10/07/2022 [id number] / N/A / [id number] Explanted Type Area [employer] Well[employer] Coach Device Identifier Shelf Expiration Date Model / Serial / Lot [employer] [id number] Attune S+ Cement Fix Bearing Knee 7 Baseplate Tibial - [id number] Implanted:Qty: 1 on 07/16/2021 by Omid Hoffman MD at [facility] Explanted:Qty: 1 on 02/04/2022 at [facility] Left: Knee [employer] 06/08/2031 [id number] / / [id number] [employer] [id number] Attune Cemented Posterior Stabilize Knee Left 7 Component Femoral - [id number] Implanted:Qty: 1 on 07/16/2021 by Omid Hoffman MD at [facility] Explanted:Qty: 1 on 02/04/2022 at [facility] Left: Knee [employer] 11/07/2028 [id number] / / [id number] [employer] [id number] Attune 8mm Posterior Stabilize Fix Bearing Knee 7 Insert Tibial - [id number] Implanted:Qty: 1 on 07/16/2021 by Omid Hoffman MD at [facility] Explanted:Qty: 1 on 02/04/2022 at [facility] Left: Knee [employer] 04/09/2026 [id number] / / [id number] Procedures Procedure Name Priority Date/Time Associated Diagnosis [...] MD LAB BLOOD ORDERABLES Final Re sult [facility] ([place]) 1 [facility] Department [place] [address] * Differential, auto (06/29/2024 12:10 PM CDT) Neutrophil abs 1.80 1.50 - 6.50 K/cumm Imm gran abs 0.01 0.00 - 0.10 K/cumm [facility] ([place]) Lymphocyte abs 1.01 0.80 - 3.30 K/cumm [facility] ([place]) Monocyte abs 0.30 0.20 - 0.80 K/cumm [facility] ([place]) Eosinophil abs 0.05 0.00 - 0.50 K/cumm [facility] ([place]) Basophil abs 0.01 0.00 - 0.10 K/cumm [facility] ([place]) Neutrophil pct 56.6 % [facility] ([place] Comment: Interpretive Data Percent cell count reference [...] Final Re sult [facility] ([place] 1 [facility] Department [place] [address] * (ABNORMAL) CBC with auto [...] ([place]) MCV 90.1 81.3 - 96.4 fL [facility] ([place] MCH 31.1 27.1 - 33.3 pg [facility] MCHC 34.5 32.3 - 35.7 g/dL [facility] ([place]) RDW CV 12.9 11.1 - 14.9 % [facility] RDW SD 42.5 35.7 - 48.1 fL [facility] ([place] NRBC abs 0.00 0.00 - 0.01 K/cumm [facility] Blood 06/29/2024 12:1 0 PM CDT 06/29/2024 12:20 PM CDT us Irena Rebolledo MD LAB BLOOD ORDERABLES Final Re sult Performing Organization Address City/[facility]/ZIP Co de Phone Number [facility] ([place]) 1 [facility] [employer] [place], [place] [id number] * (ABNORMAL) Hepatitis B core antibody, total Blood (06/29/2024 12:10 PM CDT) Hep B core IgG/IgM Reactive( A) Nonreactive Comment:Testing performed by : [facility], 1 [facility] [place]., [address] Blood 06/29/2024 12:1 0 PM CDT 06/29/2024 8:10 PM CDT Irena Rebolledo MD LAB MICROBIOLOGY - GENERAL OR DERABLES Final Result [facility] ([place]) 1 [facility] [place] [address] * Hepatitis B surface antibody (immune status) Blood (06/29/2024 12:10 PM CDT) Pathologist [facility] HBsAb (immune status) Reactive Comment: Interpretive Data [...] last revised on 19. Testing performed by: [facility], [address] [place] [address]., [address] HBsAb (immune status) index 967.0 mIUnits/m L [facility] ([place]) Comment:Testing performed by : [address], [address] Blood 06/29/2024 12:1 0 PM CDT 06/29/2024 4:42 PM CDT Irena Rebolledo MD LAB MICROBIOLOGY - GENERAL OR DERABLES Final Result [facility] ([place]) 1 [facility] [place] [address] * Hepatitis B Surface Antigen Blood (06/29/2024 12:10 PM CDT) [facility] HepBsAg Nonreactive Nonreactive Comment:Testing performed by : [facility], [address] [place] [address]., [address] Blood 06/29/2024 12:1 0 PM CDT 06/29/2024 4:42 PM CDT Irena Rebolledo MD LAB MICROBIOLOGY - GENERAL OR DERABLES Final Result [facility] ([place] 1 [facility] [place] [address] * Uric acid (06/29/2024 12:10 PM CDT) [facility] Uric acid 7.3 3.0 - 8.0 mg/dL Blood 06/29/2024 12:1 0 PM CDT 06/29/2024 12:20 PM CDT Irena Rebolledo MD LAB BLOOD ORDERABLES Final Re sult Performing Organization Address [facility] Co de Phone Number [facility] ([place] 1 [place] [address] * PSA diagnostic (06/29/2024 12:10 PM CDT) [facility] PSA-Total 1.66 <=6.20 ng/mL Comment: Interpretive [...] PM CDT 06/29/2024 12:20 PM CDT John Khna MD PhD LAB BLOOD ORDERABLES F inal Result Performing Organization Address [facility] Co de Phone Number [facility] ([place] 1 [place] [address] * Basic metabolic panel (06/29/2024 12:10 PM CDT) Pathologist [facility] Sodium 140 135 - 145 mmol/L Potassium, pl 4.2 3.3 - 4.9 mmol/L [facility] ([place] Chloride 106 97 - 110 mmol/L [facility] ([place] CO2 23 22 - 32 mmol/L [facility] ([place] Anion gap 11 2 - 15 mmol/L [facility] ([place] BUN 22 6 - 25 mg/dL [facility] ([place] Creatinine 1.26 0.80 - 1.30 mg/dL [facility] [...] Final Re sult [facility] ([place]) 1 [facility] Department [place] [address] from Last 3 Months Insurance MEDICARE [facility] MEDICARE [facility] MEDICARE SUPPLEMENT MEDICARE [facility] MEDICARE [facility] MEDICARE [facility] MEDICARE SUPPLEMENT [facility] Advance Directives For more information, please contact: [phone] * Full Code (Latest Code Status on [...] 4:12 PM 10/19/2017 9:01 PM Care Teams Director Of Occupational Health Relationship Specialty Start Date End Date Irena Rebolledo MD [address] [place] [address] PCP - General 12/18/16 Mundo Smith MD Consulting Physician Neurosurgery 12/10/16 Viviana Wagner MD [address] [place] [address] Consulting Physician Pain Management 02/26/17 Heather Grant NP [address] [place] [address] Nurse Practitioner Neurosurgery 04/06/17 Quinn Flannery MD [address] [place] [address] Consulting Physician Pain Management 05/10/17 Nena Rogers [facility] Construction Car[employer]ers [employer]per Physical Therapy 10/06/17 Omid Hoffman MD Surgeon Orthopedic Surgery 11/02/17 Steffany Solomon NP Nurse Practitioner Pain Management 07/05/18 Carlos Ford MD Consulting Physician Neurology 09/20/18 Gerardo Chávez MD Referring Physician Urology 01/28/19 Irineo Moe MD Consulting Physician Dermatology 01/28/19 Nelson Schneider MD [address] [facility] [address] [place] [address] Consulting Physician Orthopedic Surgery 02/22/19 Mirta Angeles PA [address] [facility] [address] [place] [address] Physician Chief Chemist Orthopedic Surgery 10/08/19 John Khan MD PhD [address] [place] [address] Radiation Oncologist Radiation Oncology 08/30/20 Sam Whelan MD [address] [place] [address] Consulting Physician Ophthalmology 04/02/22 Quinn Flannery MD [address] [address] Consulting Physician Pain Management 06/19/22 [place] [address] [place] [address] Consulting Physician Neurosurgery 06/21/22 Brock Segura MD [address] [place] [address] [address] [address] Consulting Physician Cardiology 08/26/22 Tung Bach OD [address] [place] [address] Consulting Physician Optometry 07/31/22 Janell Orellana PA [address] [place] [id number] Physician Chief Chemist Orthopedic Surgery 09/12/22 Ashtyn Morrow PA [address] [place] [id number] [place] [address] Physician Chief Chemist Colon and Rectal Surgery 04/30/23 Terence Edgar DMD [address] [place] [address] Dentist Oral Surgery 09/04/23
--- OUTSIDE RECORDS SUMMARY | 2024-08-10 18:03 | XMS_ITS | Encounter Summary ---
Author Organization [place] [facility] Address [address] [place] [address] Phone Care Team Providers Care Supervisor Filling And Packing Name Role Phone Sunil Zelaya MD Unavailable [phone] Joel Jamison MD Unavailable [phone] Mundo Smith MD Unavailable [phone] Filiberto Madrid MD Primary Care Provider [phone] Viviana Wagner MD Unavailable [phone] Heather Grant NP Unavailable [phone] Quinn Flannery MD Unavailable [phone] Nena Rogers PTA Unavailable Unavailable Omid Hoffman MD Unavailable Steffany Solomon NP Unavailable [phone] Carlos Ford MD Unavailable Gerardo Chávez MD Unavailable Irineo Moe MD Unavailable Nelson Schneider MD Unavailable Mirta Angeles Unavailable [phone] John Khan MD PhD Unavailable [phone] Omid Emanuel DO Unavailable Sam Whelan MD Unavailable Quinn Flannery MD Unavailable [phone] Cristy Rodriguez MD Unavailable Brock Segura MD Unavailable [phone] Mikala Tung Sanjiv OD Unavailable Janell Orellana PA Unavailable [phone] Ashtyn Morrow Unavailable [phone] Ashtyn Morrow Unavailable [phone] Terence Edgar DMD Unavailable Encounter Details Date Type Department Care Team (Late st Contact Info) Description 12/23/2016 Orders Only [facility] [address] [place] [address] Filiberto Madrid MD [address] [address] Social History Tobacco Use Types Packs/Day Years Used Date Smoking Tobacco: Never Smokeless Tobacco: Never Alcohol Use Standard Drinks/Week Comments Yes 0 (1 standard drink = 0.6 oz pur e alcohol) Rarely Sex and Gender Information Value Date Recorded Sex Assigned at Not on file Legal Sex Male 7:22 PM [employer] Gender Identity Not on file Sexual Orientation [...] COVID: Suspected 01/13/2022 01/13/2022 01/13/2022 5:25 PM [employer] [facility] documented as of this encounter Care Teams Supervisor Filling And Packing Relationship Specialty Start Date End Date Filiberto Madrid MD [address] [place] [address] PCP - General 12/18/16 Sunil Zelaya MD Consulting Physician Cardiovascular Disease 11/18/16 Joel Jamison MD [address] [facility] [address] [place] [address] Consulting Physician Urology 04/16/16 01/27/19 Mundo Smith MD [address] [facility] [address] [place] [address] Consulting Physician Neurosurgery 12/10/16 Viviana Wagner MD [address] [place] [address] Consulting Physician Pain Management 02/26/17 Heather Grant NP [address] [place] [address] Nurse Practitioner Neurosurgery 04/06/17 Quinn Flannery MD [address] [place] [address] Consulting Physician Pain Management 05/10/17 Nena Rogers [facility] Instrumental Musician Physical Therapy 10/06/17 Omid Hoffman MD Surgeon Orthopedic Surgery 11/02/17 Steffany Solomon [employer] Nurse Practitioner Pain Management 07/05/18 Carlos Ford MD Consulting Physician Neurology 09/20/18 Gerardo Chávez MD Referring Physician Urology 01/28/19 Irineo Moe MD Consulting Physician Dermatology 01/28/19 Nelson Schneider MD [address] [facility] [address] [place] [address] Consulting Physician Orthopedic Surgery 02/22/19 Mirta Angeles PA [address] [facility] [address] [place] [address] Physician Computer Animator Orthopedic Surgery 10/08/19 John Khan MD PhD 6 [place] [address] Radiation Oncologist Radiation Oncology 08/30/20 Omid Emanuel DO [address] [place] [address] Consulting Physician Cardiovascular Disease 11/08/20 Sam Whelan MD [address] [place] [address] Consulting Physician Ophthalmology 04/02/22 Quinn Flannery MD [address] [place] [address] Consulting Physician Pain Management 06/19/22 [place] [address] [place] [address] Consulting Physician Neurosurgery 06/21/22 Brock Segura MD [address] [place] [address] [address], [place] [address] Consulting Physician Cardiology 08/26/22 Tung Bach OD [address] [place], [place] [address] Consulting Physician Optometry 07/31/22 Janell Orellana PA [address] [place] [address] Physician Computer Animator Orthopedic Surgery 09/12/22 Ashtyn Morrow PA [address] [place] [phone] [place] [address] Physician Computer Animator Colon and Rectal Surgery 04/04/23 05/27/23 Ashtyn Morrow PA [address] [place] [phone] [place] [address] Physician Computer Animator Colon and Rectal Surgery 04/30/23 Terence Edgar DMD [address] [place] [address] Dentist Oral Surgery 09/04/23 documented as of this encounter
--- OUTSIDE RECORDS SUMMARY | 2024-08-10 18:03 | XMS_ITS | Continuity of Care Document ---
Author Organization [facility] Address [address] [place] [address] [place] [phone] Phone Care Team Providers Care [employer] Name Role Phone Gretta Anaya PT Unavailable Unavailable Procedures Procedure Date Progress Note Therapeutic Exercise Therapeutic Activities Therapeutic Exercise Neuromuscular Re-Ed Therapeutic Exercise Neuromuscular Re-Ed Neuromuscular Re-Ed Therapeutic Exercise Therapeutic Activities Therapeutic Activities Neuromuscular Re-Ed Therapeutic Exercise Therapeutic Activities Neuromuscular Re-Ed Therapeutic Exercise Neuromuscular Re-Ed Therapeutic Activities Therapeutic Exercise Therapeutic Activities Neuromuscular Re-Ed Therapeutic Exercise Progress Note Therapeutic Activities Neuromuscular Re-Ed Therapeutic Exercise Neuromuscular Re-Ed Therapeutic Activities Therapeutic Exercise Neuromuscular Re-Ed Therapeutic Activities Therapeutic Exercise Therapeutic Activities Neuromuscular Re-Ed Therapeutic Exercise Therapeutic Activities Neuromuscular Re-Ed Therapeutic Exercise Therapeutic Activities Neuromuscular Re-Ed Therapeutic Exercise Therapeutic Exercise Therapeutic Activities Neuromuscular Re-Ed Neuromuscular Re-Ed Therapeutic Activities Therapeutic Exercise Therapeutic Activities Therapeutic Exercise Neuromuscular Re-Ed Progress Note Neuromuscular Re-Ed Therapeutic Exercise Therapeutic Activities Therapeutic Exercise Therapeutic Activities Neuromuscular Re-Ed Therapeutic Activities Therapeutic Exercise Therapeutic Activities Manual Therapy Neuromuscular Re-Ed Therapeutic Activities Therapeutic Exercise Neuromuscular Re-Ed Therapeutic Activities Therapeutic Exercise Therapeutic Exercise Neuromuscular Re-Ed Neuromuscular Re-Ed Therapeutic Exercise Neuromuscular Re-Ed Therapeutic Exercise PT Evaluation Low Complexity Therapeutic Activities Therapeutic Exercise Therapeutic Activities Therapeutic Exercise Hot or Cold Pack Therapeutic Exercise Therapeutic Activities Therapeutic Exercise Therapeutic Activities Hot or Cold Pack Progress Note Therapeutic Activities Therapeutic Exercise Hot or Cold Pack Therapeutic Activities Neuromuscular Re-Ed Therapeutic Exercise Therapeutic Activities Therapeutic Exercise Therapeutic Activities Therapeutic Exercise Therapeutic Activities Therapeutic Exercise Therapeutic Activities Therapeutic Exercise Hot or Cold Pack Therapeutic Activities Therapeutic Exercise Progress Note Therapeutic Activities Therapeutic Exercise Therapeutic Activities Therapeutic Exercise Hot or Cold Pack Therapeutic Activities Hot or Cold Pack Therapeutic Exercise Therapeutic Exercise Hot or Cold Pack Therapeutic Activities Therapeutic Exercise Hot or Cold Pack Therapeutic Exercise Therapeutic Activities Hot or Cold Pack PT Evaluation Low Complexity Hot or Cold Pack Therapeutic Exercise Therapeutic Activities Hot or Cold Pack Therapeutic Exercise Therapeutic Activities Therapeutic Exercise Hot or Cold Pack Therapeutic Activities Therapeutic Exercise Hot or Cold Pack Progress Note Therapeutic Activities Hot or Cold Pack Therapeutic Exercise Hot or Cold Pack Therapeutic Activities Therapeutic Exercise Therapeutic Exercise Therapeutic Activities Hot or Cold Pack Therapeutic Activities Therapeutic Exercise Hot or Cold Pack Therapeutic Exercise Therapeutic Activities Hot or Cold Pack Therapeutic Activities Therapeutic Exercise Hot or Cold Pack Therapeutic Activities Therapeutic Exercise Hot or Cold Pack Hot or Cold Pack Therapeutic Exercise Therapeutic Activities Therapeutic Activities Therapeutic Exercise Hot [...] Diagnoses Date Provider Providers Copied on Encounter [facility], [id number], tel:[phone] [facility] No Information 1 Mesa Gretta. . Referring Provider: Filiberto Madrdi, [address], [place], [address]. tel:[phone] [address] [place] [address] [address], [id number], tel:[phone] [facility] No Information 1 Mesa Gretta. . Referring Provider: Filiberto Madrid, [address], [place], [address]. tel:[phone] [place] [address] [address], [id number], tel:[phone] [facility] No Information 1 Mesa Gretta. . Referring Provider: Filiberto Madrid, [address], [place], [address]. tel:[phone] [place] [address] [address], [place], [id number], tel:[phone] [facility] No Information 1 Mesa Gretta. . Referring Provider: Filiberto Madrid, [address], [place], [address]. tel:[phone] [place] [address] [facility] [address], [place], [place], [id number], tel:[phone] [facility] No Information Apr-2 1 Mesa Gretta. . Referring Provider: Filiberto Madrid, [address], [place], [address]. tel:[phone] [place] [address] [address], [place], [address], [place] tel:[phone] [facility] No Information 2 1 Mesa Gretta. . Referring Provider: Filiberto Madrid, [address], [place], [address]. tel:[phone] [place] [address] [facility] [address], [place], [place], [address], [place] tel:[phone] [facility] No Information Apr-1 1 Mesa Gretta. . Referring Provider: Filiberto Madrid, [address], [place], [address]. tel:[phone] [place], [place] [address], [place], [address], [place] tel:[phone] [facility] No Information Jun-1 1 Mesa Gretta. . Referring Provider: Filiberto Madrid, [address], [place], [address]. tel:[phone] [place] [address] [facility] [address], [place], [place], [address], [place] tel:[phone] [facility] No Information Apr-0 1 Mesa Gretta. . Referring Provider: Filiberto Madrid, [address], [place], [address]. tel:[phone] [place] [address] [facility] [address], [place], [place], [address], [place] tel:[phone] [facility] No Information Apr-0 1 Mesa Gretta. . Referring Provider: Filiberto Madrid, [address], [place], [address]. tel:[phone] [place] [address] [facility] [address], [place], [place], [address], tel:[phone] [facility] No Information May- 1 Mesa Gretta. . Referring Provider: Filiberto Madrid, [address], [place], [address]. tel:[phone] [place] [address] [facility] [address], [place], [place], [address], [place] tel:[phone] [facility] No Information May- 1 Mesa Gretta. . Referring Provider: Filiberto Madrid, [address], [place], [address]. tel:[phone] [place] [address] [facility] [address], [place], [address], [place] tel:[phone] [facility] No Information May- 1 Mesa Gretta. . Referring Provider: Filiberto Madrid, [address], [place], [address]. tel:[phone] [place] [address] [facility] [address], [place], [place], [address], [place] tel:[phone] [facility] No Information 1 Mesa Gretta. . Referring Provider: Filiberto Madrid, [address], [place], [address]. tel:[phone] [place] [address] [facility] [address], [place], [place], [address], [place] tel:[phone] [facility] No Information 1 Mesa Gretta. . Referring Provider: Filiberto Madrid, [address], [place], [address]. tel:[phone] [place] [address] [address], [place], [place], [address], [place] tel:[phone] [facility] No Information May- 2- 1 Mesa Gretta. . Referring Provider: Filiberto Madrid, [address], [place], [address]. tel:[phone] [place] [address], [facility] [address], [place], [place], [address], tel:[phone] [facility] No Information May- 0- 1 Mesa Gretta. . Referring Provider: Filiberto Madrid, [address], [place], [address]. tel:[phone] [place] [address] [address], [place], [place], [address], tel:[phone] [facility] No Information May-0 - 1 Mesa Gretta. . Referring Provider: Filiberto Madrid, [address], [place], [address]. tel:[phone] [place] [address] [place], [place] [address], [place], [address], [place] tel:[phone] [facility] No Information May-0 1 Mesa Gretta. . Referring Provider: Filiberto Madrid, [address], [place], [address]. tel:[phone] [place], [place] [address], [place], [place], [address], tel:[phone] [facility] No Information 1 Mesa Gretta. . Referring Provider: Filiberto Madrid, [address], [place], [address]. tel:[phone] [place] [address] [address], [place], [address], [place] tel:[phone] [facility] No Information 1 Simba Ibarra. . Referring Provider: Filiberto Madrid, [address], [place], [address]. tel:[phone] [place] [address]e [address], [place], [address], [place] tel:[phone] [facility] No Information 1 Simba Ibarra. . Referring Provider: Filiberto Madrid, [address], [place], [address]. tel:[phone] [place] [address], [address] [facility], [place], [address], [place] tel:[phone] [facility] No Information 1 Simba Ibarra. . Referring Provider: Filiberto Madrid, [address], [place], [address]. tel:[phone] [place] [address] [address] [facility], [place], [address], [place] tel:[phone] [facility] No Information 1 Mesa Gretta. . Referring Provider: Filiberto Madrid, [address], [place], [address]. tel:[phone] [place] [address], [address] [facility], [place], [id number], [place] tel:[phone] [facility] No Information 1 Mesa Gretta. . Referring Provider: Filiberto Madrid, [address], [place], [address]. tel:[phone] [place] [address] [address] [facility], [place], [address], [place] tel:[phone] [facility] No Information 1 Mesa Gretta. . Referring Provider: Filiberto Madrid, [address], [place], [address]. tel:[phone] [place] [address] [facility], [place], [address], [place] tel:[phone] [facility] No Information 1 Mesa Gretta. . Referring Provider: Filiberto Madrid, [address], [place], [address]. tel:[phone] [facility] [address] [place] [address], [place], [address], [place] tel:[phone] [facility] No Information Nov-0 4-202 0 Mesa Gretta. . Referring Provider: Susana Street, [address] [place] [address], [address]. tel:[phone] [place] [address], [id number], [place] tel:[phone] [facility] No Information Oct-3 0-202 0 Mesa Gretta. . Referring Provider: Susana Street, [address] [place] [address], [address]. tel:[phone] [place] [address] [place] [address], [place], [address], tel:[phone] [facility] No Information Oct-2 8-202 0 Mesa Gretta. . Referring Provider: Susana Street, [address] [place] [address], [address]. tel:[phone] [place] [address] [place] [address], [id number], [place] tel:[phone] [facility] No Information Oct-2 3-202 0 Mesa Gretta. . Referring Provider: Susana Street [address] [place] [address], [address]. tel:[phone] [place] [address] [place] [address], [id number], [place] tel:[phone] [facility] No Information Oct-1 4-202 0 Sabanagic Eric. . Referring Provider: Susana Street [address] [place] [address], [address]. tel:[phone] [place] [address] 2[address] [facility], [place], [address], [place] tel:[phone] [facility] No Information Oct-0 9-202 0 Mesa Gretta. . Referring Provider: Susana Street, [address] [place] [address], [address]. tel:[phone] [place] [address] 2121 [facility], [place], [address], [place] tel:[phone] [facility] No Information Oct-0 7-202 0 Mesa Gretta. . Referring Provider: Susana Street, [address] [place] [address], [address]. tel:[phone] [place], [place] [address] [facility] 300, [place], [address], [place] tel:[phone] [facility] No Information Oct-0 2-202 0 Mesa Gretta. . Referring Provider: Susana Street, [address] [place] [address], [address]. tel:[phone] [place] [address] [place] [address], [place], [address], [place] tel:[phone] [facility] No Information Sep-3 0-202 0 Mesa Gretta. . Referring Provider: Susana Street, [address] [place] [address], [address]. tel:[phone] [place] [address] [place] [address], [id number], [place] tel:[phone] [facility] No Information Sep-1 8-202 0 Mesa Gretta. . Referring Provider: Susana Street, [address] [place] [address], [address]. tel:[phone] [place] [address] 2121 [facility] 300, [place], [place], [address], [place] tel:[phone] [facility] No Information Sep-1 6-202 0 Mesa Gretta. . Referring Provider: Susana Street, [address] [place] [address], [address]. tel:[phone] [place], [place] [address] [facility], [place], [address], [place] tel:[phone] [facility] No Information Sep-0 4-202 0 Mesa Gretta. . Referring Provider: Susana Street, [address] [place] [address], [address]. tel:[phone] [place] [address] [facility] [address], [place], [place], [address], [place] tel:[phone] [facility] No Information Sep-0 2-202 0 Mesa Gretta. . Referring Provider: Susana Street, [address] [place] [address], [address]. tel:[phone] [place] [address] [address] [place] [address], [place], [address], [place] tel:[phone] [facility] No Information 8 0 Mesa Gretta. . Referring Provider: Susana Street, [address] [place] [address], [address]. tel:[phone] [place] [address] [facility] [address], [place], [place], [address], [place] tel:[phone] [facility] No Information Oct-2 6- 0 Mesa Gretta. . Referring Provider: Susana Street, [address] [place] [address], [address]. tel:[phone] [place] [address] [place], [place] [address], [place], [address], [place] tel:[phone] [facility] No Information 0 Mesa Gretta. . Referring Provider: Susana Street, [address] [place] [address], [address]. tel:[phone] [place] [address] [address] [place] [address], [place], [place], [address], [place] tel:[phone] [facility] No Information 0 Mesa Gretta. . Referring Provider: Susana Street, [address] [place] [address], [address]. tel:[phone] [place], [place] [address] [place] [address], [place], [place], [address], [place] tel:[phone] [facility] No Information Gee-2 9-202 0 Mesa Gretta. . Referring Provider: Nelson Banerjee [address] [facility] [address], [place], [address]. tel:[phone] [place] [address], [address] [place] [address] 300, [place], [place], [address], tel:[phone] [facility] No Information Sep-2 4-202 0 Mesa Gretta. . Referring Provider: Nelson Banerjee [address] [facility] [address], [place], [address]. tel:[phone] [place] [address], [address] [place] [address] 300, [place], [address], [place] tel:[phone] [facility] No Information Sep-2 2-202 0 Mesa Grteta. . Referring Provider: Nelson Banerjee [address] [address], [place], [address]. tel:[phone] [place] [address] 300, [place], [place], [address], [place] tel:[phone] [facility] No Information Gee-0 8-202 0 Mesa Gretta. . Referring Provider: Nelson Banerjee [address] [address], [place], [address]. tel:[phone] [place] [address], [place], [place], [address], tel:[phone] [facility] No Information Gee-0 1-202 0 Mesa Gretta. . Referring Provider: Nelson Banerjee [address] [facility] [address], [place], [address]. tel:[phone] [place] [address] 300, [place], [place], [address], [place] tel:[phone] [facility] No Information Adriano-2 6-202 0 Mesa Gretta. . Referring Provider: Nelson Banerjee [address] [address], [place], [address]. tel:[phone] [place] [address], [address] [facility], [place], [address], [place] tel:[phone] [facility] No Information Adriano-2 4-202 0 Mesa Gretta. . Referring Provider: Nelson Banerjee [address] [facility] [address], [place], [address]. tel:[phone] [place], [place] [address], [place], [place], [address], [place] tel:[phone] [facility] No Information Adriano-1 7-202 0 Mesa Gretta. . Referring Provider: Nelson Banerjee [address] [facility] [address], [place], [address]. tel:[phone] [place] [address], [address] [place], [place] [address]e 300, [place], [address], [place] tel:[phone] [facility] No Information Adriano-1 2-202 0 Mesa Gretta. . Referring Provider: Nelson Banerjee [address] [facility] [address], [place], [address]. tel:[phone] [place] [address] 300, [place], [address], [place] tel:[phone] [facility] No Information Adriano-1 0-202 0 Mesa Gretta. . Referring Provider: Nelson Banerjee [address] [facility] [address], [place], [address]. tel:[phone] [place] [address], [address] [facility], [place], [address], [place] tel:[phone] [facility] No Information Adriano-0 5-202 0 Mesa Gretta. . Referring Provider: Nelson Banerjee [address] [facility] [address], [place], [address]. tel:[phone] [place] [address], [address] [place], [place] [address], [place], [address], [place] tel:[phone] [facility] No Information Adriano-0 3-202 0 Mesa Gretta. . Referring Provider: Nelson Banerjee [address] [address], [place], [address]. tel:[phone] [place] [address], [address] [place] [address] 300, [place], [address], tel:[phone] [facility] No Information July-2 9-202 0 Mesa Gretta. . Referring Provider: Nelson Banerjee [address] [address], [place], [address]. tel:[phone] [place] [address], [address] [place] [address] 300, [place], [address], [place] tel:[phone] [facility] No Information July-2 7-202 0 Mesa Gretta. . Referring Provider: Nelson Banerjee [address] [address], [place], [address]. tel:[phone] [place] [address] 300, [place], [address], [place] tel:[phone] [facility] No Information July-2 0-202 0 Mesa Gretta. . Referring Provider: Nelson Banerjee [address] [address], [place], [address]. tel:[phone] [place] [address], [place], [place], [address], tel:[phone] [facility] No Information July-1 5-202 0 Mesa Gretta. . Referring Provider: Nelson Banerjee [address] [address], [place], [address]. tel:[phone] [place] [address] 300, [place], [address], [place] tel:[phone] [facility] No Information July-1 3-202 0 Mesa Gretta. . Referring Provider: Nelson Banerjee [address] [address], [place], [address]. tel:[phone] [place] [address], 2121 [facility] 300, [place], [place], [address], tel:[phone] [facility] No Information May-0 8-202 0 Mesa Gretta. . Referring Provider: Nelson Banerjee, [address] [facility] [address], [place], [address]. tel:[phone] [place] [address], [address] [place] [address] 300, [place], [place], [address], tel:[phone] [facility] No Information May-0 4-202 0 Mesa Gretta. . Referring Provider: Nelson Banerjee, [address] [facility] [address], [place], [address]. tel:[phone] [address] [place] [address], [address] [place] [address] 300, [place], [place], [address], tel:[phone] [facility] No Information May-0 1-202 0 Mesa Gretta. . Referring Provider: Nelson Banerjee, [address] [facility] [address], [place], [address]. tel:[phone] Family History Family Member Type Diagnosis Age At Onset No Information Payers Payer name Insurance type Covered libertarian ID Baylee siddiqui(s) [place] [id number] [facility] [id number] Social History Type Description Quantity Date Captured [...]
--- OUTSIDE RECORDS SUMMARY | 2024-08-10 18:03 | XMS_ITS | Clinical Summary ---
Author Organization [facility] [employer] Address [address] [place] [address] Phone Care Team Providers Care Speech Language Pathologist Travel Name Role Phone Mundo Smith MD Unavailable [phone] Irena Rebolledo MD Primary Care Provider Viviana Wagner MD Unavailable [phone] Heather Grant NP Unavailable [phone] Quinn Flannery MD Unavailable [phone] Nena Rogers PTA Unavailable Unavailable Omid Hoffman MD Unavailable [phone] Steffany Solomon NP Unavailable [phone] Carlos Ford MD Unavailable Gerardo Chávez MD Unavailable Irineo Moe MD Unavailable Nelson Schneider MD Unavailable [phone] Mirta Angeles Unavailable [phone] John Khan MD PhD Unavailable [phone] Sam Whelan MD Unavailable [phone] Quinn Flannery MD Unavailable [phone] Cristy Rodriguez MD Unavailable Brock Segura MD Unavailable [phone] BachTung OD Unavailable [phone] Janell Orellana PA Unavailable Ashtyn Morrow PA Unavailable HerveTerence DMD Unavailable Allergies No known active allergies Medications Xarelto [...] 05/10/2024 Assessment & Plan (05/10/2024 9:37 PM HOUSESMITH): Acute, symptoms for approximately 1 week. Afebrile, [...] 03/11. Assessment & Plan (04/18/2024 6:17 AM HOUSESMITH): Acute problem when he was travelling in [place] last fall, resolved with treatment sought there, details lacking. Consider follow up with urology. Other chest pain 09/25/2023 Assessment & Plan (05/10/2024 9:35 PM HOUSESMITH): Acute, symptoms for 1 week. Tenderness to [...] no acute changes or evidence of old IN. The patient's symptoms are likely noncardiac. He [...] He has a scheduled follow-up with his boot maker, Dr. Segura, in about two weeks. We discussed the EKG findings and his symptoms with his boot maker. Return here early as needed, otherwise as [...] 08/26/2022 Assessment & Plan (02/20/2023 1:36 PM HOUSESMITH): He continues to take an iron supplement [...] got a second opinion in neurosurgery at [facility] today. They basically had the same recommendations. [...] not included. Sees Sam Whelan MD, [facility]. Wet on right, dry on left. Also bilateral vitreous syneresis. [facility] note on 06/18/2024: Status post total left knee replacement 01/15/20 22 Assessment & Plan (01/30/2022 5:27 PM HOUSESMITH): There is concern for his left prosthetic knee which has exhibited some warmth and swelling. This was tapped yesterday in orthopedics and there are around 65,000 nucleated cells. Microbiology preliminary report is negative. We will keep him on antibiotics (penicillin) pending further discussion with orthopedics. Assessment & Plan (01/15/2022 3:32 PM HOUSESMITH): Patient had L total Knee arthroplasty on 08/28/21. Current use of keno terminal operator anticoagulation 021 Overview (11/24/2020): Xarelto for Afib. [...] this surgery. He will also see his boot maker for a specific cardiac clearance. Assessment & [...] but he should discuss this with his boot maker as well. He can resume the anticoagulation [...] by wearing a mask. Malignant neoplasm prostate ([facility]) 11/18/2018 Cancer Staging:Clinical stage from [...] 5. Assessment & Plan (04/12/2024 4:25 AM HOUSESMITH): Chronic, diagnosed 3-4 years ago, status post definitive radiation therapy, comanaged with Urology and Radiation therapy. Assessment & Plan (04/09/2023 4:58 PM HOUSESMITH): He was treated with definitive radiation therapy [...] completely. Assessment & Plan (01/29/2021 4:09 PM HOUSESMITH): He completed radiation therapy. He has a [...] It. Assessment & Plan (04/09/2023 5:01 PM HOUSESMITH): He was prescribed CPAP, but never used [...] (09/26/2017): Added automatically from request for surgery [id number] Chronic left-sided headaches 03/19/2017 Overview (03/19/2017): New [...] moderate anemia postoperatively. He also saw his boot maker at [facility] recently, and a test of some kind [...] it. Assessment & Plan (02/18/2021 3:03 PM HOUSESMITH): His energy level has improved considerably. He [...] same. Assessment & Plan (01/14/2022 4:00 PM HOUSESMITH): Patient has a hx of GERD and [...] option. Assessment & Plan (01/22/2017 2:20 PM HOUSESMITH): He never got a call from the [...] transient/intermittent. Assessment & Plan (04/15/2023 11:29 AM HOUSESMITH): We are monitoring a mild and intermittent [...] labs. Assessment & Plan (02/23/2018 3:30 PM HOUSESMITH): Platelet count in the hospital when last checked at the time of left hip replacement was normal. He was taking B12 for awhile, but no longer takes it. We will monitor labs periodically. Assessment & Plan (01/22/2017 2:21 PM HOUSESMITH): This was noted on one of his blood counts, and as I recall his B12 level was also slightly low so we asked him to take a supplement which she takes irregularly. Things seem to be stable so we will continue to monitor. Paroxysmal atrial fibrillation 11/08/2014 Overview (12/03/2019): On Multaq and Xarelto. Assessment & Plan (05/10/2024 9:36 PM HOUSESMITH): Chronic, controlled on Multaq and Xarelto at this time. Heart rate regular upon auscultation camejo, vitals stable. See plan for URI above. Assessment & Plan (04/12/2024 4:25 AM HOUSESMITH): Chronic/intermittent, present for 10 or more years, controlled on dronedarone 400 mg daily (patient's idiosyncratic dosing), and rivaroxaban 20 mg daily, comanaged with Cardiology. Assessment & Plan (10/09/2023 3:30 PM CDT): Chronic, heart rhythm is irregular but rate is controlled. He is on Xarelto and Multaq. He will keep his follow ups with Dr. Lee. Assessment & Plan (04/09/2023 5:00 PM HOUSESMITH): Heart rhythm is regular. He is on [...] same. Assessment & Plan (04/16/2022 10:49 AM HOUSESMITH): He is on Multaq and Xarelto. Continue same. The Xarelto will be held for two days before reimplantation of his left knee. Assessment & Plan (01/30/2022 5:24 PM HOUSESMITH): He remains on Multaq. We corrected the dose to reflect what the patient reports he is taking, namely 400 mg twice a day instead the non standard 400 mg daily he took previously. Assessment & Plan (01/14/2022 3:57 PM HOUSESMITH): Patient has a hx of A-fib and [...] effects. He will discuss this with his boot maker when he sees him for a cardiac clearance to have his left knee replaced. Assessment & Plan (01/29/2021 4:14 PM HOUSESMITH): Heart rhythm is currently regular. He is on Multaq and Xarelto. He followed up once with a boot maker but did not do the testing that [...] PM CDT): Scanned office note, Dr. Zelaya, [facility]. Also in Care Everywhere. Assessment & Plan (08/06/2020 10:39 AM CDT): Heart rhythm is regular. He is on Multaq and Xarelto. He plans to see his boot maker, Dr. Zelaya, sometime next week to get [...] well. Assessment & Plan (02/23/2018 3:29 PM HOUSESMITH): There is a history of paroxysmal atrial [...] continues on Multaq and Xarelto from his boot maker. Sometimes he cuts the Multaq dose down if he is taking Motrin for his hip, because he does not want his blood to be too thin. He will follow up with Cardiology for all of these issues. Assessment & Plan (02/02/2017 5:13 PM HOUSESMITH): Recent Holter ordered by Dr. Montanez showed [...] 2 Assessment & Plan (04/12/2024 4:24 AM HOUSESMITH): Chronic, present for 10 or more years, not currently requiring diuretic or other medical therapy. We will monitor on periodic followups. Assessment & Plan (04/12/2024 4:21 AM HOUSESMITH): >>ASSESSMENT AND PLAN FOR DIASTOLIC DYSFUNCTION WRITTEN [...] his complaints of fatigue. He sees his boot maker, Dr. Montanez, in about a month or two, and will ask him about diastolic dysfunction as a possible cause or contributing factor to his symptoms. Assessment & Plan (04/12/2024 4:21 AM HOUSESMITH): >>ASSESSMENT AND PLAN FOR DIASTOLIC DYSFUNCTION WRITTEN ON 02/23/2018 3:27 PM BY IRENA REBOLLEDO MD He seems to be doing well. Blood pressure is normal. Lungs are clear. Oxygen saturation is satisfactory. He has a boot maker he sees regularly, Dr. Zelaya. Continue to monitor. Assessment & Plan (04/12/2024 4:21 AM HOUSESMITH): >>ASSESSMENT AND PLAN FOR DIASTOLIC DYSFUNCTION WRITTEN [...] Cardiology. Assessment & Plan (04/09/2023 4:53 PM HOUSESMITH): He has trace pretibial pitting edema. Lungs are clear in oxygenation is normal. He has not requiring any diuretic therapy at this time. We will monitor clinically. Assessment & Plan (04/03/2022 2:45 PM HOUSESMITH): He seems to be clinically stable with no significant edema, no crackles in his lungs. Oxygen saturation is normal. We will monitor clinically without medication. Primary osteoarthritis involving multiple joints 07/08/2012 Assessment & Plan (04/12/2024 4:26 AM HOUSESMITH): Chronic, present for 10 or more years, [...] shape. Assessment & Plan (02/18/2021 3:01 PM HOUSESMITH): He continues to have various aches and [...] joints. Assessment & Plan (02/23/2018 3:30 PM HOUSESMITH): He continues to have problems with aches [...] pain recently that was evaluated by his boot maker at [facility], Dr. Lee. It was felt to be [...] 10/03/2023 Assessment & Plan (04/09/2023 4:58 PM HOUSESMITH): He does not take anything for cholesterol [...] diet. Assessment & Plan (01/29/2021 4:10 PM HOUSESMITH): He is not currently taking anything for [...] medicine. Assessment & Plan (02/23/2018 3:27 PM HOUSESMITH): He decided to stop taking cholesterol medicine [...] prescription. Assessment & Plan (01/22/2017 2:16 PM HOUSESMITH): He is tolerating his medication without apparent [...] it. Assessment & Plan (01/22/2017 1:59 PM HOUSESMITH): No new attacks of gout while on allopurinol. Resolved Problems Problem Noted Date Diagnosed Date Resolved Date Rectal bleeding 05/30/2023 12/12/2023 Chronic infection of left knee 04/08/2023 04/12/2024 Overview (04/12/2024): Resolved after two stage replacement of prosthetic joint. Assessment & Plan (04/09/2023 4:53 PM HOUSESMITH): There is no evidence of any relapse of the left prosthetic knee infection following two-stage replacement. He is thinking of going back to [place] to swim, and I think this would be fine. Intractable left heel pain 02/03/2023 1 Assessment & Plan (04/15/2023 11:25 AM HOUSESMITH): He seems to be doing well with regard to most pain complaints, including left heel pain. However, his right wrist carpometacarpal joints flare up from time to time. He presumes it is due to gout. When it happens, he eats cherries which he says makes the problem go away. Assessment & Plan (02/20/2023 1:35 PM HOUSESMITH): He notes a sharp pain in his [...] (06/30/2022): Added automatically from request for surgery [id number], s/p successful 2-stage replacement (revision on 04/10/2022). Assessment & Plan (04/03/2022 2:46 PM HOUSESMITH): Surgery to reimplant his left knee is planned for next week. He sees Dr. Hoffman tomorrow for a preoperative evaluation. 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 Assessment & Plan (04/03/2022 2:47 PM HOUSESMITH): He had explantation of the infected joint [...] resolved. Assessment & Plan (01/30/2022 5:23 PM HOUSESMITH): His diarrhea has improved significantly. He has [...] records. Assessment & Plan (01/19/2022 3:49 PM HOUSESMITH): The cellulitis involved much of the left [...] cellulitis. Assessment & Plan (01/19/2022 3:48 PM HOUSESMITH): He was hospitalized recently for a streptococcal [...] baseline. Assessment & Plan (01/15/2022 3:32 PM HOUSESMITH): Blood cultures from 01/12 now growing strep dysgalactiae with repeat blood cultures pending. - On Cefepime and vancomycin (01/13- Post-procedural fever 01/13/20222022 Overview (06/30/2022): Cellulitis of left leg resulting in sepsis and infection of left knee replacement. Assessment & Plan (01/13/2022 6:48 PM HOUSESMITH): I was called by the patient's son [...] 06/30/2022 Assessment & Plan (01/18/2022 5:10 PM HOUSESMITH): When I assessed him five days ago at his home, he was markedly confused, more properly encephalopathic then delirious. He improved rapidly with treatment in the hospital and seems back to normal. Assessment & Plan (01/13/2022 6:49 PM HOUSESMITH): Probably due to fever and suspected sepsis. Cellulitis of left thigh 01/13/2022 Overview (06/30/2022): See hospital records, [facility]. Assessment & Plan (01/18/2022 5:09 PM HOUSESMITH): He says the cellulitis started on his [...] needed. Assessment & Plan (01/15/2022 3:33 PM HOUSESMITH): Patient currently has a left knee that [...] dehydrated. Assessment & Plan (01/30/2022 5:23 PM HOUSESMITH): He has been drinking fluid and is making plenty of urine. Blood pressure is in a better range. Assessment & Plan (01/29/2022 5:54 AM HOUSESMITH): He called the office today. He has [...] (12/03/2019): Added automatically from request for surgery [id number], arthroscopy 10/08/2019, Dr. Hoffman, [facility]. Internal derangement of left knee 09/28/2019 12/03/2019 Overview (12/03/2019): Added automatically from request for surgery [id number], arthroscopy 10/08/2019. Acute gout of knee 03/08/2019 0 Overview (12/03/2019): See office note. Assessment & Plan (03/27/2019 3:18 PM HOUSESMITH): He has a history of gout, but [...] note. Assessment & Plan (03/27/2019 3:20 PM HOUSESMITH): He denies any history of knee pain [...] 09/20/201806/2023 Assessment & Plan (01/28/2019 2:16 PM HOUSESMITH): The left superior trapezius/supraspinatus area has been [...] report. Assessment & Plan (01/28/2019 2:15 PM HOUSESMITH): He has had pain in his right [...] needed. Assessment & Plan (03/26/2018 9:46 AM HOUSESMITH): For a couple of months or more [...] Overview (02/23/2018): S/P left THR. Dr. Hoffman [facility]. Assessment & Plan (09/08/2017 4:40 PM [...] issue. Assessment & Plan (02/02/2017 5:14 PM HOUSESMITH): This is his main concern at this time. It really impairs his quality of life. He has trouble getting his left sock and shoe on. Right now it is not so bad, but there are times when pain is quite severe, and he resorts to an [id number] nonsteroidal. Recent x-ray showed severe osteoarthritis of [...] Obesity Assessment & Plan (04/09/2023 4:59 PM HOUSESMITH): He struggles with his weight. He eats [...] needed. Assessment & Plan (02/20/2023 1:37 PM HOUSESMITH): He would like to lose some weight. [...] weeks. Assessment & Plan (01/14/2022 3:56 PM HOUSESMITH): Patient BMI of 32.83. Assessment & Plan (12/19/2021 3:50 PM CDT): We encouraged attention to his diet, and hopefully some weight loss. Assessment & Plan (06/21/2021 8:31 AM CDT): I urged attention to his diet, and hopefully some weight loss. Assessment & Plan (01/29/2021 4:10 PM HOUSESMITH): We encouraged attention to his diet, and [...] apnea. Assessment & Plan (01/22/2017 2:17 PM HOUSESMITH): Weight loss could help some of his other issues, especially the pain he has from spinal stenosis and left hip osteoarthritis. He is down a few pounds, and he will continue efforts in this regard. Sepsis due to Streptococcus species without acute organ dysfunction 01/29/2022 06/30/2022 Overview (06/30/2022): See hospital records, [facility]. Assessment & Plan (01/30/2022 5:27 PM HOUSESMITH): One of several lood cultures was positive for Strep dysgalactiae. Follow-up blood cultures on antibiotics were negative. There is concern for his left prosthetic knee which has exhibited some warmth and swelling. See discussion elsewhere. Assessment & Plan (01/18/2022 5:11 PM HOUSESMITH): He was septic, but organ function remained [...] Type Department Care Team Description 08/10/2024 Telephone [facility] [address] [facility] [address] [place] [phone] Irena Rebolledo MD 07/03/2024 Telephone [facility] [address] [facility] [address] [place] [address] Irena Rebolledo MD 07/03/2024 Results Follow-Up [facility] [address] [facility] [address] [place] [phone] Irena Rebolledo MD Hepatitis B surface antibody (immune status) Blood, Hepatitis B Surface Antigen Blood, Basic metabolic panel, Additional followed-up results: 5 07/01/2024 2:30 PM CDT Office Visit [facility] [address] [place] [address] John Khan MD PhD Malignant neoplasm prostate (CMS/HCC) (HCC) 06/29/2024 12:00 PM CDT Lab [address] [phone] Medicare annual wellness visit, subsequent; Need for hepatitis B screening test; Acute midline low back pain without sciatica 06/29/2024 11:55 AM CDT Lab [address] [phone] Malignant neoplasm prostate (CMS/HCC) (HCC) 06/08/2024 Telephone [facility] [address] [place] [address] Irena Rebolledo MD 06/03/2024 1:00 PM CDT Office Visit [facility] [address] [place] [phone] Genevieve Torres, COVERAGE SPECIALIST RN Upper respiratory tract infection, unspecified type (Primary Dx) 06/01/2024 Telephone [facility] [address] [place] [phone] Irena Rebolledo MD Chest Congestion 05/10/2024 1:00 PM HOUSESMITH Office Visit [facility] [address] [place] [phone] Genevieve Torres, JENNIFER Viral URI with cough (Primary Dx); Other chest pain; Paroxysmal atrial fibrillation (HCC) 05/10/2024 Telephone [facility] [address] [place] [address] Irena Rebolledo MD from Last 3 Months [...] & patellofemoral compartment chondroplasties, Dr. Hoffman, [place] ARTHRP ACETBLR/PROX FEM PROSTC AGRFT/ALGRFT Left TOTAL [...] 01/08/2017 S/P l eft THR. Dr. Hoffman [facility]. Prostate cancer (HCC) 11/18/2018 Cancer in 6 cores, Ubaldo 3 + 3 = 6 in 5 cores, 3 + 4 = 7 in 1 core. Aftercare following left hip joint replacement surgery 10/26/2017 Pain in testicle 12/31/2011 Details lacking . Acute medial meniscus tear of left knee 09/28/19 20 Added automatically from request for surgery [id number], arthroscopy 10/08/2019, Dr. Hoffman, [facility]. Acute pain of left knee 03/08/2019 Sudden o nset of pain and swelling in left knee, no fever. Treated empirically as gout, see office note. Acute gout of knee 03/08/2019 See office no te. Internal derangement of left knee 09/28/2019 Added automatically from request for surgery [id number], arthroscopy 10/08/2019. Orthopedic aftercare 10/18/2019 See office [...] dysfunction (HCC) 01/13/2022 See hospital rec ords, [facility]. 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 History of removal of joint prosthesis of left knee due to infection 03/27/2022 Added automatically from request for surgery [id number], s/p successful 2-stage replacement (revision on 04/10/2022). [...] than three times a week 02/06/2022 Attends [employer] Not on file 02/06 Do you belong to any clubs o r organizations such as yazidi groups, unions, fraternal or athletic groups, or [...] on file Legal Sex Male 7:22 PM HOUSESMITH Gender Identity Not on file Sexual Orientation [...] Completed 06/29/2024 Medical Devices Implanted Type Area Substance Abuse Prevention Coordinator Device Identifier Shelf Expiration Date Model / Serial / Lot [employer] [id number] Colby 58mm Sector Hip Shell Acetabular Gription Sterile Latex Free - [id number] Implanted:Qty: 1 on 10/13/2017 by Omid Hoffman MD at [facility] Left: Hip [employer] 03/09/2027 [id number] / / [id number] [employer] [id number] Colby 58mm 36mm Hip Neutral Liner Acetabular Altrx Sterile Latex Free - [id number] Implanted:Qty: 1 on 10/13/2017 by Omid Hoffman MD at [facility] Left: Hip [employer] 06/07/2022 [id number] / / [id number] [employer] [id number] Actis Collar Hip 8 Standard Offset Stem Femoral - [id number] Implanted:Qty: 1 on 10/13/2017 by Omid Hoffman MD at [facility] Left: Hip [employer] 07/08/2027 [id number] / / [id number] [employer] 1365-36-330 Articul/Giacomo 36mm Cementless Hip +8.5mm 12/14 Taper Head Femoral Latex Free - [id number] Implanted:Qty: 1 on 10/13/2017 by Omid Hoffman MD at [facility] Left: Hip [employer] 08/07/2022 136536-330 / / [id number] [employer] Cement Bone Simplex Gentamicin High Viscosity [facility] 6195-1-001 - [id number] Implanted:Qty: 1 on 07/16/2021 by Omid Hoffman MD at [facility] Left: Knee [employer] 12/07/2022 6195-1-001 / / [id number] [employer] Cement Bone Simplex Gentamicin High Viscosity [facility] 6195-1-001 - [id number] Implanted:Qty: 1 on 07/16/2021 by Omid Hoffman MD at [facility] Left: Knee [employer] 12/07/2022 6195-1-001 / / [id number] [employer] Pal[place]os R+G High Viscosity Cement Bone Gentamicin Arthroplasty [id number] - [id number] Implanted:Qty: 1 on 02/04/2022 by Omid Hoffman MD at [facility] Left: Knee [employer] C1713 05/07/2022 [id number] / / [id number] [employer] [place] R+G High Viscosity Cement Bone Gentamicin Arthroplasty 0974463 - [id number] Implanted:Qty: 1 on 02/04/2022 by Omid Hoffman MD at [facility] Left: Knee [employer] C1713 05/07/2022 [id number] / / [id number] [employer] [place] R+G High Viscosity Cement Bone Gentamicin Arthroplasty 1637114 - [id number] Implanted:Qty: 1 on 02/04/2022 by Omid Hoffman MD at [facility] Left: Knee [employer] C1713 05/07/2022 [id number] / / [id number] [employer] [place] R+G High Viscosity Cement Bone Gentamicin Arthroplasty 7931735 - [id number] Implanted:Qty: 1 on 02/04/2022 by Omid Hoffman MD at [facility] Left: Knee [employer] C1713 05/07/2022 [id number] / / [id number] [employer] Cement Bone Simplex Gentamicin High Viscosity 40 6195-1-001 - [id number] Implanted:Qty: 1 on 04/10/2022 by Omid Hoffman MD at [facility] Left: Knee [employer] 06/08/2023 6195-1-001 / / [id number] [employer] Cement Bone Simplex Gentamicin High Viscosity 40 6195-1-001 - [id number] Implanted:Qty: 1 on 04/10/2022 by Omid Hoffman MD at [facility] Left: Knee [employer] 06/08/2023 6195-1-001 / / [id number] [employer] Attune Cement Revision Rotate Platform Knee 6 Baseplate Tibial [id number] - [id number] Implanted:Qty: 1 on 04/10/2022 by Omid Hoffman MD at [facility] Left: Knee [employer] [id number] 09/07/2031 [id number] / / [id number] [employer] Attune 22mm 60mm Revision Press Fit Knee Stem Femoral Sterile Latex Free [id number] - [id number] Implanted:Qty: 1 on 04/10/2022 by Omid Hoffman MD at [facility] Left: Knee [employer] [id number] 09/06/2028 [id number] / / [id number] [employer] Attune L53 Mm Revision Full Coated Knee Sleeve Tibial Porocoat Sterile Latex Free [id number] - [id number] Implanted:Qty: 1 on 04/10/2022 by Omid Hoffman MD at [facility] Left: Knee [employer] 05/08/2031 [id number] / / [id number] Attune Knee System Revision Femoral Sleeve Porocoat Fully Coated Implanted:Qty: 1 on 04/10/2022 by Omid Hoffman MD at [facility] Left: Knee [employer] C1776 06/07/2029 [id number] / / [id number] [employer] Attune H4 Mm Revision Cement Knee Distal 7 Augment Femoral Sterile Latex Free [id number] - [id number] Implanted:Qty: 1 on 04/10/2022 by Omid Hoffman MD at [facility] Left: Knee [employer] 04/09/2031 [id number] / / [id number] [employer] Attune Revision Cement Constrain Knee Left 7 Component Femoral Sterile [id number] - [id number] Implanted:Qty: 1 on 04/10/2022 by Omid Hoffman MD at [facility] Left: Knee [employer] 03/09/2031 [id number] / / [id number] [employer] Attune 22mm 60mm Revision Press Fit Knee Stem Femoral Sterile Latex Free [id number] - [id number] Implanted:Qty: 1 on 04/10/2022 by Omid Hoffman MD at [facility] Left: Knee [employer] 10/07/2029 [id number] / / [id number] [employer] Attune H4 Mm Revision Cement Knee Posterior 7 Augment Femoral Sterile Latex Free [id number] - [id number] Implanted:Qty: 1 on 04/10/2022 by Omid Hoffman MD at [facility] Left: Knee [employer] 03/09/2031 [id number] / / [id number] [employer] Attune H4 Mm Revision Cement Knee Distal 7 Augment Femoral Sterile Latex Free [id number] - [id number] Implanted:Qty: 1 on 04/10/2022 by Omid Hoffman MD at [facility] Left: Knee [employer] 04/09/2031 [id number] / / [id number] [employer] Attune 38mm Cemented Medialize Knee Dome Patellar Aox Sterile [id number] - [id number] Implanted:Qty: 1 on 04/10/2022 by Omid Hoffman MD at [facility] Left: Knee [employer] 01/07/2027 [id number] / / [id number] [employer] Attune H8 Mm Revision Constrain Rotate Platform Knee 6 Insert Tibial Aox Sterile [id number] - Sn/A - [id number] Implanted:Qty: 1 on 04/10/2022 by Omid Hoffman MD at [facility] Left: Knee [employer] [id number] 10/07/2022 [id number] / N/A / [id number] Explanted Type Area Substance Abuse Prevention Coordinator Device Identifier Shelf Expiration Date Model / Serial / Lot [employer] [id number] Attune S+ Cement Fix Bearing Knee 7 Baseplate Tibial - [id number] Implanted:Qty: 1 on 07/16/2021 by Omid Hoffman MD at [facility] Explanted:Qty: 1 on 02/04/2022 at [facility] Left: Knee [employer] 06/08/2031 [id number] / / [id number] [employer] [id number] Attune Cemented Posterior Stabilize Knee Left 7 Component Femoral - [id number] Implanted:Qty: 1 on 07/16/2021 by Omid Hoffman MD at [facility] Explanted:Qty: 1 on 02/04/2022 at [facility] Left: Knee [employer] 11/07/2028 [id number] / / [id number] [employer] [id number] Attune 8mm Posterior Stabilize Fix Bearing Knee 7 Insert Tibial - [id number] Implanted:Qty: 1 on 07/16/2021 by Omid Hoffman MD at [facility] Explanted:Qty: 1 on 02/04/2022 at [facility] Left: Knee [employer] 04/09/2026 [id number] / / [id number] Procedures Procedure Name Priority Date/Time Associated Diagnosis [...] LAB BLOOD ORDERABLES Final Re sult [facility] ([place] [place]) 1 [facility] [place] [address] * Differential, auto (06/29/2024 12:10 PM CDT) Neutrophil abs 1.80 1.50 - 6.50 K/cumm Imm gran abs 0.01 0.00 - 0.10 K/cumm [facility] ([facility] [place]) Lymphocyte abs 1.01 0.80 - 3.30 K/cumm [facility] ([facility] [place]) Monocyte abs 0.30 0.20 - 0.80 K/cumm [facility] ([facility] [place]) Eosinophil abs 0.05 0.00 - 0.50 K/cumm [facility] ([facility] [place]) Basophil abs 0.01 0.00 - 0.10 K/cumm [facility] ([facility] [place]) Neutrophil pct 56.6 % [facility] ([facility] [place]) Comment: Interpretive Data Percent cell count reference ranges are not reported, since discordance with absolute values may lead to misinterpretation of CBC data. Current Interpretive Data was last revised on 2017. Imm gran pct 0.3 % [facility] ([facility] [place]) Comment: Interpretive Data Percent cell count reference ranges are not reported, since discordance with absolute values may lead to misinterpretation of CBC data. Current Interpretive Data was last revised on 2017. Lymphocyte pct 31.8 % [facility] ([facility] [place]) Comment: Interpretive Data Percent cell count reference ranges are not reported, since discordance with absolute values may lead to misinterpretation of CBC data. Current Interpretive Data was last revised on 2017. Monocyte pct 9.4 % [facility] ([facility] [place]) Comment: Interpretive Data Percent cell count reference [...] Final Re sult [facility] ([place]) 1 [facility] [place] [address] * (ABNORMAL) CBC with auto differential (06/29/2024 [...] BLOOD ORDERABLES Final Re sult [facility] ([facility] [place]) 1 [facility] [place] [address] * (ABNORMAL) Hepatitis B core antibody, total Blood (06/29/2024 12:10 PM CDT) Hep B core IgG/IgM Reactive( A) Nonreactive Comment:Testing performed by : [facility], [address] [place] [address], [address] Blood 06/29/2024 12:1 0 PM CDT 06/29/2024 8:10 PM CDT Irena Rebolledo MD LAB MICROBIOLOGY - GENERAL OR DERABLES Final Result Performing Organization Address City/[facility]/ZIP Co de Phone Number [facility] ([facility] [place]) [address] [place] [address] [place] [address] * Hepatitis B surface antibody (immune status) [...] last revised on 19. Testing performed by: [address] [address] HBsAb (immune status) index 967.0 mIUnits/m L [facility] ([facility] [place]) Comment:Testing performed by : [address] [place]., [address] Blood 06/29/2024 12:1 0 PM CDT 06/29/2024 4:42 PM CDT Irena Rebolledo MD LAB MICROBIOLOGY - GENERAL OR DERABLES Final Result Performing Organization Address [facility]/ZIP Co de Phone Number [facility] ([facility] [place]) 1 [facility] [place] [address] * Hepatitis B Surface Antigen Blood (06/29/2024 12:10 PM CDT) HepBsAg Nonreactive Nonreactive Comment:Testing performed by : [facility], [address] [place] [address], [address] Blood 06/29/2024 12:1 0 PM CDT 06/29/2024 4:42 PM CDT us Irena Rebolledo MD LAB MICROBIOLOGY - GENERAL OR DERABLES Final Result Performing Organization Address [facility] Co de Phone Number [facility] ([facility] [place]) 1 [facility] [place] [address] * Uric acid (06/29/2024 12:10 PM CDT) Uric acid 7.3 3.0 - 8.0 mg/dL Blood 06/29/2024 12:1 0 PM CDT 06/29/2024 12:20 PM CDT Irena Rebolledo MD LAB BLOOD ORDERABLES Final Re sult Performing Organization Address City/[facility]/ZIP Co de Phone Number [facility] ([facility] [place]) 1 [facility] [place] [address] * PSA diagnostic (06/29/2024 12:10 PM CDT) [...] LAB BLOOD ORDERABLES F inal Result [facility] ([place]) 1 [facility] [place] [address] * Basic metabolic panel (06/29/2024 12:10 PM [...] BLOOD ORDERABLES Final Re sult [facility] ([facility] [place]) 1 [facility] [place] [address] from Last 3 Months Insurance MEDICARE [facility] MEDICARE BLUE CROSS MEDICARE SUPPLEMENT MEDICARE [facility] MEDICARE [facility] MEDICARE [employer]UE [employer]OSS MEDICARE SUPPLEMENT [facility] Advance Directives For more information, please contact: [phone] * Full Code (Latest Code Status on [...] 4:12 PM 10/19/2017 9:01 PM Care Teams Speech Language Pathologist Travel Relationship Specialty Start Date End Date Irena Rebolledo MD [address] [place] [address] PCP - General 12/18/16 Mundo Smith MD Consulting Physician Neurosurgery 12/10/16 Viviana Wagner MD [address] [place] [address] Consulting Physician Pain Management 02/26/17 Heather Grant NP [address] [place] [address] Nurse Practitioner Neurosurgery 04/06/17 Quinn Flannery MD [address] [address] Consulting Physician Pain Management 05/10/17 Nena Rogers [facility] Physical Therapy 10/06/17 Omid Hoffman MD Surgeon Orthopedic Surgery 11/02/17 Steffany Solomon NP Nurse Practitioner Pain Management 07/05/18 Carlos Ford MD Consulting Physician Neurology 09/20/18 Gerardo Chávez MD Referring Physician Urology 01/28/19 Irineo Moe MD Consulting Physician Dermatology 01/28/19 Nelson Schneider MD [address] [facility] [address] [place], [place] [id number] Consulting Physician Orthopedic Surgery 02/22/19 Mirta Angeles PA [address] [facility] [address] [place], [place] [id number] Physician Etcher Enameling Orthopedic Surgery 10/08/19 John Khan MD PhD [address] [place] [address] Radiation Oncologist Radiation Oncology 08/30/20 Sam Whelan MD [address] [place] [address] [place] [address] Consulting Physician Ophthalmology 04/02/22 Quinn Flannery MD [address] [place] [address] Consulting Physician Pain Management 06/19/22 [place] [address] [place] [address] Consulting Physician Neurosurgery 06/21/22 Brock Segura MD [address] [place] [address] [address], [place] [address] Consulting Physician Cardiology 08/26/22 Tung Bach OD [address] [place] [address] Consulting Physician Optometry 07/31/22 Janell Orellana PA [address] [place] [address] Physician Etcher Enameling Orthopedic Surgery 09/12/22 Ashtyn Morrow PA [address] [place] [address] [id number] [place] [address] Physician Etcher Enameling Colon and Rectal Surgery 04/30/23 Terence Edgar DMD [address] [place] [address] Dentist Oral Surgery 09/04/23
--- OUTSIDE RECORDS SUMMARY | 2024-08-10 18:04 | XMS_ITS | Continuity of Care Document ---
Author Organization [facility] Address [address] [place] [address] utive Joseph [address] [place] [address] Phone Care Team Providers Care Tissue Technologist Name Role Phone Doisy, Edward Unavailable Unavailable Advance Directives Directive Yes / No Effective Date File Name No Information Encounters Encounter Description Practice Location Reason(s) For Visit Diagnoses Date Provider Providers Copied on Encounter [facility], [id number] [place] [address] [address], [place], [place], [id number], [place] tel:[phone] [facility] No Information July-0 3-200 6 Doisy Edward. [address] , [address], [place], [address], [place]. tel:[phone] Family History Family Member Type Diagnosis Age At Onset No Information Payers Payer name Insurance type Covered alliance party ID Authoriza tion(s) Medicare [facility] [id number] [place] [id number] Social History Type Description Quantity Date Captured [...]
--- OUTSIDE RECORDS SUMMARY | 2024-08-10 18:04 | XMS_ITS | Encounter Summary ---
Author Organization [facility] Address [address] [place] [address] Care Team Providers Care Blueprint Tracer Name Role Phone Mundo Smith MD Unavailable [phone] Filiberto Madrid MD Primary Care Provider [phone] Viviana Wagner MD Unavailable [phone] Heather Grant NP Unavailable [phone] Quinn Flannery MD Unavailable [phone] Nena Rogers PTA Unavailable Unavailable Omid Hoffman MD Unavailable Steffany Solomon NP Unavailable [phone] Carlos Ford MD Unavailable Gerardo Chávez MD Unavailable Irineo Moe MD Unavailable Nelson Schneider MD Unavailable Mirta Angeles Unavailable [phone] John Khan MD PhD Unavailable Omid Emanuel DO Unavailable [phone] Sam Whelan MD Unavailable [phone] Quinn Flannery MD Unavailable [phone] Cristy Rodriguez MD Unavailable [phone] Brock Segura MD Unavailable [phone] Tung Bach OD Unavailable [phone] Janell Orellana PA Unavailable [phone] Asthyn Morrow Unavailable [phone] Ashtyn Morrow Unavailable [phone] Herve Terence Preston DMD Unavailable [phone] Encounter Details Date Type Department Care Team (Late st Contact Info) Description 08/28/2022 Telephone [facility] [address] [place] [address] Chyna Wall, Social History Tobacco Use Types [...] than three times a week 02/06/2022 Attends Druze Services Not on file 02/06 Do you belong to any clubs o r organizations such as hinduism groups, unions, fraternal or athletic groups, or [...] on file 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 Gender Identity Not on file Sexual Orientation Not on file documented as of this encounter Plan of Treatment Not on file documented as of this encounter Visit Diagnoses Not on filedocumented in this encounter Care Teams Blueprint Tracer Relationship Specialty Start Date End Date Filiberto Madrid MD [address] [place] [place] PCP - General 12/18/16 Mundo Smith MD Consulting Physician Neurosurgery 12/10/16 Viviana Wagner MD [address] [place] [address] Consulting Physician Pain Management 02/26/17 Heather Grant, JENNIFER [address] [place] [address] Nurse Practitioner Neurosurgery 04/06/17 Quinn Flannery MD [address] [place] [address] Consulting Physician Pain Management 05/10/17 Nena Rogers [facility] Community Music Therapist Physical Therapy 10/06/17 Omid Hoffman MD Surgeon Orthopedic Surgery 11/02/17 Steffany Solomon NP Nurse Practitioner Pain Management 07/05/18 Carlos Ford MD Consulting Physician Neurology 09/20/18 Gerardo Chávez MD Referring Physician Urology 01/28/19 Irineo Moe MD Consulting Physician Dermatology 01/28/19 Nelson Schneider MD [address] [facility] [address] [place] [address] Consulting Physician Orthopedic Surgery 02/22/19 Mirta Angeles PA [address] [facility] [address] [place] [address] Physician Motor Equipment Commanding Officer Orthopedic Surgery 10/08/19 John Khan MD PhD [address] [place] [address] [place] [address] Radiation Oncologist Radiation Oncology 08/30/20 Omid Emanuel DO [address] [facility] [address] [place] [address] Consulting Physician Cardiovascular Disease 11/08/20 Sam Whelan MD [address] [facility] [address] [place] [address] Consulting Physician Ophthalmology 04/02/22 Quinn Flannery MD [address] [place] [address] Consulting Physician Pain Management 06/19/22 [place] [address] [place] [address] Consulting Physician Neurosurgery 06/21/22 Brock Segura MD [address] [place] [address] [address], [place] [address] Consulting Physician Cardiology 08/26/22 Tung Bach, EDMAR [address] [place] [address] Consulting Physician Optometry 07/31/22 Janell Orellana PA [address] [place] [address] Physician Motor Equipment Commanding Officer Orthopedic Surgery 09/12/22 Ashtyn Morrow PA [address] [place] [id number] [place] [address] Physician Motor Equipment Commanding Officer Colon and Rectal Surgery 04/04/23 05/27/23 Ashtyn Morrow PA [address] [place] [id number] [place] [address] Physician Motor Equipment Commanding Officer Colon and Rectal Surgery 04/30/23 Terence Edgar DMD [id number] [place] [address] Dentist Oral Surgery 09/04/23 documented as of this encounter
--- OUTSIDE RECORDS SUMMARY | 2024-08-10 18:04 | XMS_ITS | CONTINUITY OF CARE DOCUMENT ---
Author Name yu nicholas Address Unknown Organization [facility] Office Address [address] [place] [address] [address] [place] [address] Phone [phone] Care Team Providers Care Circuit Clerk Name Role Phone Manda GONZALES, Anahy Unavailable [phone] ADDISON REBOLLEDO MD Unavailable [phone] ADDISON REBOLLEDO MD Unavailable [phone] INSURANCE PROVIDERS Payer name Policy type / Coverage type [place] red democrat ID [facility] [id number] [place] MED[place] Medicare [id number]
--- OUTSIDE RECORDS SUMMARY | 2024-08-10 18:04 | XMS_ITS | Continuity of Care Document ---
Author Organization [facility] Address [address] [facility] 200 [place] [address] Phone Care Team Providers Care Verifier Operator Name Role Phone Tomi Villalobos MD Unavailable [...] Diagnoses Date Provider Providers Copied on Encounter [facility], [address] [place] [address], [address], [place] tel:[phone] [facility] facet jt injection (chief complaint) Spondylosis of lumbosacral joint without myelopathy 7 Wilfredo Krishna. [address] [place] [address], [id number] . tel: [phone] [facility], [address] [place] [address], [address], [place] tel:[phone] [facility] Follow Up of lbp (chief complaint) Spondylosis of lumbosacral joint without myelopathyLow back pain 7 Wilfredo Krishna. [address] [place], [place], [id number] . tel: [phone] OFFICE/OUTPA TIENT VISIT [facility], [address] [place] [address], [address], [place] [phone] [facility] [place] op/shaker flatwork eval Lt shoulder (chief complaint) Left shoulder tendonitis 7 Trey Toim. [address], [place], [place], [id number] . tel: [phone] OFFICE/OUTPA TIENT VISIT [facility] Orth[facility] Surgery, [address] [place] [address], [address], [place] [phone] [facility] BACK RAKESH (chief complaint) Spinal stenosis of lumbar regionRadiculo ward of lumbosacral region Sep-0 6 Hamilton Mcnair. [address] [facility] [address], [place], [place], [id number] . tel: [phone] OFFICE/OUTPA TIENT VISIT [facility] Orthopaedic Surgery, [address] [place] [address], [address], [place] [phone] [facility] [place] Follow Up of mri lumbar spine (chief complaint) Spinal stenosis of lumbar regionOther intervertebral disc degeneration, lumbar regionSpondylo sis of lumbosacral joint without myelopathy 6 Hamilton Mcnair. [address], [place], [place], [id number] . tel: [phone] [facility], [address] [place] [address], [address], [place] [phone] [facility] facet joint injection (chief complaint) Spondyls w/o myelopathy or radiculopathy, lumbosacr regionLow back painOther intervertebral disc degeneration, lumbar region Adriano- 6 Hamilton Mcnair. [address], [place], [place], [id number] . tel: [phone] OFFICE/OUTPA TIENT VISIT [facility] Orthopa[facility] Surgery, [address] [address], [place], [address], [place] [phone] [facility] [place] lbp (chief complaint) Other intervertebral disc degeneration, lumbar regionSpondylo sis of lumbosacral joint without myelopathy 6 Hamilton Mcnair. [address], [place], [place], [id number] . tel: [phone] [facility], [address] [place] [address], [place], [address], [place] [phone] [facility] Follow Up of lbp (chief complaint) Lumbosacral spondylosis without myelopathyLumb ago 5 Wilfredo Krishna. [address] [place], [place], [id number] . tel: [phone] OFFICE/OUTPA TIENT VISIT [facility], [address] [place] [address], [place], [address], [place] [phone] [facility] [place] Follow Up of chronic LBP (chief complaint) Spinal stenosis, lumbarChronic low back painOther chronic pain 5 Trey Krishna. [address], [place], [place], [id number] . tel: [phone] OFFICE/OUTPA TIENT VISIT [facility], [address] [place] [address], [place], [address], [place] [phone] [facility] Facet injections L4/5 (chief complaint) Lumbosacral spondylosis without myelopathyLumb ago 3 Wilfredo Krishna. [address] [place] [address], [id number] . tel: [phone] Referring Provider: Sherif Banerjee, Not in Practice [address] [facility], [place], [address] . tel:[phone] [facility], [address] [place] [address] [address], [place], [address], tel:[phone] [facility] Ruth low back pain (chief complaint) Lumbosacral spondylosis without myelopathy 3 Wilfredomelita Krishna. [address] [place], [place], [address] . tel: [phone] Family History Family Member Type Diagnosis Age At Onset Father Problem (finding) 85 Father Problem (finding) congestive hea rt failure (Cause Of ) 75 Payers Payer name Insurance type Covered alliance party ID Authoriza tion(s) Medicare E2 OT [id number] Social History Type Description Quantity Date Captured [...] facet jt injection Follow Up of lbp op/shaker flatwork eval Lt shoulder BACK RAKESH Follow Up [...]
--- OUTSIDE RECORDS SUMMARY | 2024-08-10 18:04 | XMS_ITS | Clinical Summary ---
Author Organization [facility] Address [address] [place] [address] Care Team Providers Care Soft Metals Hand Engraver Name Role Phone Sunil Zelaya MD Unavailable [phone] Filiberto Madrid MD Primary Care Provider [phone] Source Comments [facility],non-owned Affiliates and Associated Physician Practices is amultiple site organization consisting of ambulatory clinics and hospital sitesin [place], [place], [place] and [place]. This disclosure is being madepursuant to the Care Everywhere program and may not contain all information available regarding this patient. 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.] SPECIFIC ANTIGEN SCREEN Routine 01/14/2014 7:14 AM BUDGET EXAMINER Prostate cancer screening from Last 3 Months or Most Recently Relevant to Health Maintenance Results * PROSTATE SPECIFIC ANTIGEN SCREEN (01/14/2014 7:14 AM BUDGET EXAMINER) PSA 3.9 0.0 - 4.0 ng/mL [facility] INSURANCE BILL Comment: Levy ECLIA methodology. . According to the [place] [employer], Serum PSA should decrease and [...] BLOOD SPECIMEN / Unknown 01/14/2014 7:14 AM BUDGET EXAMINER 01/14/2014 2:18 PM BUDGET EXAMINER Narrative Resulting Agency Comment [place] [id number] [facility] [id number] Pedro Cosme MD LAB - CHEMISTRY ORDERABLES Final Result [facility] INSURANCE BILL [address] [place] [address] from Last 3 Months or Most Recently Relevant to Health Maintenance Insurance MEDICARE [facility] Care Teams Soft Metals Hand Engraver Relationship Specialty Start Date End Date Filiberto Madrid MD [address] [place] [address] PCP - General Internal Medicine 05/03/16 Sunil Zelaya MD [address] [facility] [address] [place] [address] Cardiovascular Disease 12/29/13
[2024-08-10] MEDS: RABIES VACCINE (RABAVERT) 2.5 UNITS VIAL IM (18:10)
[2024-08-10] MEDS: TETANUS,DIPHTHERIA,AC PERTUSSIS ADULT (0.5 ML) BOOSTRIX IM (18:35)
== END 2024-08-10 18:42 | disposition home or self-care (01) ==
PROVIDERS: Emergency Provider Emergency Medicine; PCP Internal Medicine Infectious Disease
DX: S61.250A Open bite of right index finger without damage to nail, initial encounter (principal); W55.81XA Bitten by other mammals, initial encounter; Z23 Encounter for immunization; Z20.3 Contact with and (suspected) exposure to rabies
CPT/HCPCS: 90471; 90472; 90675; 90715; 99283

== ENCOUNTER 2024-08-24 13:42 | Outpatient (NON) | payer MEDICARE, SELFPAY ==
[2024-08-24 14:07] LABS: Basophils Absolute Auto 0.02 K/mm3 (0.00-0.10); Basophils Percent Auto 0.4 % (0.0-1.0); Eosinophils Absolute Auto 0.09 K/mm3 (0.02-0.50); Eosinophils Percent Auto 1.8 % (1.0-6.0); Hematocrit 29.5 % (37.0-46.0); Hemoglobin 9.8 g/dL (12.4-15.3); Immature Granulocyte Absolute 0.02 K/mm3 (0.00-0.00); Immature Granulocyte Percent A 0.4 % (0.0-0.0); Lymphocytes Absolute Auto 0.84 K/mm3 (1.10-4.50); Lymphocytes Percent Auto 17.2 % (18.0-42.0); Mean Corpuscular HGB Conc 33.2 g/dL (32-36); Mean Corpuscular Hemoglobin 30.7 pg (27.0-31.0); Mean Corpuscular Volume 92.5 fL (78.0-102.0); Mean Platelet Volume 10.7 fl (8.7-11.0); Monocytes Absolute Auto 0.37 K/mm3 (0.10-0.90); Monocytes Percent Auto 7.6 % (2.0-11.0); Neutrophils Absolute Auto 3.54 K/mm3 (1.70-7.20); Neutrophils Percent Auto 72.6 % (50.0-70.0); Platelet Count Result 276 K/mm3 (150-420); Red Blood Count 3.19 M/mm3 (4.70-6.10); Red Cell Distribution Width 13.2 % (11.6-14.4); White Blood Count 4.9 K/mm3 (4.8-10.8)
[2024-08-24 14:15] LABS: Anion Gap 4 mmol/L (4-12); Blood Urea Nitrogen 35 mg/dL (9-20); CRP > 9.0 mg/dL (<1.0); Calcium 7.9 mg/dL (8.4-10.2); Carbon Dioxide 27 mmol/L (22-30); Chloride 105 mmol/L (98-107); Estimated Glomerular Filt Rate 25; Glucose 118 mg/dL (65-110); Osmolality Calculated 291 mOsm/kg (285-295); Potassium 3.4 mmol/L (3.4-5.0); Sodium 136 mmol/L (137-145)
--- OUTSIDE RECORDS SUMMARY | 2024-08-24 14:26 | XMS_ITS | Encounter Summary ---
Author Organization [facility] Address [address] [place] [address] Care Team Providers Care Tower Hand Name Role Phone Mundo Smith MD Unavailable [phone] Filiberto Madrid MD Primary Care Provider Viviana Wagner MD Unavailable [phone] Heather Grant NP Unavailable [phone] Quinn Flannery MD Unavailable [phone] Nena Rogers PTA Unavailable Unavailable Omid Hoffman MD Unavailable Steffany Solomon NP Unavailable [phone] Carlos Ford MD Unavailable Gerardo Chávez MD Unavailable Irineo Moe MD Unavailable Nelson Schneider MD Unavailable [phone] Mirta Angeles Unavailable [phone] John Khan MD PhD Unavailable [phone] Sam Whelan MD Unavailable Quinn Flannery MD Unavailable [phone] Cristy Rodriguez MD Unavailable Brock Segura MD Unavailable [phone] BachTung chaparro OD Unavailable Janell Orellana PA Unavailable Ashtyn Morrow PA Unavailable [phone] Terence Edgar DMD Unavailable Tha Oh MD Unavailable [phone] Ila Alvarenga [facility] Unavailable Unavailable Agustín Dietz RN Unavailable Reason for Visit * Reason Onset Date Comments Spoke With Home Health Provider 08/20/2024 Encounter Details Date Type Department Care Team (Late st Contact Info) Description 08/20/2024 Telephone [facility] [address] [place] [phone] Filiberto Madrid MD [address] [facility] [address] [place] [address] Spoke With Home Health Provider Social History Tobacco Use Types Packs/Day Years [...] materials from doctor or pharmacy Never 04/26/2022 [facility] Utilities Answer Date Recorded In the past 12 months has th e electric, gas, oil, or water company threatened to shut off services in your home? No 08/13/2024 Social Connection and Isolat ion Panel [NHANES] Answer Date Recorded In a typical week, how many times do you talk on the phone with family, friends, or neighbors? More than three times a week 08/13/2024 How often do you get togethe r with friends or relatives? More than three times a week 08/13/2024 How often do you attend chur ch or buddhism services? Never 08/13/2024 Do you belong to any clubs o r organizations such as lutheran groups, unions, fraternal or athletic groups, or school groups? No 08/13/2024 How often do you attend meet ings of the clubs or organizations you belong to? Never 08/13/2024 Are you , , di vorced, , never , or living with a partner? 08/13/2024 AUDIT-C Answer Date Recorded Q1: How often do you have a drink containing alcohol? Never 08/18/2024 Q2: How many drinks containi ng alcohol do you have on a typical day when you are drinking? Patient does not drink Q3: How often do you have si x or more drinks on one occasion? Never 08/18/2024 Overall Financial Resource Strain (CARDIA) Answe r Date Recorded How hard is it for you to pa y for the very basics like food, housing, medical care, and heating? Not hard at all 08/13/2024 PHQ-2 Answer Date Recorded PHQ-2 Total Score (If total score is 3 or more points, staff should administer the PHQ-9) 0 05/10/2024 Hunger Vital Sign Answer Date Recorded Within the past 12 months, y ou worried that your food would run out before you got the money to buy more. Never true 08/14/19 25 Within the past 12 months, t he food you bought just didn't last and you didn't have money to get more. Never true 08/13/2024 PRAPARE - Transportation Answer Date Re corded In the past 12 months, has l ack of transportation kept you from medical appointments or from getting medications? No 08/2024 In the past 12 months, has l ack of transportation kept you from meetings, work, or from getting things needed for daily living? No 08/13/2024 Housing Stability Vital Sign Answer Ar e Recorded In the last 12 months, was t here a time when you were not able to pay the mortgage or rent on time? No 08/13/2024 In the past 12 months, how m any times have you moved where you were living? 0 08/13/2024 At any time in the past 12 m [facility], were you homeless or living in a longterm (including now)? No 08/13/2024 Personal Safety Answer Date Recorded Have you ever been in or are you currently in a harmful physical or emotional relationship or is someone making you feel afraid or unsafe? 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 Asking for verbal okay for evaluation. ANITA Hall gave verbal okay. * Telephone Encounter - Anay Holm RN - 08/20/2024 2:02 PM CDT Called and spoke with william correa at the home health Verbal order for the pt to have assisted care but inform her that if the pt needs pt or ot just call us back and we will order what ever the pt needs She verbalized understanding and will call us back with any questions or problems * Telephone Encounter - Natasha Emery - 08/20/2024 12:59 PM CDT [facility] called stating that [facility] ordered HH on patient. Asking for provider to follow for orders. Ordered SN only. Patient discharging today. [phone] documented in this encounter Plan of Treatment Not on file documented as of this encounter Visit Diagnoses Not on filedocumented in this encounter Care Teams Tower Hand Relationship Specialty Start Date End Date Filiberto Madrid MD [address] [place] [address] PCP - General 12/18/16 Tha Oh MD [address] [place] [address] PCP - Home Infusion Attending Infectious Diseases 08/20/24 Mundo Smith MD Consulting Physician Neurosurgery 12/10/16 Viviana Wagner MD [address] [place] [address] Consulting Physician Pain Management 02/26/17 Heather Grant STEAM TUNNEL FEEDER [address] [place] [address] Nurse Practitioner Neurosurgery 04/06/17 Quinn Flannery MD [address] [place] [address] Consulting Physician Pain Management 05/10/17 Nena Rogers FARM MANAGER Media Theorist And Author Of Physical Therapy 10/06/17 Omid Hoffman MD Surgeon Orthopedic Surgery 11/02/17 Steffany Solomon NP Nurse Practitioner Pain Management 07/05/18 Carlos Ford MD Consulting Physician Neurology 09/20/18 Gerardo Chávez MD Referring Physician Urology 01/28/19 Irineo Moe MD Consulting Physician Dermatology 01/28/19 Nelson Schneider MD [address] [facility] [address] [place] [address] Consulting Physician Orthopedic Surgery 02/22/19 Mirta Angeles PA [address] [facility] [address] [place] [address] Physician Assistant Commissioner Orthopedic Surgery 10/08/19 John Khan MD PhD [address] [place] [address] Radiation Oncologist Radiation Oncology 08/30/20 Sam Whelan MD [address] [place] [address] Consulting Physician Ophthalmology 04/02/22 Quinn Flannery MD [address] [place] [address] Consulting Physician Pain Management 06/19/22 [place] [address] [place] [address] Consulting Physician Neurosurgery 06/21/22 Brock Segura MD [address] [place] [address] [address] [place] [address] Consulting Physician Cardiology 08/26/22 Tung Bach Sanjiv, OD [address] [place] [address] Consulting Physician Optometry 07/31/22 Janell Orellana PA [address] [place] [address] Physician Assistant Commissioner Orthopedic Surgery 09/12/22 Ashtyn Morrow PA [address] [place] [place] [id number] [place] [address] Physician Assistant Commissioner Colon and Rectal Surgery 04/30/23 Terence Edgar DMD [address] [place] [address] Dentist Oral Surgery 09/04/23 Ila Alvarenga brent Pharmacist Pharmacy 08/20/24 Agustín Dietz, ANITA [address] [place] [address] Application Assistant 08/24/24 documented as of this encounter
--- OUTSIDE RECORDS SUMMARY | 2024-08-24 14:26 | XMS_ITS ---
Author Organization [facility] [address] Address [address] [place] [address] Phone Care Team Providers Care Business Employment Specialist Name Role Phone Mundo Smith MD Unavailable [phone] Filiberto Madrid MD Primary Care Provider [phone] Viviana Wagner MD Unavailable [phone] Heather Grant NP Unavailable [phone] Quinn Flannery MD Unavailable [phone] Nena Rogers PTA Unavailable Unavailable Omid Hoffman MD Unavailable [phone] Steffany Solomon NP Unavailable [phone] Carlos Ford MD Unavailable Gerardo Chávez MD Unavailable Irineo Moe MD Unavailable Nelson Schneider MD Unavailable [phone] Mirta Angeles Unavailable [phone] John Khan MD PhD Unavailable [phone] Sam Whelan MD Unavailable Quinn Flannery MD Unavailable [phone] Cristy Rodriguez MD Unavailable [phone] Brock Segura MD Unavailable Mikala Tung Sanjiv OD Unavailable [phone] Janell Orellana PA Unavailable [phone] Ashtyn Morrow Unavailable [phone] Terence Edgar [facility] Unavailable [phone] Tha Oh MD Unavailable [phone] Ila Alvarenga [facility] Unavailable Unavailable Agustín Dietz RN Unavailable Home Infusion Status:Enrolled (Active) Start date:08/19/2024 Enrollment date:08/19/2024 Related service episodes:Anti-Infective - ceftriaxone (Active) Continued Care and Services Coordination
--- OUTSIDE RECORDS SUMMARY | 2024-08-24 14:26 | XMS_ITS | Encounter Summary ---
Author Organization [facility] Address [address] [place] [address] Phone Care Team Providers Care Chief Diversity Officer Name Role Phone Sunil Zelaya MD Unavailable [phone] Joel Jamison MD Unavailable Mundo Smith MD Unavailable [phone] Filiberto Madrid MD Primary Care Provider [phone] Viviana Wagner MD Unavailable [phone] Heather Grant NP Unavailable [phone] Quinn Flannery MD Unavailable [phone] Nena Rogers PTA Unavailable Unavailable Omid Hoffman MD Unavailable Steffany Solomon NP Unavailable [phone] Carlos Ford MD Unavailable Gerardo Chávez MD Unavailable Irineo Moe MD Unavailable Nelson Schneider MD Unavailable Mirta Angeles Unavailable [phone] John Khan MD PhD Unavailable Omid Emanuel DO Unavailable Sam Whelan MD Unavailable [phone] Quinn Flannery MD Unavailable [phone] Cristy Rodriguez MD Unavailable Brock Segura MD Unavailable [phone] Tung Bcah OD Unavailable [phone] Janell Orellana PA Unavailable Ashtyn Morrow PA Unavailable [phone] Ashtyn Morrow Unavailable [phone] Terence Edgar DMD Unavailable [phone] Tha Oh MD Unavailable [phone] Ila Alvarenga [facility] Unavailable Unavailable Agustín Dietz RN Unavailable Encounter Details Date Type Department Care Team (Late st Contact Info) Description 12/23/2016 Orders Only [facility] [address] [place] [address] Filiberto Madrid MD [address] [place] [address] Social History Tobacco Use Types Packs/Day Years Used Date Smoking Tobacco: Never Smokeless Tobacco: Never Alcohol Use Standard Drinks/Week Comments Yes 0 (1 standard drink = 0.6 oz pur e alcohol) Rarely Sex and Gender Information Value Date Recorded Sex Assigned at Not on file Legal Sex Male 7:22 PM COMPLIANCE EXAMINER Gender Identity Not on file Sexual [...] COVID: Suspected 01/13/2022 01/13/2022 01/13/2022 5:25 PM COMPLIANCE EXAMINER COVID: Suspected 08/12/2024 08/12/2024 08/12/2024 8:59 PM CDT documented as of this encounter Care Teams Chief Diversity Officer Relationship Specialty Start Date End Date Filiberto Madrid MD [address] [place] [address] PCP - General 12/18/16 Tha Oh MD [address] [facility] [address] [place] [address] PCP - Home Infusion Attending Infectious Diseases 08/20/24 Sunil Zelaya MD Consulting Physician Cardiovascular Disease 11/18/16 Joel Jamison MD [address] [facility] [address] [place] [address] Consulting Physician Urology 04/16/16 01/27/19 Mundo Smith MD [address] [facility] [address] [place] [address] Consulting Physician Neurosurgery 12/10/16 Viviana Wagner MD [address] [place] [address] Consulting Physician Pain Management 02/26/17 Heather Grant, COMMUNITY HEALTH WORKER [address] [place] [address] Nurse Practitioner Neurosurgery 04/06/17 Quinn Flannery MD [address] [place] [address] Consulting Physician Pain Management 05/10/17 Nena Rogers [facility] Oil Expert Physical Therapy 10/06/17 Omid Hoffman MD Surgeon Orthopedic Surgery 11/02/17 Steffany Solomon NP Nurse Practitioner Pain Management 07/05/18 Carlos Ford MD Consulting Physician Neurology 09/20/18 Gerardo Chávez MD Referring Physician Urology 01/28/19 Irineo Moe MD Consulting Physician Dermatology 01/28/19 Nelson Schneider MD [address] [facility] [address] [place], [place] [address] Consulting Physician Orthopedic Surgery 02/22/19 Mirta Angeles PA [address] [facility] [address] [place], [place] [address] Physician Compressor Repairer Orthopedic Surgery 10/08/19 John Khan MD PhD 6 [place] [address] Radiation Oncologist Radiation Oncology 08/30/20 Omid Emanuel DO [address] [facility] [address] [place] [address] Consulting Physician Cardiovascular Disease 11/08/20 Sam Whelan MD [address] [facility] [address] [place] [address] Consulting Physician Ophthalmology 04/02/22 Quinn Flannery MD [address] [place] [address] Consulting Physician Pain Management 06/19/22 [place] [address] [place] [address] Consulting Physician Neurosurgery 06/21/22 Brock Segura MD [address] [place] [address] [address], [place] [address] Consulting Physician Cardiology 08/26/22 Tung Bach OD [address] [place] [address] Consulting Physician Optometry 07/31/22 Janell Orellana PA [address] [place] [address] Physician Compressor Repairer Orthopedic Surgery 09/12/22 Ashtyn Morrow PA [address] [place] [address] [place] [phone] [place] [address] Physician Compressor Repairer Colon and Rectal Surgery 04/04/23 05/27/23 Ashtyn Morrow PA [address] [place] [address] [place] [id number] [place] [address] Physician Compressor Repairer Colon and Rectal Surgery 04/30/23 Terence Edgar DMD [address] [place] [address] Dentist Oral Surgery 09/04/23 Ila Alvarenga [facility] Pharmacist Pharmacy 08/20/24 Agustín Dietz, ANITA [address] [place] [address] [address] [place] [address] Pilot Plant Operator Helper 08/24/24 documented as of this encounter
--- OUTSIDE RECORDS SUMMARY | 2024-08-24 14:26 | XMS_ITS | Encounter Summary ---
Author Organization [facility] Address [address] [place] [address] Phone Care Team Providers Care Junior Buyer Name Role Phone Pedro Cosme MD Primary Care Provider [phone] Sunil Zelaya MD Unavailable [phone] Joel Jamison MD Unavailable Mundo Smith MD Unavailable [phone] Filiberto Madrid MD Primary Care Provider [phone] Viviana Wagner MD Unavailable [phone] Heather Grant NP Unavailable [phone] Quinn Flannery MD Unavailable [phone] Nena Rogers PTA Unavailable Unavailable Omid Hoffman MD Unavailable [phone] Steffany Solomon NP Unavailable [phone] Carlos Ford MD Unavailable Gerardo Chávez MD Unavailable Irineo Moe MD Unavailable Nelson Schneider MD Unavailable Mirta Angeles PA Unavailable [phone] John Khan MD PhD Unavailable [phone] Omid Emanuel DO Unavailable Sam Whelan MD Unavailable Quinn Flannery MD Unavailable [phone] Cristy Rodriguez MD Unavailable [phone] Brock Segura MD Unavailable [phone] Mikala Tung Sanjiv OD Unavailable [phone] Janell Orellana PA Unavailable Ashtyn Morrow PA Unavailable [phone] Ashtyn Morrow PA Unavailable [phone] Terence Edgar [facility] Unavailable [phone] Tha Oh MD Unavailable [phone] Ila Alvarenga [facility] Unavailable Unavailable Agustín Dietz RN Unavailable [phone] Encounter Details Date Type Department Care Team (Late st Contact Info) Description 12/03/2016 Orders Only [facility] [address] [place] [phone] Filiberto Madrid MD [address] [place] [address] Social History Tobacco Use Types Packs/Day Years Used Date Smoking Tobacco: Never Smokeless Tobacco: Never Alcohol Use Standard Drinks/Week Comments Yes 0 (1 standard drink = 0.6 oz pur e alcohol) Rarely Sex and Gender Information Value Date Recorded Sex Assigned at Not on file Legal Sex Male 7:22 PM LEGAL PROJECT MANAGER Gender Identity Not on file Sexual Orientation Not on file documented as of this encounter Plan of Treatment Not on file documented as of this encounter Procedures Procedure Name Priority Date/Time Associated Diagnosis Comments SCAN - RADIOLOGY/IMAGING 12/03/2016 9:37 AM CDT documented in this encounter Results * SCAN - RADIOLOGY/IMAGING (12/03/2016 9:37 AM CDT) Anatomical Region Laterality Modality Other us Filiberto Madrid MD Final Result documented in this encounter Visit Diagnoses Not on filedocumented in this encounter Additional Health Concerns Infection Onset Date Last Indicated Resolved Time COVID: Suspected 01/13/2022 01/13/2022 01/13/2022 5:25 PM LEGAL PROJECT MANAGER COVID: Suspected 08/12/2024 08/12/2024 08/12/2024 8:59 PM CDT documented as of this encounter Care Teams Junior Buyer Relationship Specialty Start Date End Date Pedro Cosme MD [address] [facility] [address] [place] [address] PCP - General 09/03/16 12/17/16 Filiberto Madrid MD [address] [place] [address] PCP - General 12/18/16 Tha Oh MD [address] [address] PCP - Home Infusion Attending Infectious Diseases 08/20/24 Sunil Zelaya MD [address] [facility] [address] [place] [address] Consulting Physician Cardiovascular Disease 11/18/16 Joel Jamison MD [facility] [address] [place] [address] Consulting Physician Urology 04/16/16 01/27/19 Mundo Smith MD [address] [facility] [address] [place] [address] Consulting Physician Neurosurgery 12/10/16 Viviana Wagner MD [address] [place] [address] Consulting Physician Pain Management 02/26/17 Heather Grant NP [address] [place] [address] Nurse Practitioner Neurosurgery 04/06/17 Quinn Flannery MD [address] [place] [address] Consulting Physician Pain Management 05/10/17 Nena Rogers [facility] Food And Beverage Director Physical Therapy 10/06/17 Omid Hoffman MD Surgeon Orthopedic Surgery 11/02/17 Steffany Solomon NP Nurse Practitioner Pain Management 07/05/18 Carlos Ford MD Consulting Physician Neurology 09/20/18 Gerardo Chávez MD Referring Physician Urology 01/28/19 Irineo Moe MD Consulting Physician Dermatology 01/28/19 Nelson Schneider MD [address] [facility] [address] [place] [address] Consulting Physician Orthopedic Surgery 02/22/19 Mirta Angeles PA [address] [facility] [address] [facility] [address] [place] [address] Physician Rehabilitation Services Coordinator Orthopedic Surgery 10/08/19 John Khan MD PhD [address] [facility] [place] [address] Radiation Oncologist Radiation Oncology 08/30/20 Omid Emanuel DO [address] [place] [address] [address] [place] [address] Consulting Physician Cardiovascular Disease 11/08/20 Sam Whelan MD [address] [place] [address] [address] [place] [address] Consulting Physician Ophthalmology 04/02/22 Quinn Flannery MD [address] [place] [address] Consulting Physician Pain Management 06/19/22 [place] [address] [place] [address] Consulting Physician Neurosurgery 06/21/22 Brock Segura MD [address] [place] [address] [address], [place] [address] Consulting Physician Cardiology 08/26/22 Tung Bach OD [address] [place] [address] Consulting Physician Optometry 07/31/22 Janell Orellana PA [address] [place] [address] Physician Rehabilitation Services Coordinator Orthopedic Surgery 09/12/22 Ashtyn Morrow PA [address] [place] [phone] [place] [address] Physician Rehabilitation Services Coordinator Colon and Rectal Surgery 04/04/23 05/27/23 Ashtyn Morrow PA [address] [facility] [phone] [place] [address] Physician Rehabilitation Services Coordinator Colon and Rectal Surgery 04/30/23 Terence Edgar DMD [address] [place] [address] Dentist Oral Surgery 09/04/23 Ila Alvarenga [facility] Pharmacist Pharmacy 08/20/24 Agustín Dietz, ANITA [address] [place] [address] [address] [place] [address] Mailroom Supervisor 08/24/24 documented as of this encounter
--- OUTSIDE RECORDS SUMMARY | 2024-08-24 14:26 | XMS_ITS | Encounter Summary ---
Author Organization [facility] Address [address] [place] [address] Care Team Providers Care Specification Writer Name Role Phone Sunil Zelaya MD Unavailable [phone] Mundo Smith MD Unavailable [phone] Filiberto Madrid MD Primary Care Provider [phone] Viviana Wagenr MD Unavailable [phone] Heather Grant NP Unavailable Quinn Flannery MD Unavailable +[phone] Nena Rogers PTA Unavailable Unavailable Omid Hoffman MD Unavailable +[phone] Steffany Solomon NP Unavailable [phone] Carlos Ford MD Unavailable Gerardo Chávez MD Unavailable Irineo Moe MD Unavailable Nelson Schneider MD Unavailable [phone] Mirta Angeles Unavailable + [phone] John Khan MD PhD Unavailable [phone] Adelfo Omid CalderonMyra KELLY Unavailable +[phone] Sam Whelan MD Unavailable [phone] Quinn Flannery MD Unavailable [phone] Cristy Rodriguez MD Unavailable [phone] Brock Segura MD Unavailable [phone] MikalaTung OD Unavailable [phone] Janell Orellana PA Unavailable [phone] Ashtyn Morrow Unavailable +[phone] Ashtyn Morrow Unavailable [phone] Terence Edgar DMD Unavailable +[phone] Tha Oh MD Unavailable +- [phone] Ila Alvarenga [facility] Unavailable Unavailable Agustín Dietz RN Unavailable [phone] Encounter Details Date Type Department Care Team (Late st Contact Info) Description 10/04/2020 Telephone [facility] Advanced Medicine Radiation Oncology [address] [facility] [place] [address] Aida Blackburn, RN Social History Tobacco Use Types Packs/Day [...] on file 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 Gender Identity Not on file Sexual Orientation Not on file documented as of this encounter Plan of Treatment Not on file documented as of this encounter Visit Diagnoses Not on filedocumented in this encounter Additional Health Concerns Infection Onset Date Last Indicated Resolved Time COVID: Suspected 01/13/2022 01/13/2022 01/13/2022 5:25 PM INSOLE BEVELER COVID: Suspected 08/12/2024 08/12/2024 08/12/2024 8:59 PM CDT documented as of this encounter Care Teams Specification Writer Relationship Specialty Start Date End Date Filiberto Madrid MD [address] [place] [address] PCP - General 12/18/16 Tha Oh MD [address] [place] [address] PCP - Home Infusion Attending Infectious Diseases 08/20/24 Sunil Zelaya MD Consulting Physician Cardiovascular Disease 11/18/16 Mundo Smith MD Consulting Physician Neurosurgery 12/10/16 Viviana Wagner MD [address] [place] [address] Consulting Physician Pain Management 02/26/17 Heather Grant, JENNIFER [address] [place] [address] Nurse Practitioner Neurosurgery 04/06/17 Quinn Flannery MD [address] [place] [address] Consulting Physician Pain Management 05/10/17 Nena Rogers PTA Accountant Clerk Physical Therapy 10/06/17 Omid Hoffman MD Surgeon Orthopedic Surgery 11/02/17 Steffany Solomon NP Nurse Practitioner Pain Management 07/05/18 Carlos Ford MD Consulting Physician Neurology 09/20/18 Gerardo Chávez MD Referring Physician Urology 01/28/19 Irineo Moe MD Consulting Physician Dermatology 01/28/19 Nelson Schneider MD [address] [facility] [address] [place] [address] Consulting Physician Orthopedic Surgery 02/22/19 Mirta Angeles PA [address] [facility] [address] [place] [address] Physician Mixer Tender Orthopedic Surgery 10/08/19 John Khan MD PhD [address] [place] [address] Radiation Oncologist Radiation Oncology 08/30/20 Omid Emanuel DO [address] [place] [address] [address] Consulting Physician Cardiovascular Disease 11/08/20 Sam Whelan MD [address] [place] [address] [place] [address] Consulting Physician Ophthalmology 04/02/22 Quinn Flannery MD [address] [place] [address] Consulting Physician Pain Management 06/19/22 [place] [address] [place] [address] Consulting Physician Neurosurgery 06/21/22 Brock Segura MD [address] [place] [address] [address], [place] [address] Consulting Physician Cardiology 08/26/22 Tung Bach, EDMAR [address] [place] [address] Consulting Physician Optometry 07/31/22 Janell Orellana PA [address] [place] [address] Physician Mixer Tender Orthopedic Surgery 09/12/22 Ashtyn Morrow PA [address] [place] [id number] [place] [address] Physician Mixer Tender Colon and Rectal Surgery 04/04/23 05/27/23 Ashtyn Morrow PA [address] [place] [id number] [place] [address] Physician Mixer Tender Colon and Rectal Surgery 04/30/23 Terence Edgar DMD [address] [place] [address] Dentist Oral Surgery 09/04/23 Ila Alvarenga [facility] Pharmacist Pharmacy 08/20/24 Agustín Dietz, ANITA [address] [place] [address] Web Page Designer 08/24/24 documented as of this encounter
--- OUTSIDE RECORDS SUMMARY | 2024-08-24 14:26 | XMS_ITS | Encounter Summary ---
Author Organization [facility] Address [address] [place] [address] Care Team Providers Care Car Examiner Name Role Phone Mundo Smith MD Unavailable [phone] Filiberto Madrid MD Primary Care Provider [phone] Viviana Wagner MD Unavailable [phone] Heather Grant NP Unavailable [phone] Quinn Flannery MD Unavailable [phone] Nena Rogers PTA Unavailable Unavailable Omid Hoffman MD Unavailable [phone] Steffany Solomon NP Unavailable [phone] Carlos Ford MD Unavailable Gerardo Chávez MD Unavailable Irineo Moe MD Unavailable Nelson Schneider MD Unavailable Mirta Angeles Unavailable [phone] John Khan MD PhD Unavailable Sam Whelan MD Unavailable [phone] Quinn Flannery MD Unavailable Cristy Rodriguez MD Unavailable Brock Segura MD Unavailable BachTung chaparro OD Unavailable [phone] Janell Orellana PA Unavailable Ashtyn Morrow PA Unavailable [phone] Terence Edgar DMD Unavailable [phone] Tha Oh MD Unavailable [phone] Ila Alvarenga [facility] Unavailable Unavailable Agustín Dietz RN Unavailable [phone] Encounter Details Date Type Department Care Team (Late st Contact Info) Description 08/20/[address] [facility] [address] [place] [id number] Filiberto Madrid MD [address] [place] [address] Social History Tobacco Use Types Packs/Day Years [...] materials from doctor or pharmacy Never 04/26/2022 [facility] Utilities Answer Date Recorded In the past 12 months has th e [employer], gas, oil, or water [employer] threatened to shut off services in your [...] often do you attend chur ch or voodoo services? Never 08/13/2024 Do you belong to any clubs o r organizations such as tenriism groups, unions, fraternal or athletic groups, or [...] any time in the past 12 m [facility], were you homeless or living in a retirement (including now)? No 08/13/2024 Personal Safety Answer Date Recorded Have you ever been in or are you currently in a harmful physical or emotional relationship or is someone making you feel afraid or unsafe? 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 Gender Identity Not on file Sexual Orientation Not on file documented as of this encounter Ordered Prescriptions Prescription Sig Dispense Quantity Refills Last Filled Start Date End Date rabies (RabAvert, PF,) 2.5 unit vaccineIndications :Rabies Postexposure Prophylaxis Inject 1 mL into the muscle as instructed once for 1 dose 1 mL 08/24/2024 rabies (RabAvert, PF,) 2.5 unit vaccineIndications :Rabies Postexposure Prophylaxis Inject 1 mL into the muscle as instructed once for 1 dose 1 mL 08/24/2024 documented in this encounter Miscellaneous Notes * Telephone Encounter - Anay Holm RN - 08/24/2024 10:53 AM CDT Isa from home health called back and they will call [facility] to see when the pt next rabies injection is needed Isa states that she can order the rabies injection and get it to home health to give but it will not be available until the end of the week She would like to a call on what we are going to do [facility] checking to see if we can get the rabies vaccine from them thru the hospital pharmacy [facility] called and the rabavert needs a prior Auth Goldie is working on the prior Auth * Telephone Encounter - Anay Holm RN - 08/24/2024 10:22 AM CDT Called and spoke with the pt son They can not get him out of the home to come to the office or the er for his rabies injection and his hospital follow up Called and spoke with his home health service [facility] [phone] They can give the injection but they need to get the injection to give Left a message with Isa at [facility] [phone] to call us back about the message to see if we can get the injection from them * Telephone Encounter - Natasha Emery - 08/24/2024 9:43 AM CDT Patient's son called stating that patient not really able to get out of house right now. Also states that he is due for the third rabies shot today but he is unable to get him to the hospital to administer that. States that in the past Dr. SERNA has made house calls, wondering if provider would be able to do a house call to administer shot and do hospital follow up appointment. [phone] * Telephone Encounter - Lakeisha Magaña - 08/20/2024 4:08 PM CDT Left message on machine for patient's son to call me back. I am trying to schedule a hospital f/u for patient on Friday08/23/24 at 1:00pm. documented in this encounter Plan of Treatment Not on file documented as of this encounter Visit Diagnoses Not on filedocumented in this encounter Discontinued Medications Medication Sig Discontinue Reason Start Date End Da te rabies (RabAvert, PF,) 2.5 unit vaccineIndications:Rabi es Postexposure Prophylaxis Inject 1 mL into the muscle as instructed once for 1 dose 08/24/2024 08/24/2024 documented as of this encounter Care Teams Car Examiner Relationship Specialty Start Date End Date Filiberto Madrid MD [address] [place] [address] PCP - General 12/18/16 Tha Oh MD [address] [place] [address] PCP - Home Infusion Attending Infectious Diseases 08/20/24 Mundo Smith MD Consulting Physician Neurosurgery 12/10/16 Viviana Wagner MD [address] [place] [address] Consulting Physician Pain Management 02/26/17 Heather Grant NP [address] [place] [address] Nurse Practitioner Neurosurgery 04/06/17 Quinn Flannery MD [address] [place] [address] Consulting Physician Pain Management 05/10/17 Nena Rogers, [facility] Cycle Specialist Physical Therapy 10/06/17 Omid Hoffman MD Surgeon Orthopedic Surgery 11/02/17 Steffany Solomon NP Nurse Practitioner Pain Management 07/05/18 Carlos Ford MD Consulting Physician Neurology 09/20/18 Gerardo Chávez MD Referring Physician Urology 01/28/19 Irineo Moe MD Consulting Physician Dermatology 01/28/19 Nelson Schneider MD [address] [facility] [address] [place] [address] Consulting Physician Orthopedic Surgery 02/22/19 Mirta Angeles PA [address] [facility] [address] [place] [address] Physician Soap Worker Orthopedic Surgery 10/08/19 John Khan MD PhD [address] [place] [address] Radiation Oncologist Radiation Oncology 08/30/20 Sam Whelan MD [address] [place] [address] Consulting Physician Ophthalmology 04/02/22 Quinn Flannery MD [address] [address] Consulting Physician Pain Management 06/19/22 [place] [address] [address] [facility] [address] [place] [address] Consulting Physician Neurosurgery 06/21/22 Brock Segura MD [address] [place] [address] [address], [place] [address] Consulting Physician Cardiology 08/26/22 Tung Bach, EDMAR [address] [place] [address] Consulting Physician Optometry 07/31/22 Janell Orellana PA [address] [place] [address] Physician Soap Worker Orthopedic Surgery 09/12/22 Ashtyn Morrow PA [address] [place] [address] [place] [place] [id number] [place] [address] Physician Soap Worker Colon and Rectal Surgery 04/30/23 Terence Edgar DMD [address] [place] [address] Dentist Oral Surgery 09/04/23 Ila Alvarenga [facility] Pharmacist Pharmacy 08/20/24 Agustín Dietz, ANITA [address] [place] [address] [address] [place] [address] Pinmaker 08/24/24 documented as of this encounter
--- OUTSIDE RECORDS SUMMARY | 2024-08-24 14:26 | XMS_ITS | Clinical Summary ---
Author Organization [facility] [employer] Address [address] [place] [address] Phone Care Team Providers Care Sneller Hand Name Role Phone Mundo Smith MD Unavailable [phone] Irena Madrid MD Primary Care Provider Viviana Wagner MD Unavailable [phone] Heather Grant NP Unavailable [phone] Quinn Flannery MD Unavailable [phone] Nena Rogers PTA Unavailable Unavailable Omid Hoffman MD Unavailable [phone] Steffany Solomon NP Unavailable [phone] Carlos Ford MD Unavailable Gerardo Chávez MD Unavailable Irineo Moe MD Unavailable Nelson Schneider MD Unavailable Mirta Angeles Unavailable [phone] John Khan MD PhD Unavailable [phone] Sam Whelan MD Unavailable [phone] Quinn Flannery MD Unavailable [phone] Cristy Rodriguez MD Unavailable Brock Segura MD Unavailable [phone] MikalaTung OD Unavailable Janell Orellana PA Unavailable Ashtyn Morrow PA Unavailable [phone] Herve Terence Preston DMD Unavailable Tha Oh MD Unavailable [phone] Ila Alvarenga [facility] Unavailable Unavailable Agustín Dietz RN Unavailable Allergies No known active allergies Medications diphenhydrAMINE (BENADRYL) 25 mg capsule Take 1 tablet/capsule (25 mg total) by mouth nightly as needed 022 Active tamsulosin (FLOMAX) 0.4 mg extended release capsule TAKE 1 CAPSULE BY MOUTH IN THE EVENING AFTER DINNER 023 Active olopatadine (PATADAY) 0.2 % ophthalmic solution Administer 1 drop into both eyes daily as needed for allergies 023 Active cholecalciferol , vitamin D3, 1,000 unit tablet,chewable Take 1 tablet/chew tab by mouth daily 023 Active dronedarone (MULTAQ) 400 mg tabletIndicatio ns:Paroxysmal atrial fibrillation (HCC) Take 1 tablet (400 mg total) by mouth daily Prescribed 2 x daily, patient takes it once a day. 024 Active acetaminophen (Tylenol Extra Strength) 500 mg tablet Take 1-2 tablets (500-1,000 mg total) by mouth every 8 (eight) hours as needed for pain 024 Active tadalafiL (CIALIS) 5 mg tabletIndicatio ns:Malignant neoplasm prostate (HCC) Take 1 tablet (5 mg total) by mouth daily as needed for erectile dysfunction 10 tablet 024 Active cefTRIAXone (ROCEPHIN) syringeIndicati ons:Skin/Soft Tissue Infection Infuse 20 mL (2,000 mg total) IV daily for 5 minutes at 240 mL/hr 840 mL 025 2024 Active rivaroxaban (XARELTO) 15 mg tabletIndicatio ns:atrial fibrillation Take 1 tablet (15 mg total) by mouth daily with dinner 30 tablet Active sodium bicarbonate 650 mg tablet Take 1 tablet (650 mg total) by mouth 2 (two) times a day 60 tablet Active oxyCODONE-aceta minophen (PERCOCET) 5-325 mg per tabletIndicatio ns:Pain Take 1-2 tablets by mouth every 4 (four) hours as needed for pain 40 tablet Active cefTRIAXone 2,000 mg in sodium chloride 0.9% 50 mL IVPB (elastomeric)In dications:Pyoge ashley arthritis of left knee joint, due to unspecified organism (HCC) Infuse 50 mL (2,000 mg total) IV daily for 60 minutes at 50 mL/hr via elastomeric device. Remove from refrigerator 1-2 hours before administration. 2100 mL 5 11:59 PM CDT 025 2024 Active sodium chloride 0.9% flush syringeIndicati ons:Pyogenic arthritis of left knee joint, due to unspecified organism (HCC) Infuse 10 mL IV as needed for line care [id number] mL 5 11:59 PM CDT 025 2025 Active heparin 10 unit/mL syringe flush syringeIndicati ons:Maintain Patency of Indwelling Vascular Catheter Infuse 5 mL (50 Units total) IV as needed (line care) [id number] mL 5 11:59 PM CDT 025 2025 Active rabies (RabAvert, PF,) 2.5 unit vaccineIndicati ons:Rabies Postexposure Prophylaxis Inject 1 mL into the muscle as instructed once for 1 dose 1 mL 025 2024 Active Xarelto 20 mg tablet Take 1 tablet (20 mg total) by mouth daily Takes only 1/2 tablet due to urethral bleeding. 022 2024 Discontinued(S top Taking at Discharge) amoxicillin 500 mg capsule Take 4 tablet/capsule (2,000 mg total) by mouth once as needed (Dental procedures.) 023 2024 Discontinued(T herapy completed) doxycycline hyclate (VIBRAMYCIN) 50 mg capsuleIndicati ons:Acne rosacea Take 1 capsule (50 mg total) by mouth daily 90 capsule 3 024 2024 Discontinued(T herapy completed) rabies (RabAvert, PF,) 2.5 unit vaccineIndicati ons:Rabies Postexposure Prophylaxis Inject 1 mL into the muscle as instructed once for 1 dose 1 mL 025 2024 Discontinued Active Problems Problem Noted Date Diagnosed Date Pyogenic arthritis of left knee joint 08/19/2024 Hyperkalemia 08/19/2024 Contrast-induced nephropathy 08/17/2024 Assessment & Plan (08/17/2024 12:09 PM CDT): See assessment and plan for LITZY Hypoalbuminemia 08/17/2024 Assessment & Plan (08/17/2024 12:12 PM CDT): Albumin reviewed on 08/17 and declined to 2.5. Likely nutritional. Plan: Monitor albumin. Cellulitis 08/16/2024 Assessment & Plan (08/17/2024 12:08 PM CDT): See assessment and plan for bat bite. LITZY (acute kidney injury) 08/15/2024 Assessment & Plan (08/17/2024 12:11 PM CDT): On 08/15, developed an LITZY after exposure to vancomycin and IV contrast. Suspect contrast induced nephropathy. Creatinine reviewed on 08/17 with continued elevation slowing to 3.27. Anticipate potentially reaching plateau. Plan: Monitor renal function. Continue NS 100 mL an hour. Bacteremia due to group B Streptococcus 08/14/19 25 Assessment & Plan (08/17/2024 12:19 PM CDT): Status post infectious disease consultation. Now deemed secondary to group B bacteremia from potential finger cellulitis. Marked improvement after initiation of broad-spectrum antibiotics. Had CRP marked elevated. Meeting sepsis criteria on admission, with sepsis now resolved. X-ray of hand reassuring. X-ray of knee with non specific peripatellar swelling. Status post dry tap of left knee. Status post 2 dose vaccine for rabies. Status post IV vancomycin, Flagyl and cefepime that has now been transitioned to p.o. cefdinir. Initial blood culture sensitivities now received. Plan: Infectious disease on consult. Orthopedics consulted Was changed to p.o. cefdinir 08/16 to complete 10 days Follow up blood cultures of admission and 08/13. Assessment & Plan (08/13/2024 3:37 AM CDT): Risk factors of recent potential punctation from a bat making potential rabies versus oral infection a concern. Other differentials are potential septic arthritis from left knee versus left hip versus sepsis of unclear etiology versus GI source given elevated bilirubin. Given timeline, favor potentially knee at this time. Marked improvement after initiation of broad-spectrum antibiotics. Additionally has CRP marked elevated. Meeting sepsis criteria on admission. Protecting airway. X-ray of hand reassuring. X-ray of knee with nonspecific peripatellar swelling. Plan: Given concern of potential rabies progression, infectious disease consulted, awaiting further recommendations. Orthopedics consulted, awaiting further recommendations. Placed NPO pending evaluation for potential knee arthrocentesis If continued concerns MRI of need to be ordered. Hepatic panel ordered and pending. If continued elevation of bilirubin, right upper quadrant ultrasound to be ordered. If continued thrombocytopenia, will test for HIV and viral hepatitis Blood cultures ordered and pending We will continue cefepime 2 mg IV, vancomycin and status post Flagyl pending further isolating of potential source and fever stabilization. Benign prostatic hyperplasia without lower urinary tract symptoms 08/13/2024 Assessment & Plan (08/17/2024 12:00 PM CDT): Chronic. At baseline. Plan: Continue Flomax 0.4 mg daily. Assessment & Plan (08/13/2024 3:38 AM CDT): Chronic. At baseline. Plan: Continue Flomax 0.4 mg daily. Obesity (BMI 30.0-34.9) 08/13/2024 Assessment & Plan (08/17/2024 12:00 PM CDT): BMI greater than 30 Plan: Recommend continued healthy lifestyle modifications. Assessment & Plan (08/13/2024 3:39 AM CDT): BMI greater than 30 Plan: Recommend continued healthy lifestyle modifications. History of total knee arthroplasty, left 025 Assessment & Plan (08/17/2024 12:03 PM CDT): Complicated by prior infection requiring revision in 2022. Left knee joint mildly erythematous and warm on admission. Orthopedics consulted and deemed septic arthritis less likely. Other differentials include transient inflammation from recent fall versus overuse. Ultrasound 08/16 with evidence of moderate to large effusion. Plan: Orthopedics consulted. Appreciate recommendations from Orthopedics on potentially increasing ambulation and activity. Assessment & Plan (08/13/2024 3:45 AM CDT): Complicated by prior infection requiring revision in 2022. Left knee joint mildly erythematous and warm on admission. Orthopedics consulted given concern of potential repeat infection. Other differentials include transient inflammation from recent fall. Plan: Orthopedics consulted. Appreciate recommendations on potential arthrocentesis Placed NPO pending recommendations. Metabolic acidosis, normal anion gap (NAG) 08/13 Assessment & Plan (08/17/2024 12:07 PM CDT): Bicarb 21 with no gap on admission. Potentially secondary to decreased alimentation versus infection of admission. Bicarb reviewed on 08/17 and continued acidosis of 17. Potentially secondary to recent contrast nephropathy. Plan: Monitor bicarb levels. If further decline, change fluids to include bicarb. Assessment & Plan (08/13/2024 3:55 AM CDT): Bicarb 21 with no gap on admission. Potentially secondary to decreased alimentation versus infection of admission. Plan: Monitor bicarb levels. Swelling of left knee 08/13/2024 Assessment & Plan (08/17/2024 12:08 PM CDT): See assessment and plan for history of knee arthroplasty. Bat bite of finger 08/12/2024 Assessment & Plan (08/17/2024 12:00 PM CDT): Per report. Right index finger. Concerns for potential rabies exposure. Unable to test offending animal at this time. Status post infectious disease consultation who deemed rabies infection less likely at this time. Status post to dose vaccination. Plan: Infectious disease consulted 08/16, transition to p.o. cefdinir to complete 10 days. Assessment & Plan (08/13/2024 3:42 AM CDT): Per report. Right index finger. Concerns for potential rabies exposure. Patient status post initial dose of treatment. Unable to test offending animal at this time. Patient potential in uncharacteristic timeline for potential rabies symptomology. Plan: Infectious disease consulted, appreciate further recommendations Continue broad-spectrum antibiotics in the interim. Assessment & Plan (08/12/2024 4:06 PM CDT): New, unstable Current therapy (ies)/home meds: Augmentin and rabies vaccines per [place] [facility] Reviewed ED notes from [facility] 08/10/24 Today's Plan: Meds: continue Augmentin until completion Patient voices noncompliance with Augmentin 2/2 need to take it with food and has decreased appetite Follow up with scheduled rabies shots Follow up with [facility] and notification of health department Keep site clean and dry. monitor for signs of infectious process including streaking/worsening erythema, fever, increased warmth of site, purulent drainage Goal: decrease pruritus, prevent infectious process, healed site, compliance of medications Tachypnea 08/12/2024 Assessment & Plan (08/12/2024 4:18 PM CDT): 2/2 acuity and recent bat bite, recommended patient presents to the ED for further evaluation and sepsis workup Spoke with patient's caregiver and patient's son who verbalized understanding of need for additional workup Triage nursing offered to call EMS, patient refused. Helped patient to his car. Patient verbalized understanding of need for ED evaluation and voiced he would go to [facility]. Patient transported by personal vehicle into passenger seat. Called [facility] and spoke with Diana charge nurse; given report. Faxed Eulalio paperwork to [facility] Altered mental status 08/12/2024 Assessment & Plan (08/12/2024 4:19 PM CDT): 2/2 acuity and recent bat bite, recommended patient presents to the ED for further evaluation and sepsis workup Spoke with patient's caregiver and patient's son who verbalized understanding of need for additional workup Triage nursing offered to call EMS, patient refused. Helped patient to his car. Patient verbalized understanding of need for ED evaluation and voiced he would go to [facility]. Patient transported by personal vehicle into passenger seat. Called [facility] and spoke with Diana charge nurse; given report. Faxed Eul[facility]io paperwork to [facility] Acute cough 05/30/2024 Upper respiratory tract infection 05/10/2024 Assessment & Plan (05/10/2024 9:37 PM HOUSETRAILER SERVICER): Acute, symptoms for approximately 1 week. Afebrile, [...] 03/11. Assessment & Plan (04/18/2024 6:17 AM HOUSETRAILER SERVICER): Acute problem when he was travelling in [place] last fall, resolved with treatment sought there, details lacking. Consider follow up with urology. Other chest pain 09/25/2023 Assessment & Plan (05/10/2024 9:35 PM HOUSETRAILER SERVICER): Acute, symptoms for 1 week. Tenderness to [...] no acute changes or evidence of old RI. The patient's symptoms are likely noncardiac. He reports having several stress tests many years ago at [facility]. He does not want to go through the chemical stress test ever again because of reported side effects, and he is not ready or in any shape to get on the treadmill due to gaining weight and still recovering from infection of left knee hardware. He has a scheduled follow-up with his rn case manager, Dr. Gdowski, in about two weeks. We discussed the EKG findings and his symptoms with his rn case manager. Return here early as needed, otherwise [...] 08/26/2022 Assessment & Plan (02/20/2023 1:36 PM HOUSETRAILER SERVICER): He continues to take an iron supplement [...] fall, low back pain Orders for Pancho Stanley to arrange FOR CONSTIPATION: Continue drinking [...] spine Follow up as scheduled with Dr. Madrid or sooner if necessary Closed compression fracture [...] got a second opinion in neurosurgery at [facility] today. They basically had the same [...] not included. Sees Sam Whelan MD, [facility]. Wet on right, dry on left. Also bilateral vitreous syneresis. [facility] note on 06/18/2024: Status post total left knee replacement 01/15/20 22 Assessment & Plan (01/30/2022 5:27 PM HOUSETRAILER SERVICER): There is concern for his left prosthetic knee which has exhibited some warmth and swelling. This was tapped yesterday in orthopedics and there are around 65,000 nucleated cells. Microbiology preliminary report is negative. We will keep him on antibiotics (penicillin) pending further discussion with orthopedics. Assessment & Plan (01/15/2022 3:32 PM HOUSETRAILER SERVICER): Patient had L total Knee arthroplasty on 08/28/21. Current use of superintendent terminal anticoagulation 021 Overview (11/24/2020): Xarelto for Afib. [...] has been helpful. Have discussed with Dr. Madrid and will prescribe for acute anxiety episodes. Discussed with patient that medication can be sedating and that he should avoid driving or alcohol while using medication. Patient voiced understanding. Patient has f/u in July with Dr. Madrid and can readdress at that time to [...] this surgery. He will also see his rn case manager for a specific cardiac clearance. Assessment [...] but he should discuss this with his rn case manager as well. He can resume the [...] by wearing a mask. 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 Assessment & Plan (04/12/2024 4:25 AM HOUSETRAILER SERVICER): Chronic, diagnosed 3-4 years ago, status post definitive radiation therapy, comanaged with Urology and Radiation therapy. Assessment & Plan (04/09/2023 4:58 PM HOUSETRAILER SERVICER): He was treated with definitive radiation therapy [...] completely. Assessment & Plan (01/29/2021 4:09 PM HOUSETRAILER SERVICER): He completed radiation therapy. He has a [...] It. Assessment & Plan (04/09/2023 5:01 PM HOUSETRAILER SERVICER): He was prescribed CPAP, but never used [...] (09/26/2017): Added automatically from request for surgery [id number] Chronic left-sided headaches 03/19/2017 Overview (03/19/2017): New [...] moderate anemia postoperatively. He also saw his rn case manager at [facility], and a test of some kind was [...] it. Assessment & Plan (02/18/2021 3:03 PM HOUSETRAILER SERVICER): His energy level has improved considerably. He [...] same. Assessment & Plan (01/14/2022 4:00 PM HOUSETRAILER SERVICER): Patient has a hx of GERD and [...] option. Assessment & Plan (01/22/2017 2:20 PM HOUSETRAILER SERVICER): He never got a call from the [...] cell carcinoma (BCC) of upper back 016 Paroxysmal atrial fibrillation 11/08/2014 Overview (12/03/2019): On Multaq and Xarelto. Assessment & Plan (08/17/2024 11:58 AM CDT): Chronic. Tachycardia on admission has improved and now rate controlled. Previously taking Xarelto 20 mg daily. Plan: Continue home Multaq 400 mg daily. Continue Xarelto 20 mg daily. Assessment & Plan (08/13/2024 3:36 AM CDT): Chronic. Tachycardia on admission has improved and now rate controlled. Previously taking Xarelto 20 mg daily. Plan: Continue home Multaq 400 mg daily. Hold home Xarelto 20 mg daily. Assessment & Plan (05/10/2024 9:36 PM HOUSETRAILER SERVICER): Chronic, controlled on Multaq and Xarelto at this time. Heart rate regular upon auscultation camejo, vitals stable. See plan for URI above. Assessment & Plan (04/12/2024 4:25 AM HOUSETRAILER SERVICER): Chronic/intermittent, present for 10 or more years, controlled on dronedarone 400 mg daily (patient's idiosyncratic dosing), and rivaroxaban 20 mg daily, comanaged with Cardiology. Assessment & Plan (10/09/2023 3:30 PM CDT): Chronic, heart rhythm is irregular but rate is controlled. He is on Xarelto and Multaq. He will keep his follow ups with Dr. Lee. Assessment & Plan (04/09/2023 5:00 PM HOUSETRAILER SERVICER): Heart rhythm is regular. He is on [...] same. Assessment & Plan (04/16/2022 10:49 AM HOUSETRAILER SERVICER): He is on Multaq and Xarelto. Continue same. The Xarelto will be held for two days before reimplantation of his left knee. Assessment & Plan (01/30/2022 5:24 PM HOUSETRAILER SERVICER): He remains on Multaq. We corrected the dose to reflect what the patient reports he is taking, namely 400 mg twice a day instead the non standard 400 mg daily he took previously. Assessment & Plan (01/14/2022 3:57 PM HOUSETRAILER SERVICER): Patient has a hx of A-fib and [...] effects. He will discuss this with his rn case manager when he sees him for a cardiac clearance to have his left knee replaced. Assessment & Plan (01/29/2021 4:14 PM HOUSETRAILER SERVICER): Heart rhythm is currently regular. He is on Multaq and Xarelto. He followed up once with a rn case manager but did not do the testing [...] PM CDT): Scanned office note, Dr. Zelaya, [facility]. Also in Care Everywhere. Assessment & Plan (08/06/2020 10:39 AM CDT): Heart rhythm is regular. He is on Multaq and Xarelto. He plans to see his rn case manager, Dr. Zelaya, sometime next week to [...] well. Assessment & Plan (02/23/2018 3:29 PM HOUSETRAILER SERVICER): There is a history of paroxysmal atrial [...] continues on Multaq and Xarelto from his rn case manager. Sometimes he cuts the Multaq dose down if he is taking Motrin for his hip, because he does not want his blood to be too thin. He will follow up with Cardiology for all of these issues. Assessment & Plan (02/02/2017 5:13 PM HOUSETRAILER SERVICER): Recent Holter ordered by Dr. Montanez showed [...] WRITTEN ON 04/09/2023 4:51 PM BY IRENA MADRID MD Hospital diagnosis, entered during stay for cellulitis of the left thigh. >>OVERVIEW FOR DIASTOLIC DYSFUNCTION WRITTEN ON 04/12/2024 4:21 AM BY IRENA MADRID MD Overview: Grade 2 Assessment & Plan (04/12/2024 4:24 AM HOUSETRAILER SERVICER): Chronic, present for 10 or more years, not currently requiring diuretic or other medical therapy. We will monitor on periodic followups. Assessment & Plan (04/12/2024 4:21 AM HOUSETRAILER SERVICER): >>ASSESSMENT AND PLAN FOR DIASTOLIC DYSFUNCTION WRITTEN ON 12/07/2017 5:56 AM BY IRENA MADRID MD About four years ago, he had [...] his complaints of fatigue. He sees his rn case manager, Dr. Montanez, in about a month or two, and will ask him about diastolic dysfunction as a possible cause or contributing factor to his symptoms. Assessment & Plan (04/12/2024 4:21 AM HOUSETRAILER SERVICER): >>ASSESSMENT AND PLAN FOR DIASTOLIC DYSFUNCTION WRITTEN ON 02/23/2018 3:27 PM BY IRENA MADRID MD He seems to be doing well. Blood pressure is normal. Lungs are clear. Oxygen saturation is satisfactory. He has a rn case manager he sees regularly, Dr. Zelaya. Continue to monitor. Assessment & Plan (04/12/2024 4:21 AM HOUSETRAILER SERVICER): >>ASSESSMENT AND PLAN FOR DIASTOLIC DYSFUNCTION WRITTEN ON 08/26/2022 11:23 AM BY IRENA MADRID MD He wonders if he could have [...] Cardiology. Assessment & Plan (04/09/2023 4:53 PM HOUSETRAILER SERVICER): He has trace pretibial pitting edema. Lungs are clear in oxygenation is normal. He has not requiring any diuretic therapy at this time. We will monitor clinically. Assessment & Plan (04/03/2022 2:45 PM HOUSETRAILER SERVICER): He seems to be clinically stable with no significant edema, no crackles in his lungs. Oxygen saturation is normal. We will monitor clinically without medication. Primary osteoarthritis involving multiple joints 07/08/2012 Assessment & Plan (04/12/2024 4:26 AM HOUSETRAILER SERVICER): Chronic, present for 10 or more years, [...] shape. Assessment & Plan (02/18/2021 3:01 PM HOUSETRAILER SERVICER): He continues to have various aches and [...] joints. Assessment & Plan (02/23/2018 3:30 PM HOUSETRAILER SERVICER): He continues to have problems with aches [...] pain recently that was evaluated by his rn case manager at [facility], Dr. Lee. It was felt to [...] 10/03/2023 Assessment & Plan (04/09/2023 4:58 PM HOUSETRAILER SERVICER): He does not take anything for cholesterol [...] diet. Assessment & Plan (01/29/2021 4:10 PM HOUSETRAILER SERVICER): He is not currently taking anything for [...] medicine. Assessment & Plan (02/23/2018 3:27 PM HOUSETRAILER SERVICER): He decided to stop taking cholesterol medicine [...] prescription. Assessment & Plan (01/22/2017 2:16 PM HOUSETRAILER SERVICER): He is tolerating his medication without apparent side effects. We will continue the same and monitor labs periodically when appropriate. 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 Assessment & Plan (01/22/2017 1:59 PM HOUSETRAILER SERVICER): No new attacks of gout while on allopurinol. Resolved Problems Problem Noted Date Diagnosed Date Resolved Date Leukopenia 08/17/2024 08/19/2024 Assessment & Plan (08/17/2024 12:15 PM CDT): CBC reviewed on 08/17 and leukopenia 3.64. Potentially secondary to recent antibiotic use. Levels improving at this time. Plan: Continue antibiotic treatment Monitor wbc's, if worsening leukopenia, consider antibiotic adjustment. Change CBC to with differential Severe sepsis 08/13/2024 08/13/2024 Assessment & Plan (08/13/2024 3:51 AM CDT): Febrile, tachycardic, tachypneic on admission. Potential source of right index versus left knee versus GI suspected. Additionally platelets less than 100,000 on admission. Plan: See assessment and plan for fever. Hyponatremia 08/13/2024 08/17/2024 Assessment & Plan (08/13/2024 3:55 AM CDT): Sodium 128 on admission. Potentially secondary to reports of decreased appetite prior to admission. Plan: Status post status 1 L bolus. Monitor sodium level Serum total bilirubin elevated 08/13/2024 08/16/2024 Assessment & Plan (08/13/2024 3:56 AM CDT): Denying any abdominal pain. Potentially secondary to infection. Plan: Hepatic panel ordered and pending. If continued elevation, liver ultrasound. Rectal bleeding 05/30/2023 12/12/2023 Chronic infection of left knee 04/08/2023 04/12/2024 Overview (04/12/2024): Resolved after two stage replacement of prosthetic joint. 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 He is thinking of going back to [place] to swim, and I think this would be fine. Intractable left heel pain 02/03/2023 1 Assessment & Plan (04/15/2023 11:25 AM HOUSETRAILER SERVICER): He seems to be doing well with regard to most pain complaints, including left heel pain. However, his right wrist carpometacarpal joints flare up from time to time. He presumes it is due to gout. When it happens, he eats cherries which he says makes the problem go away. Assessment & Plan (02/20/2023 1:35 PM HOUSETRAILER SERVICER): He notes a sharp pain in his [...] (06/30/2022): Added automatically from request for surgery [id number], s/p successful 2-stage replacement (revision on 04/10/2022). Assessment & Plan (04/03/2022 2:46 PM HOUSETRAILER SERVICER): Surgery to reimplant his left knee is planned for next week. He sees Dr. Hoffman tomorrow for a preoperative evaluation. 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 Assessment & Plan (04/03/2022 2:47 PM HOUSETRAILER SERVICER): He had explantation of the infected joint [...] resolved. Assessment & Plan (01/30/2022 5:23 PM HOUSETRAILER SERVICER): His diarrhea has improved significantly. He has [...] records. Assessment & Plan (01/19/2022 3:49 PM HOUSETRAILER SERVICER): The cellulitis involved much of the left [...] cellulitis. Assessment & Plan (01/19/2022 3:48 PM HOUSETRAILER SERVICER): He was hospitalized recently for a streptococcal [...] baseline. Assessment & Plan (01/15/2022 3:32 PM HOUSETRAILER SERVICER): Blood cultures from 01/12 now growing strep dysgalactiae with repeat blood cultures pending. - On Cefepime and vancomycin (01/13- Fever 01/13/2022 08/16/2024 Overview (06/30/2022): Cellulitis of left leg resulting in sepsis and infection of left knee replacement. Assessment & Plan (01/13/2022 6:48 PM HOUSETRAILER SERVICER): I was called by the patient's son [...] 06/30/2022 Assessment & Plan (01/18/2022 5:10 PM HOUSETRAILER SERVICER): When I assessed him five days ago at his home, he was markedly confused, more properly encephalopathic then delirious. He improved rapidly with treatment in the hospital and seems back to normal. Assessment & Plan (01/13/2022 6:49 PM HOUSETRAILER SERVICER): Probably due to fever and suspected sepsis. Cellulitis of left thigh 01/13/2022 Overview (06/30/2022): See hospital records, [facility]. Assessment & Plan (01/18/2022 5:09 PM HOUSETRAILER SERVICER): He says the cellulitis started on his [...] needed. Assessment & Plan (01/15/2022 3:33 PM HOUSETRAILER SERVICER): Patient currently has a left knee that [...] dehydrated. Assessment & Plan (01/30/2022 5:23 PM HOUSETRAILER SERVICER): He has been drinking fluid and is making plenty of urine. Blood pressure is in a better range. Assessment & Plan (01/29/2022 5:54 AM HOUSETRAILER SERVICER): He called the office today. He has [...] colchicine which he requested. Orthopedic aftercare 10/18/2019 Overview (12/03/2019): See office notes. Acute medial meniscus tear of left knee 09/28/2019 12/03/2019 Overview (12/03/2019): Added automatically from request for surgery [id number], arthroscopy 10/08/2019, Dr. Hoffman, [facility]. Internal derangement of left knee 09/28/2019 12/03/2019 Overview (12/03/2019): Added automatically from request for surgery [id number], arthroscopy 10/08/2019. Acute gout of knee 03/08/2019 0 Overview (12/03/2019): See office note. Assessment & Plan (03/27/2019 3:18 PM HOUSETRAILER SERVICER): He has a history of gout, but [...] note. Assessment & Plan (03/27/2019 3:20 PM HOUSETRAILER SERVICER): He denies any history of knee pain [...] 09/20/201806/2023 Assessment & Plan (01/28/2019 2:16 PM HOUSETRAILER SERVICER): The left superior trapezius/supraspinatus area has been [...] report. Assessment & Plan (01/28/2019 2:15 PM HOUSETRAILER SERVICER): He has had pain in his right [...] needed. Assessment & Plan (03/26/2018 9:46 AM HOUSETRAILER SERVICER): For a couple of months or more [...] issue. Assessment & Plan (02/02/2017 5:14 PM HOUSETRAILER SERVICER): This is his main concern at this time. It really impairs his quality of life. He has trouble getting his left sock and shoe on. Right now it is not so bad, but there are times when pain is quite severe, and he resorts to an yrex-zvb-brauuzj nonsteroidal. Recent x-ray showed severe osteoarthritis of [...] follow-up with Urology. Skin neoplasm 07/04/2015 12/12/2023 Thrombocytopenia 01/18/2015 08/17/2024 Overview (06/30/2022): Mild, transient/intermittent. Assessment & Plan (08/13/2024 3:54 AM CDT): Platelets of 98,000 on admission. Previous baseline of 138,000 in June. Potential infectious versus chronic condition. Denies any known history of hepatic or systemic disease. Plan: Continue fever workup. Trend CBC. If continued decline, will discuss potential HIV and hepatitis testing. Assessment & Plan (04/15/2023 11:29 AM HOUSETRAILER SERVICER): We are monitoring a mild and intermittent [...] labs. Assessment & Plan (02/23/2018 3:30 PM HOUSETRAILER SERVICER): Platelet count in the hospital when last checked at the time of left hip replacement was normal. He was taking B12 for awhile, but no longer takes it. We will monitor labs periodically. Assessment & Plan (01/22/2017 2:21 PM HOUSETRAILER SERVICER): This was noted on one of his blood counts, and as I recall his B12 level was also slightly low so we asked him to take a supplement which she takes irregularly. Things seem to be stable so we will continue to monitor. Increased frequency of urination 08/08/2014 12/12/2023 Overview [...] Obesity Assessment & Plan (04/09/2023 4:59 PM HOUSETRAILER SERVICER): He struggles with his weight. He eats [...] needed. Assessment & Plan (02/20/2023 1:37 PM HOUSETRAILER SERVICER): He would like to lose some weight. [...] weeks. Assessment & Plan (01/14/2022 3:56 PM HOUSETRAILER SERVICER): Patient BMI of 32.83. Assessment & Plan (12/19/2021 3:50 PM CDT): We encouraged attention to his diet, and hopefully some weight loss. Assessment & Plan (06/21/2021 8:31 AM CDT): I urged attention to his diet, and hopefully some weight loss. Assessment & Plan (01/29/2021 4:10 PM HOUSETRAILER SERVICER): We encouraged attention to his diet, and [...] apnea. Assessment & Plan (01/22/2017 2:17 PM HOUSETRAILER SERVICER): Weight loss could help some of his other issues, especially the pain he has from spinal stenosis and left hip osteoarthritis. He is down a few pounds, and he will continue efforts in this regard. Sepsis due to Streptococcus species without acute organ dysfunction 01/29/2022 06/30/2022 Overview (06/30/2022): See hospital records, [facility]. Assessment & Plan (01/30/2022 5:27 PM HOUSETRAILER SERVICER): One of several lood cultures was positive for Strep dysgalactiae. Follow-up blood cultures on antibiotics were negative. There is concern for his left prosthetic knee which has exhibited some warmth and swelling. See discussion elsewhere. Assessment & Plan (01/18/2022 5:11 PM HOUSETRAILER SERVICER): He was septic, but organ function remained [...] Encounters Date Type Department Care Team Description 08/23/2024 Documentation [facility] [address] [facility] [address] [place] [address] Funmilayo Winchester LPN IV Antibx ([place]) 08/23/2024 Telephone [facility] [address] [place] [address] Irena Madrid MD NEEDS JESENIA APPOINTMENT GUSTAVO; Spoke With Home Health Provider 08/20/2024 Plan of Care Documentation [facility] Home Infusion Therapy [address] [place] [address] 08/20/2024 Telephone [facility] [address] [place] [address] Irena Madrid MD 08/20/2024 Home Infusion [facility] [address] [place] [address] Goldie Obregon, [facility] Pyogenic arthritis of left knee joint, due to unspecified organism (HCC) (Primary Dx) 08/20/[address] [facility] [address] [facility] [address] [place] [address] Omid Hoffman MD 08/20/2024 Telephone [facility] [address] [facility] [address] [place] [address] Irena Madrid MD Spoke With Home Health Provider 08/18/2024 1:00 PM CDT - 08/18/2024 2:45 PM CDT Surgery [facility] Operating Room [address] [place] [address] Omid Hoffman MD IRRIGATION AND DEBRIDEMENT WITH POLY EXCHANGE-LEFT KNEE 08/18/2024 12:11 PM CDT Anesthesia Event [facility] Operating Room [address] [place] [address] Eddie Mcallister MD 08/12/2024 7:54 PM CDT - 08/20/2024 2:40 PM CDT Hospital Encounter [facility] IMU [address] [place] [address] Gail Wade MD Petters, Ekanga Sunday, MD Richards, Omid Borjas Jr., MD Bacteremia due to group B Streptococcus (Primary Dx); Fever, unspecified fever cause; Altered mental status, unspecified altered mental status type; Severe sepsis (HCC); Swelling of left knee; Bat bite of finger, initial encounter; Metabolic acidosis, normal anion gap (NAG); Hyponatremia; Serum total bilirubin elevated; Thrombocytopenia; Paroxysmal atrial fibrillation (HCC); History of total knee arthroplasty, left; Benign prostatic hyperplasia without lower urinary tract symptoms; Obesity (BMI 30.0-34.9); LITZY (acute kidney injury); Pyogenic arthritis of left knee joint, due to unspecified organism (HCC); Illness, unspecified; Contrast-induced nephropathy [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, T50.8X5A] Discharge Disposition: Discharge to home, home health skilled care 08/12/2024 7:29 PM CDT - 08/12/2024 11:59 PM CDT Hospital Encounter [facility] Discharge Disposition: Discharge to home or self care 08/12/2024 2:30 PM CDT Office Visit [facility] [address] [place] [address] Festus Arriaga, JENNIFER Tachypnea (Primary Dx); Transient alteration of awareness; Bat bite of finger, initial encounter 08/10/2024 Telephone [facility] [address] [facility] [address] [place] [address] Irena Madrid MD 07/03/2024 Telephone [facility] [address] [facility] [address] [place] [address] Irena Madrid MD 07/03/2024 Results Follow-Up [facility] [address] [facility] [address] [place] [address] Irena Madrid MD Hepatitis B surface antibody (immune status) Blood, Hepatitis B Surface Antigen Blood, Basic metabolic panel, Additional followed-up results: 5 07/01/2024 2:30 PM CDT Office Visit [facility] Radiation Oncology [address] [place] [address] John Khan MD PhD Malignant neoplasm prostate (CMS/HCC) (HCC) 06/29/2024 12:00 PM CDT Lab [address] [address] Medicare annual wellness visit, subsequent; Need for hepatitis B screening test; Acute midline low back pain without sciatica 06/29/2024 11:55 AM CDT Lab [address] [address] Malignant neoplasm prostate (CMS/HCC) (HCC) 06/08/2024 Telephone [facility] [address] [facility] [address] [place] [address] Irena Madrid MD 06/03/2024 1:00 PM CDT Office Visit [facility] [address] [place] [address] Genevieve Torres NP Upper respiratory tract infection, unspecified type (Primary Dx) 06/01/2024 Telephone [facility] [address] [place] [address] Irena Madrid MD Chest Congestion from Last 3 Months Immunizations Immunization Administration [...] Protein Subun it Rsvpref, Diluent (Abrysvo) 10/15/2023 Rabies Vaccine 08/17/2024,08/13/2024 TD Preservative Free 10/29/2023 ZOSTER LIVE 01/08/2012 ZOSTER Recombinant 03/24/2017,03/24/2017 Surgical History Surgery Date Site/Laterality Comments TOTAL HIP ARTHROPLASTY 10/13/[address] Hoffman, [facility]. BASAL CELL CARCINOMA EXCISION 07/04/2015 Left Shave biopsy, left shoulder. ORAL SURGERY 07/07/1998 Resection of benign fibrolipoma, [facility]. BASAL CELL CARCINOMA EXCISION 10/28/2007 Right Resection from right side of jaw, tumor present at margin. PROSTATE BIOPSY 11/11/2018 Positive for prostate cancer, Dr. Chávez [facility]. KNEE ARTHROSCOPY 10/08/2019 Left Partial medial & lateral meniscectomies, lateral & patellofemoral compartment chondroplasties, DASH Kay. RI ARTHRP ACETBLR/PROX FEM PROSTC AGRFT/ALGRFT Left TOTAL KNEE ARTHROPLASTY 07/16/2021 Left [facility]ASH Kay. KNEE SURGERY 02/04/2022 Left Stage I complete [...] femoral, tibial, and patellar components with reimplantation, DASH Kay. DEXA SCAN 08/28/2022 N/A Low Bone Mass. FLEXIBLE SIGMOIDOSCOPY 06/24/2023 N/A Multiple small localized angioectasias with stigmata of recent bleeding were found in the distal rectum. kA few diverticuli noted, Dr. Bell. PERIPHERALLY INSERTED CENTRA L CATHETER INSERTION 08/19/2024 [facility] Medical History Medical History Date Comments Hypercholesteremia Gout Atrial fibrillation (HCC) Elevated PSA 04/10/2016 PSA = 4.9 on 04/10 Osteoarthritis of left hip 01/08/2017 S/P l eft THR. Dr. Hoffman [facility]. Prostate cancer (HCC) 11/18/2018 Cancer in 6 cores, Ubaldo 3 + 3 = 6 in 5 cores, 3 + 4 = 7 in 1 core. Aftercare following left hip joint replacement surgery 10/26/2017 Pain in testicle 12/31/2011 Details lacking . Acute medial meniscus tear of left knee 09/28/19 20 Added automatically from request for surgery [id number], arthroscopy 10/08/2019, DASH Kay. Acute pain of left knee 03/08/2019 Sudden o nset of pain and swelling in left knee, no fever. Treated empirically as gout, see office note. Acute gout of knee 03/08/2019 See office no te. Internal derangement of left knee 09/28/2019 Added automatically from request for surgery [id number], arthroscopy 10/08/2019. Orthopedic aftercare 10/18/2019 See office notes. Obstructive sleep apnea 09/24/2018 Elevated prostate specific a ntigen (PSA) 04/10/2016 Elevated PSA, referred to geoff farrar, Dr. Kolton Jamison in 2017, Dr. Chávez in 2019. Localized Ca diagnosed 11/2018. Non morbid obesity 11/08/1984 Obesity Obesity due to excess calories 11/15/2020 D uplicate entry. Exhaustion 11/15/2020 Multifactorial, saw cardiology, Dr. Emanuel. GERD (gastroesophageal reflux disease) Hypoglycemic reaction Post-procedural fever 01/13/2022 Cellulitis of left leg resulting in sepsis and infection of left knee replacement. Sepsis due to Streptococcus species without acute organ dysfunction (HCC) 01/13/2022 See hospital rec ords, [facility]. 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 History of removal of joint prosthesis of left knee due to infection 03/27/2022 Added automatically from request for surgery [id number], s/p successful 2-stage replacement (revision on 04/10/2022). Hypophosphatemia 01/16/2022 During hospital ization for cellulitis and sepsis. Infection of total left knee replacement, subsequent encounter 04/10/2022 Orthopedics, Dr. Renate cummings. Covid-19 11/01/2021 Moderate symptom s, positive home [...] materials from doctor or pharmacy Never 04/26/2022 [facility] Utilities Answer Date Recorded In the past 12 months has th e [employer], gas, oil, or water [employer] threatened to shut off services in your [...] often do you attend chur ch or presybeterian services? Never 08/13/2024 Do you belong to any clubs o r organizations such as faith groups, unions, fraternal or athletic groups, or [...] any time in the past 12 m [facility], were you homeless or living in a prison (including now)? No 08/13/2024 Personal Safety Answer Date Recorded Have you ever been in or are you currently in a harmful physical or emotional relationship or is someone making you feel afraid or unsafe? Denies 08/18/2024 Sex and Gender Information Value Date Recorded Sex Assigned at Not on file Legal Sex Male 7:22 PM HOUSETRAILER SERVICER Gender Identity Not on file Sexual Orientation Not on file Obstetrics History Last Filed Vital Signs Vital Sign Reading Time Taken Comments Blood Pressure 152/82 08/20/2024 7:47 AM CDT Pulse 61 08/20/2024 7:47 AM CDT Temperature 37 C (98.6 F) 08/20/2024 7:47 AM CDT Respiratory Rate 16 08/20/2024 7:47 AM CDT Oxygen Saturation 99% 08/20/2024 7:47 AM CDT Inhaled Oxygen Concentration - - Weight 118.7 kg (261 lb 11 oz) 08/13/2024 1:35 A M CDT Height 188 cm (6' 2) 08/13/2024 1:35 AM CDT Body Mass Index 33.6 08/13/2024 1:35 AM CDT Plan of Treatment Health Maintenance Due Date Last Done Comments Covid-19 Vaccine (2023-2 5 season) 2024 11/17/2023, 02/25/2023, 07/04/2021, Additional history exists Well Visit 65+ 10/08/2024 10/09/2023, 06/09, 01/29/2021, Additional history exists Depression Screening 05/10/2025 05/10/2024, 10/09/2023, 07/01/2022, Additional history exists Fall Risk Assessment 08/20/2025 08/20/2024, 10/09/2023, 07/01/2022, Additional history exists DTaP/Tdap/Td Vaccine (2 - Td or Tdap) 08/10/2034 08/10/2024, 10/29/2023 Pneumococcal vaccine 65+ Completed 015, 01/08/2015, 03/10/2011, Additional history exists Zoster Vaccine Completed 03/24/2017, 03/10, 01/08/2012 Influenza Vaccine Completed 11/12/2023, , 12/09/2020, Additional history exists Hepatitis B Screening Completed 06/29/2024 Medical Devices Implanted Type Area Transfer Coordinator Device Identifier Shelf Expiration Date Model / Serial / Lot [employer] [id number] [place] 58mm Sector Hip Shell Acetabular Gription Sterile Latex Free - [id number] Implanted:Qty: 1 on 10/13/2017 by Omid Hoffman MD at [facility] Left: Hip [employer] 03/09/2027 [id number] / / [id number] [employer] [id number] [place] 58mm 36mm Hip Neutral Liner Acetabular Altrx Sterile Latex Free - [id number] Implanted:Qty: 1 on 10/13/2017 by Omid Hoffman MD at [facility] Left: Hip [employer] 06/07/2022 [id number] / / [id number] [employer] [id number] Actis Collar Hip 8 Standard Offset Stem Femoral - [id number] Implanted:Qty: 1 on 10/13/2017 by Omid Hoffman MD at [facility] Left: Hip [employer] 07/08/2027 [id number] / / [id number] [employer] 1365-36-330 Articul/Giacomo 36mm Cementless Hip +8.5mm 12/14 Taper Head Femoral Latex Free - [id number] Implanted:Qty: 1 on 10/13/2017 by Omid Hoffman MD at [facility] Left: Hip [employer] 08/07/2022 1365-36-330 / / [id number] [employer] Cement Bone Simplex Gentamicin High Viscosity [facility] 6195-1-001 - [id number] Implanted:Qty: 1 on 07/16/2021 by Omid Hoffman MD at [facility] Left: Knee [employer] 12/07/2022 6195-1-001 / / [id number] [employer] Cement Bone Simplex Gentamicin High Viscosity [facility] 6195-1-001 - [id number] Implanted:Qty: 1 on 07/16/2021 by Omid Hoffman MD at [facility] Left: Knee [employer] 12/07/2022 6195-1-001 / / [id number] [employer] Palacos R+G High Viscosity Cement Bone Gentamicin Arthroplasty 9124268 - [id number] Implanted:Qty: 1 on 02/04/2022 by Omid Hoffman MD at [facility] Left: Knee [employer] C1713 05/07/2022 [id number] / / [id number] [employer] [place] R+G High Viscosity Cement Bone Gentamicin Arthroplasty 9308715 - [id number] Implanted:Qty: 1 on 02/04/2022 by Omid Hoffman MD at [facility] Left: Knee [employer] C1713 05/07/2022 [id number] / / [id number] [employer] [place] R+G High Viscosity Cement Bone Gentamicin Arthroplasty 9451083 - [id number] Implanted:Qty: 1 on 02/04/2022 by Omid Hoffman MD at [facility] Left: Knee [employer] C1713 05/07/2022 [id number] / / [id number] [employer] [place] R+G High Viscosity Cement Bone Gentamicin Arthroplasty 7541658 - [id number] Implanted:Qty: 1 on 02/04/2022 by Omid Hoffman MD at [facility] Left: Knee [employer] C1713 05/07/2022 [id number] / / [id number] [employer] Cement Bone Simplex Gentamicin High Viscosity [facility] 6195-1-001 - [id number] Implanted:Qty: 1 on 04/10/2022 by Omid Hoffman MD at [facility] Left: Knee [employer] 06/08/2023 6195-1-001 / / [id number] [employer] Cement Bone Simplex Gentamicin High Viscosity [facility] 6195-1-001 - [id number] Implanted:Qty: 1 on 04/10/2022 by Omid Hoffman MD at [facility] Left: Knee [employer] 06/08/2023 6195-1-001 / / [id number] [employer] Attune Cement Revision Rotate Platform Knee 6 Baseplate Tibial [id number] - [id number] Implanted:Qty: 1 on 04/10/2022 by Omid Hoffman MD at [facility] Left: Knee [employer] [id number] 09/07/2031 [id number] / / [id number] [employer] Attune 22mm 60mm Revision Press Fit Knee Stem Femoral Sterile Latex Free [id number] - [id number] Implanted:Qty: 1 on 04/10/2022 by Omid Hoffman MD at [facility] Left: Knee [employer] [id number] 09/06/2028 [id number] / / [id number] [employer] Attune L53 Mm Revision Full Coated Knee Sleeve Tibial Porocoat Sterile Latex Free [id number] - [id number] Implanted:Qty: 1 on 04/10/2022 by Omid Hoffman MD at [facility] Left: Knee [employer] 05/08/2031 [id number] / / [id number] Attune Knee System Revision Femoral Sleeve Porocoat Fully Coated Implanted:Qty: 1 on 04/10/2022 by Omid Hoffman MD at [facility] Left: Knee [employer] C1776 06/07/2029 [id number] / / [id number] [employer] Attune H4 Mm Revision Cement Knee Distal 7 Augment Femoral Sterile Latex Free [id number] - [id number] Implanted:Qty: 1 on 04/10/2022 by Omid Hoffman MD at [facility] Left: Knee [employer] 04/09/2031 [id number] / / [id number] [employer] Attune Revision Cement Constrain Knee Left 7 Component Femoral Sterile 075463807 - [id number] Implanted:Qty: 1 on 04/10/2022 by Omid Hoffman MD at [facility] Left: Knee [employer] 03/09/2031 [id number] / / [id number] [employer] Attune 22mm 60mm Revision Press Fit Knee Stem Femoral Sterile Latex Free [id number] - [id number] Implanted:Qty: 1 on 04/10/2022 by Omid Hoffman MD at [facility] Left: Knee [employer] 10/07/2029 [id number] / / [id number] [employer] Attune H4 Mm Revision Cement Knee Posterior 7 Augment Femoral Sterile Latex Free [id number] - [id number] Implanted:Qty: 1 on 04/10/2022 by Omid Hoffman MD at [facility] Left: Knee [employer] 03/09/2031 [id number] / / [id number] [employer] Attune H4 Mm Revision Cement Knee Distal 7 Augment Femoral Sterile Latex Free [id number] - [id number] Implanted:Qty: 1 on 04/10/2022 by Omid Hoffman MD at [facility] Left: Knee [employer] 04/09/2031 [id number] / / [id number] [employer] Attune 38mm Cemented Medialize Knee Dome Patellar Aox Sterile [id number] - [id number] Implanted:Qty: 1 on 04/10/2022 by Omid Hoffman MD at [facility] Left: Knee [employer] 01/07/2027 [id number] / / [id number] [employer] Attune H8 Mm Revision Constrain Rotate Platform Knee 6 Insert Tibial Aox Sterile [id number] - Sn/A - [id number] Implanted:Qty: 1 on 04/10/2022 by Omid Hoffman MD at [facility] Left: Knee [employer] C1776 10/07/2022 [id number] / N/A / [id number] [employer] Stimulan Rapid Cure Kit Paste Pinion Staker 10cc 20cc Bone Void 620-010 - [id number] Implanted:Qty: 1 on 08/18/2024 by Omid Hoffman MD at [facility] Left: Knee [employer] 01/07/2027 620-010 / / [id number] Depuy [employer] Attune 10mm Revision Constrain Rotate Platform Knee 7 Insert [id number] - [id number] Implanted:Qty: 1 on 08/18/2024 by Omid Hoffman MD at [facility] Left: Knee [employer] [id number] 06/07/2028 [id number] / / [id number] Explanted Type Area Transfer Coordinator Device Identifier Shelf Expiration Date Model / Serial / Lot Depuy [employer] [id number] Attune S+ Cement Fix Bearing Knee 7 Baseplate Tibial - [id number] Implanted:Qty: 1 on 07/16/2021 by Omid Hoffman MD at [facility] Explanted:Qty: 1 on 02/04/2022 at [facility] Left: Knee [employer] 06/08/2031 [id number] / / [id number] [employer] [id number] Attune Cemented Posterior Stabilize Knee Left 7 Component Femoral - [id number] Implanted:Qty: 1 on 07/16/2021 by Omid Hoffman MD at [facility] Explanted:Qty: 1 on 02/04/2022 at [facility] Left: Knee [employer]uy [employer] 11/07/2028 [id number] / / [id number] [employer] [id number] Attune 8mm Posterior Stabilize Fix Bearing Knee 7 Insert Tibial - [id number] Implanted:Qty: 1 on 07/16/2021 by Omid Hoffman MD at [facility] Explanted:Qty: 1 on 02/04/2022 at [facility] Left: Knee [employer] 04/09/2026 [id number] / / [id number] Procedures Procedure Name Priority Date/Time Associated Diagnosis Comments EGFR Routine 08/20/2024 3:18 AM CDT DIFFERENTIAL AUTO Routine 08/20/2024 3:1 8 AM CDT CBC WITHOUT DIFFERENTIAL Routine 08/20/2024 3:18 AM CDT BASIC METABOLIC PANEL Routine 08/20/2024 3:18 AM CDT CBC WITH AUTO DIFFERENTIAL Routine 08/20/2024 3:18 AM CDT MAGNESIUM Timed 08/20/2024 3:18 AM CDT INSERT PICC LINE Routine 08/19/2024 5:56 PM CDT XR CHEST 1 VIEW ED Urgent/IP Urgent 08/19/2024 5:46 PM CDT EGFR Routine 08/19/2024 6:39 AM CDT DIFFERENTIAL AUTO Routine 08/19/2024 6:3 9 AM CDT HIEU QUALITATIVE WITH REFLEX TO HIEU QUANTITATIVE Routine 08/19/2024 6:39 AM CDT C4 COMPLEMENT Routine 08/19/2024 6:39 AM CDT C3 COMPLEMENT Routine 08/19/2024 6:39 AM CDT BASIC METABOLIC PANEL Routine 08/19/2024 6:39 AM CDT CBC WITH AUTO DIFFERENTIAL Routine 08/19/2024 6:39 AM CDT URINALYSIS, MICROSCOPIC ONLY Routine 08/18/2024 6:13 PM CDT CREATININE, URINE, RANDOM Routine 08/18/2024 6:13 PM CDT SODIUM, URINE, RANDOM Routine 08/18/2024 6:13 PM CDT URINALYSIS AND REFLEX TO MICROSCOPIC AND CULTURE Routine 08/18/2024 6:13 PM CDT TISSUE AEROBIC AND ANAEROBIC CULTURE AND GRAM STAIN Routine 08/18/2024 1:45 PM CDT AEROBIC AND ANAEROBIC CULTURE AND GRAM STAIN Routine 08/18/2024 12:54 PM CDT RI AN ELECTIVE ENDOTRACHEAL AIRWAY Routine 08/18/2024 12:22 PM CDT DEBRIDEMENT WOUND 08/18/2024 11: 56 AM CDT LEFT SEPTIC KNEE URIC ACID Add-On 08/18/2024 5:38 AM CDT EGFR Routine 08/18/2024 5:38 AM CDT DIFFERENTIAL AUTO Routine 08/18/2024 5:3 8 AM CDT APTT Routine 08/18/2024 5:38 AM CDT PROTIME-INR Routine 08/18/2024 5:38 AM CDT BASIC METABOLIC PANEL Routine 08/18/2024 5:38 AM CDT CBC WITH AUTO DIFFERENTIAL Routine 08/18/2024 5:38 AM CDT CELL DIFFERENTIAL, BODY FLUID STAT 08/17/2024 1:15 PM CDT CRYSTAL ANALYSIS, BODY FLUID STAT 08/17/2024 1:15 PM CDT CELL COUNT W/REFLEX DIFFERENTIAL, BODY FLUID STAT 08/17/2024 1:15 PM CDT MYCOLOGY (FUNGAL) CULTURE AND STAIN STAT 08/17/2024 1:15 PM CDT AEROBIC AND ANAEROBIC CULTURE AND GRAM STAIN STAT 08/17/2024 1:15 PM CDT EGFR Routine 08/17/2024 7:22 AM CDT MAGNESIUM Timed 08/17/2024 7:22 AM CDT CBC WITHOUT DIFFERENTIAL Routine 08/17/2024 7:22 AM CDT COMPREHENSIVE METABOLIC PANEL Routine 08/17/2024 7:22 AM CDT US LOWER EXTREMITY LEFT LIMITED IP Routine 08/16/2024 4:54 PM CDT CRP (ACUTE PHASE) Routine 08/16/2024 7:0 5 AM CDT ERYTHROCYTE SEDIMENTATION RATE Routine 08/16/2024 7:05 AM CDT EGFR Routine 08/16/2024 7:05 AM CDT VANCOMYCIN LEVEL RANDOM Routine 08/16/2024 7:05 AM CDT CBC WITHOUT DIFFERENTIAL Routine 08/16/2024 7:05 AM CDT COMPREHENSIVE METABOLIC PANEL Routine 08/16/2024 7:05 AM CDT VANCOMYCIN LEVEL TROUGH Timed 08/15/2024 7:34 AM CDT EGFR Routine 08/15/2024 5:19 AM CDT CBC WITHOUT DIFFERENTIAL Routine 08/15/2024 5:19 AM CDT COMPREHENSIVE METABOLIC PANEL Routine 08/15/2024 5:19 AM CDT VANCOMYCIN LEVEL TROUGH Timed 08/14/2024 7:54 AM CDT EGFR Routine 08/14/2024 4:34 AM CDT MAGNESIUM Timed 08/14/2024 4:34 AM CDT CBC WITHOUT DIFFERENTIAL Routine 08/14/2024 4:34 AM CDT COMPREHENSIVE METABOLIC PANEL Routine 08/14/2024 4:34 AM CDT BLOOD CULTURE Routine 08/13/2024 1:12 PM CDT BLOOD CULTURE Routine 08/13/2024 1:04 PM CDT MAGNESIUM Add-On 08/13/2024 11:29 AM CDT EGFR Routine 08/13/2024 11:29 AM CDT BASIC METABOLIC PANEL Routine 08/13/2024 11:29 AM CDT TRANSTHORACIC ECHO (TTE) COMPLETE W DOPPLER/CF W CONTRAST Routine 08/13/2024 9:02 AM CDT XR KNEE LEFT 3 VIEWS ED Urgent/IP Urgent 08/13/2024 2:05 AM CDT URIC ACID STAT 08/13/2024 1:52 AM CDT EGFR Routine 08/13/2024 1:52 AM CDT DIFFERENTIAL AUTO Routine 08/13/2024 1:5 2 AM CDT PRO B-TYPE NATRIURETIC PEPTIDE Add-On 08/13/2024 1:52 AM CDT BASIC METABOLIC PANEL Routine 08/13/2024 1:52 AM CDT EGFR Routine 08/13/2024 1:52 AM CDT BLOOD GAS, VENOUS STAT 08/13/2024 1:5 2 AM CDT CBC WITH AUTO DIFFERENTIAL Routine 08/13/2024 1:52 AM CDT HEPATIC FUNCTION PANEL Routine 08/13/2024 1:52 AM CDT CRP (ACUTE PHASE) Add-On 08/13/2024 1:5 2 AM CDT CREATININE Routine 08/13/2024 1:52 AM CDT TROPONIN T HIGH-SENSITIVITY 6-HOUR Timed 08/13/2024 1:52 AM CDT URINALYSIS, MICROSCOPIC ONLY STAT 08/13/2024 12:56 AM CDT TROPONIN T HIGH-SENSITIVITY 4-HR Timed 08/13/2024 12:56 AM CDT URINALYSIS AND REFLEX TO MICROSCOPIC AND CULTURE STAT 08/13/2024 12:56 AM CDT XR HAND RIGHT 3 OR MORE VIEWS ED 08/13/2024 12:09 AM CDT TROPONIN T HIGH-SENSITIVITY 2-HOUR Timed 08/12/2024 10:[address] CHEST PE ABDOMEN PELVIS W CONTRAST ED 08/12/2024 9:[address] HEAD WO CONTRAST ED 08/12/2024 9 :55 PM CDT XR CHEST 1 VIEW ED 08/12/2024 8:28 PM CDT APTT Add-On 08/12/2024 8:09 PM CDT PROTIME-INR Add-On 08/12/2024 8:09 PM CDT ERYTHROCYTE SEDIMENTATION RATE Add-On 08/12/2024 8:07 PM CDT EGFR STAT 08/12/2024 8:07 PM CDT DIFFERENTIAL AUTO STAT 08/12/2024 8:0 7 PM CDT TROPONIN T HIGH-SENSITIVITY SERIES (BASELINE, 2HR, 4HR, 6HR) STAT 08/12/2024 8:07 PM CDT SEPSIS LACTATE WITH REFLEX STAT 08/12/2024 8:07 PM CDT COMPREHENSIVE METABOLIC PANEL STAT 08/12/2024 8:07 PM CDT CBC WITH AUTO DIFFERENTIAL STAT 08/12/2024 8:07 PM CDT INFLUENZA A/B, RSV, AND COVID-19 PCR STAT 08/12/2024 8:07 PM CDT BLOOD CULTURE STAT 08/12/2024 8:07 PM CDT BLOOD CULTURE STAT 08/12/2024 8:07 PM CDT ECG 12-LEAD STAT 08/12/2024 7:53 PM CDT EGFR Routine 06/29/2024 12:10 PM CDT Medicare [...] Last 3 Months Results * (ABNORMAL) eGFR (08/20/2024 3:18 AM CDT) eGFR 18(L) >=60 mL/min/1. 73 m2 Comment: Interpretive Data [...] interpretive data was last reviewed 2021. Blood 08/20/2024 3:18 AM CDT 08/20/2024 3:34 AM CDT us Omid Rodriguez Jr., MD LAB BLOOD ORDERABLE S Final Result [facility] ([place]) 1 [facility] Department [place] [address] * (ABNORMAL) Differential, auto (08/20/2024 3:18 AM CDT) Neutrophil abs 2.80 1.50 - 6.50 K/cumm Imm gran abs 0.02 0.00 - 0.10 K/cumm [facility] ([place]) Lymphocyte abs 0.56(L) 0.80 - 3.30 K/cumm [facility] ([place]) Monocyte abs 0.25 0.20 - 0.80 K/cumm [facility] ([place]) Eosinophil abs 0.11 0.00 - 0.50 K/cumm [facility] ([place]) Basophil abs 0.01 0.00 - 0.10 K/cumm [facility] ([place]) Neutrophil pct 74.7 % [facility] ([place]) Comment: Interpretive Data Percent cell count reference ranges are not reported, since discordance with absolute values may lead to misinterpretation of CBC data. Current Interpretive Data was last revised on 2017. Imm gran pct 0.5 % [facility] ([place]) Comment: Interpretive Data Percent cell count reference ranges are not reported, since discordance with absolute values may lead to misinterpretation of CBC data. Current Interpretive Data was last revised on 2017. Lymphocyte pct 14.9 % [facility] ([place]) Comment: Interpretive Data Percent cell count reference ranges are not reported, since discordance with absolute values may lead to misinterpretation of CBC data. Current Interpretive Data was last revised on 2017. Monocyte pct 6.7 % [facility] ([place]) Comment: Interpretive Data Percent cell count reference ranges are not reported, since discordance with absolute values may lead to misinterpretation of CBC data. Current Interpretive Data was last revised on 2017. Eosinophil pct 2.9 % [facility] ([place]) Comment: Interpretive Data Percent cell count reference [...] Data was last revised on 2017. Blood 08/20/2024 3:18 AM CDT 08/20/2024 3:34 AM CDT us Omid Rodriguez Jr., MD LAB BLOOD ORDERABLE S Final Result [facility] ([place]) [facility] Department [place] [address] * (ABNORMAL) CBC with auto differential (08/20/2024 3:18 AM CDT) WBC 3.75(L) 3.80 - 9.90 K/cumm Hgb 9.7(L) 13.0 - 17.5 g/dL [facility] ([place]) Hct 29.6(L) 38.9 - 50.3 % [facility] ([place]) Plt 246 150 - 400 K/cumm [facility] ([place]) MPV 10.5 9.1 - 12.3 fL [facility] ([place]) RBC 3.10(L) 4.30 - 5.80 M/cumm [facility] ([place]) MCV 95.5 81.3 - 96.4 fL [facility] ([place]) MCH 31.3 27.1 - 33.3 pg [facility] ([place]) MCHC 32.8 32.3 - 35.7 g/dL [facility] ([place]) RDW CV 14.9 11.1 - 14.9 % [facility] RDW SD 52.6(H) 35.7 - 48.1 fL [facility] ([place]) NRBC abs 0.00 0.00 - 0.01 K/cumm [facility] ([place]) Blood 08/20/2024 3:18 AM CDT 08/20/2024 3:34 AM CDT us Omid Rodriguez Jr., MD LAB BLOOD ORDERABLE S Final Result [facility] ([place]) 1 [facility] [place] [address] * (ABNORMAL) CBC without differential (08/20/2024 3:18 AM CDT) WBC 3.75(L) 3.80 - 9.90 K/cumm Hgb 9.7(L) 13.0 - 17.5 g/dL [facility] ([place]) Hct 29.6(L) 38.9 - 50.3 % [facility] ([place]) Plt 246 150 - 400 K/cumm [facility] ([place]) MPV 10.5 9.1 - 12.3 fL [facility]) RBC 3.10(L) 4.30 - 5.80 M/cumm [facility] ([place]) MCV 95.5 81.3 - 96.4 fL [facility]) MCH 31.3 27.1 - 33.3 pg [facility]) MCHC 32.8 32.3 - 35.7 g/dL [facility]) RDW CV 14.9 11.1 - 14.9 % [facility]) RDW SD 52.6(H) 35.7 - 48.1 fL [facility] ([place]) NRBC abs 0.00 0.00 - 0.01 K/cumm [facility] ([place]) Blood 08/20/2024 3:18 AM CDT 08/20/2024 3:34 AM CDT us Concepcion DAO LAB BLOOD ORDERABLES Final Result [facility] ([place]) 1 [facility] [place] [address] * Magnesium (08/20/2024 3:18 AM CDT) Magnesium 2.2 1.4 - 2.5 mg/dL Blood 08/20/2024 3:18 AM CDT 08/20/2024 3:34 AM CDT us Gail Wade MD LAB BLOOD ORDERABLES Saundra l Result Performing Organization Address City/[facility] Co de Phone Number [facility] ([place]) 1 [facility] Department [place] [address] * (ABNORMAL) Basic metabolic panel (08/20/2024 3:18 AM CDT) Sodium 139 135 - 145 mmol/L Potassium, pl 4.2 3.3 - 4.9 mmol/L [facility] ([place]) Chloride 108 97 - 110 mmol/L [facility]) CO2 18(L) 22 - 32 mmol/L [facility]) Anion gap 14 2 - 15 mmol/L [facility] ([place]) BUN 43(H) 6 - 25 mg/dL [facility] ([place]) Creatinine 3.22(H) 0.80 - 1.30 mg/dL [facility] ([place]) Glucose 111 70 - 199 mg/dL [facility] ([place]) [...] interpretive data was last revised 2022. Calcium 8.4(L) 8.5 - 10.3 mg/dL [facility] ([place]) Blood 08/20/2024 3:18 AM CDT 08/20/2024 3:34 AM CDT us Omid Rodriguez Jr., MD LAB BLOOD ORDERABLE S Final Result Performing Organization Address City/State/[facility] Co de Phone Number [facility] ([place]) 1 [facility] Department [place] [address] * Insert PICC line (08/19/2024 5:56 PM CDT) Anisha De La Torre, RN - 08/19/2024 5:56 PM CDT Anisha Barrientos, RN 08/19/2024 5:58 PM Vascular Access Nurse: Procedure Note Summary of treatment provided to patient today is as follows : . Bedside Procedure Time out/Checklist (Last 4 Hours) Pre-Op Checklist Row Name 08/19/24 1700 08/19/24 1501 Patient/Chart Verification Patient ID Verified Verbal -JN -- Allergies Verified Yes -JN -- Procedure Area/OR Notified of Latex Allergy Not applicable -JN -- Arm Bands On ID -JN -- Consents Confirmed Procedural -JN -- Pre-op Lab/Test Results Available Not applicable -JN -- COVID TESTING PERFORMED AND RESULTS REVIEWED N/A -JN -- Blood Products Needed N/A -JN -- Antibiotic Status Not applicable -JN -- Procedure Verification Correct Patient Yes -JN -- Correct Procedure Yes -JN -- Correct Laterality Not applicable -JN -- Correct Site Yes -JN -- Site Marked Yes -JN -- Patient Preparation Temp -- 36.3 C (97.3 F) -ES User Cruz (r) = Recorded By, (t) = Taken By, (c) = Cosigned By Initials Name Anisha Georges, ANITA ES Beba Cruz Vascular Access Documentation (Last 4 Hours) [facility] Additional Procedures Row Name 08/19/24 1750 08/19/24 1700 PICC Screening Questionnaire Order written on the chart for PICC insertion or placement? -- Y -JN Information form/Consent Obtained from POA/ Family -- Y -JN Is there an order from Renal giving ok to place PICC line? -- N/A -JN Are there any location restrictions? -- N -JN Does the patient have history of DVT or SVC syndrome? -- N -JN Does the patient currently have blood clots in chest / arms? -- N -JN Review of all IV meds/drips completed -- Yes -JN Patient allergies reviewed? -- Y -JN Labs Reviewed if applicable -- INR;Blood Cultures;Platelet count;Other (Comment) WBC -JN Procedures Line Type PICC single -JN -- Time in 1706 -- Time out 1734 -- Time Calculation (min) 28 min -JN -- Vascular Access Procedures PICC line placement;Education PICC/Midline -JN -- Comfort Measures Caregiver present;Position of comfort;Distraction -JN -- Patient Response Tolerated (no change in status) -JN -- Peripheral IV 08/12/24 20 G Anterior;Distal;Right;Upper Arm IV Properties Placement Date: 08/12/24 -SO Placement Time: 2002SO Size (Gauge): 20 G -SO Location Orientation: Anterior;Distal;Right;Upper -SO Location: Arm -SO PICC Single Lumen 08/19/24 Non-tunneled Power Left Basilic;Upper arm Line Properties Placement Date: 08/19/24 -JN Placement Time: 1729JN Catheter Time Out Checklist Completed: Yes -JN Hand Hygiene Performed: Yes -JN Site Prep: Alcohol;Chlorhexidine -JN Site Prep Agent has Completely Dried Before Insertion: Yes -JN All 5 Sterile Barriers or Appropriate Barriers Used (Gloves, Gown, Cap, Mask, Large Sterile Drape): Yes -JN Local Anesthetic: Injectable -JN Comfort Measures: Caregiver present;Position of comfort;Distraction -JN CVC Type: Non-tunneled -JN Power injectable: Power -JN Lumen # 1: #1 Purple, -JN Size (Fr): 4 -JN Orientation: Left -JN Location: Basilic;Upper arm -JN Vein depth (cm): 2 -JN Vein diameter (mm): 5 -JN Technique: Modified seldinger;Standard insertion technique with peel away sheath;Internal stiffener stylet removed easily;Ultrasound used to locate and cannulate vein -JN Lot #: [id number] -JN Expiration Date: 06/07/25 -JN Trimmed Length (cm) : 49 cm -JN Line Tip Location : Central -JN Initial Extremity Circumference (cm): 36 cm -JN Circumference Reference Point: PICC insertion site -JN Initial External Length Catheter (cm): 0 cm -JN Placement Verification: Blood return;Ultrasound;X-ray -JN Line Secured by : Securement device -JN Inserted by: Anisha Barrientos RN -JN Assisted By: Maine HOWARD -JN Insertion attempts: 1 -JN Patient Tolerance: Tolerated well - User Cruz (r) = Recorded By, (t) = Taken By, (c) = Cosigned By Initials Name Anisha Georges RN SO Oleary, Sarah, RN Single lumen PICC inserted in left upper arm without difficulty using sterile technique. Chest x-ray ordered to confirm placement d/t pt in a-fib. Flushes easily with good blood return. No bleeding or hematoma noted at this time. Pt tolerated procedure well. Line not ready for use. Anisha Barrientos RN us Tha Oh MD IV THERAPY ORDERABLE S Final Result * XR Chest 1 View (08/19/2024 5:46 PM CDT) Anatomical Region Laterality Modality Body, Chest N/A Computed Radiogr aphy 08/19/2024 8:22 PM CDT Narrative 08/19/2024 8:27 PM CDT EXAM DESCRIPTION: XR CHEST 1 VIEW REASON FOR STUDY: PICC placement PICC line placement TECHNIQUE: Single radiographic view(s) of the chest. COMPARISON: Chest radiographs 08/12/2024 ; CT chest 08/12/2024 FINDINGS: LUNGS: There is a calcified granuloma in the right mid lung. There are subtle opacities in the lung bases bilaterally there is no large pleural effusion. No pneumothorax appreciated. HEART/MEDIASTINUM: Unchanged enlargement of the cardiac silhouette. LINES/TUBES: Interval placement of a left upper extremity PICC which crosses midline and appears to terminate in the region of the superior vena cava. BONES: No acute osseous abnormality. IMPRESSION: Interval placement of a left upper extremity PICC which crosses midline and appears to terminate in the region of the superior vena cava. Subtle opacities in the lung bases bilaterally, which may represent atelectasis or pneumonia. THIS IS AN ELECTRONICALLY VERIFIED FINAL REPORT 08/19/2024 8:27 PM - Electronically signed by Les Harden M.D. AM: AM Report ID: [id number] Reading Location: [id number] Procedure Note Les Harden MD - 08/19/2024 EXAM DESCRIPTION: XR CHEST 1 VIEW REASON FOR STUDY: PICC placement PICC line placement TECHNIQUE: Single radiographic view(s) of the chest. COMPARISON: Chest radiographs 08/12/2024 ; CT chest 08/12/2024 FINDINGS: LUNGS: There is a calcified granuloma in the right mid lung. There are subtle opacities in the lung bases bilaterally there is no large pleural effusion. No pneumothorax appreciated. HEART/MEDIASTINUM: Unchanged enlargement of the cardiac silhouette. LINES/TUBES: Interval placement of a left upper extremity PICC whichcrosses midline and appears to terminate in the region of the superior vena cava. BONES: No acute osseous abnormality. IMPRESSION: Interval placement of a left upper extremity PICC which crosses midlineand appears to terminate in the region of the superior vena cava. Subtle opacities in the lung bases bilaterally, which may represent atelectasis or pneumonia. THIS IS AN ELECTRONICALLY VERIFIED FINAL REPORT 08/19/2024 8:27 PM - Electronically signed by Les Harden M.D. AM: AM Report ID: [id number] Reading Location: [id number] us Tha Oh MD IMG XR PROCEDURES Fi nal Result * HIEU ab ql w/rflx to HIEU qn (08/19/2024 6:39 AM CDT) HIEU Negative Comment: Interpretive Data Normal range for HIEU Qualitative Antibody = Negative. 1. HIEU is performed using indirect immunofluorescence against HEp-2 cells 2. HIEU titers are performed on all positive qualitative results. 3. A significantly positive HIEU result is defined as a positive nuclear fluorescence at a titer of 1:80 or greater. 4. 15% of normal people above age 65 have significantly positive HIEU results. 5% or less of normal people age 65 or under have significantly positive HIEU results. Current interpretive data was last revised on 2019. Testing performed by: [facility], [address] [facility], [place]., [address] Blood 08/19/2024 6:39 AM CDT 08/19/2024 10:04 AM CDT us Priya Parra MD LAB BLOOD ORDERABLES Final Result [facility] ([place]) 1 [facility] Department [place] [employer] [place] [address] * (ABNORMAL) eGFR (08/19/2024 6:39 AM CDT) eGFR 17(L) >=60 mL/min/1. 73 m2 Comment: Interpretive Data [...] interpretive data was last reviewed 2021. Blood 08/19/2024 6:39 AM CDT 08/19/2024 6:55 AM CDT us Omid Rodriguez Jr., MD LAB BLOOD ORDERABLE S Final Result [facility] ([place]) 1 [facility] [place] [employer] [place] [address] * (ABNORMAL) Differential, auto (08/19/2024 6:39 AM CDT) Neutrophil abs 3.76 1.50 - 6.50 K/cumm Imm gran abs 0.02 0.00 - 0.10 K/cumm [facility] ([place]) Lymphocyte abs 0.30(L) 0.80 - 3.30 K/cumm [facility] ([place]) Monocyte abs 0.27 0.20 - 0.80 K/cumm [facility] ([place]) Eosinophil abs 0.00 0.00 - 0.50 K/cumm [facility] ([place]) Basophil abs 0.01 0.00 - 0.10 K/cumm [facility] ([place]) Neutrophil pct 86.2 % [facility] ([place]) Comment: Interpretive Data Percent cell count reference ranges are not reported, since discordance with absolute values may lead to misinterpretation of CBC data. Current Interpretive Data was last revised on 2017. Imm gran pct 0.5 % [facility] ([place]) Comment: Interpretive Data Percent cell count reference ranges are not reported, since discordance with absolute values may lead to misinterpretation of CBC data. Current Interpretive Data was last revised on 2017. Lymphocyte pct 6.9 % [facility] ([place]) Comment: Interpretive Data Percent cell count reference ranges are not reported, since discordance with absolute values may lead to misinterpretation of CBC data. Current Interpretive Data was last revised on 2017. Monocyte pct 6.2 % [facility] ([place]) Comment: Interpretive Data Percent cell count reference ranges are not reported, since discordance with absolute values may lead to misinterpretation of CBC data. Current Interpretive Data was last revised on 2017. Eosinophil pct 0.0 % [facility] ([place]) Comment: Interpretive Data Percent cell count reference ranges are not reported, since discordance with absolute values may lead to misinterpretation of CBC data. Current Interpretive Data was last revised on 2017. Basophil pct 0.2 % [facility] ([place]) Comment: Interpretive Data Percent cell count reference ranges are not reported, since discordance with absolute values may lead to misinterpretation of CBC data. Current Interpretive Data was last revised on 2017. Blood 08/19/2024 6:39 AM CDT 08/19/2024 6:55 AM CDT us Omid Rodriguez Jr., MD LAB BLOOD ORDERABLE S Final Result [facility] ([place]) 1 [facility] [place] [address] * C4 complement (08/19/2024 6:39 AM CDT) [facility] Complement C4 18 10 - 40 mg/dL Comment:Testing performed by : [facility], [address] [place] [address], [place]., [address] Blood 08/19/2024 6:39 AM CDT 08/19/2024 9:10 AM CDT Priya Parra MD LAB BLOOD ORDERABLES Final Result [facility] ([place]) 1 [facility] Department [place] [address] * (ABNORMAL) CBC with auto differential (08/19/2024 6:39 AM CDT) [facility] WBC 4.36 3.80 - 9.90 K/cumm Hgb 10.1(L) 13.0 - 17.5 g/dL [facility] ([place]) Hct 30.5(L) 38.9 - 50.3 % [facility] ([place]) Plt 245 150 - 400 K/cumm [facility] ([place]) MPV 10.8 9.1 - 12.3 fL [facility] ([place]) RBC 3.20(L) 4.30 - 5.80 M/cumm [facility] ([place]) MCV 95.3 81.3 - 96.4 fL [facility] ([place]) MCH 31.6 27.1 - 33.3 pg [facility] ([place]) MCHC 33.1 32.3 - 35.7 g/dL [facility] ([place]) RDW CV 14.6 11.1 - 14.9 % [facility] ([place]) RDW SD 51.2(H) 35.7 - 48.1 fL [facility] ([place]) NRBC abs 0.00 0.00 - 0.01 K/cumm [facility] ([place]) Blood 08/19/2024 6:39 AM CDT 08/19/2024 6:55 AM CDT us Omid Rodriguez Jr., MD LAB BLOOD ORDERABLE S Final Result Performing Organization Address City/[facility]/ZIP Co de Phone Number [facility] ([place]) 1 [facility] [place] [address] * C3 complement (08/19/2024 6:39 AM CDT) Complement C3 120 90 - 180 mg/dL Comment:Testing performed by : [facility], [address] [place] [address], [facility], [address] Blood 08/19/2024 6:39 AM CDT 08/19/2024 9:10 AM CDT us Priya Parra MD LAB BLOOD ORDERABLES Final Result Performing Organization Address [facility]/ZIP Co de Phone Number [facility] ([place]) 1 [facility] [place] [employer] [place] [address] * (ABNORMAL) Basic metabolic panel (08/19/2024 6:39 AM CDT) Sodium 140 135 - 145 mmol/L Potassium, pl 5.0(H) 3.3 - 4.9 mmol/L [facility] ([place]) Chloride 110 97 - 110 mmol/L [facility] ([place]) CO2 18(L) 22 - 32 mmol/L [facility] ([place]) Anion gap 13 2 - 15 mmol/L [facility] ([place]) BUN 46(H) 6 - 25 mg/dL [facility] ([place]) Creatinine 3.45(H) 0.80 - 1.30 mg/dL [facility] ([place]) Glucose 154 70 - 199 mg/dL [facility] ([place]) Comment: Interpretive Data Fasting glucose >/= [...] classification and Diagnosis of Diabetes Diabetes Care 2021; 46: S19-S40. Current interpretive data was last revised 2022. Calcium 8.2(L) 8.5 - 10.3 mg/dL [facility] ([place]) Blood 08/19/2024 6:39 AM CDT 08/19/2024 6:55 AM CDT us Omid Rodriguez Jr., MD LAB BLOOD ORDERABLE S Final Result [facility] ([place]) 1 [facility] [place] [address] * (ABNORMAL) Urinalysis reflex to microscopic and culture Urine (08/18/2024 6:13 PM CDT) Color, ur Yellow Yellow Clarity, ur Clear Clear [facility] ([place]) Specific gravity, ur 1.012 1.003 - 1.030 [facility] ([place]) pH, urine 5.0 [facility] ([place]) Comment: Interpretive Data U rine pH is affected by diet, medications, systemic acid-base disturbances, and renal tubular function. pH may affect urinary stone formation. For example, urine pH below 6.0 may help reduce the tendency for calcium phosphate stones and pH greater than 6.0 may reduce the tendency for uric acid stone formation. Source: [facility] [employer] Current Interpretive Data was last revised on 2017 Protein, ur ql Trace Negative [facility] ([place]) Glucose, ur ql Negative Negative [facility] ([place]) Ketones, ur Negative Negative [facility] ([place]) Bilirubin, ur Negative Negative [facility] ([place]) Blood, ur 1+(A) Negative [facility] ([place]) Urobilinogen, ur <2.0 <2.0 mg/dL [facility] ([place]) Nitrite, ur Negative Negative [facility] ([place]) Leukocyte esterase, ur Negative Negative [facility] ([place]) UA reflex comment Reflex to microscopic UA will be performed. [facility] ([place]) Urine 08/18/2024 6:13 PM CDT 08/18/2024 6:32 PM CDT Priya Parra MD LAB MICROBIOLOGY - GENERAL ORDERABLES Final Result Performing Organization Address [facility] Co de Phone Number [facility] ([place]) 1 [facility] [place] [place] [address] * Sodium, urine, random (08/18/2024 6:13 PM CDT) Sodium, ur 99 mmol/L Comment: Interpretive Data No reference range established. Current interpretive data was last revised 2018. Urine 08/18/2024 6:13 PM CDT 08/18/2024 7:27 PM CDT Narrative [facility]ISA [facility] ([place]) - 08/18/2024 7:44 PM CDT No normal range us Priya Parra MD LAB URINE ORDERABLES Final Result Performing Organization Address [facility] Co de Phone Number [facility] ([place]) 1 [facility] [place] [place] [address] * Creatinine, urine, random (08/18/2024 6:13 PM CDT) Creatinine Ur 63.3 mg/dL Comment: Interpretive Data No reference range established. Current interpretive data was last revised 2018. Urine 08/18/2024 6:13 PM CDT 08/18/2024 7:27 PM CDT Narrative [facility] ([place]) - 08/18/2024 7:44 PM CDT No normal range Priya Parra MD LAB URINE ORDERABLES Final Result Performing Organization Address [facility]/ZIP Co de Phone Number [facility] ([place]) 1 [facility] [place] [place] [address] * (ABNORMAL) Urinalysis, microscopic only (08/18/2024 6:13 PM CDT) WBC, ur 0-5 0 - 5 /HPF RBC, ur 6-10(A) 0 - 2 /HPF [facility] ([place]) Epithelial cells, squamous, ur 1-5 0 - 5 /HPF [facility] ([place]) Culture Reflex Comment Reflex conditions for urine culture (WBC >10) not met. [facility] ([place]) Urine 08/18/2024 6:13 PM CDT 08/18/2024 6:32 PM CDT us Priya Parra MD LAB URINE ORDERABLES Final Result [facility] ([place]) 1 [facility] [place] [address] * Tissue aerobic and anaerobic culture and gram stain Bone Knee, left (08/18/2024 1:45 PM CDT) Direct Specimen Exam Stain: No polymorphonuclear leukocytes seen. No organisms seen. Comment:Testing performed by : [facility], [address] [place]., [address] Report Final Report: No growth [facility] ([place]) Comment:Testing performed by : [facility], [address] [place]., [address] Bone (Knee, left) 08/18/2024 1:45 PM CDT 08/18/2024 5:14 PM CDT Narrative [facility] ([place]) - 08/23/2024 11:11 AM CDT PROXIMAL TIBIA, LEFT KNEE Received in transport media. Testing performed by [facility] ([phone]) Specimens submitted from normally sterile body sites will have all bacterial morphotypes identified. Specimens that contain grossly mixed taryn and/or are from body sites that are not normally sterile will be examined for Staphylococcus aureus, Pseudomonas aeruginosa, beta-hemolytic strep, vancomycin-resistant Enterococcus, Bacteroides, Parabacteroides, Clostridium perfringens and fungus. If any of these are isolated, the organism will be reported. Current interpretive data was last revised on 2019. Omid Hoffman MD LAB MICROBIOLOGY - [facility] AL ORDERABLES Final Result Performing Organization Address [facility]/ZIP Co de Phone Number [facility] ([place]) 1 [facility] [place] [address] * Aerobic and anaerobic culture and gram stain Wound Knee, left (08/18/2024 12:54 PM CDT) Direct Specimen Exam Stain: Rare polymorphonuclear leukocytes seen. No organisms seen. Comment:Testing performed by : [facility], [address] [place] [address] Report Final Report: No growth [facility] ([place]) Comment:Testing performed by : [facility], [address] [place] [address]., [id number] Wound (Knee, left) 08/18/2024 12:54 PM CDT 08/18/2024 5:11 PM CDT Narrative [facility] ([place]) - 08/23/2024 11:12 AM CDT LEFT KNEE Specimen received on an ESwab. Testing performed by [facility] ([phone]) Specimens submitted from normally sterile body sites will have all bacterial morphotypes identified. Specimens that contain grossly mixed taryn and/or are from body sites that are not normally sterile will be examined for Staphylococcus aureus, Pseudomonas aeruginosa, beta-hemolytic strep, vancomycin-resistant Enterococcus, Bacteroides, Parabacteroides, Clostridium perfringens and fungus. If any of these are isolated, the organism will be reported. Current interpretive data was last revised on 2019. Omid Hoffman MD LAB MICROBIOLOGY - [facility] AL ORDERABLES Final Result [facility] ([place]) 1 [facility] [place] [address] * RI AN ELECTIVE ENDOTRACHEAL AIRWAY (08/18/2024 12:22 PM CDT) Narrative Nicola Guerrero CRNA - 08/18/2024 12:22 PM CDT Nicola Guerrero CRNA 08/18/2024 12:22 PM Airway Patient location: OR Urgency: elective Indications for airway management: anesthesia and airway protection Difficult airway: no Staff: Supervising provider: Eddie Mcallister MD Placed by: MANAGER [employer] MARKETING: Nicola Guerrero CRNA Emergent airway documentation: Risks and benefits discussed: yes Consent obtained: yes Consent given by: patient Airway prep: Preoxygenated: yes Patient position: sniffing Mask difficulty assessment: 0 - not attempted Spontaneous ventilation during airway: absent Sedation level during airway: GA Final airway details: Final airway type: endotracheal airway Tube type: ETT ETT size: 7.5 mm Cuffed: yes Technique used for successful ETT placement: video laryngoscopy Devices/Methods used in placement: intubating stylet Insertion site: oral Blade type: Han Video blade type: Graves Blade size: 3 Cormack-Lehane (video): grade I - full view of glottis Cuff volume: 7 mL Cuff inflated with: air ETT to lips: 21 cm Placement verified by: auscultation and CO2 detection Airway secured with: silk tape Number of attempts: 1 Ventilation between attempts: none Additional comments: Atraumatic intubation. Eddie Mcallister MD ANESTHESIA ORDERABLES Final Result * (ABNORMAL) eGFR (08/18/2024 5:38 AM CDT) eGFR 17(L) >=60 mL/min/1. 73 m2 Comment: Interpretive Data [...] of Race in Diagnosing Kidney Disease, JASN 2021). The CKD-EPI equation should not be used for patients with unstable renal function and has not been validated in children and those over 70. Current interpretive data was last reviewed 2021. Blood 08/18/2024 5:38 AM CDT 08/18/2024 5:49 AM CDT us Omid Rodriguez Jr., MD LAB BLOOD ORDERABLE S Final Result [facility] ([place]) 1 [facility] Department [place] [address] * (ABNORMAL) Differential, auto (08/18/2024 5:38 AM CDT) Neutrophil abs 2.62 1.50 - 6.50 K/cumm Imm gran abs 0.04 0.00 - 0.10 K/cumm [facility] ([place]) Lymphocyte abs 0.44(L) 0.80 - 3.30 K/cumm [facility] ([place]) Monocyte abs 0.30 0.20 - 0.80 K/cumm [facility] ([place]) Eosinophil abs 0.12 0.00 - 0.50 K/cumm [facility] ([place]) Basophil abs 0.01 0.00 - 0.10 K/cumm [facility] ([place]) Neutrophil pct 74.2 % [facility] ([place]) Comment: Interpretive Data Percent cell count reference ranges are not reported, since discordance with absolute values may lead to misinterpretation of CBC data. Current Interpretive Data was last revised on 2017. Imm gran pct 1.1 % [facility] ([place]) Comment: Interpretive Data Percent cell count reference ranges are not reported, since discordance with absolute values may lead to misinterpretation of CBC data. Current Interpretive Data was last revised on 2017. Lymphocyte pct 12.5 % [facility] ([place]) Comment: Interpretive Data Percent cell count reference ranges are not reported, since discordance with absolute values may lead to misinterpretation of CBC data. Current Interpretive Data was last revised on 2017. Monocyte pct 8.5 % [facility] ([place]) Comment: Interpretive Data Percent cell count reference ranges are not reported, since discordance with absolute values may lead to misinterpretation of CBC data. Current Interpretive Data was last revised on 2017. Eosinophil pct 3.4 % [facility] ([place]) Comment: Interpretive [...] Data was last revised on 2017. Blood 08/18/2024 5:38 AM CDT 08/18/2024 5:49 AM CDT us Omid Rodriguez Jr., MD LAB BLOOD ORDERABLE S Final Result [facility] ([place]) 1 [facility] [place] [address] * (ABNORMAL) CBC with auto differential (08/18/2024 5:38 AM CDT) WBC 3.53(L) 3.80 - 9.90 K/cumm Hgb 10.7(L) 13.0 - 17.5 g/dL [facility] ([place]) Hct 31.7(L) 38.9 - 50.3 % [facility] ([place]) Plt 208 150 - 400 K/cumm [facility] ([place]) MPV 10.6 9.1 - 12.3 fL [facility] ([place]) RBC 3.40(L) 4.30 - 5.80 M/cumm [facility] ([place]) MCV 93.2 81.3 - 96.4 fL [facility] ([place]) MCH 31.5 27.1 - 33.3 pg [facility] ([place]) MCHC 33.8 32.3 - 35.7 g/dL [facility] ([place]) RDW CV 14.3 11.1 - 14.9 % [facility] ([place]) RDW SD 48.8(H) 35.7 - 48.1 fL [facility] ([place]) NRBC abs 0.00 0.00 - 0.01 K/cumm [facility] ([place]) Blood 08/18/2024 5:38 AM CDT 08/18/2024 5:49 AM CDT Omid Rodriguez Jr., MD LAB BLOOD ORDERABLE S Final Result Performing Organization Address [facility] Co de Phone Number [facility] ([place]) 1 [facility] [place] [place] [address] * aPTT (08/18/2024 5:38 AM CDT) aPTT 37 28 - 38 sec [facility] ([place]) Comment: Interpretive Data Heparin therapeutic range: 66.0 - 100.0 seconds. Range based on correlation with therapeutic heparin activity range of 0.3 - 0.7 Units/mL. Current interpretive data was last revised on 2022. Blood 08/18/2024 5:38 AM CDT 08/18/2024 5:49 AM CDT us Omid Rodriguez Jr., MD LAB BLOOD ORDERABLE S Final Result Performing Organization Address [facility] de Phone Number [facility] ([place]) 1 [facility] [place] [address] * (ABNORMAL) Protime-INR (08/18/2024 5:38 AM CDT) PT 22.0(H) 9.7 - 13.0 sec [facility] INR 2.01(H) 0.90 - 1.20 [facility] Comment: Interpretive data Oral anticoagulant therapeutic ranges: Venous thromboembolism prophylaxis or treatment: 2.0-3.0 CARDIOLOGY Standard range: 2.0-3.0 High-intensity range: 2.5-3.5 Refer to indication-specific guidelines for appropriate target ranges for prosthetic heart valve replacement. Current interpretive data was last revised on 2019. Blood 08/18/2024 5:38 AM CDT 08/18/2024 5:49 AM CDT us Omid Rodriguez Jr., MD LAB BLOOD ORDERABLE S Final Result Performing Organization Address City/[facility]/ZIP Co de Phone Number [facility]ISA [facility] ([place]) 1 [facility] [place] [address] * Uric acid (08/18/2024 5:38 AM CDT) Uric acid 8.0 3.0 - 8.0 mg/dL Blood 08/18/2024 5:38 AM CDT 08/18/2024 12:55 PM CDT us Priya Parra MD LAB BLOOD ORDERABLES Final Result Performing Organization Address [facility] Co de Phone Number [facility] ([place]) 1 [facility] [place] [place] [address] * (ABNORMAL) Basic metabolic panel (08/18/2024 5:38 AM CDT) Sodium 139 135 - 145 mmol/L Potassium, pl 4.0 3.3 - 4.9 mmol/L [facility] ([place]) Chloride 107 97 - 110 mmol/L [facility] ([place]) CO2 18(L) 22 - 32 mmol/L [facility] ([place]) Anion gap 14 2 - 15 mmol/L [facility] ([place]) BUN 38(H) 6 - 25 mg/dL [facility] ([place]) Creatinine 3.34(H) 0.80 - 1.30 mg/dL [facility] ([place]) Glucose 116 70 - 199 mg/dL [facility] ([place]) Comment: Interpretive Data Fasting glucose >/= [...] classification and Diagnosis of Diabetes Diabetes Care 2021; 46: S19-S40. Current interpretive data was last revised 2022. Calcium 8.2(L) 8.5 - 10.3 mg/dL [facility] ([place]) Blood 08/18/2024 5:38 AM CDT 08/18/2024 5:49 AM CDT us Omid Rodriguez Jr., MD LAB BLOOD ORDERABLE S Final Result Performing Organization Address [facility] Co de Phone Number [facility] ([place]) 1 [facility] [place] [employer] [place] [address] * Crystal Analysis, Body Fluid (08/17/2024 1:15 PM CDT) Specimen type, fld Synovial Body site, fld left knee [facility] ([place]) Crystals None Seen [facility] ([place]) Crystals, fld None Seen [facility] ([place]) Fluid 08/17/2024 1:15 PM CDT 08/17/2024 1:29 PM CDT us Concepcion DAO LAB BODY FLUIDS AND S TOOLS ORDERABLES Final Result Performing Organization Address [facility] Co de Phone Number [facility] ([place]) 1 [facility] [place] [employer] [place] [address] * Cell Differential, Body Fluid (08/17/2024 1:15 PM CDT) Total cells diffed 100 % Comment: Interpretive Data Unless otherwise specified, the reference range and other method performance specifications have not been established for CSF/Body Fluid tests. The test results should be integrated into the clinical context for interpretation. Current interpretive data was last revised on 2018. Neutrophils, fld 84 % [facility] ([place]) Lymphs, fld 3 % [facility] ([place]) Monocyte, fld 9 % [facility] ([place]) Macrophages, fld 4 % [facility] ([place]) Fluid 08/17/2024 1:15 PM CDT 08/17/2024 1:29 PM CDT Concepcion DAO LAB BODY FLUIDS AND S TOOLS ORDERABLES Final Result Performing Organization Address [facility] Co de Phone Number [facility] ([place]) 1 [facility] [place] [address] * Cell count w/rflx diff, body fluid (08/17/2024 1:15 PM CDT) Specimen type, fld Synovial Body site, fld left knee [facility] ([place]) Color, fld Aline [facility] ([place]) Clarity, fld Turbid [facility] ([place]) Nucleated cells, fld 50,668 /cumm [facility] ([place]) Comment: Interpretive Data Unless otherwise specified, the reference range and other method performance specifications have not been established for CSF/Body Fluid tests. The test results should be integrated into the clinical context for interpretation. Current interpretive data was last revised on 2018. RBC, fld 28,000 /cumm [facility] ([place]) Fluid 08/17/2024 1:15 PM CDT 08/17/2024 1:26 PM CDT Concepcion DAO LAB BODY FLUIDS AND S TOOLS ORDERABLES Final Result Performing Organization Address [facility] Co de Phone Number LISA [facility] ([place]) 1 [facility] Department [place] [employer] [place] [address] * Aerobic and anaerobic culture and gram stain Synovial fluid Knee, left (08/17/2024 1:15 PM CDT) Direct Specimen Exam Stain: Cytospin Gram stain shows: Abundant polymorphonuclear leukocytes seen. No organisms seen. Comment:Testing performed by : [facility], [address] [place] [address] Report Final Report: No growth [facility] ([place]) Comment:Testing performed by : [facility], 1 [facility], [place]., [address] Synovial fluid (Knee, left) 08/17/2024 1:15 PM CDT 08/17/2024 5:07 PM CDT Narrative [facility] ([place]) - 08/23/2024 1:21 PM CDT Testing performed by [facility] ([phone]) Specimens submitted from normally sterile body sites will have all bacterial morphotypes identified. Specimens that contain grossly mixed taryn and/or are from body sites that are not normally sterile will be examined for Staphylococcus aureus, Pseudomonas aeruginosa, beta-hemolytic strep, vancomycin-resistant Enterococcus, Bacteroides, Parabacteroides, Clostridium perfringens and fungus. If any of these are isolated, the organism will be reported. Current interpretive data was last revised on 2019. Concepcion DAO LAB MICROBIOLOGY - [facility] ORDERABLES Final Result [facility] ([place]) 1 [facility] [place] [address] * (ABNORMAL) eGFR (08/17/2024 7:22 AM CDT) eGFR 18(L) >=60 mL/min/1. 73 m2 Comment: Interpretive Data [...] interpretive data was last reviewed 2021. Blood 08/17/2024 7:22 AM CDT 08/17/2024 8:00 AM CDT Gail Wade MD LAB BLOOD ORDERABLES Saundra norton Result Performing Organization Address [facility]/ZIP Co de Phone Number [facility] ([place]) 1 [facility] [place] [address] * (ABNORMAL) CBC without differential (08/17/2024 7:22 AM CDT) WBC 3.64(L) 3.80 - 9.90 K/cumm Hgb 10.6(L) 13.0 - 17.5 g/dL [facility] ([place]) Hct 30.5(L) 38.9 - 50.3 % [facility] ([place]) Plt 162 150 - 400 K/cumm [facility] ([place]) MPV 11.3 9.1 - 12.3 fL [facility] ([place]) RBC 3.33(L) 4.30 - 5.80 M/cumm [facility] ([place]) MCV 91.6 81.3 - 96.4 fL [facility] ([place]) MCH 31.8 27.1 - 33.3 pg [facility] ([place]) MCHC 34.8 32.3 - 35.7 g/dL [facility] ([place]) RDW CV 14.1 11.1 - 14.9 % [facility] ([place]) RDW SD 47.8 35.7 - 48.1 fL [facility] ([place]) NRBC abs 0.00 0.00 - 0.01 K/cumm [facility] ([place]) Blood 08/17/2024 7:22 AM CDT 08/17/2024 8:00 AM CDT Gail Wade MD LAB BLOOD ORDERABLES Saundra norton Result [facility] ([place]) 1 [facility] [place] [address] * Magnesium (08/17/2024 7:22 AM CDT) Pathologist [facility] Magnesium 2.4 1.4 - 2.5 mg/dL Blood 08/17/2024 7:22 AM CDT 08/17/2024 8:00 AM CDT us Gail Wade MD LAB BLOOD ORDERABLES Saundra l Result Performing Organization Address [facility]/ZIP Co de Phone Number [facility] ([place]) 1 [facility] [place] [employer] [place] [address] * (ABNORMAL) Comprehensive metabolic panel (08/17/2024 7:22 AM CDT) Pathologist [facility] Sodium 136 135 - 145 mmol/L Potassium, pl 3.9 3.3 - 4.9 mmol/L [facility] ([place]) Chloride 106 97 - 110 mmol/L [facility] ([place]) CO2 17(L) 22 - 32 mmol/L [facility] ([place]) Anion gap 13 2 - 15 mmol/L [facility] ([place]) BUN 40(H) 6 - 25 mg/dL [facility] ([place]) Creatinine 3.27(H) 0.80 - 1.30 mg/dL [facility] ([place]) Glucose 127 70 - 199 mg/dL [facility] ([place]) Comment: Interpretive Data Fasting glucose [...] classification and Diagnosis of Diabetes Diabetes Care 2021; 46: S19-S40. Current interpretive data was last revised 2022. Calcium 8.0(L) 8.5 - 10.3 mg/dL [facility] ([place]) Bilirubin, total 0.7 0.1 - 1.2 mg/dL [facility] ([place]) Protein, pl 5.6(L) 6.5 - 8.5 g/dL [facility] ([place]) Albumin 2.5(L) 3.5 - 5.0 g/dL [facility] ([place]) Alk phos 126 40 - 130 Units/L [facility] ([place]) ALT 23 7 - 55 Units/L [facility] ([place]) AST 27 10 - 50 Units/L [facility] ([place]) Blood 08/17/2024 7:22 AM CDT 08/17/2024 8:00 AM CDT us Gail Wade MD LAB BLOOD ORDERABLES Saundra norton Result [facility] ([place]) 1 [facility] [place] [address] * US Lower Extremity Left Limited (08/16/2024 4:54 PM CDT) Anatomical Region Laterality Modality Lower Extremities Left Ultrasound 08/16/2024 11:5 0 PM CDT Narrative 08/16/2024 11:52 PM CDT EXAM DESCRIPTION: US LOWER EXTREMITY LEFT LIMITED REASON FOR STUDY: left knee anterior ultrasound to assess for bursal fluid collection, joint effusion or both TECHNIQUE: A Dynamic assessment of the suprapatellar region was performed by the public relations player with selected grayscale and color Doppler images acquired and recorded in PACS. COMPARISON: None. FINDINGS: SKIN AND SUBCUTANEOUS TISSUES: No masses. No fluid collections. No edema. No foreign bodies. DEEP SOFT TISSUES/MUSCLES: No masses or edema. There is a rngscstb-fz-sdmvw joint effusion. OTHER: No other significant finding. IMPRESSION: Jmyxvdlp-ti-fvdby right knee effusion. THIS IS AN ELECTRONICALLY VERIFIED FINAL REPORT 08/16/2024 11:52 PM - Electronically signed by Laura Juárez M.D. SN: Report ID: [id number] [place] Location: [id number] Procedure Note Laura Juárez MD - 08/16/2024 EXAM DESCRIPTION: US LOWER EXTREMITY LEFT LIMITED REASON FOR STUDY: left knee anterior ultrasound to assess for bursalfluid collection, joint effusion or both TECHNIQUE: A Dynamic assessment of the suprapatellar region wasperformed by the public relations player with selected grayscale and color Doppler images acquiredand recorded in PACS. COMPARISON: None. FINDINGS: SKIN AND SUBCUTANEOUS TISSUES: No masses. No fluid collections. Noedema. No foreign bodies. DEEP SOFT TISSUES/MUSCLES: No masses or edema. There is mrtbzrjbt-gk-cqguz joint effusion. OTHER: No other significant finding. IMPRESSION: Nrlhlyiz-ys-mwkre right knee effusion. THIS IS AN ELECTRONICALLY VERIFIED FINAL REPORT 08/16/2024 11:52 PM - Electronically signed by Laura Juárez M.D. SN: Report ID: [id number] [place] Location: [id number] us Samantha Villatoro NP IMG US PROCEDURES Final Result * (ABNORMAL) eGFR (08/16/2024 7:05 AM CDT) eGFR 19(L) >=60 mL/min/1. 73 m2 Comment: Interpretive Data [...] interpretive data was last reviewed 2021. Blood 08/16/2024 7:05 AM CDT 08/16/2024 7:21 AM CDT Gail Wade MD LAB BLOOD ORDERABLES Saundra l Result [facility] ([place]) 1 [facility] [place] [place] [address] * (ABNORMAL) Erythrocyte sedimentation rate (08/16/2024 7:05 AM CDT) Pathologist [facility] Erythrocyte sedimentation rate 89(H) 1 - 20 mm/hr Blood 08/16/2024 7:05 AM CDT 08/16/2024 1:00 PM CDT Samantha Villatoro NP LAB BLOOD ORDERABLES Fi nal Result [facility] ([place]) 1 [facility] [place] [address] * (ABNORMAL) CBC without differential (08/16/2024 7:05 AM CDT) WBC 3.41(L) 3.80 - 9.90 K/cumm Hgb 11.0(L) 13.0 - 17.5 g/dL [facility] ([place]) Hct 32.7(L) 38.9 - 50.3 % [facility] ([place]) Plt 127(L) 150 - 400 K/cumm [facility] ([place]) MPV 11.7 9.1 - 12.3 fL [facility] ([place]) RBC 3.51(L) 4.30 - 5.80 M/cumm [facility] ([place]) MCV 93.2 81.3 - 96.4 fL [facility] ([place]) MCH 31.3 27.1 - 33.3 pg [facility] ([place]) MCHC 33.6 32.3 - 35.7 g/dL [facility] ([place]) RDW CV 13.9 11.1 - 14.9 % LISA [facility] ([place]) RDW SD 47.4 35.7 - 48.1 fL [facility] ([place]) NRBC abs 0.00 0.00 - 0.01 K/cumm [facility] ([place]) Blood 08/16/2024 7:05 AM CDT 08/16/2024 7:21 AM CDT us Gail Wade MD LAB BLOOD ORDERABLES Saundra l Result LISA [facility] ([place]) 1 [facility] [place] [address] * (ABNORMAL) CRP (acute phase) (08/16/2024 7:05 AM CDT) CRP 327.6(H) <=10.0 mg/L Blood 08/16/2024 7:05 AM CDT 08/16/2024 1:00 PM CDT Samantha Villatoro NP LAB BLOOD ORDERABLES Fi nal Result Performing Organization Address [facility] Co de Phone Number [facility] [address] [place] [address] [place] [address] * Vancomycin level random (08/16/2024 7:05 AM CDT) Vancomycin random 24.7 mcg/mL Comment: Random Vancomycin levels may vary due to the amount and time of last dose Current interpretive data was last revised on 2014 Blood 08/16/2024 7:05 AM CDT 08/16/2024 7:21 AM CDT Gail Wade MD LAB BLOOD ORDERABLES Saundra l Result [facility] ([place]) 1 [facility] [place] [address] * (ABNORMAL) Comprehensive metabolic panel (08/16/2024 7:05 AM CDT) Sodium 134(L) 135 - 145 mmol/L Potassium, pl 3.9 3.3 - 4.9 mmol/L [facility] ([place]) Chloride 102 97 - 110 mmol/L [facility] ([place]) CO2 19(L) 22 - 32 mmol/L [facility] ([place]) Anion gap 14 2 - 15 mmol/L [facility] ([place]) BUN 35(H) 6 - 25 mg/dL [facility] ([place]) Creatinine 3.10(H) 0.80 - 1.30 mg/dL [facility] ([place]) Glucose 114 70 - 199 mg/dL [facility] ([place]) [...] classification and Diagnosis of Diabetes Diabetes Care 2021; 46: S19-S40. Current interpretive data was last revised 2022. Calcium 8.2(L) 8.5 - 10.3 mg/dL [facility] ([place]) Bilirubin, total 0.9 0.1 - 1.2 mg/dL [facility] ([place]) Protein, pl 5.7(L) 6.5 - 8.5 g/dL [facility] ([place]) Albumin 2.5(L) 3.5 - 5.0 g/dL [facility] ([place]) Alk phos 111 40 - 130 Units/L [facility] ([place]) ALT 26 7 - 55 Units/L [facility] ([place]) AST 37 10 - 50 Units/L [facility] ([place]) Blood 08/16/2024 7:05 AM CDT 08/16/2024 7:21 AM CDT Gail Wade MD LAB BLOOD ORDERABLES Saundra l Result [facility] [place]) 1 [facility] [place] [address] * (ABNORMAL) Vancomycin level trough (08/15/2024 7:34 AM CDT) Vancomycin trough 33.0(C) 10.0 - 20.0 mcg/mL Comment:Critical Result call ed by [email or web address] at 2024-08-15 08:29:23. Result Read Back by clinton olivas/bear Blood 08/15/2024 7:34 AM CDT 08/15/2024 7:56 AM CDT Gail Wade MD LAB BLOOD ORDERABLES Saundra l Result Performing Organization Address [facility] Co de Phone Number [facility] ([place]) 1 [facility] [employer] [place] [address] * (ABNORMAL) eGFR (08/15/2024 5:19 AM CDT) eGFR 28(L) >=60 mL/min/1. 73 m2 Comment: Interpretive Data [...] interpretive data was last reviewed 2021. Blood 08/15/2024 5:19 AM CDT 08/15/2024 5:20 AM CDT Gail Wade MD LAB BLOOD ORDERABLES Saundra norton Result [facility] ([place]) 1 [facility] [place] [address] * (ABNORMAL) CBC without differential (08/15/2024 5:19 AM CDT) WBC 4.24 3.80 - 9.90 K/cumm Hgb 11.4(L) 13.0 - 17.5 g/dL [facility] ([place]) Hct 33.2(L) 38.9 - 50.3 % [facility] ([place]) Plt 100(L) 150 - 400 K/cumm [facility] ([place]) MPV 11.7 9.1 - 12.3 fL [facility] ([place]) RBC 3.67(L) 4.30 - 5.80 M/cumm [facility] ([place]) MCV 90.5 81.3 - 96.4 fL [facility] ([place]) MCH 31.1 27.1 - 33.3 pg [facility] ([place]) MCHC 34.3 32.3 - 35.7 g/dL [facility] ([place]) RDW CV 13.3 11.1 - 14.9 % [facility] ([place]) RDW SD 44.7 35.7 - 48.1 fL [facility] ([place]) NRBC abs 0.00 0.00 - 0.01 K/cumm [facility] ([place]) Blood 08/15/2024 5:19 AM CDT 08/15/2024 5:20 AM CDT us Gail Wade MD LAB BLOOD ORDERABLES Saundra norton Result [facility] ([place]) 1 [facility] [place] [address] * (ABNORMAL) Comprehensive metabolic panel (08/15/2024 5:19 AM CDT) Sodium 131(L) 135 - 145 mmol/L Potassium, pl 4.0 3.3 - 4.9 mmol/L [facility] ([place]) Chloride 100 97 - 110 mmol/L [facility] ([place]) CO2 18(L) 22 - 32 mmol/L [facility] ([place]) Anion gap 13 2 - 15 mmol/L [facility] ([place]) BUN 27(H) 6 - 25 mg/dL [facility] ([place]) Creatinine 2.25(H) 0.80 - 1.30 mg/dL [facility] ([place]) Glucose 133 70 - 199 mg/dL [facility] ([place]) [...] classification and Diagnosis of Diabetes Diabetes Care 2021; 46: S19-S40. Current interpretive data was last revised 2022. Calcium 8.3(L) 8.5 - 10.3 mg/dL [facility] ([place]) Bilirubin, total 1.1 0.1 - 1.2 mg/dL [facility] ([place]) Protein, pl 6.0(L) 6.5 - 8.5 g/dL [facility] ([place]) Albumin 2.7(L) 3.5 - 5.0 g/dL [facility] ([place]) Alk phos 73 40 - 130 Units/L [facility] ([place]) ALT 23 7 - 55 Units/L [facility] ([place]) AST 30 10 - 50 Units/L [facility] ([place]) Blood 08/15/2024 5:19 AM CDT 08/15/2024 5:20 AM CDT us Gail Wade MD LAB BLOOD ORDERABLES Saundra l Result [facility] ([place]) 1 [facility] [place] [address] * Vancomycin level trough (08/14/2024 7:54 AM CDT) Vancomycin trough 17.7 10.0 - 20.0 mcg/mL Blood 08/14/2024 7:54 AM CDT 08/14/2024 8:06 AM CDT us Lakeisha DAO LAB BLOOD ORDERABLES Saundra l Result Performing Organization Address [facility] Co de Phone Number [facility] ([place]) 1 [place] [address] * eGFR (08/14/2024 4:34 AM CDT) eGFR 70 >=60 mL/min/1. 73 m2 Comment: Interpretive Data [...] interpretive data was last reviewed 2021. Blood 08/14/2024 4:34 AM CDT 08/14/2024 4:38 AM CDT us Gail Wade MD LAB BLOOD ORDERABLES Saundra l Result [facility] ([place]) 1 [facility] [place] [address] * (ABNORMAL) CBC without differential (08/14/2024 4:34 AM CDT) WBC 5.59 3.80 - 9.90 K/cumm Hgb 12.0(L) 13.0 - 17.5 g/dL [facility] ([place]) Hct 33.6(L) 38.9 - 50.3 % [facility] ([place]) Plt 71(L) 150 - 400 K/cumm [facility] ([place]) MPV 11.5 9.1 - 12.3 fL [facility] ([place]) RBC 3.77(L) 4.30 - 5.80 M/cumm [facility] ([place]) MCV 89.1 81.3 - 96.4 fL [facility] ([place]) MCH 31.8 27.1 - 33.3 pg [facility] ([place]) MCHC 35.7 32.3 - 35.7 g/dL [facility] ([place]) RDW CV 13.3 11.1 - 14.9 % [facility] ([place]) RDW SD 43.5 35.7 - 48.1 fL [facility] ([place]) NRBC abs 0.00 0.00 - 0.01 K/cumm [facility] ([place]) Blood 08/14/2024 4:34 AM CDT 08/14/2024 4:38 AM CDT us Gail Wade MD LAB BLOOD ORDERABLES Saundra norton Result [facility] ([place]) 1 [facility] [place] [address] * Magnesium (08/14/2024 4:34 AM CDT) Magnesium 1.9 1.4 - 2.5 mg/dL Blood 08/14/2024 4:34 AM CDT 08/14/2024 4:38 AM CDT us Gail Wade MD LAB BLOOD ORDERABLES Saundra cierra Result [facility] ([place]) 1 [facility] [place] [address] * (ABNORMAL) Comprehensive metabolic panel (08/14/2024 4:34 AM CDT) Sodium 129(L) 135 - 145 mmol/L Potassium, pl 4.3 3.3 - 4.9 mmol/L [facility] ([place]) Chloride 100 97 - 110 mmol/L [facility] ([place]) CO2 16(L) 22 - 32 mmol/L [facility] ([place]) Anion gap 12 2 - 15 mmol/L [facility] ([place]) BUN 16 6 - 25 mg/dL [facility] ([place]) Creatinine 1.04 0.80 - 1.30 mg/dL [facility] ([place]) Comment:Icteric sample, test results may be affected. Glucose 120 70 - 199 mg/dL [facility] ([place]) [...] classification and Diagnosis of Diabetes Diabetes Care 2021; 46: S19-S40. Current interpretive data was last revised 2022. Calcium 8.0(L) 8.5 - 10.3 mg/dL [facility] ([place]) Bilirubin, total 1.7(H) 0.1 - 1.2 mg/dL [facility] ([place]) Protein, pl 5.7(L) 6.5 - 8.5 g/dL [facility] ([place]) Albumin 2.4(L) 3.5 - 5.0 g/dL [facility] ([place]) Alk phos 63 40 - 130 Units/L [facility] ([place]) ALT 23 7 - 55 Units/L [facility] ([place]) AST 37 10 - 50 Units/L [facility] ([place]) Comment: Hemolysis present. Results may be affected. Slightly Hemolyzed Specimen Blood 08/14/2024 4:34 AM CDT 08/14/2024 4:38 AM CDT Gail Wade MD LAB BLOOD ORDERABLES Saundra norton Result [facility] ([place]) 1 [facility] [place] [address] * Blood culture Blood (08/13/2024 1:12 PM CDT) Report Final Report: No growth Comment:Testing performed by : [facility], 1 [place]., [address] Blood 08/13/2024 1:12 PM CDT 08/13/2024 5:15 PM CDT Narrative [facility] ([place]) - 08/18/2024 7:00 AM CDT From a different site than #1. Collection->Peripheral 1. Blood cultures are incubated for 4 days on a continuously monitored blood culture system. The first report of a negative culture is issued within 24 hours of receipt of the specimen in the laboratory. 2. Positive culture results are reported as soon as they are detected. 3. The most important factor for detection of microbes in the setting of bloodstream infection is the volume of blood submitted for culture. Failure to collect an optimal blood volume can result in false negative blood cultures. 4. For pediatric patients, the recommended blood volume to collect follows a weight based strategy. See the electronic test catalog for collection instructions. 5. For positive blood cultures, a rapid molecular test may be performed for organism identification using the gio ePlex blood culture identification panel for gram positive (BCID-GP) and gram negative (BCID-GN) organisms. This nucleic acid amplification test detects microbial DNA in positive blood culture broth. This assay has been cleared by the [place] Food and Drug Administration and its performance characteristics have been verified by the [facility] Microbiology Laboratory. For questions about this culture, contact the Microbiology Laboratory at [phone]. Interpretive data was last revised on 24. Gail Wade MD LAB MICROBIOLOGY - GENERA L ORDERABLES Final Result Performing Organization Address City/[facility]/ZIP Co de Phone Number LISA ROCHE) 1 [facility] [place] [address] * Blood culture Blood (08/13/2024 1:04 PM CDT) Report Final Report: No growth Comment:Testing performed by : [facility], 1 [facility] [place]., [address] Blood 08/13/2024 1:04 PM CDT 08/13/2024 5:15 PM CDT Narrative [facility] ([place]) - 08/18/2024 7:00 AM CDT Collection->Peripheral 1. Blood cultures are incubated for 4 days on a continuously monitored blood culture system. The first report of a negative culture is issued within 24 hours of receipt of the specimen in the laboratory. 2. Positive culture results are reported as soon as they are detected. 3. The most important factor for detection of microbes in the setting of bloodstream infection is the volume of blood submitted for culture. Failure to collect an optimal blood volume can result in false negative blood cultures. 4. For pediatric patients, the recommended blood volume to collect follows a weight based strategy. See the electronic test catalog for collection instructions. 5. For positive blood cultures, a rapid molecular test may be performed for organism identification using the gio ePlex blood culture identification panel for gram positive (BCID-GP) and gram negative (BCID-GN) organisms. This nucleic acid amplification test detects microbial DNA in positive blood culture broth. This assay has been cleared by the [place] Food and Drug Administration and its performance characteristics have been verified by the [facility]biology Laboratory. For questions about this culture, contact the Microbiology Laboratory at [phone]. Interpretive data was last revised on 24. Gail Wade MD LAB MICROBIOLOGY - GENERA L ORDERABLES Final Result Performing Organization Address [facility]/ZIP Co de Phone Number [facility] ([place]) 1 [facility] [place] [address] * eGFR (08/13/2024 11:29 AM CDT) eGFR 70 >=60 mL/min/1. 73 m2 Comment: Interpretive Data [...] interpretive data was last reviewed 2021. Blood 08/13/2024 11:2 9 AM CDT 08/13/2024 11:31 AM CDT us Gail Wade MD LAB BLOOD ORDERABLES Saundra l Result Performing Organization Address [facility]/ZIP Co de Phone Number [facility] ([place]) 1 [facility] [place] [place] [address] * Magnesium (08/13/2024 11:29 AM CDT) Magnesium 2.0 1.4 - 2.5 mg/dL Blood 08/13/2024 11:2 9 AM CDT 08/13/2024 2:02 PM CDT Gail Wade MD LAB BLOOD ORDERABLES Saundra l Result [facility] ([place]) 1 [facility] [place] [address] * (ABNORMAL) Basic metabolic panel (08/13/2024 11:29 AM CDT) Sodium 130(L) 135 - 145 mmol/L Potassium, pl 3.5 3.3 - 4.9 mmol/L [facility] ([place]) Chloride 98 97 - 110 mmol/L [facility] ([place]) CO2 18(L) 22 - 32 mmol/L [facility] ([place]) Anion gap 14 2 - 15 mmol/L [facility] ([place]) BUN 14 6 - 25 mg/dL [facility] ([place]) Creatinine 1.05 0.80 - 1.30 mg/dL [facility] ([place]) Comment:Icteric sample, test results may be affected. Glucose 133 70 - 199 mg/dL [facility] ([place]) Comment: Interpretive Data Fasting glucose >/= [...] interpretive data was last revised 2022. Calcium 8.0(L) 8.5 - 10.3 mg/dL [facility] ([place]) Blood 08/13/2024 11:2 9 AM CDT 08/13/2024 11:31 AM CDT us Gail Wade MD LAB BLOOD ORDERABLES Saundra norton Result [facility] ([place]) 1 [facility] [place] [address] * TRANSTHORACIC ECHO (TTE) COMPLETE W DOPPLER/CF W CONTRAST (08/13/2024 9:02 AM CDT) Anatomical Region Laterality Modality Ultrasound 08/13/2024 8:42 AM CDT Narrative 08/13/2024 11:52 AM CDT [address] [place] [address] Echocardiogram Report Patient Name: PANCHO STANLEY : 1940 Study Date: 08/13/2024 8:42:44 AM Gender: M Tech: Location: [id number] Ref Provider: GAIL WADE Height(Cm): 188 BSA: 2.41 Weight(Kg): 111.1 Quality: Technically Difficult Study Order Provider: GAIL WADE PROCEDURES: Echocardiographic Report: Transthoracic echocardiogram with complete 2D, M-Mode, color Doppler examination and contrast. INDICATIONS: Shortness of breath. MEASUREMENTS: 2D/MM Value Range Doppler Value Range LA Dimension MM 5.00 cm [ 3.00 - 4.00 ] CATE Vmax 3.71 cm2 AoR Diam MM 4.15 cm [ 3.10 - 3.70 ] AV Mean PG 5 mmHg ACS MM 2.30 cm [ 1.50 - 2.60 ] AV Peak Mark 1.65 m/s [ 1.00 - 1.70 ] AV VTI 29.43 cm LVOT Diam 2.59 cm LVOT Peak Mark 1.16 m/s [ 0.70 - 1.10 ] LVOT VTI 23.42 cm MV E Peak Mark 0.69 m/s [ 0.60 - 1.30 ] MV A Peak Mark 0.64 m/s [ 1.00 - 1.20 ] MV Mean PG 1 mmHg MV PHT 65 msec [ 20 - 100 ] MVA 3.40 MV Decel Time 289 msec [ 104 - 258 ] PV Peak Mark 1.07 m/s [ 0.40 - 0.80 ] TR Peak Mark 2.38 m/s [ 1.00 - 2.80 ] TR Peak PG 23 mmHg RVSP 31.00 mmHg [ 10.00 - 36.00 ] E` 0.08 m/s E/E` 8.82 [ <= 10.00 ] PA Pressure 31.00 mmHg [ 10.00 - 36.00 ] 2D/MM Value Range Doppler Value Range - FINDINGS: Atrial Septum: Normal atrial septum. Left Ventricle: Normal left ventricular systolic function with no focal wall motion abnormalities. Normal left ventricular size. Normal left ventricular wall thickness. Normal left ventricular diastolic function. Left Atrium: There is moderate enlargement of left atrium. Right Ventricle: Normal right ventricular size. Normal right ventricular systolic function. Right Atrium: The right atrium is normal in size. Aortic Valve: No evidence of hemodynamically significant aortic stenosis by Doppler. Aortic cusps appear mildly sclerotic. Mitral Valve: Mitral valve leaflets appear mildly thickened. Trivial regurgitation of the mitral valve. Pulmonic Valve: Pulmonic valve not well visualized. No evidence of pulmonic regurgitation. Tricuspid Valve: Normal structure of the tricuspid valve. Normal right ventricular systolic pressure. Trivial regurgitation in the tricuspid valve. Pericardium: Normal pericardium with no significant pericardial effusion. Aorta: Ascending aorta is normal. No aortic root dilation. There is mild atherosclerosis in the aortic root. IVC: Dilated IVC without respiratory collapse consistent with elevated right atrial pressure (>15 mmHg). Pulmonary Artery: Pulmonary artery not well visualized. CONCLUSIONS: Normal left ventricular systolic function with no focal wall motion abnormalities. Normal left ventricular size. Normal left ventricular wall thickness. Normal left ventricular diastolic function. Normal right ventricular size. Normal right ventricular systolic function. There is moderate enlargement of left atrium. Mitral valve leaflets appear mildly thickened. Trivial regurgitation of the mitral valve. No evidence of hemodynamically significant aortic stenosis by Doppler. Aortic cusps appear mildly sclerotic. Normal structure of the tricuspid valve. Normal right ventricular systolic pressure. Trivial regurgitation in the tricuspid valve. Normal pericardium with no significant pericardial effusion. Technically difficult study with suboptimal visualization. Valves in general are poorly visualized. Optison contrast utilized. Electronically Signed By: Lillian Casey MD 08/13/2024 11:51:46 AM CDT Procedure Note Lillian Casey MD - 08/13/[address] [place] [address] Echocardiogram Report Patient Name: PANCHO STANLEY : 1940 Study Date: 08/13/2024 8:42:44 AM Gender: M Tech: Location: [address] Provider: GAIL WADE Height(Cm): 188 BSA: 2.41 Weight(Kg): 111.1 Quality: Technically Difficult Study Order Provider: GAIL WADE PROCEDURES: Echocardiographic Report: Transthoracic echocardiogram with complete 2D, M-Mode, color Dopplerexamination and contrast. INDICATIONS: Shortness of breath. MEASUREMENTS: 2D/MM Value Range Doppler ValueRange LA Dimension MM 5.00 cm [ 3.00 - 4.00 ] CATE Vmax 3.71cm2 AoR Diam MM 4.15 cm [ 3.10 - 3.70 ] AV Mean PG 5 mmHg ACS MM 2.30 cm [ 1.50 - 2.60 ] AV Peak Mark 1.65 m/s[ 1.00 - 1.70 ] AV VTI 29.43 cm LVOT Diam 2.59 cm LVOT Peak Mark 1.16 m/s [ 0.70 - 1.10 ] LVOT VTI 23.42 cm MV E Peak Mark 0.69 m/s [ 0.60 - 1.30 ] MV A Peak Mark 0.64 m/s [ 1.00 - 1.20 ] MV Mean PG 1 mmHg MV PHT 65 msec [ 20 - 100 ] MVA 3.40 MV Decel Time 289 msec [ 104 - 258 ] PV Peak Mark 1.07 m/s [ 0.40 - 0.80 ] TR Peak Mark 2.38 m/s [ 1.00 - 2.80 ] TR Peak PG 23 mmHg RVSP 31.00 mmHg [ 10.00 - 36.00 ] E` 0.08 m/s E/E` 8.82 [ <= 10.00 ] PA Pressure 31.00 mmHg [ 10.00 - 36.00 ] 2D/MM Value Range Doppler ValueRange - FINDINGS: Atrial Septum: Normal atrial septum. Left Ventricle: Normal left ventricular systolic function with no focal wall motionabnormalities. Normal left ventricular size. Normal left ventricular wall thickness. Normal leftventricular diastolic function. Left Atrium: There is moderate enlargement of left atrium. Right Ventricle: Normal right ventricular size. Normal right ventricular systolicfunction. Right Atrium: The right atrium is normal in size. Aortic Valve: No evidence of hemodynamically significant aortic stenosis by Doppler.Aortic cusps appear mildly sclerotic. Mitral Valve: Mitral valve leaflets appear mildly thickened. Trivial regurgitation ofthe mitral valve. Pulmonic Valve: Pulmonic valve not well visualized. No evidence of pulmonicregurgitation. Tricuspid Valve: Normal structure of the tricuspid valve. Normal right ventricular systolicpressure. Trivial regurgitation in the tricuspid valve. Pericardium: Normal pericardium with no significant pericardial effusion. Aorta: Ascending aorta is normal. No aortic root dilation. There is mildatherosclerosis in the aortic root. IVC: Dilated IVC without respiratory collapse consistent with elevated rightatrial pressure (>15 mmHg). Pulmonary Artery: Pulmonary artery not well visualized. CONCLUSIONS: Normal left ventricular systolic function with no focal wall motionabnormalities. Normal left ventricular size. Normal left ventricular wall thickness. Normal leftventricular diastolic function. Normal right ventricular size. Normal right ventricular systolicfunction. There is moderate enlargement of left atrium. Mitral valve leaflets appear mildly thickened. Trivial regurgitation ofthe mitral valve. No evidence of hemodynamically significant aortic stenosis by Doppler.Aortic cusps appear mildly sclerotic. Normal structure of the tricuspid valve. Normal right ventricular systolicpressure. Trivial regurgitation in the tricuspid valve. Normal pericardium with no significant pericardial effusion. Technically difficult study with suboptimal visualization. Valves ingeneral are poorly visualized. Optison contrast utilized. Electronically Signed By: Lillian Casey MD 08/13/2024 11:51:46 AM CDT us Gail Wade MD CV ECHO PROCEDURES Final Result * XR Knee Left 3 Views (08/13/2024 2:05 AM CDT) Anatomical Region Laterality Modality Lower Extremities, Knee Left Computed Radiography 08/13/2024 2:23 AM CDT Narrative 08/13/2024 2:29 AM CDT EXAM DESCRIPTION: XR KNEE LEFT 3 VIEWS REASON FOR STUDY: Pain. Fever. Concern septic knee C/o left knee pain and swelling x 1 week. Hx of Total knee arthroplasty TECHNIQUE: Frontal, tunnel, lateral views of the left knee . COMPARISON: None FINDINGS: BONES/JOINTS: Knee arthroplasty components appear well seated and intact. No fracture is seen. SOFT TISSUES: Nonspecific swelling above the patella. IMPRESSION: No hardware complication is seen. Nonspecific swelling above the patella. THIS IS AN ELECTRONICALLY VERIFIED FINAL REPORT 08/13/2024 2:29 AM - Electronically signed by Gilson Reyes M.D. [place]: ILA Report ID: [id number] Reading Location: [id number] Procedure Note Gilson Reyes MD - 08/13/2024 EXAM DESCRIPTION: XR KNEE LEFT 3 VIEWS REASON FOR STUDY: Pain. Fever. Concern septic knee C/o left knee pain and swelling x 1 week. Hx of Total knee arthroplasty TECHNIQUE: Frontal, tunnel, lateral views of the left knee . COMPARISON: None FINDINGS: BONES/JOINTS: Knee arthroplasty components appear well seated and intact.No fracture is seen. SOFT TISSUES: Nonspecific swelling above the patella. IMPRESSION: No hardware complication is seen. Nonspecific swelling above the patella. THIS IS AN ELECTRONICALLY VERIFIED FINAL REPORT 08/13/2024 2:29 AM - Electronically signed by Gilson Reyes M.D. [place]: ILA Report ID: [id number] Reading Location: [id number] Gail Wade MD IMG XR PROCEDURES Final R esult * Troponin T high-sensitivity 6-hour (08/13/2024 1:52 AM CDT) Trop T hs 17 <=22 ng/L Comment: Interpretive Data For further hscTnT resources including the diagnostic algorithm and an aid in interpretation, copy and paste this link: https://nrl.testcatalog.org/show/hsTrop Current Interpretive Data last revised 2020. Trop T hs delta 0 ng/L [facility] ([place]) Trop T hs interp Insignificant [facility] ([place]) Blood 08/13/2024 1:52 AM CDT 08/13/2024 1:56 AM CDT us Lakeisha DAO LAB BLOOD ORDERABLES Saundra norton Result [facility] ([place]) 1 [facility] [place] [address] * eGFR (08/13/2024 1:52 AM CDT) eGFR 62 >=60 mL/min/1. 73 m2 Comment: Interpretive Data [...] interpretive data was last reviewed 2021. Blood 08/13/2024 1:52 AM CDT 08/13/2024 5:16 AM CDT us Gail Wade MD LAB BLOOD ORDERABLES Saundra l Result [facility] ([place]) 1 [facility] [place] [address] * eGFR (08/13/2024 1:52 AM CDT) eGFR 62 >=60 mL/min/1. 73 m2 Comment: Interpretive Data [...] interpretive data was last reviewed 2021. Blood 08/13/2024 1:52 AM CDT 08/13/2024 1:56 AM CDT us Lakeisha DAO LAB BLOOD ORDERABLES Saundra l Result [facility] ([place]) 1 [facility] Department [place] [employer] [place] [address] * (ABNORMAL) Differential, auto (08/13/2024 1:52 AM CDT) Neutrophil abs 4.88 1.50 - 6.50 K/cumm Imm gran abs 0.03 0.00 - 0.10 K/cumm [facility] ([place]) Lymphocyte abs 0.48(L) 0.80 - 3.30 K/cumm [facility] ([place]) Monocyte abs 0.39 0.20 - 0.80 K/cumm [facility] ([place]) Eosinophil abs 0.00 0.00 - 0.50 K/cumm [facility] ([place]) Basophil abs 0.02 0.00 - 0.10 K/cumm [facility] ([place]) Neutrophil pct 84.2 % [facility] ([place]) Comment: Interpretive Data Percent cell count reference ranges are not reported, since discordance with absolute values may lead to misinterpretation of CBC data. Current Interpretive Data was last revised on 2017. Imm gran pct 0.5 % [facility] ([place]) Comment: Interpretive Data Percent cell count reference ranges are not reported, since discordance with absolute values may lead to misinterpretation of CBC data. Current Interpretive Data was last revised on 2017. Lymphocyte pct 8.3 % [facility] ([place]) Comment: Interpretive Data Percent cell count reference ranges are not reported, since discordance with absolute values may lead to misinterpretation of CBC data. Current Interpretive Data was last revised on 2017. Monocyte pct 6.7 % [facility] ([place]) Comment: Interpretive Data Percent cell count reference ranges are not reported, since discordance with absolute values may lead to misinterpretation of CBC data. Current Interpretive Data was last revised on 2017. Eosinophil pct 0.0 % [facility] ([place]) Comment: Interpretive Data Percent cell count reference ranges are not reported, since discordance with absolute values may lead to misinterpretation of CBC data. Current Interpretive Data was last revised on 2017. Basophil pct 0.3 % [facility] ([place]) Comment: Interpretive Data Percent cell count reference ranges are not reported, since discordance with absolute values may lead to misinterpretation of CBC data. Current Interpretive Data was last revised on 2017. Blood 08/13/2024 1:52 AM CDT 08/13/2024 5:10 AM CDT us Gail Wade MD LAB BLOOD ORDERABLES Saundra norton Result [facility] ([place]) 1 [facility] [place] [address] * (ABNORMAL) Pro B-type natriuretic peptide (08/13/2024 1:52 AM CDT) NT-proBNP 2,164(H) <=450 pg/mL Comment: Interpretive Comments: A. Dyspnea in Acute Care Setting All Ages: < 300 pg/ml, acute heart failure unlikely. < 50 yrs: 300 - 450 pg/ml, further investigation warranted. > 450 pg/ml, acute heart failure likely. 50 - 74 yrs: 300 - 900 pg/ml, further investigation warranted. > 900 pg/ml, acute heart failure likely . > or = 75 yrs: 450 - 1800 pg/ml, further investigation warranted. > 1800 pg/ml, acute heart failure likely. B. Non-acute Setting < 75 yrs < 125 pg/ml, rules out heart failure. > or = 125 pg/ml, further investigation warranted. > or = 75 yrs < 450 pg/ml, rules out heart failure. > or = 450 pg/ml, further investigation warranted. - Knowledge of each individual patient's NT-proBNP range may be more useful than using similar cut-points for every patient. Please note that marked elevations in NT-proBNP levels may be observed in state other than Left Ventricular Congestive Failure, including: acute coronary syndromes, right heart strain/failure (including pulmonary embolism and cor pulmonale), critical illness, renal failure, as well as advanced age. - References: 1. Deysi COTTRELL et.al. Eur Heart J. 2006:27:330-337. 2. Monique RW, Michael AM. J. AM Guero Cardiol: Cardiovasc Imag. 2009;2: 216- 225. Interpretive Data Last Revised Date: 2017. Blood 08/13/2024 1:52 AM CDT 08/13/2024 5:16 AM CDT us Gail Wade MD LAB BLOOD ORDERABLES Saundra norton Result [facility] [place]) 1 [facility] Department [place] [address] * (ABNORMAL) CBC with auto differential (08/13/2024 1:52 AM CDT) WBC 5.80 3.80 - 9.90 K/cumm Hgb 13.3 13.0 - 17.5 g/dL [facility] ([place]) Hct 39.3 38.9 - 50.3 % [facility] ([place]) Plt 113(L) 150 - 400 K/cumm [facility] ([place]) MPV 12.0 9.1 - 12.3 fL [facility] ([place]) RBC 4.33 4.30 - 5.80 M/cumm [facility] ([place]) MCV 90.8 81.3 - 96.4 fL [facility] ([place]) MCH 30.7 27.1 - 33.3 pg [facility] ([place]) MCHC 33.8 32.3 - 35.7 g/dL [facility] ([place]) RDW CV 13.1 11.1 - 14.9 % [facility] ([place]) RDW SD 43.7 35.7 - 48.1 fL [facility] ([place]) NRBC abs 0.00 0.00 - 0.01 K/cumm [facility] ([place]) Blood 08/13/2024 1:52 AM CDT 08/13/2024 5:10 AM CDT Gail Wade MD LAB BLOOD ORDERABLES Saundra l Result Performing Organization Address City/[facility]/ZIP Co de Phone Number [facility] ([place]) 1 [facility] [place] [address] * (ABNORMAL) CRP (acute phase) (08/13/2024 1:52 AM CDT) CRP 272.5(H) <=10.0 mg/L Blood 08/13/2024 1:52 AM CDT 08/13/2024 1:56 AM CDT Gail Wade MD LAB BLOOD ORDERABLES Saundra l Result [facility] ([place]) 1 [facility] [place] [address] * Uric acid (08/13/2024 1:52 AM CDT) Uric acid 5.7 3.0 - 8.0 mg/dL Blood 08/13/2024 1:52 AM CDT 08/13/2024 9:14 AM CDT Christopher DAO LAB BLOOD ORDERABLES F inal Result Performing Organization Address [facility] Co de Phone Number [facility] ([place]) 1 [place] [address] * Blood gas, venous (08/13/2024 1:52 AM CDT) pH, Venous 7.34 7.32 - 7.43 PCO2, Venous 42 40 - 50 mmHg [facility] ([place]) PO2, Venous 28 mmHg [facility] ([place]) HCO3 Venous, Calculated 22 20 - 30 mmol/L [facility] ([place]) BE, venous -3 mmol/L [facility] ([place]) Comment: Interpretive Data No Reference Range Established Current Interpretive Data was last revised on 2017. Blood 08/13/2024 1:52 AM CDT 08/13/2024 1:56 AM CDT Gail Wade MD LAB BLOOD ORDERABLES Saundra l Result [facility] ([place]) 1 [facility] [place] [address] * Creatinine (08/13/2024 1:52 AM CDT) Creatinine 1.16 0.80 - 1.30 mg/dL Comment:Icteric sample, test results may be affected. Blood 08/13/2024 1:52 AM CDT 08/13/2024 1:56 AM CDT Narrative [facility] ([place]) - 08/13/2024 2:24 AM CDT Per pharmacy vancomycin protocol us Lakeisha DAO LAB BLOOD ORDERABLES Saundra l Result [facility] ([place]) 1 [facility] [place] [place] [address] * (ABNORMAL) Hepatic function panel (08/13/2024 1:52 AM CDT) Bilirubin, total 2.0(H) 0.1 - 1.2 mg/dL Bilirubin, direct 0.7(H) 0.1 - 0.3 mg/dL [facility] ([place]) Protein, pl 6.4(L) 6.5 - 8.5 g/dL [facility] ([place]) Albumin 3.2(L) 3.5 - 5.0 g/dL [facility] ([place]) Alk phos 63 40 - 130 Units/L [facility] ([place]) ALT 23 7 - 55 Units/L [facility] ([place]) AST 38 10 - 50 Units/L [facility] ([place]) Blood 08/13/2024 1:52 AM CDT 08/13/2024 5:16 AM CDT us Gail Wade MD LAB BLOOD ORDERABLES Saundra l Result Performing Organization Address City/[facility]/ZIP Co de Phone Number [facility] ([place]) [address] [place] [address] [place] [employer] [place] [address] * (ABNORMAL) Basic metabolic panel (08/13/2024 1:52 AM CDT) Sodium 132(L) 135 - 145 mmol/L Potassium, pl 3.6 3.3 - 4.9 mmol/L [facility] ([place]) Chloride 96(L) 97 - 110 mmol/L [facility] ([place]) CO2 17(L) 22 - 32 mmol/L [facility] ([place]) Anion gap 19(H) 2 - 15 mmol/L [facility] ([place]) BUN 14 6 - 25 mg/dL [facility] ([place]) Creatinine 1.16 0.80 - 1.30 mg/dL [facility] ([place]) Comment:Icteric sample, test results may be affected. Glucose 141 70 - 199 mg/dL [facility] ([place]) Comment: Interpretive Data Fasting glucose >/= 126 [...] classification and Diagnosis of Diabetes Diabetes Care 2021; 46: S19-S40. Current interpretive data was last revised 2022. Calcium 8.2(L) 8.5 - 10.3 mg/dL [facility] ([place]) Blood 08/13/2024 1:52 AM CDT 08/13/2024 5:16 AM CDT us Gail Wade MD LAB BLOOD ORDERABLES Saundra norton Result [facility] ([place]) 1 [facility] Department [place] [address] * Troponin T high-sensitivity 4-hour (08/13/2024 12:56 AM CDT) Trop T hs 16 <=22 ng/L Comment: Interpretive Data For further hscTnT resources including the diagnostic algorithm and an aid in interpretation, copy and paste this link: https://nrl.testcatalog.org/show/hsTrop Current Interpretive Data last revised 2020. Trop T hs delta -1 ng/L [facility] ([place]) Trop T hs interp Insignificant [facility] ([place]) Blood 08/13/2024 12:5 6 AM CDT 08/13/2024 12:59 AM CDT us Lakeisha DAO LAB BLOOD ORDERABLES Saundra l Result [facility] ([place]) 1 [facility] Department [place] [address] * (ABNORMAL) Urinalysis reflex to microscopic and culture Urine (08/13/2024 12:56 AM CDT) Color, ur Yellow Yellow Clarity, ur Clear Clear [facility] ([place]) Specific gravity, ur 1.040(H) 1.003 - 1.030 [facility] ([place]) pH, urine 6.0 [facility] ([place]) Comment: Interpretive Data U rine pH is affected by diet, medications, systemic acid-base disturbances, and renal tubular function. pH may affect urinary stone formation. For example, urine pH below 6.0 may help reduce the tendency for calcium phosphate stones and pH greater than 6.0 may reduce the tendency for uric acid stone formation. Source: [facility] Current Interpretive Data was last revised on 2017 Protein, ur ql 1+(A) Negative [facility] ([place]) Glucose, ur ql Negative Negative [facility] ([place]) Ketones, ur Negative Negative [facility] ([place]) Bilirubin, ur Negative Negative [facility] ([place]) Blood, ur Trace(A) Negative [facility] ([place]) Urobilinogen, ur <2.0 <2.0 mg/dL [facility] ([place]) Nitrite, ur Negative Negative [facility] ([place]) Leukocyte esterase, ur Negative Negative [facility] ([place]) UA reflex comment Reflex to microscopic UA will be performed. [facility] ([place]) Urine 08/13/2024 12:5 6 AM CDT 08/13/2024 12:59 AM CDT Narrative [facility] ([place]) - 08/13/2024 1:02 AM CDT If patient unable to urinate, straight cath us Lakeisha DOA LAB MICROBIOLOGY - GENERA L ORDERABLES Final Result [facility] ([place]) 1 [facility] [place] [address] * (ABNORMAL) Urinalysis, microscopic only (08/13/2024 12:56 AM CDT) WBC, ur 0-5 0 - 5 /HPF RBC, ur 0-2 0 - 2 /HPF [facility] ([place]) Mucous, ur Present(A) [facility] ([place]) Culture Reflex Comment Reflex conditions for urine culture (WBC >10) not met. [facility] ([place]) Urine 08/13/2024 12:5 6 AM CDT 08/13/2024 12:59 AM CDT Lakeisha DAO LAB URINE ORDERABLES Saundra norton Result [facility] ([place]) 1 [facility] [place] [address] * XR Hand Right 3 or More Views (08/13/2024 12:09 AM CDT) Anatomical Region Laterality Modality Upper Extremities, Hand Right Computed Radiography 08/13/2024 12:4 1 AM CDT Narrative 08/13/2024 12:45 AM CDT EXAM DESCRIPTION: XR HAND RIGHT 3 OR MORE VIEWS REASON FOR STUDY: infection C/o being bit on the right hand by a bat 1 week ago. Denies any pain. Pt has been feeling unwell and has a fever of 103.6 F TECHNIQUE: 3 radiographic view(s) of the right hand . COMPARISON: None FINDINGS: BONES/JOINTS: There is no acute fracture, malalignment or osseous abnormality. The bones are osteopenic. Minor degenerative changes are noted. No erosions are seen. SOFT TISSUES: Within normal limits. IMPRESSION: No acute osseous abnormality. THIS IS AN ELECTRONICALLY VERIFIED FINAL REPORT 08/13/2024 12:45 AM - Electronically signed by Sam Chirinos M.D. KH: MEL Report ID: [id number] Reading Location: [id number] Procedure Note Sam Chirinos MD - 08/13/2024 EXAM DESCRIPTION: XR HAND RIGHT 3 OR MORE VIEWS REASON FOR STUDY: infection C/o being bit on the right hand by a bat 1 week ago. Denies any pain. Pthas been feeling unwell and has a fever of 103.6 F TECHNIQUE: 3 radiographic view(s) of the right hand . COMPARISON: None FINDINGS: BONES/JOINTS: There is no acute fracture, malalignment or osseousabnormality. The bones are osteopenic. Minor degenerative changes are noted. Noerosions are seen. SOFT TISSUES: Within normal limits. IMPRESSION: No acute osseous abnormality. THIS IS AN ELECTRONICALLY VERIFIED FINAL REPORT 08/13/2024 12:45 AM - Electronically signed by Sam Chirinos M.D. KH: MEL Report ID: [id number] Reading Location: [place] [address] Lakeisha DAO IMG XR PROCEDURES Final R esult * Troponin T high-sensitivity 2-hour (08/12/2024 10:03 PM CDT) Trop T hs 18 <=22 ng/L Comment: Interpretive Data For further hscTnT resources including the diagnostic algorithm and an aid in interpretation, copy and paste this link: https://nrl.testcatalog.org/show/hsTrop Current Interpretive Data last revised 2020. Trop T hs delta 1 ng/L [facility] ([place]) Trop T hs interp Insignificant [facility] ([place]) Blood 08/12/2024 10:0 3 PM CDT 08/12/2024 10:05 PM CDT Lakeisha DAO LAB BLOOD ORDERABLES Saundra l Result [facility] ([place]) 1 [facility] [place] [address] * CT Chest PE (CTA) Abdomen Pelvis W Contrast (08/12/2024 9:55 PM CDT) Anatomical Region Laterality Modality Body N/A Computed Tomogra phy 08/12/2024 10:1 6 PM CDT Narrative 08/12/2024 10:21 PM CDT EXAM DESCRIPTION: CT CHEST PE (CTA) ABDOMEN PELVIS W CONTRAST REASON FOR STUDY: sepsis, tachycardia, sob Lethargy and feeling unwell x 1 week, patient sustained bat bite just over a week ago. Patient unable to bring arms above head. TECHNIQUE: CT angiogram of the chest with routine abdomen and pelvis performed with intravenous and without oral contrast using helical scanning technique with dynamic intravenous contrast injection. Reconstructed coronal and sagittal MPR images reviewed. All images stored on PACS. 3D MIP images of the chest rendered on scanning unit and reviewed at time of interpretation. Automated exposure control was used as a dose optimization technique for this examination. CONTRAST TYPE/DOSE: 100mL of IOVERSOL 350 MG IODINE/ML INTRAVENOUS SYRINGE injected via intravenous COMPARISON: 10/16/2023 FINDINGS: CHEST CHEST VASCULATURE: No acute pulmonary thromboembolism. LUNGS: Minor chronic lung changes are noted. There is some minor dependent atelectasis seen in the bases particularly on the left. No large consolidation is seen. Calcified granulomas seen in the right mid lung. This is benign. PLEURA: No effusion. No pneumothorax. MEDIASTINUM/SONAL: No identified masses or abnormal nodes. HEART: Cardiomegaly is evident. No pericardial effusion is seen. AXILLA: No adenopathy. CHEST WALL: No masses. No subcutaneous air. HARDWARE/LINES/TUBES: None. MUSCULOSKELETAL CHEST: No significant abnormality. ABDOMEN/PELVIS LIVER: Normal size. No identified cystic or solid masses. GALLBLADDER: Unremarkable BILE DUCTS: No intrahepatic or extrahepatic ductal dilatation. SPLEEN: Normal size. No focal lesions. PANCREAS: No identified cystic or solid masses. No significant calcifications. No adjacent inflammation or peripancreatic fluid collections. Pancreatic duct not dilated. ADRENALS: Normal. KIDNEYS/URINARY TRACT: No identified significant cystic or solid masses. No visualized stones. No hydronephrosis or hydroureter. Symmetric enhancement. Portions of the bladder obscured by streak artifact from the left hip replacement. The bladder appears grossly unremarkable. GI: No dilated bowel loops. No obvious wall thickening. The appendix is not seen.. No significant diverticular disease. PERITONEUM: No ascites or free air. RETROPERITONEUM: No mass or adenopathy. REPRODUCTIVE: No significant abnormality. VASCULATURE ABDOMEN: No abdominal aortic aneurysm. Atherosclerotic disease is seen of the abdominal aorta and iliac vessels MUSCULOSKELETAL ABDOMEN PELVIS: Left hip replacement is noted. OTHER: No significant abnormality. IMPRESSION: No evidence of pulmonary embolism is seen. No acute chest abnormality is seen. Cardiomegaly is noted. No acute abnormality is seen of the abdomen or pelvis. THIS IS AN ELECTRONICALLY VERIFIED FINAL REPORT 08/12/2024 10:21 PM - Electronically signed by Sam Chirinos M.D. KH: KH Report ID: [id number] Reading Location: [place] [address] Procedure Note Sam Chirinos MD - 08/12/2024 EXAM DESCRIPTION: CT CHEST PE (CTA) ABDOMEN PELVIS W CONTRAST REASON FOR STUDY: sepsis, tachycardia, sob Lethargy and feeling unwell x 1 week, patient sustained bat bite just overa week ago. Patient unable to bring arms above head. TECHNIQUE: CT angiogram of the chest with routine abdomen and pelvisperformed with intravenous and without oral contrast using helical scanningtechnique with dynamic intravenous contrast injection. Reconstructed coronal and sagittal MPR images reviewed. All images stored on PACS. 3D MIP images ofthe chest rendered on scanning unit and reviewed at time of interpretation. Automated exposure control was used as a dose optimization technique forthis examination. CONTRAST TYPE/DOSE: 100mL of IOVERSOL 350 MG IODINE/ML INTRAVENOUS SYRINGE injected via intravenous COMPARISON: 10/16/2023 FINDINGS: CHEST CHEST VASCULATURE: No acute pulmonary thromboembolism. LUNGS: Minor chronic lung changes are noted. There is some minordependent atelectasis seen in the bases particularly on the left. No large consolidation is seen. Calcified granulomas seen in the right mid lung.This is benign. PLEURA: No effusion. No pneumothorax. MEDIASTINUM/SONAL: No identified masses or abnormal nodes. HEART: Cardiomegaly is evident. No pericardial effusion is seen. AXILLA: No adenopathy. CHEST WALL: No masses. No subcutaneous air. HARDWARE/LINES/TUBES: None. MUSCULOSKELETAL CHEST: No significant abnormality. ABDOMEN/PELVIS LIVER: Normal size. No identified cystic or solid masses. GALLBLADDER: Unremarkable BILE DUCTS: No intrahepatic or extrahepatic ductal dilatation. SPLEEN: Normal size. No focal lesions. PANCREAS: No identified cystic or solid masses. No significant calcifications. No adjacent inflammation or peripancreatic fluidcollections. Pancreatic duct not dilated. ADRENALS: Normal. KIDNEYS/URINARY TRACT: No identified significant cystic or solid masses.No visualized stones. No hydronephrosis or hydroureter. Symmetricenhancement. Portions of the bladder obscured by streak artifact from the left hip replacement. The bladder appears grossly unremarkable. GI: No dilated bowel loops. No obvious wall thickening. The appendix isnot seen.. No significant diverticular disease. PERITONEUM: No ascites or free air. RETROPERITONEUM: No mass or adenopathy. REPRODUCTIVE: No significant abnormality. VASCULATURE ABDOMEN: No abdominal aortic aneurysm. Atheroscleroticdisease is seen of the abdominal aorta and iliac vessels MUSCULOSKELETAL ABDOMEN PELVIS: Left hip replacement is noted. OTHER: No significant abnormality. IMPRESSION: No evidence of pulmonary embolism is seen. No acute chest abnormality is seen. Cardiomegaly is noted. No acute abnormality is seen of the abdomen or pelvis. THIS IS AN ELECTRONICALLY VERIFIED FINAL REPORT 08/12/2024 10:21 PM - Electronically signed by Sam Chirinos M.D. KH: MEL Report ID: [id number] Reading Location: [place] [address] PROCEDURES Final R esult * CT Head WO Contrast (08/12/2024 9:55 PM CDT) Anatomical Region Laterality Modality Head and Neck N/A Computed Tomogra phy 08/12/2024 10:1 4 PM CDT Narrative 08/12/2024 10:15 PM CDT EXAM DESCRIPTION: CT HEAD WO CONTRAST REASON FOR STUDY: Mental status change, unknown cause Lethargy and feeling unwell x 1 week, patient sustained bat bite just over a week ago. Head repeated for motion. TECHNIQUE: Axial images acquired through the brain without intravenous contrast. Images stored on PACS. Automated exposure control was used as a dose optimization technique for this examination. COMPARISON: 01/12/2022 FINDINGS: BRAIN: No hemorrhage, edema or mass effect. No recent infarct. Moderate diffuse atrophy of the brain is noted. EXTRA-AXIAL SPACES: No fluid collections. No masses. CALVARIUM: No fracture. SINUSES/MASTOIDS: No fluid or mucosal thickening. ORBITS: No significant abnormality. OTHER: No other significant abnormality. IMPRESSION: No acute intracranial findings. THIS IS AN ELECTRONICALLY VERIFIED FINAL REPORT 08/12/2024 10:15 PM - Electronically signed by Sam LEAL: MEL Report ID: [id number] Reading Location: [id number] Procedure Note Sam Chirinos MD - 08/12/2024 EXAM DESCRIPTION: CT HEAD WO CONTRAST REASON FOR STUDY: Mental status change, unknown cause Lethargy and feeling unwell x 1 week, patient sustained bat bite just overa week ago. Head repeated for motion. TECHNIQUE: Axial images acquired through the brain without intravenous contrast. Images stored on PACS. Automated exposure control was used asa dose optimization technique for this examination. COMPARISON: 01/12/2022 FINDINGS: BRAIN: No hemorrhage, edema or mass effect. No recent infarct.Moderate diffuse atrophy of the brain is noted. EXTRA-AXIAL SPACES: No fluid collections. No masses. CALVARIUM: No fracture. SINUSES/MASTOIDS: No fluid or mucosal thickening. ORBITS: No significant abnormality. OTHER: No other significant abnormality. IMPRESSION: No acute intracranial findings. THIS IS AN ELECTRONICALLY VERIFIED FINAL REPORT 08/12/2024 10:15 PM - Electronically signed by Sam LEAL: MEL Report ID: [id number] Reading Location: [id number] Lakeisha DAO IMG CT PROCEDURES Final R esult * XR Chest 1 Vw Portable (if patient condition/safety warrant portable) (08/12/2024 8:28 PM CDT) Anatomical Region Laterality Modality Body, Chest N/A Computed Radiogr aphy 08/12/2024 8:40 PM CDT Narrative 08/12/2024 8:42 PM CDT EXAM DESCRIPTION: XR CHEST 1 VIEW REASON FOR STUDY: Cough Patient arrives to the ED via [facility] with complaints of feeling lethargic and unwell that has progressed over the past week. Patient states he was bit by a bat on his right first digit over a week ago and received the first rabies vaccine last week and is due for his next shot tomorrow. Bruising noted to right first finger. Patient arrives alert and oriented x4 but is lethargic and sometimes slower to respond. TECHNIQUE: Single radiographic view(s) of the chest. COMPARISON: 07/27/2022 FINDINGS: LUNGS: Calcified nodule is seen in the right mid lung similar to previous. This is considered benign. Mild underlying chronic lung changes are noted. No consolidation or effusion is seen. HEART/MEDIASTINUM: Cardiac silhouette normal in size. Mediastinal and hilar contours appear normal. LINES/TUBES: None. BONES: No acute osseous abnormality. IMPRESSION: No acute cardiopulmonary abnormality. Minor chronic changes are noted THIS IS AN ELECTRONICALLY VERIFIED FINAL REPORT 08/12/2024 8:42 PM - Electronically signed by Sam Chirinos M.D. KH: MEL Report ID: [id number] Reading Location: [id number] Procedure Note Sam Chirinos MD - 08/12/2024 EXAM DESCRIPTION: XR CHEST 1 VIEW REASON FOR STUDY: Cough Patient arrives to the ED via [facility] with complaints of feeling lethargicand unwell that has progressed over the past week. Patient states he was bitby a bat on his right first digit over a week ago and received the first rabies vaccine last week and is due for his next shot tomorrow. Bruising notedto right first finger. Patient arrives alert and oriented x4 but is lethargicand sometimes slower to respond. TECHNIQUE: Single radiographic view(s) of the chest. COMPARISON: 07/27/2022 FINDINGS: LUNGS: Calcified nodule is seen in the right mid lung similar toprevious. This is considered benign. Mild underlying chronic lung changes arenoted. No consolidation or effusion is seen. HEART/MEDIASTINUM: Cardiac silhouette normal in size. Mediastinal andhilar contours appear normal. LINES/TUBES: None. BONES: No acute osseous abnormality. IMPRESSION: No acute cardiopulmonary abnormality. Minor chronic changes are noted THIS IS AN ELECTRONICALLY VERIFIED FINAL REPORT 08/12/2024 8:42 PM - Electronically signed by Sam Chirinos M.D. KH: MEL Report ID: [id number] Reading Location: [place] [address] Lakeisha DAO IMG XR PROCEDURES Final R esult * aPTT (08/12/2024 8:09 PM CDT) aPTT 37 28 - 38 sec [facility] ([place]) Comment: Interpretive Data Heparin therapeutic range: 66.0 - 100.0 seconds. Range based on correlation with therapeutic heparin activity range of 0.3 - 0.7 Units/mL. Current interpretive data was last revised on 2022. Blood 08/12/2024 8:09 PM CDT 08/13/2024 1:35 AM CDT Gail Wade MD LAB BLOOD ORDERABLES Saundra norton Result [facility] ([place]) 1 [facility] Department of Laboratories [place], [place] [id number] * (ABNORMAL) Protime-INR (08/12/2024 8:09 PM CDT) PT 21.2(H) 9.7 - 13.0 sec [facility] ([place]) INR 1.94(H) 0.90 - 1.20 [facility] ([place]) Comment: Interpretive data Oral anticoagulant therapeutic ranges: Venous thromboembolism prophylaxis or treatment: 2.0-3.0 CARDIOLOGY Standard range: 2.0-3.0 High-intensity range: 2.5-3.5 Refer to indication-specific guidelines for appropriate target ranges for prosthetic heart valve replacement. Current interpretive data was last revised on 2019. Blood 08/12/2024 8:09 PM CDT 08/13/2024 1:35 AM CDT Gail Wade MD LAB BLOOD ORDERABLES Saundra l Result Performing Organization Address City/[facility]/ZIP Co de Phone Number [facility] [address] [place] [address] * Troponin T high-sensitivity series (baseline, 2hr, 4hr, 6hr) (08/12/2024 8:07 PM CDT) Trop T hs 17 <=22 ng/L Comment: Interpretive Data For further hscTnT resources including the diagnostic algorithm and an aid in interpretation, copy and paste this link: https://nrl.testcatalog.org/show/hsTrop Current Interpretive Data last revised 2020. Blood 08/12/2024 8:07 PM CDT 08/12/2024 8:15 PM CDT us Lakeisha DOA LAB BLOOD ORDERABLES Saundra l Result Performing Organization Address [facility] Co de Phone Number [facility] ([place]) [address] [place] [address] * Influenza A/B, RSV, and COVID-19 PCR Nasopharyngeal (08/12/2024 8:07 PM CDT) COVID-19 RNA Negative Negative Influenza A RNA Negative Negative [facility] ([place]) Influenza B RNA Negative Negative [facility] ([place]) RSV RNA Negative Negative [facility] ([place]) Comment: Interpretive data: Testing performed by [facility]. This test is performed using the [employer] Xpert Xpress CoV-2/Flu/RSV plus assay. This is a multiplex, real- time reverse transcriptase PCR assay intended for the qualitative detection of nucleic acid from SARS-CoV-2, influenza A, influenza B, and respiratory syncytial virus. This assay has been cleared by the [place] Food and Drug administration. The performance characteristics have been verified by the [facility]. Results must be considered in the clinical context, and a negative result does not rule out infection. Interpretive Data last revised 2023 Nasopharyngeal 08/12/2024 8: 07 PM CDT 08/12/2024 8:15 PM CDT Narrative [facility] ([place]) - 08/12/2024 8:58 PM CDT Is the Patient experiencing symptoms consistent with COVID?->Yes Lakeisha DAO LAB MICROBIOLOGY - GENERA L ORDERABLES Final Result [facility] ([place]) [address] [place] [address] * Sepsis Lactate w/ Reflex (08/12/2024 8:07 PM CDT) Pathologist [facility] Sepsis Lactate 1.8 0.7 - 2.0 mmol/L Blood 08/12/2024 8:07 PM CDT 08/12/2024 8:15 PM CDT Lakeisha DAO LAB BLOOD ORDERABLES Saundra l Result [facility] ([place]) [address] [place] [address] * eGFR (08/12/2024 8:07 PM CDT) eGFR 61 >=60 mL/min/1. 73 m2 Comment: Interpretive Data [...] interpretive data was last reviewed 2021. Blood 08/12/2024 8:07 PM CDT 08/12/2024 8:15 PM CDT us Lakeisha DAO LAB BLOOD ORDERABLES Saundra norton Result [facility] ([place]) [address] [facility] [place] [address] * (ABNORMAL) Differential, auto (08/12/2024 8:07 PM CDT) Neutrophil abs 4.21 1.50 - 6.50 K/cumm Imm gran abs 0.04 0.00 - 0.10 K/cumm [facility] ([place]) Lymphocyte abs 0.43(L) 0.80 - 3.30 K/cumm [facility] ([place]) Monocyte abs 0.33 0.20 - 0.80 K/cumm [facility] ([place]) Eosinophil abs 0.00 0.00 - 0.50 K/cumm [facility] ([place]) Basophil abs 0.01 0.00 - 0.10 K/cumm [facility] ([place]) Neutrophil pct 83.8 % [facility] ([place]) Comment: Interpretive Data Percent cell count reference ranges are not reported, since discordance with absolute values may lead to misinterpretation of CBC data. Current Interpretive Data was last revised on 2017. Imm gran pct 0.8 % [facility] ([place]) Comment: Interpretive Data Percent cell count reference ranges are not reported, since discordance with absolute values may lead to misinterpretation of CBC data. Current Interpretive Data was last revised on 2017. Lymphocyte pct 8.6 % [facility] ([place] Comment: Interpretive Data Percent cell count reference ranges are not reported, since discordance with absolute values may lead to misinterpretation of CBC data. Current Interpretive Data was last revised on 2017. Monocyte pct 6.6 % [facility] ([place]) Comment: Interpretive Data Percent cell count reference ranges are not reported, since discordance with absolute values may lead to misinterpretation of CBC data. Current Interpretive Data was last revised on 2017. Eosinophil pct 0.0 % [facility] ([place] Comment: Interpretive Data Percent cell count reference ranges are not reported, since discordance with absolute values may lead to misinterpretation of CBC data. Current Interpretive Data was last revised on 2017. Basophil pct 0.2 % [facility] ([place]) Comment: Interpretive Data Percent cell count reference ranges are not reported, since discordance with absolute values may lead to misinterpretation of CBC data. Current Interpretive Data was last revised on 2017. Blood 08/12/2024 8:07 PM CDT 08/12/2024 8:15 PM CDT us Lakeisha DAO LAB BLOOD ORDERABLES Saundra norton Result [facility] ([place]) [address] [facility] [place] [address] * (ABNORMAL) CBC with auto differential (08/12/2024 8:07 PM CDT) WBC 5.02 3.80 - 9.90 K/cumm Hgb 14.0 13.0 - 17.5 g/dL [facility] ([place]) Hct 39.5 38.9 - 50.3 % [facility] Plt 98(L) 150 - 400 K/cumm [facility] ([place]) MPV 11.1 9.1 - 12.3 fL [facility]) RBC 4.44 4.30 - 5.80 M/cumm [facility] ([place]) MCV 89.0 81.3 - 96.4 fL [facility] ([place]) MCH 31.5 27.1 - 33.3 pg [facility]) MCHC 35.4 32.3 - 35.7 g/dL [facility] ([place]) RDW CV 12.8 11.1 - 14.9 % [facility]) RDW SD 41.7 35.7 - 48.1 fL [facility] ([place]) NRBC abs 0.00 0.00 - 0.01 K/cumm [facility] ([place]) Blood 08/12/2024 8:07 PM CDT 08/12/2024 8:15 PM CDT us Lakeisha DAO LAB BLOOD ORDERABLES Saundra norton Result [facility] ([place] [address] [facility] [place] [address] * (ABNORMAL) Blood culture Blood (08/12/2024 8:07 PM CDT) Direct Specimen Exam Molecular Analysis: Streptococcus agalactiae (Group B Streptococcus) detected by gio [employer]Plex BCID-GP panel. Streptococcus agalactiae is susceptible to beta-lactam antibiotics and vancomycin. This test does not exclude the possibility of a mixed bacterial infection. Notification of: Streptococcus agalactiae (Group B Streptococcus) called to and read back by: Osvaldo Vaqsues FUSE MAKER on 08/13/2024 09:32:41 by: Jeb Howard MLS Test result called to and read back by Shirley Da Silva rn/imu on 08/13/2024 09:48:55 by fay harley Comment:Testing performed by : [facility], [address] [facility], [place]., [address] Direct Specimen Exam Stain: Gram Positive Cocci in pairs and chains Time to culture positivity (aerobic media): 8.6 hours Notification of: Gram Positive Cocci in pairs and chains called to and read back by: Kaila Bolivar MT [phone] on 08/13/2024 07:44:55 by: Freedom Awad MT Results phoned to and read back by: Dori Da Silva RN IMU on 08/13/2024 08:13:13 by: Kaila [facility] ([place]) Comment:Testing performed by : [facility], [address] [place]., [address] Report Final Report: Streptococcus agalactiae (Group B Streptococci) (.) [facility] ([place]) Comment:Testing performed by : [facility], [address] [place]., [address] Organism STREPTOCOCCUS AGALACTIAE (GROUP B STREPTOCOCCI) [facility] ([place]) Blood 08/12/2024 8:07 PM CDT 08/12/2024 10:15 PM CDT Narrative [facility] ([place]) - 08/17/2024 8:26 AM CDT Collection->Peripheral 1. Blood cultures are incubated for 4 days on a continuously monitored blood culture system. The first report of a negative culture is issued within 24 hours of receipt of the specimen in the laboratory. 2. Positive culture results are reported as soon as they are detected. 3. The most important factor for detection of microbes in the setting of bloodstream infection is the volume of blood submitted for culture. Failure to collect an optimal blood volume can result in false negative blood cultures. 4. For pediatric patients, the recommended blood volume to collect follows a weight based strategy. See the electronic test catalog for collection instructions. 5. For positive blood cultures, a rapid molecular test may be performed for organism identification using the [employer]Plex blood culture identification panel for gram positive (BCID-GP) and gram negative (BCID-GN) organisms. This nucleic acid amplification test detects microbial DNA in positive blood culture broth. This assay has been cleared by the [place] Food and Drug Administration and its performance characteristics have been verified by the [facility]. For questions about this culture, contact the Microbiology Laboratory at [phone]. Interpretive data was last revised on 24. Organism Antibiotic Method Susceptibility Streptococcus agalactiae (Gr oup B Streptococci) Penicillin (ZA) (ZA) INTERPRETATION Susceptible Streptococcus agalactiae (Gr oup B Streptococci) Ceftriaxone (ZA) (ZA) INTERPRETATION Susceptible Streptococcus agalactiae (Gr oup B Streptococci) Clindamycin (ZA) INTERPRETATION Susceptible Streptococcus agalactiae (Gr oup B Streptococci) Linezolid (ZA) INTERPRETATION Susceptible Streptococcus agalactiae (Gr oup B Streptococci) Vancomycin (ZA) INTERPRETATION Susceptible us Lakeisha DAO LAB MICROBIOLOGY - GENERA L ORDERABLES Final Result [facility]) [address] [facility] [place] [address] * Blood culture Blood (08/12/2024 8:07 PM CDT) Report Final Report: No growth Comment:Testing performed by : [facility], [address] [place] [address] Blood 08/12/2024 8:07 PM CDT 08/12/2024 10:15 PM CDT Narrative [facility] ([place]) - 08/17/2024 7:01 AM CDT Collection->Peripheral 1. Blood cultures are incubated for 4 days on a continuously monitored blood culture system. The first report of a negative culture is issued within 24 hours of receipt of the specimen in the laboratory. 2. Positive culture results are reported as soon as they are detected. 3. The most important factor for detection of microbes in the setting of bloodstream infection is the volume of blood submitted for culture. Failure to collect an optimal blood volume can result in false negative blood cultures. 4. For pediatric patients, the recommended blood volume to collect follows a weight based strategy. See the electronic test catalog for collection instructions. 5. For positive blood cultures, a rapid molecular test may be performed for organism identification using the gio ePlex blood culture identification panel for gram positive (BCID-GP) and gram negative (BCID-GN) organisms. This nucleic acid amplification test detects microbial DNA in positive blood culture broth. This assay has been cleared by the [place] Food and Drug Administration and its performance characteristics have been verified by the [facility]. For questions about this culture, contact the Microbiology Laboratory at [phone]. Interpretive data was last revised on 24. us Lakeisha DAO LAB MICROBIOLOGY - GENERA L ORDERABLES Final Result [facility] ([place] [address] [facility] [place] [address] * (ABNORMAL) Erythrocyte sedimentation rate (08/12/2024 8:07 PM CDT) Erythrocyte sedimentation rate 32(H) 1 - 20 mm/hr Blood 08/12/2024 8:07 PM CDT 08/13/2024 1:39 AM CDT Gail Wade MD LAB BLOOD ORDERABLES Saundra l Result Performing Organization Address [facility]/ZIP Co de Phone Number [facility] ([place]) [address] [facility] [place] [address] * (ABNORMAL) Comprehensive metabolic panel (08/12/2024 8:07 PM CDT) Pathologist [facility] Sodium 128(L) 135 - 145 mmol/L Potassium, pl 3.9 3.3 - 4.9 mmol/L [facility] ([place]) Chloride 93(L) 97 - 110 mmol/L [facility] ([place]) CO2 21(L) 22 - 32 mmol/L [facility] ([place]) Anion gap 14 2 - 15 mmol/L [facility] ([place]) BUN 15 6 - 25 mg/dL [facility] ([place]) Creatinine 1.17 0.80 - 1.30 mg/dL [facility] ([place]) Comment:Icteric sample, test results may be affected. Glucose 149 70 - 199 mg/dL [facility] ([place]) Comment: Interpretive Data Fasting glucose >/= [...] classification and Diagnosis of Diabetes Diabetes Care 2021; 46: S19-S40. Current interpretive data was last revised 2022. Calcium 8.5 8.5 - 10.3 mg/dL [facility] ([place]) Bilirubin, total 1.8(H) 0.1 - 1.2 mg/dL [facility] ([place]) Protein, pl 6.7 6.5 - 8.5 g/dL [facility] ([place]) Albumin 3.3(L) 3.5 - 5.0 g/dL [facility] ([place]) Alk phos 67 40 - 130 Units/L [facility] ([place]) ALT 20 7 - 55 Units/L [facility] ([place]) AST 35 10 - 50 Units/L [facility] ([place]) Comment:Slightly Hemolyzed S pecimen Blood 08/12/2024 8:07 PM CDT 08/12/2024 8:15 PM CDT Lakeisha DAO LAB BLOOD ORDERABLES Saundra l Result Performing Organization Address [facility] de Phone Number [facility] ([place]) [address] [facility] [place] [address] * ECG 12 lead (08/12/2024 7:53 PM CDT) 08/12/2024 7:53 PM CDT Narrative [facility] - 08/13/2024 8:33 AM CDT Vent Rate: 101 bpm RR Interval: 590 msec RI Interval: 0 msec QRS Duration: 92 msec QT Interval: 357 msec QTC Interval: 415 msec P-R-T [place]: [id number] - -28 - 15 degrees IMPRESSION: ATRIAL FIBRILLATION WITH RAPID VENTRICULAR RESPONSE BORDERLINE LEFT AXIS DEVIATION [QRS AXIS < -20] NONSPECIFIC T-WAVE ABNORMALITY ABNORMAL RHYTHM ECG compared to prior EKG, heart rate has increased atrial fibrillation rpelaced sinus rhythm Electronically Signed By: Sanjay Landers MD Lakeisha DAO ECG ORDERABLES Final Res ult Performing Organization Address [facility] Co de Phone Number [facility] [email or web address] [facility] * (ABNORMAL) eGFR (06/29/2024 12:10 PM CDT) [...] CDT 06/29/2024 12:20 PM CDT us Irena Madrid MD LAB BLOOD ORDERABLES Final Re sult [facility] ([place]) [address] [facility] [place] [address] * Differential, auto (06/29/2024 12:10 PM CDT) Pathologist [facility] Neutrophil abs 1.80 1.50 - 6.50 K/cumm Imm gran abs 0.01 0.00 - 0.10 K/cumm [facility] ([place]) Lymphocyte abs 1.01 0.80 - 3.30 K/cumm [facility] ([place]) Monocyte abs 0.30 0.20 - 0.80 K/cumm [facility] ([place]) Eosinophil abs 0.05 0.00 - 0.50 K/cumm [facility] ([place]) Basophil abs 0.01 0.00 - 0.10 K/cumm [facility] ([place]) Neutrophil pct 56.6 % [facility] ([place] Comment: Interpretive [...] revised on 2017. Monocyte pct 9.4 % [facility] ([place]) Comment: Interpretive Data Percent cell [...] CDT 06/29/2024 12:20 PM CDT us Irena Madrid MD LAB BLOOD ORDERABLES Final Re sult [facility] ([place]) [address] [facility] [place] [address] * (ABNORMAL) CBC with auto [...] NRBC abs 0.00 0.00 - 0.01 K/cumm [facility] ([place]) Blood 06/29/2024 12:1 0 PM CDT 06/29/2024 12:20 PM CDT us Irena Madrid MD LAB BLOOD ORDERABLES Final Re sult Performing Organization Address [facility]/ZIP Co de Phone Number [facility] ([place]) [address] [facility] [employer] [place], [place] [id number] * (ABNORMAL) Hepatitis B core antibody, total Blood (06/29/2024 12:10 PM CDT) Hep B core IgG/IgM Reactive( A) Nonreactive Comment:Testing performed by : [facility], [address] [facility], [place]., [address] Blood 06/29/2024 12:1 0 PM CDT 06/29/2024 8:10 PM CDT Irena Madrid MD LAB MICROBIOLOGY - GENERAL OR DERABLES Final Result Performing Organization Address [facility]/ZIP Co de Phone Number [facility] ([place] [address] [facility] [place] [address] * Hepatitis B surface antibody (immune status) [...] last revised on 19. Testing performed by: [facility], [address] [place] [address]., [address] HBsAb (immune status) index 967.0 mIUnits/m L [facility] ([place]) Comment:Testing performed by : [facility], [address] [place] [address]., [address] Blood 06/29/2024 12:1 0 PM CDT 06/29/2024 4:42 PM CDT Irena Madrid MD LAB MICROBIOLOGY - GENERAL OR DERABLES Final Result [facility] ([place]) [address] [facility] [place] [employer] [place] [address] * Hepatitis B Surface Antigen Blood (06/29/2024 12:10 PM CDT) HepBsAg Nonreactive Nonreactive Comment:Testing performed by : [facility], [address] [place] [address]., [address] Blood 06/29/2024 12:1 0 PM CDT 06/29/2024 4:42 PM CDT Irena Madrid MD LAB MICROBIOLOGY - GENERAL OR DERABLES Final Result [facility] ([place]) [address] [facility] [place] [address] * Uric acid (06/29/2024 12:10 PM CDT) Uric acid 7.3 3.0 - 8.0 mg/dL Blood 06/29/2024 12:1 0 PM CDT 06/29/2024 12:20 PM CDT Irena Madrid MD LAB BLOOD ORDERABLES Final Re sult Performing Organization Address [facility] Co de Phone Number [facility] ([place]) [address] [facility] [place] [address] * PSA diagnostic (06/29/2024 12:10 PM CDT) Pathologist [facility] PSA-Total 1.66 <=6.20 ng/mL Comment: Interpretive Data [...] ORDERABLES F inal Result Performing Organization Address [facility] Co de Phone Number [facility] ([place]) [address] [facility] [place] [address] * Basic metabolic panel (06/29/2024 12:10 PM CDT) Sodium 140 135 - 145 mmol/L Potassium, pl 4.2 3.3 - 4.9 mmol/L [facility] ([place]) Chloride 106 97 - 110 mmol/L [facility] ([place]) CO2 23 22 - 32 mmol/L [facility] ([place]) Anion gap 11 2 - 15 mmol/L [facility] ([place]) BUN 22 6 - 25 mg/dL [facility] ([place]) Creatinine 1.26 0.80 - 1.30 mg/dL [facility] ([place]) Glucose 107 70 - 199 mg/dL [facility] ([place]) Comment: Interpretive Data Fasting glucose [...] Calcium 9.1 8.5 - 10.3 mg/dL [facility] ([place]) Blood 06/29/2024 12:1 0 PM CDT 06/29/2024 12:20 PM CDT us Irena Madrid MD LAB BLOOD ORDERABLES Final Re sult [facility] ([place]) [address] [facility] [place] [address] from Last 3 Months Insurance MEDICARE FORMERLY [facility]ICARE SUPPLEMENT MEDICARE [facility] MEDICARE [facility] MEDICARE SUPPLEMENT [facility] Advance Directives For more information, please contact: [phone] * Full Code (Latest Code Status on File) Date Activated Date Inactivated Comments 08/13/2024 1:28 AM 08/20/2024 6:40 PM * Full Code Date Activated Date Inactivated Comments 04/10/2022 4:59 PM 04/11/2022 8:42 PM * Full Code Date Activated Date Inactivated Comments 02/04/2022 6:26 PM 02/08/2022 5:59 PM * Full Code Date Activated Date Inactivated Comments 01/13/2022 7:39 PM 01/17/2022 7:25 PM * Full Code Date Activated Date Inactivated Comments 07/16/2021 2:26 PM 07/17/2021 4:45 PM Care Teams Sneller Hand Relationship Specialty Start Date End Date Irena Madrid MD [address] [place] [address] PCP - General 12/18/16 Tha Oh MD [address] [place] [address] PCP - Home Infusion Attending Infectious Diseases 08/20/24 Mundo Smith MD Consulting Physician Neurosurgery 12/10/16 Viviana Wagner MD [address] [place] [address] Consulting Physician Pain Management 02/26/17 Heather Grant, APPLICATIONS INSTRUCTOR [address] [place] [address] Nurse Practitioner Neurosurgery 04/06/17 Quinn Flannery MD [address] [place] [address] Consulting Physician Pain Management 05/10/17 [facility] Capacity Planning Engineer Physical Therapy 10/06/17 Omid Hoffman MD Surgeon Orthopedic Surgery 11/02/17 Steffany Solomon NP Nurse Practitioner Pain Management 07/05/18 Carlos Ford MD Consulting Physician Neurology 09/20/18 Gerardo Chávez MD Referring Physician Urology 01/28/19 Irineo Moe MD Consulting Physician Dermatology 01/28/19 Nelson Schneider MD [address] [facility] [address] [place] [address] Consulting Physician Orthopedic Surgery 02/22/19 Mirta Angeles PA [address] [facility] [address] [place] [address] Physician .Net Programmer Orthopedic Surgery 10/08/19 John Khan MD PhD [address] [place] [address] Radiation Oncologist Radiation Oncology 08/30/20 Sam Whelan MD [address] [place] [address] Consulting Physician Ophthalmology 04/02/22 Quinn Flannery MD [address] [place] [address] Consulting Physician Pain Management 06/19/22 [place] [address] [place] [address] Consulting Physician Neurosurgery 06/21/22 Brock Segura MD [address] [place] [address] [address] [address] Consulting Physician Cardiology 08/26/22 Tung Bach, OD [address] [place] [address] Consulting Physician Optometry 07/31/22 Janell Orellana PA [address] [place] [address] Physician .Net Programmer Orthopedic Surgery 09/12/22 Ashtyn Morrow PA [address] [place] [id number] [place] [address] Physician .Net Programmer Colon and Rectal Surgery 04/30/23 Ternece Edgar DMD [address] [place] [address] Dentist Oral Surgery 09/04/23 Ila Alvarenga [facility] Pharmacist Pharmacy 08/20/24 Agustín Dietz, ANITA [address] [place] [address] Talent Development Specialist 08/24/24
--- OUTSIDE RECORDS SUMMARY | 2024-08-24 14:26 | XMS_ITS | Encounter Summary ---
Author Organization [facility] Address [address] [place] [address] Care Team Providers Care Naphthalene Operator Name Role Phone Mundo Smith MD Unavailable [phone] Filiberto Madrid MD Primary Care Provider Viviana Wagner MD Unavailable [phone] Heather [place] NP Unavailable [phone] Quinn Flannery MD Unavailable +[phone] Nena Rogers PTA Unavailable Unavailable Omid Hoffman MD Unavailable +[phone] Steffany Solomon NP Unavailable [phone] Carlos Ford MD Unavailable Gerardo Chávez MD Unavailable Irineo Moe MD Unavailable Nelson Schneider MD Unavailable Mirta Angeles Unavailable [phone] John Khan MD PhD Unavailable Sam Whelan MD Unavailable Quinn Flannery MD Unavailable Cristy Rodriguez MD Unavailable Brock Segura MD Unavailable [phone] BachTung chaparro OD Unavailable Janell Orellana PA Unavailable Ashtyn Morrow PA Unavailable [phone] Terence Edgar DMD Unavailable Tha Oh MD Unavailable [phone] Ila Alvarenga [facility] Unavailable Unavailable Agustín Dietz RN Unavailable [phone] Reason for Visit * Reason Onset Date Comments NEEDS JESENIA APPOINTMENT [place] 08/23/2024 Spoke With Home Health Provider 08/23/2024 Encounter Details Date Type Department Care Team (Late st Contact Info) Description 08/23/2024 Telephone [facility] [address] [place] [id number] Filiberto Madrid MD [address] [facility] [address] [place] [address] NEEDS JESENIA APPOINTMENT [place]; Spoke With Home Health Provider Social History [...] materials from doctor or pharmacy Never 04/26/2022 [facility] Utilities Answer Date Recorded In the past [...] often do you attend chur ch or synagogue services? Never 08/13/2024 Do you belong to any clubs o r organizations such as yazdanism groups, unions, fraternal or athletic groups, or [...] any time in the past [address] [facility] [place], were you homeless or living in a alf (including now)? No 08/13/2024 Personal Safety Answer Date Recorded Have you ever been in or are you currently in a harmful physical or emotional relationship or is someone making you feel afraid or unsafe? 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 They are aware of [facility] message et request this note be faxed to them. I faxed this message to [phone]. * Telephone Encounter - Filiberto Madrid MD - 08/24/2024 10:17 AM CDT Combination of dronedarone/Multaq and rivaroxaban/Xarelto previously tolerated and recommended by his case folder. Doses are adjusted appropriately. * Telephone Encounter - Isabel Frerari RN - 08/24/2024 8:24 AM CDT [facility] looks like we are trying to get ofc visit arranged. I gave verbal order this am for PT in addition to HH services. HH note is advising of med interaction-please let us know that it is ok to continue these meds. Thanks * Telephone Encounter - Filiberto Madrid MD - 08/23/2024 5:31 PM CDT Do I need to do anything? * Telephone Encounter - Lakeisha Magaña - 08/23/2024 12:06 PM CDT Joanne from [facility] said pt was admitted to home care over the weekend. Joanne states she will be going out 1 x a week for 9 weeks and there is [facility] . [facility]#[phone] Joanne * Telephone Encounter - Norma Burch LPN - 08/23/2024 10:22 AM CDT Pt friend, Keyur, did r/c & stated he is aware that pt needs JESENIA appointment. However, it willtake 2 people to be able to get pt into the car to get him here. Keyur stated he spoke with someone at this office 08/20/24 & they were supposed to contact pt son to try and schedule the JESENIA appointment. There is a note in Epic 08/20/24 from [facility] junior administrative assistant showing she did LMTRC fo r pt son. Informed Keyur that our office will speak with the son as he advised. Keyur voiced understanding & had no further questions/concerns at this time. * Telephone Encounter - Norma Burch LPN - 08/23/2024 8:46 AM CDT TR for pt [phone] to try and schedule JESENIA appointment. * Telephone Encounter - Norma Burch LPN - 08/23/2024 8:46 AM CDT Images from the original note were not included. Yoanna Andrew MD P [facility] Im/Fm Staff [facility] could this gentleman be scheduled for JESENIA apt GUSTAVO, we are discharging today with a PICC line patient is due to get ceftriaxone for at least 6 weeks duration, ID is following however we want to make sure PCP is aware. Regards Dr Andrew documented in this encounter Plan of Treatment Not on file documented as of this encounter Visit Diagnoses Not on filedocumented in this encounter Care Teams Naphthalene Operator Relationship Specialty Start Date End Date Filiberto Madrid MD [address] [place] [address] PCP - General 12/18/16 Tha Oh MD [address] [facility] [address] [place] [address] PCP - Home Infusion Attending Infectious Diseases 08/20/24 Mundo Smith MD Consulting Physician Neurosurgery 12/10/16 Viviana Wagner MD [address] [place] [address] Consulting Physician Pain Management 02/26/17 Heather [place], JENNIFER [address] [place] [address] Nurse Practitioner Neurosurgery 04/06/17 Quinn Flannery MD [address] [place] [address] Consulting Physician Pain Management 05/10/17 Nena Rogers [facility] Manager Physical Therapy 10/06/17 Omid Hoffman MD Surgeon Orthopedic Surgery 11/02/17 Steffany Solomon NP Nurse Practitioner Pain Management 07/05/18 Carlos Ford MD Consulting Physician Neurology 09/20/18 Gerardo Chávez MD Referring Physician Urology 01/28/19 Irineo Moe MD Consulting Physician Dermatology 01/28/19 Nelson Schneider MD [address] [place] [address] Consulting Physician Orthopedic Surgery 02/22/19 Mirta Angeles PA [address] [place] [address] Physician Napper Grinder Orthopedic Surgery 10/08/19 John Khan MD PhD [address] [place] [address] Radiation Oncologist Radiation Oncology 08/30/20 Sam Whelan MD [address] [place] [address] Consulting Physician Ophthalmology 04/02/22 Quinn Flannery MD [address] [place] [address] Consulting Physician Pain Management 06/19/22 [place] [address] [place] [address] Consulting Physician Neurosurgery 06/21/22 Brock Segura MD [address] [place] [address] [address], [place] [address] Consulting Physician Cardiology 08/26/22 Tung Bach OD [address] [place] [address] Consulting Physician Optometry 07/31/22 Janell Orellana PA [address] [place] [address] Physician Napper Grinder Orthopedic Surgery 09/12/22 Ashtyn Morrow PA [address] [place] [id number] [place] [address] Physician Napper Grinder Colon and Rectal Surgery 04/30/23 Terence Edgar, AISHWARYA [address] [place] [address] Dentist Oral Surgery 09/04/23 Ila Alvarenga, [facility] Pharmacist Pharmacy 08/20/24 Agustín Dietz, ANITA [address] [facility] [address] [place] [address] Roller Setter 08/24/24 documented as of this encounter
--- OUTSIDE RECORDS SUMMARY | 2024-08-24 14:26 | XMS_ITS | Encounter Summary ---
Author Organization [facility] Address [address] [place] [address] Care Team Providers Care Die Storage Worker Name Role Phone Sunil Zelaya MD Unavailable [phone] Mundo Smith MD Unavailable [phone] Filiberto Madrid MD Primary Care Provider [phone] Viviana Wagner MD Unavailable [phone] Heather [place] NP Unavailable [phone] Quinn Flannery MD Unavailable [phone] Nena Rogers PTA Unavailable Unavailable Omid Hoffman MD Unavailable [phone] Steffany Solomon NP Unavailable [phone] Carlos Ford MD Unavailable Gerardo Chávez MD Unavailable Irineo Moe MD Unavailable Nelson Schneider MD Unavailable [phone] Mirta Angeles Unavailable [phone] John Khan MD PhD Unavailable [phone] AdelfoOmidMyra KELLY Unavailable [phone] Sam Whelan MD Unavailable Quinn Flannery MD Unavailable [phone] Cristy Rodriguez MD Unavailable [phone] Brock Segura MD Unavailable [phone] Mikala Tung Kincaid OD Unavailable [phone] Janell Orellana PA Unavailable [phone] Ashtyn Morrow Unavailable +[phone] Ashtyn Morrow Unavailable [phone] Terence Edgar DMD Unavailable [phone] Tha Oh MD Unavailable [phone] Ila Alvarenga [facility] Unavailable Unavailable Agustín Dietz RN Unavailable [phone] Encounter Details Date Type Department Care Team (Late st Contact Info) Description 09/01/2020 Orders Only [facility] Advanced Medicine Radiation Oncology [address] [facility] Advanced Medicine [facility] [place] [address] Jostin Baez MD [address] [facility] [address] [place] [address] Prostate cancer (HCC) (Primary Dx); Pre-operative laboratory [...] on file 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 Source: [employer]. Last revised 03-20-2017 us Jostin Baez MD LAB MICROBIOLOGY - GENERAL ORDERABLES Final Result LISA BOWLING ([place]) 1 [facility] Department [place] [address] documented in this encounter Visit Diagnoses Diagnosis Prostate cancer (HCC)- Primary Malignant neoplasm of prostate Pre-operative laboratory examination Pre-procedural laboratory examination Prostate cancer (HCC) Malignant neoplasm of prostate Pre-operative laboratory examination Pre-procedural laboratory examination documented in this encounter Additional Health Concerns Infection Onset Date Last Indicated Resolved Time COVID: Suspected 01/13/2022 01/13/2022 01/13/2022 5:25 PM HAND TILE MAKER COVID: Suspected 08/12/2024 08/12/2024 08/12/2024 8:59 PM CDT documented as of this encounter Care Teams Die Storage Worker Relationship Specialty Start Date End Date Filiberto Madrid MD [address] [address] PCP - General 12/18/16 Tha Oh MD [address] [facility] [address] [place] [address] PCP - Home Infusion Attending Infectious Diseases 08/20/24 Sunil Zelaya MD Consulting Physician Cardiovascular Disease 11/18/16 Mundo Smith MD Consulting Physician Neurosurgery 12/10/16 Viviana Wagner MD [address] [address] Consulting Physician Pain Management 02/26/17 Heather [place] NP [address] [address] Nurse Practitioner Neurosurgery 04/06/17 Quinn Flannery MD [address] [place] [address] Consulting Physician Pain Management 05/10/17 Nena Rogers PTA Carton Machine Operator Physical Therapy 10/06/17 Omid Hoffman MD Surgeon Orthopedic Surgery 11/02/17 Steffany Solomon NP Nurse Practitioner Pain Management 07/05/18 Carlos Ford MD Consulting Physician Neurology 09/20/18 Gerardo Chávez MD Referring Physician Urology 01/28/19 Irineo Moe MD Consulting Physician Dermatology 01/28/19 Nelson Schneider MD [address] [facility] [address] [place] [address] Consulting Physician Orthopedic Surgery 02/22/19 Mirta Angeles PA [address] [facility] [address] [place] [address] Physician Line Construction Supervisor Orthopedic Surgery 10/08/19 John Khan MD PhD [address] [place] [address] Radiation Oncologist Radiation Oncology 08/30/20 Omid Emanuel DO [address] [address] Consulting Physician Cardiovascular Disease 11/08/20 Sam Whelan MD [address] [facility] [address] [place] [address] Consulting Physician Ophthalmology 04/02/22 Quinn Flannery MD [address] [place] [address] Consulting Physician Pain Management 06/19/22 [place] [address] [place] [address] Consulting Physician Neurosurgery 06/21/22 Brock Segura MD [address] [place] [address] [address], [place] [address] Consulting Physician Cardiology 08/26/22 Tung Bach OD [address] [place], [place] [address] Consulting Physician Optometry 07/31/22 Janell Orellana PA [address] [place] [address] Physician Line Construction Supervisor Orthopedic Surgery 09/12/22 Ashtyn Morrow PA [address] [place] [id number] [place] [address] Physician Line Construction Supervisor Colon and Rectal Surgery 04/04/23 05/27/23 Ashtyn Morrow PA [address] [place] [id number] [place] [address] Physician Line Construction Supervisor Colon and Rectal Surgery 04/30/23 Terence Edgar, DMD [address] [place] [address] Dentist Oral Surgery 09/04/23 Ila Alvarenga [facility] Pharmacist Pharmacy 08/20/24 Agustín Dietz, ANITA [address] [place] [address] Credit Negotiator 08/24/24 documented as of this encounter
--- OUTSIDE RECORDS SUMMARY | 2024-08-24 14:26 | XMS_ITS ---
Author Organization [facility] [address] Address [address] [place] [address] Phone Care Team Providers Care Warehouse Freight Handler Name Role Phone Mundo Smith MD Unavailable [phone] Filiberto Madrid MD Primary Care Provider [phone] Viviana Wagner MD Unavailable [phone] Heather [place] NP Unavailable [phone] Quinn Flannery MD Unavailable +[phone] Nena Rogers PTA Unavailable Unavailable Omid Hoffman MD Unavailable [phone] Steffany Solomon NP Unavailable [phone] Carlos Ford MD Unavailable Gerardo Chávez MD Unavailable Irineo Moe MD Unavailable Nelson Schneider MD Unavailable [phone] Mirta Angeles Unavailable [phone] John Khan MD PhD Unavailable [phone] Sam Whelan MD Unavailable Quinn Flannery MD Unavailable [phone] Cristy Rodriguez MD Unavailable Brock Segura MD Unavailable [phone] BachTung chaparro OD Unavailable Janell Orellana PA Unavailable Ashtyn Morrow PA Unavailable [phone] Terence Edgar DMD Unavailable Tha Oh MD Unavailable [phone] [facility] Unavailable Unavailable Agustín Dietz RN Unavailable [phone] Anti-Infective - ceftriaxone Status:Enrolled (Active) Start date:08/19/2024 Enrollment date:08/19/2024 Linked medications:ceftriaxone sodium,0.9 % sodium chloride (Active) Related program episode:Home Infusion (Active) Case Team Name Relationship Phone Ila Alvarenga [facility](Responsible Staff) Pharmacist Continued Care and Services Coordination This section includes services coordinated for Anti-Infective - ceftriaxone. Home Medical Care Name Services Phone [facility] Home Infusion Therapy Home Infusion and Inje ction [phone] Shan French [facility]
--- OUTSIDE RECORDS SUMMARY | 2024-08-24 14:26 | XMS_ITS | Encounter Summary ---
Author Organization [facility] Address [address] [place] [address] Phone Care Team Providers Care Manager Math Name Role Phone Sunil Zelaya MD Unavailable [phone] Joel Jamison MD Unavailable Mundo Smith MD Unavailable [phone] Filiberto Madrid MD Primary Care Provider [phone] Viviana Wagner MD Unavailable [phone] Heather [place] NP Unavailable [phone] Quinn Flannery MD Unavailable [phone] Nena Rogers PTA Unavailable Unavailable Omid Hoffman MD Unavailable Steffany Solomon NP Unavailable [phone] Carlos Ford MD Unavailable Gerardo Chávez MD Unavailable Irineo Moe MD Unavailable Nelson Schneider MD Unavailable Mirta Angeles Unavailable [phone] John Khan MD PhD Unavailable Omid Emanuel DO Unavailable Sam Whelan MD Unavailable [phone] Quinn Flannery MD Unavailable [phone] Cristy Rodriguze MD Unavailable Brock Segura MD Unavailable [phone] Tung Bach OD Unavailable Janell Orellana PA Unavailable [phone] Ashtyn Morrow PA Unavailable [phone] Ashtyn Morrow Unavailable [phone] Terence Edgar DMD Unavailable [phone] Tha Oh MD Unavailable [phone] Ila Alvarenga [facility] Unavailable Unavailable Agustín Dietz RN Unavailable Encounter Details Date Type Department Care Team (Late st Contact Info) Description 05/30/2017 Orders Only [facility] [address] [place] [address] Filiberto Madrid MD [address] [place] [address] Social History Tobacco Use Types Packs/Day Years Used Date Smoking Tobacco: Never Smokeless Tobacco: Never Alcohol Use Standard Drinks/Week Comments Yes 0 (1 standard drink = 0.6 oz pur e alcohol) Rarely Sex and Gender Information Value Date Recorded Sex Assigned at Not on file 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 Gender Identity Not on file Sexual [...] COVID: Suspected 01/13/2022 01/13/2022 01/13/2022 5:25 PM INTAKE MANAGER COVID: Suspected 08/12/2024 08/12/2024 08/12/2024 8:59 PM CDT documented as of this encounter Care Teams Manager Math Relationship Specialty Start Date End Date Filiberto Madrid MD [address] [place] [address] PCP - General 12/18/16 Tha Oh MD [address] [facility] [address] [place] [address] PCP - Home Infusion Attending Infectious Diseases 08/20/24 Sunil Zelaya MD Consulting Physician Cardiovascular Disease 11/18/16 Joel Jamison MD [address] [facility] [place] [facility] [address] [place] [address] Consulting Physician Urology 04/16/16 01/27/19 Mundo Smith MD [address] [facility] [place] [facility] [address] [place] [address] Consulting Physician Neurosurgery 12/10/16 Viviana Wagner MD [address] [place] [address] Consulting Physician Pain Management 02/26/17 Heather [place], PRODUCTION CONTROL SUPERVISOR [address] [place] [address] Nurse Practitioner Neurosurgery 04/06/17 Quinn Flannery MD [address] [place] [address] Consulting Physician Pain Management 05/10/17 Nena Rogers [facility] Cold Storage Superintendent Physical Therapy 10/06/17 Omid Hoffman MD Surgeon Orthopedic Surgery 11/02/17 Steffany Solomon NP Nurse Practitioner Pain Management 07/05/18 Carlos Ford MD Consulting Physician Neurology 09/20/18 Gerardo Chávez MD Referring Physician Urology 01/28/19 Irineo Moe MD Consulting Physician Dermatology 01/28/19 Nelson Schneider MD [address] [id number] Consulting Physician Orthopedic Surgery 02/22/19 Mirta Angeles PA [address] [facility] [address] [place], [place] [address] Physician Crew Boat Operator Orthopedic Surgery 10/08/19 John Khan MD PhD 6 [facility] [place] [place] [address] Radiation Oncologist Radiation Oncology 08/30/20 Omid Emanuel DO 2 [facility] [place] [facility] [address] [place] [address] Consulting Physician Cardiovascular Disease 11/08/20 Sam Whelan MD 2 [facility] [place] [facility] [address] [place] [address] Consulting Physician Ophthalmology 04/02/22 Quinn Flannery MD [address] [place] [address] Consulting Physician Pain Management 06/19/22 [place] [address] [place] [address] Consulting Physician Neurosurgery 06/21/22 Brock Segura MD [address] [place] [address] [address], [place] [address] Consulting Physician Cardiology 08/26/22 Tung Bach OD [address] [place] [address] Consulting Physician Optometry 07/31/22 Janell Orellana PA [address] [place] [address] Physician Crew Boat Operator Orthopedic Surgery 09/12/22 Ashtyn Morrow PA [address] [place] [place] [id number] [place] [address] Physician Crew Boat Operator Colon and Rectal Surgery 04/04/23 05/27/23 Ashtyn Morrow PA [address] [place] [id number] [place] [address] Physician Crew Boat Operator Colon and Rectal Surgery 04/30/23 Terence Edgar DMD [address] [place] [address] Dentist Oral Surgery 09/04/23 Ila Alvarenga [facility] Pharmacist Pharmacy 08/20/24 Agustín Dietz, ANITA [address] [place] [address] [address] [place] [address] Oven Roaster 08/24/24 documented as of this encounter
--- OUTSIDE RECORDS SUMMARY | 2024-08-24 14:26 | XMS_ITS | Encounter Summary ---
Author Organization [facility] Address [address] [place] [address] Care Team Providers Care Delivery Truck Driver Name Role Phone Mundo Smith MD Unavailable [phone] Filiberto Madrid MD Primary Care Provider Viviana Wagner MD Unavailable [phone] Heather Grant NP Unavailable [phone] Quinn Flannery MD Unavailable [phone] Nena Rogers PTA Unavailable Unavailable Omid Hoffman MD Unavailable [phone] Steffany Solomon NP Unavailable [phone] Carlos Ford MD Unavailable Gerardo Chávez MD Unavailable Irineo Moe MD Unavailable Nelson Schneider MD Unavailable Mirta Angeles Unavailable [phone] John Khan MD PhD Unavailable Sam Whelan MD Unavailable Quinn Flannery MD Unavailable [phone] Cristy Rodriguez MD Unavailable Brock Segura MD Unavailable [phone] BachTung chaparro OD Unavailable Janell Orellana PA Unavailable [phone] Ashtyn Morrow PA Unavailable [phone] Terence Edgar DMD Unavailable [phone] Tha Oh MD Unavailable + [phone] Ila Alvarenga [facility] Unavailable Unavailable Reason for Visit * Reason Onset Date Comments IV Antibx ([place]) 08/23/2024 Encounter Details Date Type Department Care Team (Late st Contact Info) Description 08/23/2024 Documentation [facility] [address] [place] [phone] Funmilayo Winchester LPN IV Antibx ([place]) Social History Tobacco Use Types Packs/Day Years [...] materials from doctor or pharmacy Never 04/26/2022 [facility] Utilities Answer Date Recorded In the past 12 months has e [employer], gas, oil, or water company threatened to [...] often do you attend chur ch or evangelical services? Never 08/13/2024 Do you belong to any clubs o r organizations such as baptism groups, unions, fraternal or athletic groups, or [...] any time in the past 12 m onths, were you homeless or living in a assisted (including now)? No 08/13/2024 Personal Safety Answer Date Recorded Have you ever been in or are you currently in a harmful physical or emotional relationship or is someone making you feel afraid or unsafe? 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 Please flush line 12 hours later with 10 mL NS + heparin 5 ml 10 units/mL to maintain line patency. Will require last dose of Imovax (Rabavert) 2.5 unit/mL IM on 08/24/24 to complete rabies vaccine series. Follow up 4-5 weeks per Emilee Orozco NP Notes documented in this encounter Plan of Treatment Not on file documented as of this encounter Visit Diagnoses Not on filedocumented in this encounter Care Teams Delivery Truck Driver Relationship Specialty Start Date End Date Filiberto Madrid MD [address] [place] [address] PCP - General 12/18/16 Tha Oh MD [address] [place] [address] PCP - Home Infusion Attending Infectious Diseases 08/20/24 Mundo Smith MD Consulting Physician Neurosurgery 12/10/16 Viviana Wagner MD [address] [place] [address] Consulting Physician Pain Management 02/26/17 Heather Grant NP [address] [place] [address] Nurse Practitioner Neurosurgery 04/06/17 Quinn Flannery MD [address] [place] [address] Consulting Physician Pain Management 05/10/17 Nena Rogers [facility] Cord Maker Physical Therapy 10/06/17 Omid Hoffman MD Surgeon Orthopedic Surgery 11/02/17 Steffany Solomon NP Nurse Practitioner Pain Management 07/05/18 Carlos Ford MD Consulting Physician Neurology 09/20/18 Gerardo Chávez MD Referring Physician Urology 01/28/19 Irineo Moe MD Consulting Physician Dermatology 01/28/19 Nelson Schneider MD [address] [facility] [address] [place] [address] Consulting Physician Orthopedic Surgery 02/22/19 Mirta [place] PA [address] [facility] [address] [facility] [address] [place] [address] Physician Police Sergeant Precinct Orthopedic Surgery 10/08/19 John Khan MD PhD [address] [place] [address] Radiation Oncologist Radiation Oncology 08/30/20 Sam Whelan MD [address] [place] [address] Consulting Physician Ophthalmology 04/02/22 Quinn Flannery MD [address] [place] [address] Consulting Physician Pain Management 06/19/22 [place] [address] [place] [address] Consulting Physician Neurosurgery 06/21/22 Brock Segura MD [address] [place] [address] [address], [place] [address] Consulting Physician Cardiology 08/26/22 Tung Bach OD [address] [place], [place] [id number] Consulting Physician Optometry 07/31/22 Janell Orellana PA [address] [place], [place] [address] Physician Police Sergeant Precinct Orthopedic Surgery 09/12/22 Ashtyn Morrow PA [address] [place] [address] [place] [id number] [place] [address] Physician Police Sergeant Precinct Colon and Rectal Surgery 04/30/23 Terence Edgar DMD [address] [place] [address] Dentist Oral Surgery 09/04/23 Ila Alvarenga RPh Pharmacist Pharmacy 08/20/24 documented as of this encounter
--- OUTSIDE RECORDS SUMMARY | 2024-08-24 14:26 | XMS_ITS | Encounter Summary ---
Author Organization [facility] Address [address] [place] [address] Care Team Providers Care Climatology Professor Name Role Phone Mundo Smith MD Unavailable [phone] Filiberto Madrid MD Primary Care Provider [phone] Viviana Wagner MD Unavailable [phone] Heather Grant NP Unavailable [phone] Quinn Flannery MD Unavailable [phone] Nena Rogers PTA Unavailable Unavailable Omid Hoffman MD Unavailable Steffany Solomon NP Unavailable [phone] Carlos Ford MD Unavailable Gerardo Chávez MD Unavailable Irineo Moe MD Unavailable Nelson Schneider MD Unavailable Mirta Angeles Unavailable [phone] John Khan MD PhD Unavailable [phone] Sam Whelan MD Unavailable Quinn Flannery MD Unavailable [phone] Cristy Rodriguez MD Unavailable Brock Segura MD Unavailable [phone] BachTung chaparro OD Unavailable [phone] Janell Orellana PA Unavailable Ashtyn Morrow PA Unavailable [phone] Terence Edgar DMD Unavailable [phone] Tha Oh MD Unavailable Ila Alvarenga [facility] Unavailable Unavailable Encounter Details Date Type Department Care Team (Late st Contact Info) Description 08/20/2024 Home Infusion [facility] [address] [place] [address] Goldie Obregon, RPh Pyogenic arthritis of left knee joint, due to unspecified organism (HCC) (Primary Dx) Social History Tobacco Use Types Packs/Day Years [...] materials from doctor or pharmacy Never 04/26/[address] [facility] Utilities Answer Date Recorded In the past 12 months has e [employer], gas, oil, or water company threatened to [...] week 08/13/2024 How often do you attend [facility] or episcopal services? Never 08/13/2024 Do you belong to any clubs o r organizations such as islam groups, unions, fraternal or athletic groups, or [...] any time in the past [address] [facility], were you homeless or living in a intermediate (including now)? No 08/13/2024 Personal Safety Answer Date Recorded Have you ever been in or are you currently in a harmful physical or emotional relationship or is someone making you feel afraid or unsafe? 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 Gender Identity Not on file Sexual Orientation Not on file documented as of this encounter Ordered Prescriptions Prescription Sig Dispense Quantity Refills Last Filled Start Date End Date heparin 10 unit/mL syringe flush syringeIndication s:Maintain Patency of Indwelling Vascular Catheter Infuse 5 mL (50 Units total) IV as needed (line care) 01129 mL 08/20/2024 11:59 PM CDT 08/20/2024 6 sodium chloride 0.9% flush syringeIndication s:Pyogenic arthritis of left knee joint, due to unspecified organism (HCC) Infuse 10 mL IV as needed for line care 60507 mL 08/20/2024 11:59 PM CDT 08/20/2024 6 cefTRIAXone 2,000 mg in sodium chloride 0.9% 50 mL IVPB (elastomeric)Suzette cations:Pyogenic arthritis of left knee joint, due to unspecified organism (HCC) Infuse 50 mL (2,000 mg total) IV daily for 60 minutes at 50 mL/hr via elastomeric device. Remove from refrigerator 1-2 hours before administration. 2100 mL 08/20/2024 11:59 PM CDT 08/20/2024 5 documented in this encounter Plan of Treatment Not on file documented as of this encounter Visit Diagnoses Diagnosis Pyogenic arthritis of left knee joint, due to unspecified organism (HCC)- Primary documented in this encounter Care Teams Climatology Professor Relationship Specialty Start Date End Date Filiberto Madrid MD [address] [place] [address] PCP - General 12/18/16 Tha Oh MD [address] [place] [address] PCP - Home Infusion Attending Infectious Diseases 08/20/24 Mundo Smith MD Consulting Physician Neurosurgery 12/10/16 Viviana Wagner MD [address] [place] [address] Consulting Physician Pain Management 02/26/17 Heather Grant, JENNIFER [address] [place] [address] Nurse Practitioner Neurosurgery 04/06/17 Quinn Flannery MD [address] [place] [address] Consulting Physician Pain Management 05/10/17 Nena Rogers, [facility] [employer]que Kiln Placer Physical Therapy 10/06/17 Omid Hoffamn MD Surgeon Orthopedic Surgery 11/02/17 Steffany Solomon NP Nurse Practitioner Pain Management 07/05/18 Carlos Ford MD Consulting Physician Neurology 09/20/18 Gerardo Chávez MD Referring Physician Urology 01/28/19 Irineo Moe MD Consulting Physician Dermatology 01/28/19 Nelson Schneider MD [address] [facility] [address] [place] [address] Consulting Physician Orthopedic Surgery 02/22/19 Mirta [place] PA [address] [facility] [address] [place] [address] Physician Gas Furnace Installer Orthopedic Surgery 10/08/19 John Khan MD PhD [address] [place] [address] Radiation Oncologist Radiation Oncology 08/30/20 Sam Whelan MD [address] [place] [address] Consulting Physician Ophthalmology 04/02/22 Quinn Flannery MD [address] [address] Consulting Physician Pain Management 06/19/22 [place] [address] [place] [address] Consulting Physician Neurosurgery 06/21/22 Brock Segura MD [address] [place] [address] [address], [place] [address] Consulting Physician Cardiology 08/26/22 Tung Bach OD [address] [place], [place] [id number] Consulting Physician Optometry 07/31/22 Janell Orellana PA [address] [place], [place] [id number] Physician Gas Furnace Installer Orthopedic Surgery 09/12/22 Ashtyn Morrow PA [address] [place] [phone] [place] [address] Physician Gas Furnace Installer Colon and Rectal Surgery 04/30/23 Terence Edgar DMD [address] [place] [address] Dentist Oral Surgery 09/04/23 Ila Alvarenga [facility] Pharmacist Pharmacy 08/20/24 documented as of this encounter
--- OUTSIDE RECORDS SUMMARY | 2024-08-24 14:27 | XMS_ITS | Referral Summary ---
Author Organization [facility] [email or web address] Address [address] [place] [address] Phone Care Team Providers Care Truck Safety Inspector Name Role Phone Mundo Smith MD Unavailable [phone] Irena Madrid MD Primary Care Provider Viviana Wagner MD Unavailable [phone] Heather Grant NP Unavailable [phone] Quinn Flannery MD Unavailable [phone] Nena Rogers PTA Unavailable Unavailable Omid Hoffman MD Unavailable [phone] Steffany Solomon NP Unavailable [phone] Carlos Ford MD Unavailable Gerardo Chávez MD Unavailable Irineo Moe MD Unavailable Nelson Schneider MD Unavailable [phone] Mirta Angeles Unavailable [phone] John Khan MD PhD Unavailable [phone] Sam Whelan MD Unavailable Quinn Flannery MD Unavailable Cristy Rodriguez MD Unavailable [phone] Brock Segura MD Unavailable Tung Bach OD Unavailable [phone] Janell Orellana PA Unavailable Ashtyn Mrorow PA Unavailable HerveTerence Preston DMD Unavailable Tha Oh MD Unavailable [phone] Ila Alvarenga [facility] Unavailable Unavailable Agustín Dietz RN Unavailable Encounters Date Type Department Care Team Description 08/23/2024 Documentation [facility] [address] [facility] [address] [place] [address] Funmilayo Winchester LPN IV Antibx (DE) 08/23/2024 Telephone [facility] [address] [place] [address] Irena Madrid MD NEEDS JESENIA APPOINTMENT GUSTAVO; Spoke With Home Health Provider 08/20/2024 Plan of Care Documentation [facility] Home Infusion Therapy [address] [place] [address] 08/20/2024 Telephone [facility] [address] [place] [phone] Irena Madrid MD 08/20/2024 Home Infusion [facility] Home Infusion Therapy [address] [place] [address] Goldie Obregon, [facility] Pyogenic arthritis of left knee joint, due to unspecified organism (HCC) (Primary Dx) 08/20/2024 Telephone [facility] Orthopedics and Sports Medicine [address] [facility] [address] [place] [address] Omid Hoffman MD 08/20/2024 Telephone [facility] [address] [place] [address] Irena Madrid MD Spoke With Home Health Provider 08/12/2024 7:54 PM CDT - 08/20/2024 2:40 PM CDT Hospital Encounter [facility] IMU [address] [place] [address] Gail Wade MD Petters, Ekanga Sunday, MD Richards, John Albert Jr., MD Bacteremia due to group B [...] Discharge to home, home health skilled care 08/18/2024 12:11 PM CDT Anesthesia Event [facility] Operating Room 1 [place] [address] Eddie Mcallister MD 08/18/2024 1:00 PM CDT - 08/18/2024 2:45 PM CDT Surgery [facility] Operating Room 1 [place] [address] Omid Hoffman MD IRRIGATION AND DEBRIDEMENT WITH POLY EXCHANGE-LEFT KNEE 08/12/2024 7:29 PM CDT - 08/12/2024 11:59 PM CDT Hospital Encounter [facility] Discharge Disposition: Discharge to home or self care 08/12/2024 2:30 PM CDT Office Visit [facility] [address] [facility] [address] [place] [phone] Festus Arriaga NP Tachypnea (Primary Dx); Transient alteration of awareness; Bat bite of finger, initial encounter 08/10/2024 Telephone [facility] [address] [place] [phone] Irena Madrid MD 07/03/2024 Telephone [facility] [address] [facility] [address] [place] [phone] Irena Madrid MD 07/03/2024 Results Follow-Up [facility] 1 [facility] [address] [place] [phone] Irena Madrid MD Hepatitis B surface antibody (immune status) Blood, Hepatitis B Surface Antigen Blood, Basic metabolic panel, Additional followed-up results: 5 07/01/2024 2:30 PM CDT Office Visit [facility] Radiation Oncology [address] [place] [address] John Khan MD PhD Malignant neoplasm prostate (CMS/HCC) (HCC) 06/29/2024 12:00 PM CDT Lab [address] [address] Medicare annual wellness visit, subsequent; Need for hepatitis B screening test; Acute midline low back pain without sciatica 06/29/2024 11:55 AM CDT Lab [address] [address] Malignant neoplasm prostate (CMS/HCC) (HCC) 06/08/2024 Telephone [facility] 1 [facility] [address] [place] [phone] Irena Madrid MD 06/03/2024 1:00 PM CDT Office Visit [facility] 1 [facility] [address] [place] [phone] Genevieve Torres NP Upper respiratory tract infection, unspecified type (Primary Dx) 06/01/2024 Telephone [facility] 1 [facility] [address] [place] [phone] Irena Madrid MD Chest Congestion from Last 3 Months Allergies No known active allergies Medications diphenhydrAMINE [...] daily, patient takes it once a day. Active acetaminophen (Tylenol Extra Strength) 500 mg tablet Take 1-2 tablets (500-1,000 mg total) by mouth every 8 (eight) hours as needed for pain Active tadalafiL (CIALIS) 5 mg tabletIndicatio ns:Malignant [...] by mouth daily with dinner 30 tablet 025 Active sodium bicarbonate 650 mg tablet Take 1 tablet (650 mg total) by mouth 2 (two) times a day 60 tablet 025 Active oxyCODONE-aceta minophen (PERCOCET) 5-325 mg per tabletIndicatio ns:Pain Take 1-2 tablets by mouth every 4 (four) hours as needed for pain 40 tablet 025 Active cefTRIAXone 2,000 mg in sodium chloride [...] mL IV as needed for line care 21557 mL 5 11:59 PM CDT 025 2025 Active heparin 10 unit/mL syringe flush syringeIndicati ons:Maintain Patency of Indwelling Vascular Catheter Infuse 5 mL (50 Units total) IV as needed (line care) 42707 mL 5 11:59 PM CDT 025 2025 [...] (ies)/home meds: Augmentin and rabies vaccines per [facility] Reviewed ED notes from [facility] 08/10/24 Today's Plan: Meds: continue Augmentin until completion Patient voices noncompliance with Augmentin 2/2 need to take it with food and has decreased appetite Follow up with scheduled rabies shots Follow up with [facility] and notification of health department Keep site [...] evaluation and voiced he would go to [facility]. Patient transported by personal vehicle into passenger seat. Called [facility] ED and spoke with mitra Ortiz nurse; given report. Faeva Tsai paperwork to [facility] ED Altered mental status 08/12/2024 Assessment & [...] evaluation and voiced he would go to [facility]. Patient transported by personal vehicle into passenger seat. Called [facility] ED and spoke with mitra Ortiz nurse; given report. Faeva Tsai paperwork to [facility] ED Acute cough 05/30/2024 Upper respiratory tract infection 05/10/2024 Assessment & Plan (05/10/2024 9:37 PM ROLL TENDER): Acute, symptoms for approximately 1 week. Afebrile, [...] 03/11. Assessment & Plan (04/18/2024 6:17 AM ROLL TENDER): Acute problem when he was travelling in [place] last fall, resolved with treatment sought there, details lacking. Consider follow up with urology. Other chest pain 09/25/2023 Assessment & Plan (05/10/2024 9:35 PM ROLL TENDER): Acute, symptoms for 1 week. Tenderness to [...] no acute changes or evidence of old HI. The patient's symptoms are likely noncardiac. He reports having several stress tests many years ago at [facility]. He does not want to go through the chemical stress test ever again because of reported side effects, and he is not ready or in any shape to get on the treadmill due to gaining weight and still recovering from infection of left knee hardware. He has a scheduled follow-up with his conveyor worker, Dr. Segura, in about two weeks. We discussed the EKG findings and his symptoms with his conveyor worker. Return here early as needed, otherwise as [...] 08/26/2022 Assessment & Plan (02/20/2023 1:36 PM ROLL TENDER): He continues to take an iron supplement [...] fall, low back pain Orders for Pancho Peter to arrange FOR CONSTIPATION: Continue drinking plenty [...] got a second opinion in neurosurgery at [facility] today. They basically had the same [...] not included. Sees Sam Whelan MD, [facility]. Wet on right, dry on left. Also bilateral vitreous syneresis. [facility] note on 06/18/2024: Status post total left knee replacement 01/15/20 Assessment & Plan (01/30/2022 5:27 PM ROLL TENDER): There is concern for his left prosthetic knee which has exhibited some warmth and swelling. This was tapped yesterday in orthopedics and there are around 65,000 nucleated cells. Microbiology preliminary report is negative. We will keep him on antibiotics (penicillin) pending further discussion with orthopedics. Assessment & Plan (01/15/2022 3:32 PM ROLL TENDER): Patient had L total Knee arthroplasty on 08/28/21. Current use of senior care anticoagulation 021 Overview (11/24/2020): Xarelto for Afib. [...] this surgery. He will also see his conveyor worker for a specific cardiac clearance. Assessment & [...] but he should discuss this with his conveyor worker as well. He can resume the anticoagulation [...] by wearing a mask. Malignant neoplasm prostate ([facility]) 11/18/2018 Cancer Staging:Clinical stage from 08/30/2020:Stage IIB(cT2b, cN0, cM0, PSA: 7.6, Grade Group: 2) - Signed by John Khan MD PhD on 08/30/2020 Overview (08/17/2020): Cancer in 6 cores, [place] 3 + 3 = 6 in 5 [...] 5. Assessment & Plan (04/12/2024 4:25 AM ROLL TENDER): Chronic, diagnosed 3-4 years ago, status post definitive radiation therapy, comanaged with Urology and Radiation therapy. Assessment & Plan (04/09/2023 4:58 PM ROLL TENDER): He was treated with definitive radiation therapy [...] completely. Assessment & Plan (01/29/2021 4:09 PM ROLL TENDER): He completed radiation therapy. He has a [...] It. Assessment & Plan (04/09/2023 5:01 PM ROLL TENDER): He was prescribed CPAP, but never used [...] (09/26/2017): Added automatically from request for surgery [id number] Chronic left-sided headaches 03/19/2017 Overview (03/19/2017): New [...] moderate anemia postoperatively. He also saw his conveyor worker at [facility] recently, and a test of some [...] it. Assessment & Plan (02/18/2021 3:03 PM ROLL TENDER): His energy level has improved considerably. He [...] same. Assessment & Plan (01/14/2022 4:00 PM ROLL TENDER): Patient has a hx of GERD and [...] option. Assessment & Plan (01/22/2017 2:20 PM ROLL TENDER): He never got a call from the [...] daily. Assessment & Plan (05/10/2024 9:36 PM ROLL TENDER): Chronic, controlled on Multaq and Xarelto at this time. Heart rate regular upon auscultation camejo, vitals stable. See plan for URI above. Assessment & Plan (04/12/2024 4:25 AM ROLL TENDER): Chronic/intermittent, present for 10 or more years, controlled on dronedarone 400 mg daily (patient's idiosyncratic dosing), and rivaroxaban 20 mg daily, comanaged with Cardiology. Assessment & Plan (10/09/2023 3:30 PM CDT): Chronic, heart rhythm is irregular but rate is controlled. He is on Xarelto and Multaq. He will keep his follow ups with Dr. Lee. Assessment & Plan (04/09/2023 5:00 PM ROLL TENDER): Heart rhythm is regular. He is on [...] same. Assessment & Plan (04/16/2022 10:49 AM ROLL TENDER): He is on Multaq and Xarelto. Continue same. The Xarelto will be held for two days before reimplantation of his left knee. Assessment & Plan (01/30/2022 5:24 PM ROLL TENDER): He remains on Multaq. We corrected the dose to reflect what the patient reports he is taking, namely 400 mg twice a day instead the non standard 400 mg daily he took previously. Assessment & Plan (01/14/2022 3:57 PM ROLL TENDER): Patient has a hx of A-fib and [...] effects. He will discuss this with his conveyor worker when he sees him for a cardiac clearance to have his left knee replaced. Assessment & Plan (01/29/2021 4:14 PM ROLL TENDER): Heart rhythm is currently regular. He is on Multaq and Xarelto. He followed up once with a conveyor worker but did not do the testing that [...] get these done and follow-up with Dr. Emnauel. Assessment & Plan (11/07/2020 8:07 AM CDT): [...] PM CDT): Scanned office note, Dr. Zelaya, [facility]. Also in Care Everywhere. Assessment & Plan (08/06/2020 10:39 AM CDT): Heart rhythm is regular. He is on Multaq and Xarelto. He plans to see his conveyor worker, Dr. Zelaya, sometime next week to get [...] well. Assessment & Plan (02/23/2018 3:29 PM ROLL TENDER): There is a history of paroxysmal atrial [...] continues on Multaq and Xarelto from his conveyor worker. Sometimes he cuts the Multaq dose down if he is taking Motrin for his hip, because he does not want his blood to be too thin. He will follow up with Cardiology for all of these issues. Assessment & Plan (02/02/2017 5:13 PM ROLL TENDER): Recent Holter ordered by Dr. Montanez showed [...] 2 Assessment & Plan (04/12/2024 4:24 AM ROLL TENDER): Chronic, present for 10 or more years, not currently requiring diuretic or other medical therapy. We will monitor on periodic followups. Assessment & Plan (04/12/2024 4:21 AM ROLL TENDER): >>ASSESSMENT AND PLAN FOR DIASTOLIC DYSFUNCTION WRITTEN [...] his complaints of fatigue. He sees his conveyor worker, Dr. Montanez, in about a month or two, and will ask him about diastolic dysfunction as a possible cause or contributing factor to his symptoms. Assessment & Plan (04/12/2024 4:21 AM ROLL TENDER): >>ASSESSMENT AND PLAN FOR DIASTOLIC DYSFUNCTION WRITTEN ON 02/23/2018 3:27 PM BY IRENA MADRID MD He seems to be doing well. Blood pressure is normal. Lungs are clear. Oxygen saturation is satisfactory. He has a conveyor worker he sees regularly, Dr. Zelaya. Continue to monitor. Assessment & Plan (04/12/2024 4:21 AM ROLL TENDER): >>ASSESSMENT AND PLAN FOR DIASTOLIC DYSFUNCTION WRITTEN [...] Cardiology. Assessment & Plan (04/09/2023 4:53 PM ROLL TENDER): He has trace pretibial pitting edema. Lungs are clear in oxygenation is normal. He has not requiring any diuretic therapy at this time. We will monitor clinically. Assessment & Plan (04/03/2022 2:45 PM ROLL TENDER): He seems to be clinically stable with no significant edema, no crackles in his lungs. Oxygen saturation is normal. We will monitor clinically without medication. Primary osteoarthritis involving multiple joints 07/08/2012 Assessment & Plan (04/12/2024 4:26 AM ROLL TENDER): Chronic, present for 10 or more years, [...] shape. Assessment & Plan (02/18/2021 3:01 PM ROLL TENDER): He continues to have various aches and [...] joints. Assessment & Plan (02/23/2018 3:30 PM ROLL TENDER): He continues to have problems with aches [...] pain recently that was evaluated by his conveyor worker at [facility], Dr. Lee. It was felt to [...] 10/03/2023 Assessment & Plan (04/09/2023 4:58 PM ROLL TENDER): He does not take anything for cholesterol [...] diet. Assessment & Plan (01/29/2021 4:10 PM ROLL TENDER): He is not currently taking anything for [...] medicine. Assessment & Plan (02/23/2018 3:27 PM ROLL TENDER): He decided to stop taking cholesterol medicine [...] prescription. Assessment & Plan (01/22/2017 2:16 PM ROLL TENDER): He is tolerating his medication without apparent [...] it. Assessment & Plan (01/22/2017 1:59 PM ROLL TENDER): No new attacks of gout while on [...] joint. Assessment & Plan (04/09/2023 4:53 PM ROLL TENDER): There is no evidence of any relapse of the left prosthetic knee infection following two-stage replacement. He is thinking of going back to [place] to swim, and I think this would be fine. Intractable left heel pain 02/03/2023 1 Assessment & Plan (04/15/2023 11:25 AM ROLL TENDER): He seems to be doing well with regard to most pain complaints, including left heel pain. However, his right wrist carpometacarpal joints flare up from time to time. He presumes it is due to gout. When it happens, he eats cherries which he says makes the problem go away. Assessment & Plan (02/20/2023 1:35 PM ROLL TENDER): He notes a sharp pain in his [...] symptoms do not improve. Orthostatic hypotension 07/27/2022 100 06/2023 Assessment & Plan (08/18/2022 5:26 PM CDT): See office BP readings. Infection of total left knee replacement, subsequent encounter 04/10/2022 06/30/2022 Overview (06/30/2022): Orthopedics, Dr. Hoffman. History of removal of joint prosthesis of left knee due to infection 03/27/2022 06/30/2022 Overview (06/30/2022): Added automatically from request for surgery [id number], s/p successful 2-stage replacement (revision on 04/10/2022). Assessment & Plan (04/03/2022 2:46 PM ROLL TENDER): Surgery to reimplant his left knee is planned for next week. He sees Dr. Hoffman tomorrow for a preoperative evaluation. 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 Assessment & Plan (04/03/2022 2:47 PM ROLL TENDER): He had explantation of the infected joint [...] resolved. Assessment & Plan (01/30/2022 5:23 PM ROLL TENDER): His diarrhea has improved significantly. He has two more days of Omnicef. We are extending his antibiotics, but with a more narrow spectrum antibiotic, namely penicillin to cover the Strep dysgalactiae that was in his blood and could possibly have infected his left prosthetic knee. Hypophosphatemia 01/16/2022 06/30/2022 Overview (06/30/2022): During hospitalization for cellulitis and sepsis. Cellulitis of left knee 01/15/2022 04/2 05/2022 Overview (06/30/2022): See hospital and office records. Assessment & Plan (01/19/2022 3:49 PM ROLL TENDER): The cellulitis involved much of the left [...] cellulitis. Assessment & Plan (01/19/2022 3:48 PM ROLL TENDER): He was hospitalized recently for a streptococcal [...] baseline. Assessment & Plan (01/15/2022 3:32 PM ROLL TENDER): Blood cultures from 01/12 now growing strep dysgalactiae with repeat blood cultures pending. - On Cefepime and vancomycin (01/13- Fever 01/13/2022 08/16/2024 Overview (06/30/2022): Cellulitis of left leg resulting in sepsis and infection of left knee replacement. Assessment & Plan (01/13/2022 6:48 PM ROLL TENDER): I was called by the patient's son [...] 06/30/2022 Assessment & Plan (01/18/2022 5:10 PM ROLL TENDER): When I assessed him five days ago at his home, he was markedly confused, more properly encephalopathic then delirious. He improved rapidly with treatment in the hospital and seems back to normal. Assessment & Plan (01/13/2022 6:49 PM ROLL TENDER): Probably due to fever and suspected sepsis. Cellulitis of left thigh 01/13/2022 Overview (06/30/2022): See hospital records, [facility]. Assessment & Plan (01/18/2022 5:09 PM ROLL TENDER): He says the cellulitis started on his [...] needed. Assessment & Plan (01/15/2022 3:33 PM ROLL TENDER): Patient currently has a left knee that [...] dehydrated. Assessment & Plan (01/30/2022 5:23 PM ROLL TENDER): He has been drinking fluid and is making plenty of urine. Blood pressure is in a better range. Assessment & Plan (01/29/2022 5:54 AM ROLL TENDER): He called the office today. He has [...] (12/03/2019): Added automatically from request for surgery [id number], arthroscopy 10/08/2019, Dr. Hoffman [facility]. Internal derangement of left knee 09/28/2019 12/03/2019 Overview (12/03/2019): Added automatically from request for surgery [id number], arthroscopy 10/08/2019. Acute gout of knee 03/08/2019 0 Overview (12/03/2019): See office note. Assessment & Plan (03/27/2019 3:18 PM ROLL TENDER): He has a history of gout, but [...] note. Assessment & Plan (03/27/2019 3:20 PM ROLL TENDER): He denies any history of knee pain [...] 09/20/201806/2023 Assessment & Plan (01/28/2019 2:16 PM ROLL TENDER): The left superior trapezius/supraspinatus area has been [...] report. Assessment & Plan (01/28/2019 2:15 PM ROLL TENDER): He has had pain in his right [...] needed. Assessment & Plan (03/26/2018 9:46 AM ROLL TENDER): For a couple of months or more [...] issue. Assessment & Plan (02/02/2017 5:14 PM ROLL TENDER): This is his main concern at this time. It really impairs his quality of life. He has trouble getting his left sock and shoe on. Right now it is not so bad, but there are times when pain is quite severe, and he resorts to an [id number]-[id number] nonsteroidal. Recent x-ray showed severe osteoarthritis of [...] testing. Assessment & Plan (04/15/2023 11:29 AM ROLL TENDER): We are monitoring a mild and intermittent [...] labs. Assessment & Plan (02/23/2018 3:30 PM ROLL TENDER): Platelet count in the hospital when last checked at the time of left hip replacement was normal. He was taking B12 for awhile, but no longer takes it. We will monitor labs periodically. Assessment & Plan (01/22/2017 2:21 PM ROLL TENDER): This was noted on one of his [...] Obesity Assessment & Plan (04/09/2023 4:59 PM ROLL TENDER): He struggles with his weight. He eats [...] needed. Assessment & Plan (02/20/2023 1:37 PM ROLL TENDER): He would like to lose some weight. [...] weeks. Assessment & Plan (01/14/2022 3:56 PM ROLL TENDER): Patient BMI of 32.83. Assessment & Plan (12/19/2021 3:50 PM CDT): We encouraged attention to his diet, and hopefully some weight loss. Assessment & Plan (06/21/2021 8:31 AM CDT): I urged attention to his diet, and hopefully some weight loss. Assessment & Plan (01/29/2021 4:10 PM ROLL TENDER): We encouraged attention to his diet, and [...] apnea. Assessment & Plan (01/22/2017 2:17 PM ROLL TENDER): Weight loss could help some of his other issues, especially the pain he has from spinal stenosis and left hip osteoarthritis. He is down a few pounds, and he will continue efforts in this regard. Sepsis due to Streptococcus species without acute organ dysfunction 01/29/2022 06/30/2022 Overview (06/30/2022): See hospital records, [facility]. Assessment & Plan (01/30/2022 5:27 PM ROLL TENDER): One of several lood cultures was positive for Strep dysgalactiae. Follow-up blood cultures on antibiotics were negative. There is concern for his left prosthetic knee which has exhibited some warmth and swelling. See discussion elsewhere. Assessment & Plan (01/18/2022 5:11 PM ROLL TENDER): He was septic, but organ function remained [...] materials from doctor or pharmacy Never 04/26/2022 [facility] Utilities Answer Date Recorded In the past 12 months has th e [employer], gas, oil, or water [employer] threatened to shut off services in your [...] often do you attend chur ch or restorationist services? Never 08/13/2024 Do you belong to any clubs o r organizations such as alevism groups, unions, fraternal or athletic groups, or [...] any time in the past 12 m [facility], were you homeless or living in a residential (including now)? No 08/13/2024 Personal Safety Answer Date Recorded Have you ever been in or are you currently in a harmful physical or emotional relationship or is someone making you feel afraid or unsafe? Denies 08/18/2024 Sex and Gender Information Value Date Recorded Sex Assigned at Not on file Legal Sex Male 7:22 PM ROLL TENDER Gender Identity Not on file Sexual Orientation [...] 08/13/2024 1:35 AM CDT Plan of Treatment Not on file Medical Devices Implanted Type Area 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 Device Identifier Shelf Expiration Date Model / Serial / Lot [employer] [id number] Spangle 58mm Sector Hip Shell Acetabular Gription Sterile Latex Free - [id number] Implanted:Qty: 1 on 10/13/2017 by Omid Hoffman MD at [facility] Left: Hip [employer] 03/09/2027 [id number] / / [id number] [employer] [id number] Spangle 58mm 36mm Hip Neutral Liner Acetabular Altrx Sterile Latex Free - [id number] Implanted:Qty: 1 on 10/13/2017 by Omid Hoffman MD at [facility] Left: Hip [employer] 06/07/2022 [id number] / / [id number] [employer] [id number] Actis Collar Hip 8 Standard Offset Stem Femoral - [id number] Implanted:Qty: 1 on 10/13/2017 by Omid Hoffman MD at [facility] Left: Hip [employer] 07/08/2027 [id number] / / [id number] [employer] 1365-36-330 Articul/Giacomo 36mm Cementless Hip +8.5mm 12/14 Taper Head Femoral Latex Free - [id number] Implanted:Qty: 1 on 10/13/2017 by Omid Hoffman MD at [facility] Left: Hip [employer] 08/07/2022 1365-36-330 / / [id number] [employer] Cement Bone Simplex Gentamicin High Viscosity 40 6195-1-001 - [id number] Implanted:Qty: 1 on 07/16/2021 by Omid Hoffman MD at [facility] Left: Knee [employer] 12/07/2022 6195-1-001 / / [id number] [employer] Cement Bone Simplex Gentamicin High Viscosity 40 6195-1-001 - [id number] Implanted:Qty: 1 on 07/16/2021 by Omid Hoffman MD at [facility] Left: Knee [employer] 12/07/2022 6195-1-001 / / [id number] [employer] [place] R+G High Viscosity Cement Bone Gentamicin Arthroplasty 5841134 - [id number] Implanted:Qty: 1 on 02/04/2022 by Omid Hoffman MD at [facility] Left: Knee [employer] C1713 05/07/2022 [id number] / / [id number] [employer] [place] R+G High Viscosity Cement Bone Gentamicin Arthroplasty 7794968 - [id number] Implanted:Qty: 1 on 02/04/2022 by Omid Hoffman MD at [facility] Left: Knee [employer] C1713 05/07/2022 [id number] / / [id number] [employer] [place] R+G High Viscosity Cement Bone Gentamicin Arthroplasty 9568635 - [id number] Implanted:Qty: 1 on 02/04/2022 by Omid Hoffman MD at [facility] Left: Knee [employer] C1713 05/07/2022 [id number] / / [id number] [employer] [place] R+G High Viscosity Cement Bone Gentamicin Arthroplasty 7525013 - [id number] Implanted:Qty: 1 on 02/04/2022 by Omid Hoffman MD at [facility] Left: Knee [employer] C1713 05/07/2022 [id number] / / [id number] [employer] Cement Bone Simplex Gentamicin High Viscosity 40 6195-1-001 - [id number] Implanted:Qty: 1 on 04/10/2022 by Omid Hoffman MD at [facility] Left: Knee [employer] 06/08/2023 6195-1-001 / / [id number] [employer] Cement Bone Simplex Gentamicin High Viscosity [facility] 6195-1-001 - [id number] Implanted:Qty: 1 on 04/10/2022 by Omid Hoffman MD at [facility] Left: Knee [employer] 06/08/2023 6195-1-001 / / [id number] [employer] Attune Cement Revision Rotate Platform Knee 6 Baseplate Tibial [id number] - [id number] Implanted:Qty: 1 on 04/10/2022 by Omid Hoffman MD at [facility] Left: Knee [employer] [id number] 09/07/2031 [id number] / / [id number] [employer] Attune 22mm 60mm Revision Press Fit Knee Stem Femoral Sterile Latex Free 159188283 - [id number] Implanted:Qty: 1 on 04/10/2022 by Omid Hoffman MD at [facility] Left: Knee [employer] [id number] 09/06/2028 130323632 / / [id number] [employer] Attune L53 Mm Revision Full Coated Knee Sleeve Tibial Porocoat Sterile Latex Free 359756937 - [id number] Implanted:Qty: 1 on 04/10/2022 by Omid Hoffman MD at [facility] Left: Knee [employer] 05/08/2031 [id number] / / [id number] Attune Knee System Revision Femoral Sleeve Porocoat Fully Coated Implanted:Qty: 1 on 04/10/2022 by Omid Hoffman MD at [facility] Left: Knee [employer] C1776 06/07/2029 [id number] / / [id number] [employer] Attune H4 Mm Revision Cement Knee Distal 7 Augment Femoral Sterile Latex Free 920294492 - [id number] Implanted:Qty: 1 on 04/10/2022 by Omid Hoffman MD at [facility] Left: Knee [employer] 04/09/2031 [id number] / / [id number] [employer] Attune Revision Cement Constrain Knee Left 7 Component Femoral Sterile 214092635 - [id number] Implanted:Qty: 1 on 04/10/2022 by Omid Hoffman MD at [facility] Left: Knee [employer] 03/09/2031 [id number] / / [id number] [employer] Attune 22mm 60mm Revision Press Fit Knee Stem Femoral Sterile Latex Free 099815486 - [id number] Implanted:Qty: 1 on 04/10/2022 by Omid Hoffman MD at [facility] Left: Knee [employer] 10/07/2029 [id number] / / [id number] [employer] Attune H4 Mm Revision Cement Knee Posterior 7 Augment Femoral Sterile Latex Free 380547668 - [id number] Implanted:Qty: 1 on 04/10/2022 by Omid Hoffman MD at [facility] Left: Knee [employer] 03/09/2031 [id number] / / [id number] [employer] Attune H4 Mm Revision Cement Knee Distal 7 Augment Femoral Sterile Latex Free [id number] - [id number] Implanted:Qty: 1 on 04/10/2022 by Omid Hoffman MD at [facility] Left: Knee [employer] 04/09/2031 [id number] / / [id number] [employer] Attune 38mm Cemented Medialize Knee Dome Patellar Aox Sterile 293888176 - [id number] Implanted:Qty: 1 on 04/10/2022 by Omid Hoffman MD at [facility] Left: Knee [employer] 01/07/2027 [id number] / / [id number] [employer] Attune H8 Mm Revision Constrain Rotate Platform Knee 6 Insert Tibial Aox Sterile 426694541 - Sn/A - [id number] Implanted:Qty: 1 on 04/10/2022 by Omid Hoffman MD at [facility] Left: Knee [employer] C1776 10/07/2022 [id number] / N/A / [id number] [employer] Stimulan Rapid Cure Kit Paste Business Support Coordinator 10cc 20cc Bone Void 620-010 - [id number] Implanted:Qty: 1 on 08/18/2024 by Omid Hoffman MD at [facility] Left: Knee [employer] 01/07/2027 620-010 / / [id number] [employer] Attune 10mm Revision Constrain Rotate Platform Knee 7 Insert [id number] - [id number] Implanted:Qty: 1 on 08/18/2024 by Omid Hoffman MD at [facility] Left: Knee [employer] [id number] 06/07/2028 [id number] / / [id number] Explanted Type Area 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 Device Identifier Shelf Expiration Date Model / Serial / Lot [employer] [id number] Attune S+ Cement Fix Bearing Knee 7 Baseplate Tibial - [id number] Implanted:Qty: 1 on 07/16/2021 by Omid Hoffman MD at [facility] Explanted:Qty: 1 on 02/04/2022 at [facility] Left: Knee [employer] 06/08/2031 [id number] / / [id number] [employer] [id number] Attune Cemented Posterior Stabilize Knee Left 7 Component Femoral - [id number] Implanted:Qty: 1 on 07/16/2021 by Omid Hoffman MD at [facility] Explanted:Qty: 1 on 02/04/2022 at [facility] Left: Knee [employer] 11/07/2028 [id number] / / [id number] [employer] [id number] Attune 8mm Posterior Stabilize Fix Bearing Knee 7 Insert Tibial - [id number] Implanted:Qty: 1 on 07/16/2021 by Omid Hoffman MD at [facility] Explanted:Qty: 1 on 02/04/2022 at [facility] Left: Knee [employer] 04/09/2026 [id number] / / [id number] Procedures Procedure Name Priority Date/Time Associated Diagnosis [...] GRAM STAIN Routine 08/18/2024 12:54 PM CDT GA AN ELECTIVE ENDOTRACHEAL AIRWAY Routine 08/18/2024 12:22 [...] MD LAB BLOOD ORDERABLE S Final Result [facility] ([place]) 1 [facility] [place] [address] * (ABNORMAL) Differential, auto (08/20/2024 3:18 AM CDT) Neutrophil abs 2.80 1.50 - 6.50 K/cumm Imm gran abs 0.02 0.00 - 0.10 K/cumm [facility] ([place]) Lymphocyte abs 0.56(L) 0.80 - 3.30 K/cumm [facility] ([place]) Monocyte abs 0.25 0.20 - 0.80 K/cumm [facility] ([place]) Eosinophil abs 0.11 0.00 - 0.50 K/cumm [facility] ([place]) Basophil abs 0.01 0.00 - 0.10 K/cumm [facility] ([place]) Neutrophil pct 74.7 % [facility] ([place]) Comment: Interpretive [...] Lymphocyte pct 14.9 % [facility] ([place]) Comment: Interpretive Data Percent cell count reference ranges are not reported, since discordance with absolute values may lead to misinterpretation of CBC data. Current Interpretive Data was last revised on 2017. Monocyte pct 6.7 % [facility] ([place]) Comment: Interpretive Data Percent cell count reference ranges are not reported, since discordance with absolute values may lead to misinterpretation of CBC data. Current Interpretive Data was last revised on 2017. Eosinophil pct 2.9 % [facility] ([place]) Comment: Interpretive [...] S Final Result [facility] ([place]) 1 [facility] [place] [address] * (ABNORMAL) CBC with auto differential (08/20/2024 [...] S Final Result [facility] ([place]) 1 [facility] [place] [address] * (ABNORMAL) CBC without differential (08/20/2024 3:18 [...] NRBC abs 0.00 0.00 - 0.01 K/cumm [facility] ([place]) Blood 08/20/2024 3:18 AM CDT 08/20/2024 3:34 AM CDT Concepcion DAO LAB BLOOD ORDERABLES Final Result [facility] ([place]) 1 [facility] [place] [address] * Magnesium (08/20/2024 3:18 AM CDT) [facility] Magnesium 2.2 1.4 - 2.5 mg/dL Blood 08/20/2024 3:18 AM CDT 08/20/2024 3:34 AM CDT Gail Wade MD LAB BLOOD ORDERABLES Saundra l Result Performing Organization Address City/[facility]/ZIP Co de Phone Number [facility] ([place]) 1 [facility] [place] [address] * (ABNORMAL) Basic metabolic panel (08/20/2024 3:18 AM CDT) [facility] Sodium 139 135 - 145 mmol/L Potassium, pl 4.2 3.3 - 4.9 mmol/L [facility] ([place]) Chloride 108 97 - 110 mmol/L [facility] ([place]) CO2 18(L) 22 - 32 mmol/L [facility] ([place]) Anion gap 14 2 - 15 mmol/L [facility] ([place]) BUN 43(H) 6 - 25 mg/dL [facility] ([place]) Creatinine 3.22(H) 0.80 - 1.30 mg/dL [facility] ([place]) Glucose 111 70 - 199 mg/dL [facility] ([place]) Comment: Interpretive Data Fasting glucose >/= [...] 2022. Calcium 8.4(L) 8.5 - 10.3 mg/dL [facility] ([place]) Blood 08/20/2024 3:18 AM CDT 08/20/2024 3:34 AM CDT us Omid Rodriguez Jr., MD LAB BLOOD ORDERABLE S Final Result [facility] ([place]) 1 [facility] Department [place] [address] * Insert PICC line (08/19/2024 5:56 PM CDT) Narrative Anisha Barrientos RN - 08/19/2024 5:56 PM CDT Anisha Barrientos RN 08/19/2024 5:58 PM Vascular Access Nurse: [...] Cosigned By Initials Name Anisha Georges, ANITA Beba Hernandez Vascular Access Documentation (Last 4 Hours) [facility] Additional Procedures Row Name 08/19/24 1750 08/19/24 170 PICC Screening Questionnaire Order written on the [...] Properties Placement Date: 08/12/24 -SO Placement Time: 2002 Size (Gauge): 20 G -SO Location Orientation: [...] easily;Ultrasound used to locate and cannulate vein - Lot #: [id number] -JN Expiration Date: 06/07/25 -JN Trimmed Length (cm) : 49 cm -JN Line Tip Location : Central -JN Initial Extremity Circumference (cm): 36 cm - Circumference Reference Point: PICC insertion site - Initial External Length Catheter (cm): 0 cm -JN Placement Verification: Blood return;Ultrasound;X-ray - Line Secured by : Securement device - Inserted by: Anisha Barrientos RN -JN Assisted By: [place] HOWARD -CHERI Insertion attempts: 1 -JN Patient Tolerance: Tolerated [...] Les Harden M.D. AM: AM Report ID: [id number] Reading Location: [id number] Procedure Note Les Harden MD - 08/19/2024 [...] Les Harden M.D. AM: AM Report ID: [id number] Reading Location: [id number] us Tha Oh MD IMG XR PROCEDURES [...] last revised on 2019. Testing performed by: [facility], [address] [facility] [place] [address] Blood 08/19/2024 6:39 AM CDT 08/19/2024 10:04 AM CDT us Priya Parra MD LAB BLOOD ORDERABLES Final Result [facility] ([place]) [address] [place] [address] Department [place] [address] * (ABNORMAL) eGFR (08/19/2024 6:39 AM CDT) [...] S Final Result [facility] ([place]) 1 [facility] Department [place] [address] * (ABNORMAL) Differential, auto (08/19/2024 6:39 AM [...] revised on 2017. Basophil pct 0.2 % [facility] ([place]) Comment: Interpretive Data Percent cell count reference ranges are not reported, since discordance with absolute values may lead to misinterpretation of CBC data. Current Interpretive Data was last revised on 2017. Blood 08/19/2024 6:39 AM CDT 08/19/2024 6:55 AM CDT us Omid Rodriguez Jr., MD LAB BLOOD ORDERABLE S Final Result [facility] ([place]) 1 [facility] Department [place] [address] * C4 complement (08/19/2024 6:39 AM CDT) Pathologist [facility] Complement C4 18 10 - 40 mg/dL Comment:Testing performed by : [facility], [address] [place] [address], [facility] Blood 08/19/2024 6:39 AM CDT 08/19/2024 9:10 AM CDT us Priya Parra MD LAB BLOOD ORDERABLES Final Result [facility] ([place]) 1 [facility] [place] [address] * (ABNORMAL) CBC with auto differential (08/19/2024 6:39 AM CDT) WBC 4.36 3.80 - 9.90 K/cumm Hgb 10.1(L) 13.0 - 17.5 g/dL [facility] ([place]) Hct 30.5(L) 38.9 - 50.3 % [facility] ([place]) Plt 245 150 - 400 K/cumm [facility] ([place]) MPV 10.8 9.1 - 12.3 fL [facility] ([place]) RBC 3.20(L) 4.30 - 5.80 M/cumm [facility] ([place]) MCV 95.3 81.3 - 96.4 fL [facility] ([place]) MCH 31.6 27.1 - 33.3 pg [facility] ([place]) MCHC 33.1 32.3 - 35.7 g/dL [facility] ([place]) RDW CV 14.6 11.1 - 14.9 % [facility] ([place]) RDW SD 51.2(H) 35.7 - 48.1 fL [facility] ([place]) NRBC abs 0.00 0.00 - 0.01 K/cumm [facility] ([place]) Blood 08/19/2024 6:39 AM CDT 08/19/2024 6:55 AM CDT us Omid Rodriguez Jr., MD LAB BLOOD ORDERABLE S Final Result Performing Organization Address City/[facility]/ZIP Co de Phone Number [facility] ([place]) 1 [facility] [place] [address] * C3 complement (08/19/2024 6:39 AM CDT) [facility] Complement C3 120 90 - 180 mg/dL Comment:Testing performed by : [facility], [address] [place] [address], [address] Blood 08/19/2024 6:39 AM CDT 08/19/2024 9:10 AM CDT us Priya Parra MD LAB BLOOD ORDERABLES Final Result [facility] ([place]) 1 [facility] [place] [address] * (ABNORMAL) Basic metabolic panel (08/19/2024 6:39 AM CDT) [facility] Sodium 140 135 - 145 mmol/L Potassium, pl 5.0(H) 3.3 - 4.9 mmol/L [facility] ([place]) Chloride 110 97 - 110 mmol/L [facility] ([place]) CO2 18(L) 22 - 32 mmol/L [facility] ([place]) Anion gap 13 2 - 15 mmol/L [facility] ([place]) BUN 46(H) 6 - 25 mg/dL [facility] ([place]) Creatinine 3.45(H) 0.80 - 1.30 mg/dL [facility] ([place]) Glucose 154 70 - 199 mg/dL [facility] ([place]) Comment: Interpretive Data Fasting glucose >/= [...] 2022. Calcium 8.2(L) 8.5 - 10.3 mg/dL [facility] ([place]) Blood 08/19/2024 6:39 AM CDT 08/19/2024 6:55 AM CDT us Omid Rodriguez Jr., MD LAB BLOOD ORDERABLE S Final Result [facility] ([place]) 1 [facility] Department [place] [address] * (ABNORMAL) Urinalysis reflex to microscopic and culture Urine (08/18/2024 6:13 PM CDT) Color, ur Yellow Yellow Clarity, ur Clear Clear [facility] ([place]) Specific gravity, ur 1.012 1.003 - 1.030 [facility] ([place]) pH, urine 5.0 [facility] ([place]) Comment: Interpretive Data U rine pH is affected by diet, medications, systemic acid-base disturbances, and renal tubular function. pH may affect urinary stone formation. For example, urine pH below 6.0 may help reduce the tendency for calcium phosphate stones and pH greater than 6.0 may reduce the tendency for uric acid stone formation. Source: [facility] [employer] Current Interpretive Data was last revised on [...] will be performed. [facility] ([place]) Urine 08/18/2024 6:13 PM CDT 08/18/2024 6:32 PM CDT Priya Parra MD LAB MICROBIOLOGY - GENERAL ORDERABLES Final Result Performing Organization Address City/[facility] Co de Phone Number [facility] ([place]) 1 [facility] [place] [address] * Sodium, urine, random (08/18/2024 6:13 PM CDT) Sodium, ur 99 mmol/L Comment: Interpretive Data No reference range established. Current interpretive data was last revised 2018. Urine 08/18/2024 6:13 PM CDT 08/18/2024 7:27 PM CDT Narrative [facility] ([place]) - 08/18/2024 7:44 PM CDT No normal range Priya Parra MD LAB URINE ORDERABLES Final Result Performing Organization Address City/[facility] Co de Phone Number [facility] ([place]) 1 [facility] [place] [address] * Creatinine, urine, random (08/18/2024 6:13 PM CDT) Creatinine Ur 63.3 mg/dL Comment: Interpretive Data No reference range established. Current interpretive data was last revised 2018. Urine 08/18/2024 6:13 PM CDT 08/18/2024 7:27 PM CDT Narrative [facility] ([place]) - 08/18/2024 7:44 PM CDT No normal range Priya Parra MD LAB URINE ORDERABLES Final Result Performing Organization Address [facility] Co de Phone Number [facility] ([place]) [address] [place] [address] * (ABNORMAL) Urinalysis, microscopic only (08/18/2024 6:13 [...] 6:32 PM CDT Priya Parra MD LAB URINE ORDERABLES Final Result Performing Organization Address [facility] Co de Phone Number [facility] ([place]) [address] [place] [address] * Tissue aerobic and anaerobic culture and gram stain Bone Knee, left (08/18/2024 1:45 PM CDT) Direct Specimen Exam Stain: No polymorphonuclear leukocytes seen. No organisms seen. Comment:Testing performed by : [facility], [address] [facility] [place] [address] Report Final Report: No growth [facility] ([place]) Comment:Testing performed by : [facility], [address] [facility] [place] [address] Bone (Knee, left) 08/18/2024 1:45 PM CDT 08/18/2024 5:14 PM CDT Narrative [facility] ([place]) - 08/23/2024 11:11 AM CDT PROXIMAL TIBIA, LEFT KNEE Received in transport media. Testing performed by [facility] Microbiology Laboratory ([phone]) Specimens submitted from normally sterile body sites [...] 2019. Omid Hoffman MD LAB MICROBIOLOGY - [facility] ORDERABLES Final Result [facility] ([place]) 1 [facility] [place] [address] * Aerobic and anaerobic culture and gram stain Wound Knee, left (08/18/2024 12:54 PM CDT) Direct Specimen Exam Stain: Rare polymorphonuclear leukocytes seen. No organisms seen. Comment:Testing performed by : [facility], [address] [place]., [address] Report Final Report: No growth [facility] ([place]) Comment:Testing performed by : [facility], [address] [place]., [address] Wound (Knee, left) 08/18/2024 12:54 PM CDT 08/18/2024 5:11 PM CDT Narrative [facility] ([place]) - 08/23/2024 11:12 AM CDT LEFT KNEE Specimen received on an ESwab. Testing performed by [facility] Microbiology Laboratory ([phone]) Specimens submitted from normally sterile body sites [...] interpretive data was last revised on 2019. us Omid Hoffman MD LAB MICROBIOLOGY - [facility] ORDERABLES Final Result [facility] [place]) [address] [facility] [place] [address] * GA AN ELECTIVE ENDOTRACHEAL AIRWAY (08/18/2024 12:22 PM CDT) Narrative Nicola Guerrero CRNA - 08/18/2024 12:22 PM CDT Nicola Guerrero CRNA 08/18/2024 12:22 PM Airway Patient location: OR Urgency: elective Indications for airway management: anesthesia and airway protection Difficult airway: no Staff: Supervising provider: Eddie Mcallister MD Placed by: SECURITY DOOR INSTALLER: Nicola Guerrero CRNA Emergent airway documentation: Risks [...] oral Blade type: Han Video blade type: Garves Blade size: 3 Cormack-Lehane (video): grade I - full view of glottis Cuff volume: 7 mL Cuff inflated with: air ETT to lips: 21 cm Placement verified by: auscultation and CO2 detection Airway secured with: silk tape Number of attempts: 1 Ventilation between attempts: none Additional comments: Atraumatic intubation. us Eddie Mcallister MD ANESTHESIA ORDERABLES Final Result [...] LAB BLOOD ORDERABLE S Final Result [facility] ([place]) 1 [facility] Department [place] [address] * (ABNORMAL) Differential, auto (08/18/2024 5:38 AM [...] Neutrophil pct 74.2 % [facility] ([place]) Comment: Interpretive Data Percent cell count reference ranges are not reported, since discordance with absolute values may lead to misinterpretation of CBC data. Current Interpretive Data was last revised on 2017. Imm gran pct 1.1 % [facility] ([place]) Comment: Interpretive Data Percent cell count reference ranges are not reported, since discordance with absolute values may lead to misinterpretation of CBC data. Current Interpretive Data was last revised on 2017. Lymphocyte pct 12.5 % [facility] ([place]) Comment: Interpretive Data Percent cell count reference ranges are not reported, since discordance with absolute values may lead to misinterpretation of CBC data. Current Interpretive Data was last revised on 2017. Monocyte pct 8.5 % [facility] ([place]) Comment: Interpretive Data Percent cell count [...] revised on 2017. Basophil pct 0.3 % [facility] ([place]) Comment: Interpretive Data Percent cell count reference ranges are not reported, since discordance with absolute values may lead to misinterpretation of CBC data. Current Interpretive Data was last revised on 2017. Blood 08/18/2024 5:38 AM CDT 08/18/2024 5:49 AM CDT us Omid Rodriguez Jr., MD LAB BLOOD ORDERABLE S Final Result [facility] ([place]) 1 [facility] Department [place] [address] * (ABNORMAL) CBC with auto differential (08/18/2024 5:38 AM CDT) WBC 3.53(L) 3.80 - 9.90 K/cumm Hgb 10.7(L) 13.0 - 17.5 g/dL [facility] ([place]) Hct 31.7(L) 38.9 - 50.3 % [facility] ([place]) Plt 208 150 - 400 K/cumm [facility] ([place]) MPV 10.6 9.1 - 12.3 fL [facility] ([place]) RBC 3.40(L) 4.30 - 5.80 M/cumm [facility] ([place]) MCV 93.2 81.3 - 96.4 fL [facility] ([place]) MCH 31.5 27.1 - 33.3 pg [facility] ([place]) MCHC 33.8 32.3 - 35.7 g/dL [facility] ([place]) RDW CV 14.3 11.1 - 14.9 % [facility] ([place]) RDW SD 48.8(H) 35.7 - 48.1 fL [facility] ([place]) NRBC abs 0.00 0.00 - 0.01 K/cumm [facility] ([place]) Blood 08/18/2024 5:38 AM CDT 08/18/2024 5:49 AM CDT us Omid Rodriguez Jr., MD LAB BLOOD ORDERABLE S Final Result Performing Organization Address City/[facility] Co de Phone Number [facility]) [address] [facility] [place] [address] * aPTT (08/18/2024 5:38 AM CDT) aPTT 37 28 - 38 sec [facility] ([place]) Comment: Interpretive Data Heparin therapeutic range: 66.0 - 100.0 seconds. Range based on correlation with therapeutic heparin activity range of 0.3 - 0.7 Units/mL. Current interpretive data was last revised on 2022. Blood 08/18/2024 5:38 AM CDT 08/18/2024 5:49 AM CDT us Omid Rodriguez Jr., MD LAB BLOOD ORDERABLE S Final Result [facility] ([place]) [address] [place] [address] * (ABNORMAL) Protime-INR (08/18/2024 5:38 AM CDT) [facility] PT 22.0(H) 9.7 - 13.0 sec [facility] ([place]) INR 2.01(H) 0.90 - 1.20 [facility] ([place]) Comment: Interpretive data Oral anticoagulant therapeutic ranges: Venous thromboembolism prophylaxis or treatment: 2.0-3.0 CARDIOLOGY Standard range: 2.0-3.0 High-intensity range: 2.5-3.5 Refer to indication-specific guidelines for appropriate target ranges for prosthetic heart valve replacement. Current interpretive data was last revised on 2019. Blood 08/18/2024 5:38 AM CDT 08/18/2024 5:49 AM CDT us Omid Rodriguez Jr., MD LAB BLOOD ORDERABLE S Final Result [facility] ([place]) [address] [place] [address] * Uric acid (08/18/2024 5:38 AM CDT) [facility] Uric acid 8.0 3.0 - 8.0 mg/dL Blood 08/18/2024 5:38 AM CDT 08/18/2024 12:55 PM CDT us Priya Parra MD LAB BLOOD ORDERABLES Final Result [facility] ([place]) [address] [place] [address] * (ABNORMAL) Basic metabolic panel (08/18/2024 5:38 AM CDT) [facility] Sodium 139 135 - 145 mmol/L Potassium, pl 4.0 3.3 - 4.9 mmol/L [facility] ([place]) Chloride 107 97 - 110 mmol/L [facility] ([place]) CO2 18(L) 22 - 32 mmol/L [facility] ([place]) Anion gap 14 2 - 15 mmol/L [facility] ([place]) BUN 38(H) 6 - 25 mg/dL [facility] ([place]) Creatinine 3.34(H) 0.80 - 1.30 mg/dL [facility] ([place]) Glucose 116 70 - 199 mg/dL [facility] ([place]) [...] ORDERABLE S Final Result Performing Organization Address City/[facility] Co de Phone Number [facility] ([place]) 1 [facility] [place] [address] * Crystal Analysis, Body Fluid (08/17/2024 1:15 PM CDT) Specimen type, fld Synovial Body site, fld left knee [facility] ([place]) Crystals None Seen [facility] ([place]) Crystals, fld None Seen [facility] ([place]) Fluid 08/17/2024 1:15 PM CDT 08/17/2024 1:29 PM CDT us Concepcion DAO LAB BODY FLUIDS AND S TOOLS ORDERABLES Final Result [facility] ([place]) 1 [facility] [place] [address] * Cell Differential, Body Fluid (08/17/2024 1:15 [...] TOOLS ORDERABLES Final Result Performing Organization Address [facility] de Phone Number [facility] ([place]) [address] [place] [address] * Cell count w/rflx diff, body fluid [...] FLUIDS AND S TOOLS ORDERABLES Final Result [facility] ([place]) 1 [facility] Department [place] [address] * Aerobic and anaerobic culture and gram stain Synovial fluid Knee, left (08/17/2024 1:15 PM CDT) Direct Specimen Exam Stain: Cytospin Gram stain shows: Abundant polymorphonuclear leukocytes seen. No organisms seen. Comment:Testing performed by : [facility], [address] [place]., [address] Report Final Report: No growth [facility] ([place]) Comment:Testing performed by : [facility], [address] [place]., [address] Synovial fluid (Knee, left) 08/17/2024 1:15 PM CDT 08/17/2024 5:07 PM CDT Narrative [facility] ([place]) - 08/23/2024 1:21 PM CDT Testing performed by [facility] Microbiology Laboratory ([phone]) Specimens submitted from normally sterile body sites [...] on 2019. Concepcion DAO LAB MICROBIOLOGY - GE NERAL ORDERABLES Final Result [facility] ([place]) 1 [facility] Department [place] [address] * (ABNORMAL) eGFR (08/17/2024 7:22 AM CDT) [...] Saundra norton Result [facility] ([place]) 1 [facility] [place] [address] * (ABNORMAL) CBC without differential (08/17/2024 7:22 [...] RDW SD 47.8 35.7 - 48.1 fL [facility] ([place]) NRBC abs 0.00 0.00 - 0.01 K/cumm [facility] ([place]) Blood 08/17/2024 7:22 AM CDT 08/17/2024 8:00 AM CDT Gail Wade MD LAB BLOOD ORDERABLES Saundra l Result [facility] ([place]) 1 [facility] [place] [address] * Magnesium (08/17/2024 7:22 AM CDT) Pathologist [facility] Magnesium 2.4 1.4 - 2.5 mg/dL Blood 08/17/2024 7:22 AM CDT 08/17/2024 8:00 AM CDT Gail Wade MD LAB BLOOD ORDERABLES Saundra l Result Performing Organization Address City/[facility] Co de Phone Number [facility] ([place] 1 [facility] [place] [address] * (ABNORMAL) Comprehensive metabolic panel (08/17/2024 7:22 AM CDT) Sodium 136 135 - 145 mmol/L Potassium, pl 3.9 3.3 - 4.9 mmol/L [facility] ([place]) Chloride 106 97 - 110 mmol/L [facility] ([place]) CO2 17(L) 22 - 32 mmol/L [facility] ([place]) Anion gap 13 2 - 15 mmol/L [facility] ([place]) BUN 40(H) 6 - 25 mg/dL [facility] ([place]) Creatinine 3.27(H) 0.80 - 1.30 mg/dL [facility] ([place]) Glucose 127 70 - 199 mg/dL [facility] ([place]) [...] Saundra norton Result [facility] ([place]) 1 [facility] [place] [address] * US Lower Extremity Left Limited (08/16/2024 [...] the suprapatellar region was performed by the box machine operator with selected grayscale and color Doppler images acquired and recorded in PACS. COMPARISON: None. FINDINGS: SKIN AND SUBCUTANEOUS TISSUES: No masses. No fluid collections. No edema. No foreign bodies. DEEP SOFT TISSUES/MUSCLES: No masses or edema. There is a oxkemwsl-gc-gusof joint effusion. OTHER: No other significant finding. IMPRESSION: Rszfvtrk-vy-kohxl right knee effusion. THIS IS AN ELECTRONICALLY VERIFIED FINAL REPORT 08/16/2024 11:52 PM - Electronically signed by Laura Juárez M.D. SN: Report ID: [id number] Reading Location: [id number] Procedure Note Laura Juárez MD - 08/16/2024 EXAM DESCRIPTION: US LOWER EXTREMITY LEFT LIMITED REASON FOR STUDY: left knee anterior ultrasound to assess for bursalfluid collection, joint effusion or both TECHNIQUE: A Dynamic assessment of the suprapatellar region wasperformed by the box machine operator with selected grayscale and color Doppler images acquiredand recorded in PACS. COMPARISON: None. FINDINGS: SKIN AND SUBCUTANEOUS TISSUES: No masses. No fluid collections. Noedema. No foreign bodies. DEEP SOFT TISSUES/MUSCLES: No masses or edema. There is ulwukxmev-el-kagur joint effusion. OTHER: No other significant finding. IMPRESSION: Sfpvhevl-kh-jghza right knee effusion. THIS IS AN ELECTRONICALLY VERIFIED FINAL REPORT 08/16/2024 11:52 PM - Electronically signed by Laura Juárez M.D. SN: Report ID: [id number] Reading Location: [id number] us Samantha Villatoro NP IMG US PROCEDURES [...] BLOOD ORDERABLES Saundra l Result [facility] ([place]) 1 [facility] [place] [address] * (ABNORMAL) Erythrocyte sedimentation rate (08/16/2024 7:05 AM CDT) Erythrocyte sedimentation rate 89(H) 1 - 20 mm/hr Blood 08/16/2024 7:05 AM CDT 08/16/2024 1:00 PM CDT us Samantha Villatoro NP LAB BLOOD ORDERABLES Fi nal Result [facility] ([place]) [address] [place] [address] [place] [address] * (ABNORMAL) CBC without differential (08/16/2024 7:05 AM CDT) WBC 3.41(L) 3.80 - 9.90 K/cumm Hgb 11.0(L) 13.0 - 17.5 g/dL [facility] ([place]) Hct 32.7(L) 38.9 - 50.3 % [facility] ([place]) Plt 127(L) 150 - 400 K/cumm [facility] ([place]) MPV 11.7 9.1 - 12.3 fL [facility] ([place]) RBC 3.51(L) 4.30 - 5.80 M/cumm [facility] ([place]) MCV 93.2 81.3 - 96.4 fL [facility] ([place]) MCH 31.3 27.1 - 33.3 pg [facility] ([place]) MCHC 33.6 32.3 - 35.7 g/dL [facility] ([place]) RDW CV 13.9 11.1 - 14.9 % [facility] ([place]) RDW SD 47.4 35.7 - 48.1 fL [facility] ([place]) NRBC abs 0.00 0.00 - 0.01 K/cumm [facility] ([place]) Blood 08/16/2024 7:05 AM CDT 08/16/2024 7:21 AM CDT us Gail Wade MD LAB BLOOD ORDERABLES Saundra l Result [facility] ([place]) 1 [facility] [place] [address] * (ABNORMAL) CRP (acute phase) (08/16/2024 7:05 AM CDT) CRP 327.6(H) <=10.0 mg/L Blood 08/16/2024 7:05 AM CDT 08/16/2024 1:00 PM CDT us Samantha Villatoro NP LAB BLOOD ORDERABLES Fi nal Result Performing Organization Address City/[facility]/ZIP Co de Phone Number [facility] ([place]) 1 [facility] [place] [place] [address] * Vancomycin level random (08/16/2024 7:05 AM CDT) Vancomycin random 24.7 mcg/mL Comment: Random Vancomycin levels may vary due to the amount and time of last dose Current interpretive data was last revised on 2014 Blood 08/16/2024 7:05 AM CDT 08/16/2024 7:21 AM CDT us Gail Wade MD LAB BLOOD ORDERABLES Saundra norton Result [facility] ([place]) 1 [facility] Department [place] [address] * (ABNORMAL) Comprehensive metabolic panel (08/16/2024 7:05 [...] Saundra norton Result [facility] ([place]) 1 [facility] [place] [place] [address] * (ABNORMAL) Vancomycin level trough (08/15/2024 7:34 AM CDT) [facility] Vancomycin trough 33.0(C) 10.0 - 20.0 mcg/mL Comment:Critical Result call ed by [email or web address] at 2024-08-15 08:29:23. Result Read Back by clinton olivas/bear Blood 08/15/2024 7:34 AM CDT 08/15/2024 7:56 AM CDT Gail Wade MD LAB BLOOD ORDERABLES Saundra l Result [facility] ([place]) 1 [facility] Department [place] [address] * (ABNORMAL) eGFR (08/15/2024 5:19 AM CDT) [facility] eGFR 28(L) >=60 mL/min/1. 73 m2 Comment: [...] MD LAB BLOOD ORDERABLES Saundra norton Result [facility] ([place] 1 [facility] Department [place] [address] * (ABNORMAL) CBC without differential (08/15/2024 5:19 [...] Saundra norton Result [facility] ([place]) 1 [facility] Department [place] [address] * (ABNORMAL) Comprehensive metabolic panel (08/15/2024 5:19 [...] MD LAB BLOOD ORDERABLES Saundra l Result [facility] ([place]) [address] [place] [address] [place] [address] * Vancomycin level trough (08/14/2024 7:54 AM CDT) Pathologist [facility] Vancomycin trough 17.7 10.0 - 20.0 mcg/mL Blood 08/14/2024 7:54 AM CDT 08/14/2024 8:06 AM CDT us Lakeisha DAO LAB BLOOD ORDERABLES Saundra l Result [facility] ([place]) [address] [place] [address] [place] [address] * eGFR (08/14/2024 4:34 AM CDT) eGFR [...] Saundra norton Result [facility] ([place]) 1 [facility] Department of Laboratories [place], [place] [address] * (ABNORMAL) CBC without differential (08/14/2024 4:34 AM CDT) WBC 5.59 3.80 - 9.90 K/cumm Hgb 12.0(L) 13.0 - 17.5 g/dL [facility] ([place]) Hct 33.6(L) 38.9 - 50.3 % [facility] [...] BLOOD ORDERABLES Saundra norton Result [facility] ([place]) 1 [facility] [place] [address] * Magnesium (08/14/2024 4:34 AM CDT) Pathologist [facility] Magnesium 1.9 1.4 - 2.5 mg/dL Blood 08/14/2024 4:34 AM CDT 08/14/2024 4:38 AM CDT Gail Wade MD LAB BLOOD ORDERABLES Saundra norton Result Performing Organization Address [facility] Co de Phone Number [facility] ([place]) [address] [place] [address] * (ABNORMAL) Comprehensive metabolic panel (08/14/2024 4:34 AM CDT) Sodium 129(L) 135 - 145 mmol/L Potassium, pl 4.3 3.3 - 4.9 mmol/L [facility] ([place]) Chloride 100 97 - 110 mmol/L [facility] ([place]) CO2 16(L) 22 - 32 mmol/L [facility] ([place]) Anion gap 12 2 - 15 mmol/L [facility] ([place]) BUN 16 6 - 25 mg/dL [facility] ([place]) Creatinine 1.04 0.80 - 1.30 mg/dL [facility] ([place]) Comment:Icteric sample, test results may be affected. Glucose 120 70 - 199 mg/dL [facility] ([place]) Comment: Interpretive Data Fasting glucose >/= [...] 10 - 50 Units/L [facility] ([place]) Comment: Hemolysis present. Results may be affected. Slightly Hemolyzed Specimen Blood 08/14/2024 4:34 AM CDT 08/14/2024 4:38 AM CDT Gail Wade MD LAB BLOOD ORDERABLES Saundra norton Result [facility] ([place]) 1 [facility] Department [place] [address] * Blood culture Blood (08/13/2024 1:12 PM CDT) Report Final Report: No growth Comment:Testing performed by : [facility], 1 [facility] [place] [address] Blood 08/13/2024 1:12 PM CDT 08/13/2024 5:15 PM CDT Narrative [facility] ([place]) - 08/18/2024 7:00 AM CDT From [...] performance characteristics have been verified by the [facility] Microbiology Laboratory. For questions about this culture, contact the Microbiology Laboratory at [phone]. Interpretive data was last revised on 24. us Gail Wade MD LAB MICROBIOLOGY - GENERA L ORDERABLES Final Result [facility] ([place]) 1 [facility] Department [place] [address] * Blood culture Blood (08/13/2024 1:04 PM CDT) Report Final Report: No growth Comment:Testing performed by : [facility], 1 [facility] [place] [address] Blood 08/13/2024 1:04 PM CDT 08/13/2024 5:15 [...] performance characteristics have been verified by the [facility] Microbiology Laboratory. For questions about this culture, contact the Microbiology Laboratory at [phone]. Interpretive data was last revised on 24. us Gail Wade MD LAB MICROBIOLOGY - GENERA L ORDERABLES Final Result [facility] [place]) [address] [place] [address] Department [place] [address] * eGFR (08/13/2024 11:29 AM CDT) eGFR [...] Saundra l Result [facility] ([place]) 1 [facility] Department [place] [address] * Magnesium (08/13/2024 11:29 AM CDT) Pathologist [facility] Magnesium 2.0 1.4 - 2.5 mg/dL Blood 08/13/2024 11:2 9 AM CDT 08/13/2024 2:02 PM CDT Gail Wade MD LAB BLOOD ORDERABLES Saundra norton Result [facility] ([place]) 1 [facility] [place] [address] * (ABNORMAL) Basic metabolic panel (08/13/2024 11:29 AM CDT) Sodium 130(L) 135 - 145 mmol/L Potassium, pl 3.5 3.3 - 4.9 mmol/L [facility] ([place]) Chloride 98 97 - 110 mmol/L [facility] ([place]) CO2 18(L) 22 - 32 mmol/L [facility] ([place]) Anion gap 14 2 - 15 mmol/L [facility] ([place]) BUN 14 6 - 25 mg/dL [facility] ([place]) Creatinine 1.05 0.80 - 1.30 mg/dL [facility] ([place]) Comment:Icteric sample, test results may be affected. Glucose 133 70 - 199 mg/dL [facility] ([place]) Comment: Interpretive Data Fasting glucose >/= [...] 8.0(L) 8.5 - 10.3 mg/dL [facility] ([place]) Blood 08/13/2024 11:2 9 AM CDT 08/13/2024 11:31 AM CDT us Gail Wade MD LAB BLOOD ORDERABLES Saundra norton Result [facility] ([place]) [address] [place] [address] Department [place] [address] * TRANSTHORACIC ECHO (TTE) COMPLETE W DOPPLER/CF W CONTRAST (08/13/2024 9:02 AM CDT) Anatomical Region Laterality Modality Ultrasound 08/13/2024 8:42 AM CDT Narrative 08/13/2024 11:52 AM CDT [address] [address] Echocardiogram Report Patient Name: PANCHO STANLEY : 1940 Study Date: 08/13/2024 8:42:44 AM Gender: M Tech: Location: [id number] Ref Provider: GAIL WADE Height(Cm): 188 BSA: [...] Procedure Note Lillian Casey MD - 08/13/[address] [address] Echocardiogram Report Patient Name: PANCHO STANLEY : 1940 Study Date: 08/13/2024 8:42:44 AM Gender: M Tech: Location: [id number] [facility] Provider: GAIL WADE Height(Cm): 188 BSA: 2.41 [...] Gilson Reyes M.D. [place]: ILA Report ID: [id number] Reading Location: [id number] Procedure Note Gilson Reyes MD - 08/13/2024 [...] Gilson Reyes M.D. [place]: ILA Report ID: [id number] Reading Location: [place] [address] us Gail Wade MD IMG XR PROCEDURES Final [...] 1:52 AM CDT 08/13/2024 1:56 AM CDT Lakeisha DAO LAB BLOOD ORDERABLES Saundra l Result [facility] ([place]) 1 [facility] Department of Laboratories [place], [place] [id number] * eGFR (08/13/2024 1:52 AM CDT) eGFR [...] glomerular filtration rate is determined by the 202 CKD-EPI equation recommended by the National Kidney [...] BLOOD ORDERABLES Saundra norton Result [facility] [place] 1 [facility] Department [place] [address] * eGFR (08/13/2024 1:52 AM CDT) eGFR [...] BLOOD ORDERABLES Saundra norton Result [facility] ([place]) 1 [facility] Department [place] [address] * (ABNORMAL) Differential, auto (08/13/2024 1:52 AM [...] Neutrophil pct 84.2 % [facility] ([place]) Comment: Interpretive [...] Lymphocyte pct 8.3 % [facility] ([place]) Comment: Interpretive Data Percent cell count reference ranges are not reported, since discordance with absolute values may lead to misinterpretation of CBC data. Current Interpretive Data was last revised on 2017. Monocyte pct 6.7 % [facility] ([place]) Comment: Interpretive Data [...] revised on 2017. Basophil pct 0.3 % [facility] ([place]) Comment: Interpretive Data Percent cell count reference ranges are not reported, since discordance with absolute values may lead to misinterpretation of CBC data. Current Interpretive Data was last revised on 2017. Blood 08/13/2024 1:52 AM CDT 08/13/2024 5:10 AM CDT us Gail Wade MD LAB BLOOD ORDERABLES Saundra norton Result [facility] ([place]) 1 [facility] Department [place] [address] * (ABNORMAL) Pro B-type natriuretic peptide (08/13/2024 [...] Eur Heart J. 2006:27:330-337. 2. Monique RW, Rodriguez AM. J. AM Guero Cardiol: Cardiovasc Imag. 2009;2: 216- 225. Interpretive Data Last Revised Date: 2017. Blood 08/13/2024 1:52 AM CDT 08/13/2024 5:16 AM CDT us Gail Wade MD LAB BLOOD ORDERABLES Saundra norton Result [facility] ([place]) 1 [facility] Department [place] [address] * (ABNORMAL) CBC with auto differential (08/13/2024 [...] MD LAB BLOOD ORDERABLES Saundra norton Result [facility] ([place]) 1 [facility] [place] [address] * (ABNORMAL) CRP (acute phase) (08/13/2024 1:52 AM CDT) Pathologist [facility] CRP 272.5(H) <=10.0 mg/L Blood 08/13/2024 1:52 AM CDT 08/13/2024 1:56 AM CDT Gail Wade MD LAB BLOOD ORDERABLES Saundra l Result [facility] ([place]) 1 [facility] [place] [address] * Uric acid (08/13/2024 1:52 AM CDT) [facility] Uric acid 5.7 3.0 - 8.0 mg/dL Blood 08/13/2024 1:52 AM CDT 08/13/2024 9:14 AM CDT Christopher DAO LAB BLOOD ORDERABLES F inal Result Performing Organization Address City/[facility]/ZIP Co de Phone Number [facility] ([place]) 1 [facility] [place] [address] * Blood gas, venous (08/13/2024 1:52 AM CDT) Pathologist [facility] pH, Venous 7.34 7.32 - 7.43 PCO2, Venous 42 40 - 50 mmHg [facility] ([place]) PO2, Venous 28 mmHg [facility] ([place]) HCO3 Venous, Calculated 22 20 - 30 mmol/L [facility] ([place]) BE, venous -3 mmol/L [facility] ([place]) Comment: Interpretive Data No Reference Range Established Current Interpretive Data was last revised on 2017. Blood 08/13/2024 1:52 AM CDT 08/13/2024 1:56 AM CDT us Gail Wade MD LAB BLOOD ORDERABLES Saundra l Result [facility] ([place]) 1 [facility] [place] [address] * Creatinine (08/13/2024 1:52 AM CDT) Creatinine 1.16 0.80 - 1.30 mg/dL Comment:Icteric sample, test results may be affected. Blood 08/13/2024 1:52 AM CDT 08/13/2024 1:56 AM CDT Narrative [facility] ([place]) - 08/13/2024 2:24 AM CDT Per pharmacy vancomycin protocol Lakeisha DAO LAB BLOOD ORDERABLES Saundra l Result Performing Organization Address [facility] Co de Phone Number [facility] ([place]) 1 [facility] [place] [address] * (ABNORMAL) Hepatic function panel (08/13/2024 1:52 [...] 1:52 AM CDT 08/13/2024 5:16 AM CDT Gail Wade MD LAB BLOOD ORDERABLES Saundra l Result [facility] ([place]) 1 [facility] Department [place] [address] * (ABNORMAL) Basic metabolic panel (08/13/2024 1:52 AM CDT) Sodium 132(L) 135 - 145 mmol/L Potassium, pl 3.6 3.3 - 4.9 mmol/L [facility] ([place]) Chloride 96(L) 97 - 110 mmol/L [facility] ([place]) CO2 17(L) 22 - 32 mmol/L [facility] ([place]) Anion gap 19(H) 2 - 15 mmol/L [facility] ([place]) BUN 14 6 - 25 mg/dL [facility] ([place]) Creatinine 1.16 0.80 - 1.30 mg/dL [facility] ([place]) Comment:Icteric sample, test results may be affected. Glucose 141 70 - 199 mg/dL [facility] ([place]) Comment: Interpretive Data Fasting glucose >/= [...] 2022. Calcium 8.2(L) 8.5 - 10.3 mg/dL [facility] ([place]) Blood 08/13/2024 1:52 AM CDT 08/13/2024 5:16 AM CDT us Gail Wade MD LAB BLOOD ORDERABLES Saundra norton Result [facility] ([place]) 1 [facility] [place] [address] * Troponin T high-sensitivity 4-hour (08/13/2024 12:56 AM CDT) Trop T hs 16 <=22 ng/L Comment: Interpretive Data For further hscTnT resources including the diagnostic algorithm and an aid in interpretation, copy and paste this link: https://nrl.testcatalog.org/show/hsTrop Current Interpretive Data last revised 2020. Trop T hs delta -1 ng/L [facility] ([place]) Trop T hs interp Insignificant [facility] ([place]) Blood 08/13/2024 12:5 6 AM CDT 08/13/2024 12:59 AM CDT us Lakeisha DAO LAB BLOOD ORDERABLES Saundra norton Result [facility] ([place]) 1 [facility] [place] [address] * (ABNORMAL) Urinalysis reflex to microscopic and [...] for uric acid stone formation. Source: [facility] [employer] Current Interpretive Data was last revised on [...] [facility] ([place]) Leukocyte esterase, ur Negative Negative [facility] ([place]) UA reflex comment Reflex to microscopic UA will be performed. [facility] ([place]) Urine 08/13/2024 12:5 6 AM CDT 08/13/2024 12:59 AM CDT Narrative [facility] ([place]) - 08/13/2024 1:02 AM CDT If patient unable to urinate, straight cath Lakeisha DAO LAB MICROBIOLOGY - GENERA L ORDERABLES Final Result Performing Organization Address [facility] Co de Phone Number [facility] 1 [facility] [place] [address] * (ABNORMAL) Urinalysis, microscopic only (08/13/2024 12:56 AM CDT) WBC, ur 0-5 0 - 5 /HPF RBC, ur 0-2 0 - 2 /HPF [facility] ([place]) Mucous, ur Present(A) [facility] ([place]) Culture Reflex Comment Reflex conditions for urine culture (WBC >10) not met. [facility] ([place]) Urine 08/13/2024 12:5 6 AM CDT 08/13/2024 12:59 AM CDT Lakeisha DAO LAB URINE ORDERABLES Saundra l Result Performing Organization Address [facility] Co de Phone Number [facility] ([place]) 1 [facility] [place] [address] * XR Hand Right 3 or More [...] 12:45 AM - Electronically signed by Sam LEAL: MEL Report ID: [id number] Reading Location: [id number] Procedure Note Sam Chirinos MD - 08/13/2024 [...] 12:45 AM - Electronically signed by Sam LEAL: MEL Report ID: [id number] Reading Location: [id number] Lakeisha DAO IMG XR PROCEDURES Final R esult * Troponin T high-sensitivity 2-hour (08/12/2024 10:03 PM CDT) Trop T hs 18 <=22 ng/L Comment: Interpretive Data For further hscTnT resources including the diagnostic algorithm and an aid in interpretation, copy and paste this link: https://nrl.testcatalog.org/show/hsTrop Current Interpretive Data last revised 2020. Trop T hs delta 1 ng/L [facility] ([place]) Trop T hs interp Insignificant [facility] ([place]) Blood 08/12/2024 10:0 3 PM CDT 08/12/2024 10:05 PM CDT us Lakeisha DAO LAB BLOOD ORDERABLES Saundra l Result [facility] ([place]) 1 [facility] [place] [address] * CT Chest PE (CTA) Abdomen Pelvis [...] Sam Chirinos M.D. KH: MEL Report ID: [id number] Reading Location: [place] [address] Procedure Note Sam Chirinos MD - 08/12/2024 [...] Sam Chirinos M.D. KH: MEL Report ID: [id number] Reading Location: [place] [address] PROCEDURES Final R esult * CT [...] 10:15 PM - Electronically signed by Sam Chirinos M.D. KH: MEL Report ID: [id number] Reading Location: [id number] Procedure Note Sam Chirinos MD - 08/12/2024 [...] signed by Sam LEAL: MEL Report ID: [id number] Reading Location: [place] [address] PROCEDURES Final R esult * XR [...] 8:42 PM - Electronically signed by Sam LEAL: MEL Report ID: [id number] Reading Location: [id number] Procedure Note Chirinos, Sam, MD - 08/12/2024 EXAM DESCRIPTION: XR CHEST [...] Sam Chirinos M.D. KH: MEL Report ID: [id number] Reading Location: [id number] aLkeisha DAO IMG XR PROCEDURES Final R esult * aPTT (08/12/2024 8:09 PM CDT) aPTT 37 28 - 38 sec [facility] ([place]) Comment: Interpretive Data Heparin therapeutic range: 66.0 - 100.0 seconds. Range based on correlation with therapeutic heparin activity range of 0.3 - 0.7 Units/mL. Current interpretive data was last revised on 2022. Blood 08/12/2024 8:09 PM CDT 08/13/2024 1:35 AM CDT Gail Wade MD LAB BLOOD ORDERABLES Saundra l Result Performing Organization Address City/[facility]/ZIP Co de Phone Number [place]ISA [facility] ([place]) 1 [facility] [place] [address] * (ABNORMAL) Protime-INR (08/12/2024 8:09 PM CDT) PT 21.2(H) 9.7 - 13.0 sec [facility] INR 1.94(H) 0.90 - 1.20 [facility] ([place]) Comment: Interpretive data Oral anticoagulant therapeutic ranges: Venous thromboembolism prophylaxis or treatment: 2.0-3.0 CARDIOLOGY Standard range: 2.0-3.0 High-intensity range: 2.5-3.5 Refer to indication-specific guidelines for appropriate target ranges for prosthetic heart valve replacement. Current interpretive data was last revised on 2019. Blood 08/12/2024 8:09 PM CDT 08/13/2024 1:35 AM CDT us Gail Wade MD LAB BLOOD ORDERABLES Saundra l Result Performing Organization Address [facility] Co de Phone Number [place]ISA [place]) 1 [facility] [place] [address] * Troponin T high-sensitivity series (baseline, 2hr, [...] ORDERABLES Saundra l Result Performing Organization Address City/[facility]/ZIP Co de Phone Number [place]ISA [facility] ([place]) 1 [facility] [place] [address] * Influenza A/B, RSV, and COVID-19 PCR Nasopharyngeal (08/12/2024 8:07 PM CDT) Pathologist [facility] COVID-19 RNA Negative Negative Influenza A RNA Negative Negative [facility] ([place]) Influenza B RNA Negative Negative [facility] ([place]) RSV RNA Negative Negative [facility] ([place]) Comment: Interpretive data: Testing performed by [facility]. This test is performed using the Vigilos Xpert Xpress CoV-2/Flu/RSV plus assay. This is a multiplex, real- time reverse transcriptase PCR assay intended for the qualitative detection of nucleic acid from SARS-CoV-2, influenza A, influenza B, and respiratory syncytial virus. This assay has been cleared by the [place] Food and Drug administration. The performance characteristics have been verified by the [facility]. Results must be considered in the clinical context, and a negative result does not rule out infection. Interpretive Data last revised 2023 Nasopharyngeal 08/12/2024 8: 07 PM CDT 08/12/2024 8:15 PM CDT Narrative [facility] ([place]) - 08/12/2024 8:58 PM CDT Is the Patient experiencing symptoms consistent with COVID?->Yes Lakeisha DAO LAB MICROBIOLOGY - GENERA L ORDERABLES Final Result [facility] ([place]) 1 [facility] [place] [address] * Sepsis Lactate w/ Reflex (08/12/2024 8:07 PM CDT) Pathologist [facility] Sepsis Lactate 1.8 0.7 - 2.0 mmol/L Blood 08/12/2024 8:07 PM CDT 08/12/2024 8:15 PM CDT Lakeisha DAO LAB BLOOD ORDERABLES Saundra l Result [facility] ([place]) 1 [facility] Department [place] [address] * eGFR (08/12/2024 8:07 PM CDT) Pathologist [facility] eGFR 61 >=60 mL/min/1. 73 m2 Comment: [...] LAB BLOOD ORDERABLES Saundra l Result LISA [place]) 1 [facility] Department [place] [address] * (ABNORMAL) Differential, auto (08/12/2024 8:07 PM CDT) Pathologist [facility] Neutrophil abs 4.21 1.50 - 6.50 K/cumm [...] CDT Lakeisha DAO LAB BLOOD ORDERABLES Saundra norton Result [facility] ([place]) 1 [facility] Department [place] [address] * (ABNORMAL) CBC with auto differential (08/12/2024 8:07 PM CDT) WBC 5.02 3.80 - 9.90 K/cumm Hgb 14.0 13.0 - 17.5 g/dL [facility] ([place]) Hct 39.5 38.9 - 50.3 % [facility] ([place]) Plt 98(L) 150 - 400 K/cumm [facility] ([place]) MPV 11.1 9.1 - 12.3 fL [facility] ([place]) RBC 4.44 4.30 - 5.80 M/cumm [facility] ([place]) MCV 89.0 81.3 - 96.4 fL [facility] ([place]) MCH 31.5 27.1 - 33.3 pg [facility] ([place]) MCHC 35.4 32.3 - 35.7 g/dL [facility] ([place]) RDW CV 12.8 11.1 - 14.9 % [facility] ([place]) RDW SD 41.7 35.7 - 48.1 fL [facility] ([place]) NRBC abs 0.00 0.00 - 0.01 K/cumm [facility] ([place]) Blood 08/12/2024 8:07 PM CDT 08/12/2024 8:15 PM CDT us Lakeisha DAO LAB BLOOD ORDERABLES Saundra norton Result [facility] ([place]) 1 [facility] Department [place] [address] * (ABNORMAL) Blood culture Blood (08/12/2024 8:07 PM CDT) Direct Specimen Exam Molecular Analysis: Streptococcus agalactiae (Group B Streptococcus) detected by [facility] BCID-GP panel. Streptococcus agalactiae is susceptible to beta-lactam antibiotics and vancomycin. This test does not exclude the possibility of a mixed bacterial infection. Notification of: Streptococcus agalactiae (Group B Streptococcus) called to and read back by: Osvaldo Vasques OFFICE CHAIR ASSEMBLER on 08/13/2024 09:32:41 by: Jeb Howard MLS Test result called to and read back by Shirley Da Silva rn/imu on 08/13/2024 09:48:55 by fay harley Comment:Testing performed by : [facility], [address] [place] [address]., [address] Direct Specimen Exam Stain: Gram Positive Cocci in pairs and chains Time to culture positivity (aerobic media): 8.6 hours Notification of: Gram Positive Cocci in pairs and chains called to and read back by: Kaila Bolivar MT [phone] on 08/13/2024 07:44:55 by: Freedom Awad MT Results phoned to and read back by: Dori Da Silva RN IMU on 08/13/2024 08:13:13 by: Kaila BOWLING ([place]) Comment:Testing performed by : [facility], [address] [place] [address], [address] Report Final Report: Streptococcus agalactiae (Group B Streptococci) (.) [facility] ([place]) Comment:Testing performed by : [facility], [address] [place] [address]., [address] Organism STREPTOCOCCUS AGALACTIAE (GROUP B STREPTOCOCCI) LISA [...] performance characteristics have been verified by the [facility] Microbiology Laboratory. For questions about this culture, contact the Microbiology Laboratory at [phone]. Interpretive data was last revised on 24. Organism Antibiotic Method Susceptibility Streptococcus agalactiae (Gr oup B Streptococci) Penicillin (ZA) (ZA) INTERPRETATION Susceptible Streptococcus agalactiae (Gr oup B Streptococci) Ceftriaxone (ZA) (ZA) INTERPRETATION Susceptible Streptococcus agalactiae (Gr oup B Streptococci) Clindamycin (ZA) INTERPRETATION Susceptible Streptococcus agalactiae (Gr oup B Streptococci) Linezolid (ZA) INTERPRETATION Susceptible Streptococcus agalactiae (Gr oup B Streptococci) Vancomycin (ZA) INTERPRETATION Susceptible Lakeisha DAO LAB MICROBIOLOGY - GENERA L ORDERABLES Final Result [facility] ([place]) 1 [facility] Department [place] [address] * Blood culture Blood (08/12/2024 8:07 PM CDT) [facility] Report Final Report: No growth Comment:Testing performed by : [facility], [address] [facility] [place]., [address] Blood 08/12/2024 8:07 PM CDT 08/12/2024 10:15 [...] performance characteristics have been verified by the [facility] Microbiology Laboratory. For questions about this culture, contact the Microbiology Laboratory at [phone]. Interpretive data was last revised on 24. us Lakeisha DAO LAB MICROBIOLOGY - GENERA L ORDERABLES Final Result [facility] ([place]) 1 [facility] [place] [address] * (ABNORMAL) Erythrocyte sedimentation rate (08/12/2024 8:07 PM CDT) Erythrocyte sedimentation rate 32(H) 1 - 20 mm/hr Blood 08/12/2024 8:07 PM CDT 08/13/2024 1:39 AM CDT Gail Wade MD LAB BLOOD ORDERABLES Saundra l Result Performing Organization Address City/[facility]/ZIP Co de Phone Number [facility] ([place]) 1 [place] [address] * (ABNORMAL) Comprehensive metabolic panel (08/12/2024 8:07 PM CDT) Sodium 128(L) 135 - 145 mmol/L Potassium, pl 3.9 3.3 - 4.9 mmol/L [facility] ([place]) Chloride 93(L) 97 - 110 mmol/L [facility] ([place]) CO2 21(L) 22 - 32 mmol/L [facility] ([place]) Anion gap 14 2 - 15 mmol/L [facility] ([place]) BUN 15 6 - 25 mg/dL [facility] ([place]) Creatinine 1.17 0.80 - 1.30 mg/dL [facility] ([place]) Comment:Icteric sample, test results may be affected. Glucose 149 70 - 199 mg/dL [facility] ([place]) [...] DAO LAB BLOOD ORDERABLES Saundra l Result [facility] ([place]) 1 [facility] Department of Laboratories [place], [place] [address] * ECG 12 lead (08/12/2024 7:53 PM CDT) 08/12/2024 7:53 PM CDT Narrative [facility] - 08/13/2024 8:33 AM CDT Vent Rate: 101 bpm RR Interval: 590 msec GA Interval: 0 msec QRS Duration: 92 msec QT Interval: 357 msec QTC Interval: 415 msec P-R-T [place]: [address] - -28 - 15 degrees IMPRESSION: ATRIAL FIBRILLATION WITH RAPID VENTRICULAR RESPONSE BORDERLINE LEFT AXIS DEVIATION [QRS AXIS < -20] NONSPECIFIC T-WAVE ABNORMALITY ABNORMAL RHYTHM ECG compared to prior EKG, heart rate has increased atrial fibrillation rpelaced sinus rhythm Electronically Signed By: Sanjay Landers MD Lakeisha Guallpa PA ECG ORDERABLES Final Res ult [employer] [facility] * (ABNORMAL) eGFR (06/29/2024 12:10 PM CDT) [...] of Race in Diagnosing Kidney Disease, JASN 202). The CKD-EPI equation should not be used for patients with unstable renal function and has not been validated in children and those over 70. Current interpretive data was last reviewed 2021. Blood 06/29/2024 12:1 0 PM CDT 06/29/2024 12:20 PM CDT us Irena Madrid MD LAB BLOOD ORDERABLES Final Re sult [facility] ([place]) 1 [facility] [place] [address] * Differential, auto (06/29/2024 12:10 PM CDT) Neutrophil abs 1.80 1.50 - 6.50 K/cumm Imm gran abs 0.01 0.00 - 0.10 K/cumm [facility] ([place]) Lymphocyte abs 1.01 0.80 - 3.30 K/cumm [facility] ([place]) Monocyte abs 0.30 0.20 - 0.80 K/cumm [facility] ([place]) Eosinophil abs 0.05 0.00 - 0.50 K/cumm [facility] ([place]) Basophil abs 0.01 0.00 - 0.10 K/cumm [facility] ([place]) Neutrophil pct 56.6 % [facility] [...] 2017. Monocyte pct 9.4 % [facility] ([place]) Comment: Interpretive Data [...] Final Re sult [facility] ([place]) 1 [facility] [place] [address] * (ABNORMAL) CBC with auto differential (06/29/2024 [...] Final Re sult [facility] ([place]) 1 [facility] [place] [address] * (ABNORMAL) Hepatitis B core antibody, total Blood (06/29/2024 12:10 PM CDT) Hep B core IgG/IgM Reactive( A) Nonreactive Comment:Testing performed by : [facility], [address] [place]., [address] Blood 06/29/2024 12:1 0 PM CDT 06/29/2024 8:10 PM CDT Irena Madrid MD LAB MICROBIOLOGY - GENERAL OR DERABLES Final Result Performing Organization Address City/[facility]/ZIP Co de Phone Number LISA DASH ([place]) 1 [facility] [place] [address] * Hepatitis B surface antibody (immune status) Blood (06/29/2024 12:10 PM CDT) Pathologist [facility] HBsAb (immune status) Reactive Comment: Interpretive Data [...] last revised on 19. Testing performed by: [address] [address] HBsAb (immune status) index 967.0 mIUnits/m L [facility] ([place]) Comment:Testing performed by : [address] [address] Blood 06/29/2024 12:1 0 PM CDT 06/29/2024 4:42 PM CDT Irena Madrid MD LAB MICROBIOLOGY - GENERAL OR DERABLES Final Result [facility] ([place]) 1 [facility] [place] [address] * Hepatitis B Surface Antigen Blood (06/29/2024 12:10 PM CDT) HepBsAg Nonreactive Nonreactive Comment:Testing performed by : [facility], [address] [place] [address], [place]., [address] Blood 06/29/2024 12:1 0 PM CDT 06/29/2024 4:42 PM CDT Irena Madrid MD LAB MICROBIOLOGY - GENERAL OR DERABLES Final Result Performing Organization Address City/[facility]/ZIP Co de Phone Number [facility] ([place]) 1 [facility] [place] [address] * Uric acid (06/29/2024 12:10 PM CDT) [facility] Uric acid 7.3 3.0 - 8.0 mg/dL Blood 06/29/2024 12:1 0 PM CDT 06/29/2024 12:20 PM CDT Irena Madrid MD LAB BLOOD ORDERABLES Final Re sult Performing Organization Address [facility] Co de Phone Number [facility] [place]) 1 [facility] [place] [address] * PSA diagnostic (06/29/2024 12:10 PM CDT) Pathologist [facility] PSA-Total 1.66 <=6.20 ng/mL Comment: Interpretive Data [...] LAB BLOOD ORDERABLES F inal Result [facility] ([place]) 1 [facility] [place] [address] * Basic metabolic panel (06/29/2024 12:10 PM [...] 2022. Calcium 9.1 8.5 - 10.3 mg/dL [facility] ([place]) Blood 06/29/2024 12:1 0 PM CDT 06/29/2024 12:20 PM CDT us Irena Madrid MD LAB BLOOD ORDERABLES Final Re sult [facility] ([place]) 1 [facility] [place] [address] from Last 3 Months Insurance MEDICARE [facility] MEDICARE [employer] CROSS MEDICARE SUPPLEMENT MEDICARE [facility] MEDICARE [facility] MEDICARE BLUE CROSS MEDICARE SUPPLEMENT [facility] Advance Directives For more information, please contact: [phone] * Full Code (Latest Code Status on [...] 2:26 PM 07/17/2021 4:45 PM Care Teams Truck Safety Inspector Relationship Specialty Start Date End Date Irena Madrid MD [address] [place] [address] PCP - General 12/18/16 Tha Oh MD [address] [address] PCP - Home Infusion Attending Infectious Diseases 08/20/24 Mundo Smith MD Consulting Physician Neurosurgery 12/10/16 Viviana Wagner MD [address] [place] [address] Consulting Physician Pain Management 02/26/17 Heather Grant NP [address] [place] [address] Nurse Practitioner Neurosurgery 04/06/17 Quinn Flannery MD [address] [place] [address] Consulting Physician Pain Management 05/10/17 Nena Rogers PTA Paper Coating Supervisor Physical Therapy 10/06/17 Omid Hoffman MD Surgeon Orthopedic Surgery 11/02/17 Steffany Solomon INTEL ANALYST Nurse Practitioner Pain Management 07/05/18 Carlos Ford MD Consulting Physician Neurology 09/20/18 Gerardo Chávez MD Referring Physician Urology 01/28/19 Irineo Moe MD Consulting Physician Dermatology 01/28/19 Nelson Schneider MD [address] [place] [address] Consulting Physician Orthopedic Surgery 02/22/19 Mirta Angeles PA [address] [place] [address] Physician Oil Expeller Operator Orthopedic Surgery 10/08/19 John Khan MD PhD [address] [place] [address] Radiation Oncologist Radiation Oncology 08/30/20 Sam Whelan MD [address] [place] [address] Consulting Physician Ophthalmology 04/02/22 Quinn Flannery MD [address] [place] [address] Consulting Physician Pain Management 06/19/22 [place] [address] [place] [address] Consulting Physician Neurosurgery 06/21/22 Brock Segura MD [address] [place] [address] [address], [place] [address] Consulting Physician Cardiology 08/26/22 Tung Bach OD [address] [place] [address] Consulting Physician Optometry 07/31/22 Janell Orellana PA [address] [place] [address] Physician Oil Expeller Operator Orthopedic Surgery 09/12/22 Ashtyn Morrow PA [address] [place] [id number] [place] [address] Physician Oil Expeller Operator Colon and Rectal Surgery 04/30/23 Terence Edgar DMD [address] [place] [address] Dentist Oral Surgery 09/04/23 Ila Alvarenga [facility] Pharmacist Pharmacy 08/20/24 Agustín Dietz, ANITA [address] [facility] [address] [place] [address] Outpatient Therapist 08/24/24
--- OUTSIDE RECORDS SUMMARY | 2024-08-24 14:27 | XMS_ITS | Encounter Summary ---
Author Organization [facility] Address [address] [place] [address] Care Team Providers Care Data Abstractor Name Role Phone Mundo Smith MD Unavailable [phone] Filiberto Madrid MD Primary Care Provider [phone] Viviana Wagner MD Unavailable [phone] Heather Grant NP Unavailable [phone] Quinn Flannery MD Unavailable [phone] Nena Rogers PTA Unavailable Unavailable Omid Hoffman MD Unavailable Steffany Solomon NP Unavailable [phone] Carlos Ford MD Unavailable Gerardo Chávez MD Unavailable Irineo Moe MD Unavailable Nelson Schneider MD Unavailable Mirta Angeles Unavailable [phone] John Khan MD PhD Unavailable Omid Emanuel DO Unavailable Sam Whelan MD Unavailable [phone] Quinn Flannery MD Unavailable [phone] Cristy Rodriguez MD Unavailable [phone] Brock Segura MD Unavailable [phone] Tung Bach OD Unavailable Janell Orlelana PA Unavailable [phone] Ashtyn Morrow Unavailable [phone] Ashtyn Morrow Unavailable [phone] Terence Edgar DMD Unavailable [phone] Tha Oh MD Unavailable [phone] Ila Alvarenga [facility] Unavailable Unavailable Agustín Dietz RN Unavailable [phone] Encounter Details Date Type Department Care Team (Late st Contact Info) Description 08/28/2022 Telephone [facility] [address] [place], [place] [id number] Chyna Wall, RT Social History Tobacco Use Types Packs/Day Years [...] than three times a week 02/06/2022 Attends Church Services Not on file 02/06 Do you belong to any clubs o r organizations such as synagogue groups, unions, fraternal or athletic groups, or [...] on file 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 Gender Identity Not on file Sexual Orientation Not on file documented as of this encounter Plan of Treatment Not on file documented as of this encounter Visit Diagnoses Not on filedocumented in this encounter Additional Health Concerns Infection Onset Date Last Indicated Resolved Time COVID: Suspected 08/12/2024 08/12/2024 08/12/2024 8:59 PM CDT documented as of this encounter Care Teams Data Abstractor Relationship Specialty Start Date End Date Filiberto Madrid MD [address] [place] [address] PCP - General 12/18/16 Tha Oh MD [address] [facility] [address] [place] [address] PCP - Home Infusion Attending Infectious Diseases 08/20/24 Mundo Smith MD Consulting Physician Neurosurgery 12/10/16 Viviana Wagner MD [address] [place] [address] Consulting Physician Pain Management 02/26/17 Heather Grant, DESIZING MACHINE BACK TENDER [address] [place] [address] Nurse Practitioner Neurosurgery 04/06/17 Quinn Flannery MD [address] [place] [address] Consulting Physician Pain Management 05/10/17 Nena Rogers PTA Rubber Heel And Sole Press Tender Physical Therapy 10/06/17 Omid Hoffman MD Surgeon Orthopedic Surgery 11/02/17 Steffany Solomon NP Nurse Practitioner Pain Management 07/05/18 Carlos Ford MD Consulting Physician Neurology 09/20/18 Gerardo Chávez MD Referring Physician Urology 01/28/19 Irineo Moe MD Consulting Physician Dermatology 01/28/19 Nelson Schneider MD [address] [facility] [address] [place], [place] [address] Consulting Physician Orthopedic Surgery 02/22/19 Mirta Angeles PA [address] [facility] [address] [place], [place] [id number] Physician Window Installer Orthopedic Surgery 10/08/19 John Khan MD PhD [address] [facility] [place] [address] Radiation Oncologist Radiation Oncology 08/30/20 Omid Emanuel DO [address] [facility] [address] [place] [address] Consulting Physician Cardiovascular Disease 11/08/20 Sam Whelan MD [address] [facility] [address] [place] [address] Consulting Physician Ophthalmology 04/02/22 Quinn Flannery MD [address] [place] [address] Consulting Physician Pain Management 06/19/22 [place] [address] [place] [address] Consulting Physician Neurosurgery 06/21/22 Brock Segura MD [address] [place] [address] [address], [place] [address] Consulting Physician Cardiology 08/26/22 Tung Bach OD [address] [place], [place] [address] Consulting Physician Optometry 07/31/22 Janell Orellana PA [address] [place] [address] Physician Window Installer Orthopedic Surgery 09/12/22 Ashtyn Morrow PA [address] [place] [phone] [place] [address] Physician Window Installer Colon and Rectal Surgery 04/04/23 05/27/23 Ashtyn Morrow PA [address] [place] [phone] [place] [address] Physician Window Installer Colon and Rectal Surgery 04/30/23 Terence Edgar DMD [address] [place] [address] Dentist Oral Surgery 09/04/23 Ila Alvarenga [facility] Pharmacist Pharmacy 08/20/24 Agustín Dietz, ANITA [address] [facility] [address] [place] [address] Automatic Furnace Operator 08/24/24 documented as of this encounter
--- OUTSIDE RECORDS SUMMARY | 2024-08-24 14:27 | XMS_ITS | Encounter Summary ---
Author Organization [facility] Address [address] [place] [address] Care Team Providers Care Air Quality Manager Name Role Phone Mundo Smith MD Unavailable [phone] Filiberto Madrid MD Primary Care Provider [phone] Viviaan Wagner MD Unavailable [phone] Heather Grant NP Unavailable [phone] Quinn Flannery MD Unavailable [phone] Nena Rogers PTA Unavailable Unavailable Omid Hoffman MD Unavailable Steffany Solomon NP Unavailable [phone] Carlos Ford MD Unavailable Gerardo Chávez MD Unavailable Irineo Moe MD Unavailable Nelson Schneider MD Unavailable Mirta Angeles Unavailable [phone] John Khan MD PhD Unavailable Sam Whelan MD Unavailable [phone] Quinn Flannery MD Unavailable [phone] Cristy Rodriguez MD Unavailable [phone] Brock Segura MD Unavailable [phone] BachTung chaparro OD Unavailable [phone] Janell Orellana PA Unavailable [phone] Ashtyn Morrow PA Unavailable [phone] Terence Edgra DMD Unavailable [phone] Tha Oh MD Unavailable [phone] Ila Alvarenga [facility] Unavailable Unavailable Agustín Dietz RN Unavailable Encounter Details Date Type Department Care Team (Late st Contact Info) Description 07/03/2024 Results Follow-Up 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 Gender Identity Not on file Sexual Orientation Not on file documented as of this encounter Plan of Treatment Not on file documented as of this encounter Visit Diagnoses Not on filedocumented in this encounter Additional Health Concerns Infection Onset Date Last Indicated Resolved Time COVID: Suspected 08/12/2024 08/12/2024 08/12/2024 8:59 PM CDT documented as of this encounter Care Teams Air Quality Manager Relationship Specialty Start Date End Date Filiberto Madrid MD [address] [place] [address] PCP - General 12/18/16 Tha Oh MD [address] [place] [address] PCP - Home Infusion Attending Infectious Diseases 08/20/24 Mundo Smith MD Consulting Physician Neurosurgery 12/10/16 Viviana Wagner MD [address] [place] [address] Consulting Physician Pain Management 02/26/17 Heather Grant NP [address] [place] [address] Nurse Practitioner Neurosurgery 04/06/17 Quinn Flannery MD [address] [place] [address] Consulting Physician Pain Management 05/10/17 Nena Rogers PTA Director Of Teaching And Learning Physical Therapy 10/06/17 Omid Hoffman MD Surgeon Orthopedic Surgery 11/02/17 Steffany Solomon NP Nurse Practitioner Pain Management 07/05/18 Carlos Ford MD Consulting Physician Neurology 09/20/18 Gerardo Chávez MD Referring Physician Urology 01/28/19 Irineo Moe MD Consulting Physician Dermatology 01/28/19 Nelson Schneider MD [address] [facility] [address] [place] [address] Consulting Physician Orthopedic Surgery 02/22/19 Mirta Angeles PA [address] [facility] [address] [place] [address] Physician Endodontist Orthopedic Surgery 10/08/19 John Khan MD PhD [address] [place] [address] Radiation Oncologist Radiation Oncology 08/30/20 Sam Whelan MD [address] [place] [address] Consulting Physician Ophthalmology 04/02/22 Quinn Flannery MD [address] [address] Consulting Physician Pain Management 06/19/22 [place] [address] [place] [address] Consulting Physician Neurosurgery 06/21/22 Brock Segura MD [address] [place] [address] [address] [place] [address] [place] [address] Consulting Physician Cardiology 08/26/22 Tung Bach OD [address] [place], [place] [id number] Consulting Physician Optometry 07/31/22 Janell Orellana PA [address] [place] [address] Physician Endodontist Orthopedic Surgery 09/12/22 Ashtyn Morrow PA [address] [facility] [phone] [place] [address] Physician Endodontist Colon and Rectal Surgery 04/30/23 Terence Edgar, [address] [address] [place] [address] Dentist Oral Surgery 09/04/23 Ila Alvarenga [facility] Pharmacist Pharmacy 08/20/24 Agustín Dietz, ANITA [address] [facility] [address] [place] [address] Binding Nicker 08/24/24 documented as of this encounter
--- OUTSIDE RECORDS SUMMARY | 2024-08-24 14:27 | XMS_ITS | Clinical Summary ---
Author Organization [facility] Address [address] [place] [address] Care Team Providers Care Production Line Name Role Phone Sunil Zelaya MD Unavailable [phone] Filiberto Madrid MD Primary Care Provider [phone] Source Comments [facility],non-owned Affiliates and Associated Physician Practices is amultiple site organization consisting of ambulatory clinics and hospital sitesin [place], [place], [place] and [place]. This disclosure is being madepursuant to the Care Everywhere program and may not contain all information available regarding this patient. 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 Gender Identity Not on file Sexual Orientation Not on file Last Filed Vital Signs Vital Sign Reading Time Taken Comments Blood Pressure 128/70 06/19/2021 1:55 PM CDT Pulse 72 06/19/2021 1:55 PM CDT Temperature 36.2 C (97.2 F) 06/19/2021 1:55 PM CDT Respiratory Rate 17 02/20/2019 1:54 PM CIO Oxygen Saturation 98% 10/23/2020 2:45 PM CDT Inhaled Oxygen Concentration - - Weight 114.5 kg (252 lb 6.4 oz) 06/19/2021 1:55 PM CDT Height 188 cm (6' 2) 02/20/2019 1:28 PM CIO Body Mass Index 32.41 02/20/2019 1:28 PM CIO Plan of Treatment Health Maintenance Due Date [...] SPECIFIC ANTIGEN SCREEN Routine 01/14/2014 7:14 AM CIO Prostate cancer screening from Last 3 Months or Most Recently Relevant to Health Maintenance Results * PROSTATE SPECIFIC ANTIGEN SCREEN (01/14/2014 7:14 AM CIO) PSA 3.9 0.0 - 4.0 ng/mL [facility] INSURANCE BILL Comment: Levy ECLIA methodology. . According to the [place] [employer], Serum PSA should decrease and [...] BLOOD SPECIMEN / Unknown 01/14/2014 7:14 AM CIO 01/14/2014 2:18 PM CIO Narrative Resulting Agency Comment [place] [id number] [facility] [id number] Pedro Cosme MD LAB - CHEMISTRY ORDERABLES Final Result [facility] INSURANCE BILL [address] [place] [address] from Last 3 Months or Most Recently Relevant to Health Maintenance Insurance MEDICARE [facility] Address: [facility] [id number] [place] [address] Care Teams Production Line Relationship Specialty Start Date End Date Filiberto Madrid MD [address] [place] [address] PCP - General Internal Medicine 05/03/16 Sunil Zelaya MD [address] [facility] [address] [place] [address] Cardiovascular Disease 12/29/13
--- OUTSIDE RECORDS SUMMARY | 2024-08-24 14:27 | XMS_ITS | Clinical Summary ---
Author Organization Unknown Care Team Providers Care Auto Inspection Specialist Name Role Phone AMAURY GONZALES, IRENA Unavailable Unavailable SHIN HOWARD, MAGDA Unavailable Unavailable Payers Payer Name Policy Type Policy Number Effective Date Expira tion Date MEDICARE - [facility] [id number] Problems Condition Name Condition Details Condition Category Status Onset Date Resolution Date Last Treatment Date Treating Clinician Comments INFECT/INFL M REACTION DUE TO INTERNAL R KNEE PROSTH, INIT Active 08-20 00:00: 00 Allergies, Adverse Reactions, Alerts Allergy Name Allergy Type Status Severity Reaction(s) Onset Date Inactive Date Treating Clinician Comments NKA Propensity to adverse reactions Active 2024-08 11:43:5 0 Immunizations Ordered Immunization Name Filled Immunization Name Date Status Comments Refusal Reason REFUSED FLU, PPV 2024-08-21 00:00:00 Vital Signs Vital Name Observation Time Observation Value Commen ts Temperature 2024-08-21 11:45:00.000 97.9 [degF] BMI (%) 2024-08-21 10:26:29.000 33 kg/m2 Height 2024-08-21 10:26:01.000 74 [in_us] Pulse 2024-08-21 11:45:00.000 76 /min O2 Saturation (%) 2024-08-21 11:45:00.000 99 % Respirations 2024-08-21 11:45:00.000 18 /min Weight (lbs) 2024-08-21 10:26:29.000 261 [lb_av] Systolic Blood Pressure 2024-08-21 11:45:00.000 148 mm [Hg] Diastolic Blood Pressure 2024-08-21 11:45:00.000 68 mm [Hg] Plan of Treatment Planned Activity Planned Date Details Comments Future Scheduled Test SKILLED NU RSE TO EVALUATE PATIENT, IDENTIFY PRIMARY AND CO-MORBID CONDITIONS CODED PER CODING GUIDELINES, AND DEVELOP PATIENT SPECIFIC PLAN OF CARE THAT INCLUDES PATIENT GOAL FOR HOME HEALTH. [code = SKILLED NURSE TO EVALUATE PATIENT, IDENTIFY PRIMARY AND CO-MORBID CONDITIONS CODED PER CODING GUIDELINES, AND DEVELOP PATIENT SPECIFIC PLAN OF CARE THAT INCLUDES PATIENT GOAL FOR HOME HEALTH.] Future Scheduled Test SKILLED NU RSE TO REVIEW PATIENT MEDICATIONS (PRESCRIPTION/OTC). INSTRUCT PATIENT/CAREGIVER ON ALL MEDICATIONS INCLUDING PURPOSE, WHEN TO TAKE, IMPORTANCE OF MEDICATION ADHERENCE, MONITORING OF EFFECTIVENESS, ADVERSE DRUG REACTIONS, POSSIBLE SIDE EFFECTS, AND WHEN TO NOTIFY AGENCY OR PHYSICIAN/PROVIDER OF ANY CONCERNS. [code = SKILLED NURSE TO REVIEW PATIENT MEDICATIONS (PRESCRIPTION/OTC). INSTRUCT PATIENT/CAREGIVER ON ALL MEDICATIONS INCLUDING PURPOSE, WHEN TO TAKE, IMPORTANCE OF MEDICATION ADHERENCE, MONITORING OF EFFECTIVENESS, ADVERSE DRUG REACTIONS, POSSIBLE SIDE EFFECTS, AND WHEN TO NOTIFY AGENCY OR PHYSICIAN/PROVIDER OF ANY CONCERNS.] Future Scheduled Test PATIENT PIMENTEL S A RISK OF HOSPITALIZATION AND ED USE. SKILLED NURSE TO ESTABLISH SUPPORT MEASURES TO MINIMIZE RISK OF HOSPITALIZATION AND ED USE, AND INSTRUCT PATIENT/CAREGIVER ON METHODS TO REDUCE AVOIDABLE HOSPITALIZATION AND ED USE. [code = PATIENT HAS A RISK OF HOSPITALIZATION AND ED USE. SKILLED NURSE TO ESTABLISH SUPPORT MEASURES TO MINIMIZE RISK OF HOSPITALIZATION AND ED USE, AND INSTRUCT PATIENT/CAREGIVER ON METHODS TO REDUCE AVOIDABLE HOSPITALIZATION AND ED USE.] Future Scheduled Test SKILLED NU RSE TO PROVIDE INSTRUCTION TO PATIENT/CAREGIVER RELATED TO DISCHARGE PLANNING. [code = SKILLED NURSE TO PROVIDE INSTRUCTION TO PATIENT/CAREGIVER RELATED TO DISCHARGE PLANNING.] Future Scheduled Test SKILLED NU RSE TO PERFORM ENVIRONMENTAL SAFETY RISK ASSESSMENT AND FALL RISK ASSESSMENT AND PROVIDE INSTRUCTION TO IMPLEMENT ENVIRONMENTAL SAFETY AND FALL PREVENTION STRATEGIES THROUGHOUT THE CERTIFICATION PERIOD. SKILLED NURSE WILL MAINTAIN SITUATIONAL AWARENESS AND WILL NOTIFY CLINICAL SENIOR DATA DEVELOPER AND PHYSICIAN/PROVIDER WITH ANY CHANGE IN CONDITION. [code = SKILLED NURSE TO PERFORM ENVIRONMENTAL SAFETY RISK ASSESSMENT AND FALL RISK ASSESSMENT AND PROVIDE INSTRUCTION TO IMPLEMENT ENVIRONMENTAL SAFETY AND FALL PREVENTION STRATEGIES THROUGHOUT THE CERTIFICATION PERIOD. SKILLED NURSE WILL MAINTAIN SITUATIONAL AWARENESS AND WILL NOTIFY CLINICAL SENIOR DATA DEVELOPER AND PHYSICIAN/PROVIDER WITH ANY CHANGE IN CONDITION.] Future Scheduled Test SKILLED NU RSE FOR OBSERVATION AND ASSESSMENT OF PATIENTS PAIN LEVEL AND EFFECTIVENESS OF PAIN MANAGEMENT REGIMEN. SKILLED NURSE TO INSTRUCT PATIENT/CAREGIVER REGARDING PHARMACOLOGIC AND NON-PHARMACOLOGIC PAIN CONTROL MEASURES. SKILLED NURSE TO REPORT TO PHYSICIAN IF PAIN LEVEL IS OUTSIDE OF ESTABLISHED PARAMETERS. [code = SKILLED NURSE FOR OBSERVATION AND ASSESSMENT OF PATIENTS PAIN LEVEL AND EFFECTIVENESS OF PAIN MANAGEMENT REGIMEN. SKILLED NURSE TO INSTRUCT PATIENT/CAREGIVER REGARDING PHARMACOLOGIC AND NON-PHARMACOLOGIC PAIN CONTROL MEASURES. SKILLED NURSE TO REPORT TO PHYSICIAN IF PAIN LEVEL IS OUTSIDE OF ESTABLISHED PARAMETERS.] Future Scheduled Test SKILLED NU RSE TO ASSESS PATIENT'S SKIN INTEGRITY AND INSTRUCT PATIENT/CAREGIVER ON MEASURES TO PREVENT PRESSURE ULCERS. [code = SKILLED NURSE TO ASSESS PATIENT'S SKIN INTEGRITY AND INSTRUCT PATIENT/CAREGIVER ON MEASURES TO PREVENT PRESSURE ULCERS.] Future Scheduled Test SN TO INST RUCT PATIENT/CAREGIVER ON METHODS TO MANAGE WOUNDS AND MAINTAIN HEALTHY SKIN UTILIZING THE CLEAR SPECIALTY PROGRAM. [code = SN TO INSTRUCT PATIENT/CAREGIVER ON METHODS TO MANAGE WOUNDS AND MAINTAIN HEALTHY SKIN UTILIZING THE CLEAR SPECIALTY PROGRAM.] Future Scheduled Test SKILLED NU RSE TO PROVIDE TEACHING/REINFORCEMENT RELATED TO URINARY INCONTINENCE. [code = SKILLED NURSE TO PROVIDE TEACHING/REINFORCEMENT RELATED TO URINARY INCONTINENCE.] Future Scheduled Test SKILLED NU RSE FOR O/A AND TEACHING ON IV SITE CARE, INFUSION PROCEDURE, SIGNS AND SYMPTOMS OF INFECTION/COMPLICATIONS. SKILLED NURSE TO OBTAIN IV ACCESS TO CENTRAL LINE VIA SINGLE LUMEN PICC TO LEFT UPPER ARM. SKILLED NURSE OR TRAINED PATIENT/CAREGIVER TO ADMINISTER IV THERAPY OF CEFTRIAXONE 20ML(2000)MG IV FOR 5 MINUTES AT 240ML AN HOUR DAILY, SALINE AND HEPARIN FLUSH/ USING THE SASH METHOD, ANTICIPATED 6 WEEKS OF THERAPY. SKILLED NURSE TO CHANGE DRESSING USING STERILE TECHNIQUE WEEKLY TO PICC LINE AND PRN FOR SOILED OR LOOSE DRESSING. [code = SKILLED NURSE FOR O/A AND TEACHING ON IV SITE CARE, INFUSION PROCEDURE, SIGNS AND SYMPTOMS OF INFECTION/COMPLICATIONS. SKILLED NURSE TO OBTAIN IV ACCESS TO CENTRAL LINE VIA SINGLE LUMEN PICC TO LEFT UPPER ARM. SKILLED NURSE OR TRAINED PATIENT/CAREGIVER TO ADMINISTER IV THERAPY OF CEFTRIAXONE 20ML(2000)MG IV FOR 5 MINUTES AT 240ML AN HOUR DAILY, SALINE AND HEPARIN FLUSH/ USING THE SASH METHOD, ANTICIPATED 6 WEEKS OF THERAPY. SKILLED NURSE TO CHANGE DRESSING USING STERILE TECHNIQUE WEEKLY TO PICC LINE AND PRN FOR SOILED OR LOOSE DRESSING.] Future Scheduled Test SKILLED NU RSE TO OBTAIN BLOOD SPECIMEN VIA PICC LINE OR VENIPUNCTURE FOR LABS ORDERED BMP,CBC WITH AUTO DIFFERENTIAL,CRP WEEKLY, OBTAIN LAB RESULTS AND REPORT TO [facility] AT [phone]. [code = SKILLED NURSE TO OBTAIN BLOOD SPECIMEN VIA PICC LINE OR VENIPUNCTURE FOR LABS ORDERED BMP,CBC WITH AUTO DIFFERENTIAL,CRP WEEKLY, OBTAIN LAB RESULTS AND REPORT TO [facility] AT [phone].] Future Scheduled Test [facility] MAY ACCEPT ORDERS FROM THE FOLLOWING PHYSICIANS: ON-CALL OR ATTENDING PHYSICIAN [code = HOME HEALTH AGENCY MAY ACCEPT ORDERS FROM THE FOLLOWING PHYSICIANS: ON-CALL OR ATTENDING PHYSICIAN] Future Scheduled Test NEED FOR S KILLED TEACHING AND INTERVENTION RELATED TO SURGICAL INCISION TO LEFT KNEE. TODAY'S VISIT WAS ONLY POSTOP DAY #4, AT DAY 5 PATIENT /NURSE USING ASEPTIC TECHNIQUE IS ABLE TO REMOVE THE BANDAGE TO THE LEFT KNEE SHOWER DO NOT SCRUB THE INCISION LET WARM SOAPY WATER RUN OVER THE INCISION PAT DRY AND COVER WITH A NEW DRESSING DO NOT REMOVE THE STERI-STRIPS OBSERVING AND LEAVING STERI-STRIPS INTACT. WOUND CARE TO BE PERFORMED DAILY AND PRN IF SOILED OR DISLODGED. 1-2 PRN SKILLED NURSE VISITS FOR WOUND CARE DUE TO COMPLICATIONS. SKILLED NURSE TO OBTAIN WOUND CULTURE PRN S/S OF INFECTION. WOUND CARE WILL BE PERFORMED BY TRAINED CAREGIVER ON DAYS WHEN SKILLED NURSE IS NOT SCHEDULED FOR A VISIT. DISCONTINUE WOUND CARE/SUPPLIES ONCE WOUND IS HEALED. [code = NEED FOR SKILLED TEACHING AND INTERVENTION RELATED TO SURGICAL INCISION TO LEFT KNEE. TODAY'S VISIT WAS ONLY POSTOP DAY #4, AT DAY 5 PATIENT /NURSE USING ASEPTIC TECHNIQUE IS ABLE TO REMOVE THE BANDAGE TO THE LEFT KNEE SHOWER DO NOT SCRUB THE INCISION LET WARM SOAPY WATER RUN OVER THE INCISION PAT DRY AND COVER WITH A NEW DRESSING DO NOT REMOVE THE STERI-STRIPS OBSERVING AND LEAVING STERI-STRIPS INTACT. WOUND CARE TO BE PERFORMED DAILY AND PRN IF SOILED OR DISLODGED. 1-2 PRN SKILLED NURSE VISITS FOR WOUND CARE DUE TO COMPLICATIONS. SKILLED NURSE TO OBTAIN WOUND CULTURE PRN S/S OF INFECTION. WOUND CARE WILL BE PERFORMED BY TRAINED CAREGIVER ON DAYS WHEN SKILLED NURSE IS NOT SCHEDULED FOR A VISIT. DISCONTINUE WOUND CARE/SUPPLIES ONCE WOUND IS HEALED.] Goal Patient Goal - GET TO NORMAL Goal Provider Goal - A PLAN OF CARE WILL BE ESTABLISHED THAT MEETS PATIENT'S ALF NEEDS AND INCLUDES PATIENT GOAL FOR HOME HEALTH. Goal Provider Goal - PATIENT/CAREGIVER WILL VERBALIZE UNDERSTANDING OF EDUCATION PROVIDED ON MEDICATIONS BY THE END OF THE CERTIFICATION PERIOD. Goal Provider Goal - PATIENT WILL HAVE SUPPORT MEASURES ESTABLISHED TO PREVENT HOSPITALIZATION AND ED USE AND PATIENT/CAREGIVER WILL VERBALIZE/DEMONSTRATE METHODS TO REDUCE AVOIDABLE HOSPITALIZATION AND ED USE BY END OF EPISODE. Goal Provider Goal - PATIENT/CAREGIVER WILL VERBALIZE UNDERSTANDING OF DISCHARGE PLANNING INSTRUCTIONS BY DATE OF DISCHARGE. Goal Provider Goal - PATIENT/CAREGIVER WILL VERBALIZE/DEMONSTRATE EFFECTIVE ENVIRONMENTAL SAFETY AND FALL PREVENTION STRATEGIES, WILL REMAIN SAFE IN THE COMMUNITY, AND WILL BE FREE OF DANGER TO SELF AND OTHERS THROUGHOUT THE CERTIFICATION PERIOD. Goal Provider Goal - PATIENT/CAREGIVER WILL DEMONSTRATE UNDERSTANDING OF PHARMACOLOGIC AND NONPHARMACOLOGIC PAIN CONTROL MEASURES AND PATIENT WILL HAVE IMPROVEMENT IN PAIN INTERFERING WITH ACTIVITY EVIDENCED BY PAIN AT A LEVEL THAT IS ACCEPTABLE TO THE PATIENT AND PAIN LEVEL WITHIN ESTABLISHED PARAMETERS BY END OF CERTIFICATION PERIOD. Goal Provider Goal - PATIENT/CAREGIVER WILL VERBALIZE UNDERSTANDING OF PRESSURE ULCER PREVENTION BY END OF THE EPISODE. Goal Provider Goal - PATIENT/CAREGIVER WILL DEMONSTRATE METHODS TO MANAGE WOUNDS AND MAINTAIN HEALTHY SKIN A RESULT OF PARTICIPATION IN CLEAR SPECIALTY PROGRAM. Goal Provider Goal - PATIENT / CAREGIVER WILL VERBALIZE UNDERSTANDING OF EFFECTS OF URINARY INCONTINENCE BY THE END OF THE CERTIFICATION PERIOD. Goal Provider Goal - PATIENT WILL VERBALIZE/DEMONSTRATE TOLERANCE TO CENTRAL LINE ACCESS PROCEDURE, IV MEDICATION ADMINISTRATION, AND DRESSING CHANGES ORDERED THROUGH CERTIFICATION PERIOD. Goal Provider Goal - SKILLED NURSE TO PERFORM LAB PROCEDURE AND REPORT RESULTS TO PHYSICIAN. Goal Provider Goal - ADDITIONAL ORDERS WILL BE RECEIVED FROM ALTERNATE PHYSICIAN IN A TIMELY MANNER THROUGHOUT THE CERTIFICATION PERIOD. Goal Provider Goal - WOUND CARE WILL BE COMPLETED AND PATIENT WILL HAVE IMPROVED WOUND STATUS EVIDENCED BY NO SIGNS AND SYMPTOMS OF INFECTION, DECREASED WOUND SIZE, AND/OR NO COMPLICATIONS BY THE END OF THE CERTIFICATION PERIOD. Progress Notes Progress Notes <paragraph>[Visit Date: 2024 by DELBERT GARRISON RN]:</paragraph><paragraph>PATIENT WAS SEEN TODAY FOR A START OF CARE VISIT. UPON ARRIVAL CLINICAL VETERINARIAN WAS LEFT IN PATIENT'S CAREGIVER, AND TAKEN BACK TO PATIENT'S OFFICE WHERE PATIENT WAS SITTING IN HIS EASY CHAIR. PATIENT IS AN 83-YEAR-OLD MALE RECENTLY HOSPITALIZED AFTER AN INFECTED INFLAMMATION REACTION TO HIS INTERNAL LEFT KNEE PROSTHESIS. PATIENT RESIDES AT HOME ALONE BUT HAS NUMEROUS PEOPLE IN AND OUT OF THE HOUSE ALL THE TIME TO HELP CARE FOR HIM. PAST MEDICAL HISTORY INCLUDE PAROXYSMAL ATRIAL FIBRILLATION, ACUTE KIDNEY INJURY, CELLULITIS, LEUKOPENIA, BENIGN PROSTATIC HYPERPLASIA WITHOUT LOWER URINARY TRACT SYMPTOMS, HISTORY OF TOTAL KNEE ARTHROPLASTY. AT TODAY'S VISIT WE REVIEWED THE ALLERGY CARING BOOKLET, PATIENT'S RIGHTS OR RESPONSIBILITIES, CALL US FIRST, EMERGENCY PREPAREDNESS, PATIENT INSTRUCTION, AND PATIENT SATISFACTION ACTION PLANS. ALL CONSENTS WERE SIGNED BY THE PATIENT. VITAL SIGNS OBTAINED AND WITHIN NORMAL LIMITS, HEART RATE AND RHYTHM WITHIN NORMAL LIMITS, PATIENT DENIES ANY CHEST PAIN, HEART PALPITATIONS OR DIZZINESS AT THIS VISIT. ABDOMEN IS SOFT AND ROUND BOWEL SOUNDS POSITIVE X4 QUADRANTS, PATIENT VOICES THAT HIS LAST BOWEL MOVEMENT WAS A COUPLE OF DAYS AGO. PATIENT DENIES ANY CONSTIPATION OR DIARRHEA AT THIS TIME. PATIENT IS URINATING CLEAR YELLOW URINE WITHOUT ANY DIFFICULTIES AT THIS TIME, PATIENT DID VOICE THAT HE IS AT TIMES INCONTINENT OF URINE STATES WANT TO HAVE TO GO NEED TO BE THERE OR I JUST START GOING. BILATERAL LEGS FROM THE KNEES DOWN NOTED TO HAVE SOME MILD EDEMA. SKIN ASSESSMENT COMPLETED AND BESIDES SOME IV STICK BRUISING TO THE BILATERAL ARMS PATIENT IS NOTED TO HAVE A SURGICAL DRESSING IN PLACE THAT HE REFUSES TO LET ME REMOVE UNTIL SOMEONE CAN BE THERE TOMORROW BECAUSE TOMORROW IS DAY 5 OF POSTOP. PATIENT TOLD ME THE DOCTOR SHOWED ME HOW TO ROLL THAT DOWN AND REMOVE IT ON FRIDAY WHEN I CAN TAKE IT OFF. PATIENT NOTED TO HAVE A SILVER STYLE DRESSING TO HIS LEFT KNEE THAT IS CLEAN DRY AND INTACT. THE OASIS WALK WAS COMPLETED AND SIGNED THE HOME, PATIENT WAS ABLE TO GET UP AND DOWN OUT OF HIS RECLINER AND OFTEN ON THE TOILET WITH THE ASSISTANCE OF CAREGIVER IN THE HOME. PATIENT IS ONLY ABLE TO DO ABOUT 1 STEP AT THIS TIME PER CAREGIVER THAT TOOK 2 ASSIST TO DO THIS AND DUE TO SAFETY REASONS WE DID NOT TRY THIS, I TOOK CAREGIVERS WORD FOR THIS. AFTER THE ASSESSMENT SKILLED NURSE TO SEE PATIENT ONE TIME A WEEK FOR 9 WEEKS FOR EDUCATION, DRESSING CHANGE TO PICC LINE, LABS, AND ASSESSMENT. WE REVIEWED THE TREATMENT AND DISCUSSED THE PLAN FOR THE NEXT VISIT AND TO CALL KOBE ADAIR FIRST WITH ANY QUESTIONS CONCERNS OR CHANGES THAT PATIENT MAY HAVE. PATIENT AND CAREGIVER AGREEABLE TO PLAN OF CARE. MEDICATION PROFILE REVIEWED AND THERE WAS AN ISSUE FOUND WITH MULTAQ 500 MG INTERACTS WITH XARELTO 15 MGMD'S EXCHANGE NUMBER MADE AWARE AND TO CALL BACK WITH ANY CHANGES. TODAY THE WOUND AND FALL PREVENYION ACTION PLANS WERE UTILIZED FOR EDUCATION WITH FOCUS ON THE EVERYDAY BOX. PATIENT AND CAREGIVER WILL RECEPTIVE TO EDUCATION AND ABLE TO PROVIDE TEACH BACK. WE ALSO DID TEACHING ON ANTIBIOTIC IV THERAPY AND PATIENT AND CAREGIVER WERE ABLE TO PROVIDE TEACH BACK ON THIS WELL. NEXT VISIT SHOULD FOCUS ON THE RED ZONE AND CONTINUE EDUCATION WITH IV THERAPY. SINGLE LUMEN PICC LINE TO LEFT UPPER ARM IS PAINTED AND FLUSHES EASILY USING ASEPTIC TECHNIQUE IV ANTIBIOTIC WAS GIVEN AND EDUCATION PROVIDED GOING THROUGH EACH STEP USING VISUAL AND VERBAL EDUCATION TO HELP WITH TEACHING. PATIENT AND CAREGIVER VOICED UNDERSTANDING. DUE TO BEING FRIDAY AND NOBODY AT THE DOCTOR'S OFFICE CLINICAL VETERINARIAN WILL CALL DOCTOR ON FRIDAY WITH THE PLAN OF CARE.</paragraph> Encounters Start Date/Time End Date/Time Encounter Type Admission Type Attending [facility] Facility Care Department Encounter ID Discharge Date Discharge Status Discharge Condition Discharge Reason Percent Goals Met 2024-08-21 00:00:00 2024-10-19 00:00:00 Outpatient NEW ADMISSION MAG[facility] [id number]
--- OUTSIDE RECORDS SUMMARY | 2024-08-24 14:27 | XMS_ITS | CONTINUITY OF CARE DOCUMENT ---
Author Name yu nicholas Address Unknown Organization [facility] Office Address [address] [place] [address] [address] [place] [address] Phone [phone] Care Team Providers Care High Risk Case Manager Name Role Phone Manda GONZALES, Anahy Unavailable ADDISON REBOLLEDO MD Unavailable [phone] ADDISON REBOLLEDO MD Unavailable [phone] INSURANCE PROVIDERS Payer name Policy type / Coverage type [place] red democrat ID [facility] [id number] [place] [id number]
--- OUTSIDE RECORDS SUMMARY | 2024-08-24 14:27 | XMS_ITS ---
Author Organization [facility] [email or web address] Address [address] [place] [address] Phone Care Team Providers Care Home Improvement Advisor Name Role Phone Mundo Smith MD Unavailable [phone] Irena Rebolledo MD Primary Care Provider Viviana Wagner MD Unavailable [phone] Heather Grant NP Unavailable [phone] Quinn Flannery MD Unavailable [phone] Nena Rogers PTA Unavailable Unavailable Omid Hoffman MD Unavailable [phone] Steffany Solomon NP Unavailable [phone] Carlos Ford MD Unavailable Gerardo Chávez MD Unavailable Irineo Moe MD Unavailable Nelson Schneider MD Unavailable Mirta Angeles Unavailable [phone] John Khan MD PhD Unavailable [phone] Sam Whelan MD Unavailable [phone] Quinn Flannery MD Unavailable [phone] Cristy Rodriguez MD Unavailable Brock Segura MD Unavailable [phone] Tung Bach OD Unavailable Janell Orellana PA Unavailable [phone] Ashtyn Morrow PA Unavailable [phone] HerveTerence DMD Unavailable Tha Oh MD Unavailable [phone] Ila Alvarenga [facility] Unavailable Unavailable Agustín Dietz RN Unavailable [phone] Active Problems Problem Noted Date Diagnosed Date [...] (ies)/home meds: Augmentin and rabies vaccines per [facility] Reviewed ED notes from [facility] 08/10/24 Today's Plan: Meds: continue Augmentin until completion Patient voices noncompliance with Augmentin 2/2 need to take it with food and has decreased appetite Follow up with scheduled rabies shots Follow up with [facility] and notification of health department Keep site [...] evaluation and voiced he would go to [facility]. Patient transported by personal vehicle into passenger seat. Called [facility] and spoke with Diana charge nurse; given report. Faxjaya Tsai paperwork to [facility] Altered mental status 08/12/2024 Assessment [...] evaluation and voiced he would go to [facility]. Patient transported by personal vehicle into passenger seat. Called [facility] ED and spoke with Diana charge nurse; given report. Faxjaya Tsai paperwork to [facility] ED Acute cough 05/30/2024 Upper respiratory tract infection 05/10/2024 Assessment & Plan (05/10/2024 9:37 PM CARDIOLOGY NURSE): Acute, symptoms for approximately 1 week. Afebrile, [...] 03/11. Assessment & Plan (04/18/2024 6:17 AM CARDIOLOGY NURSE): Acute problem when he was travelling in [place] last fall, resolved with treatment sought there, details lacking. Consider follow up with urology. Other chest pain 09/25/2023 Assessment & Plan (05/10/2024 9:35 PM CARDIOLOGY NURSE): Acute, symptoms for 1 week. Tenderness to [...] no acute changes or evidence of old KS. The patient's symptoms are likely noncardiac. He reports having several stress tests many years ago at [facility]. He does not want to go through the chemical stress test ever again because of reported side effects, and he is not ready or in any shape to get on the treadmill due to gaining weight and still recovering from infection of left knee hardware. He has a scheduled follow-up with his children's minister, Dr. Segura, in about two weeks. We discussed the EKG findings and his symptoms with his children's minister. Return here early as needed, otherwise as [...] 08/26/2022 Assessment & Plan (02/20/2023 1:36 PM CARDIOLOGY NURSE): He continues to take an iron supplement [...] got a second opinion in neurosurgery at [facility]. They basically had the same recommendations. Exam [...] not included. Sees Sam Whelan MD, [facility]. Wet on right, dry on left. Also bilateral vitreous syneresis. [facility] note on 06/18/2024: Status post total left knee replacement 01/15/20 Assessment & Plan (01/30/2022 5:27 PM CARDIOLOGY NURSE): There is concern for his left prosthetic knee which has exhibited some warmth and swelling. This was tapped yesterday in orthopedics and there are around 65,000 nucleated cells. Microbiology preliminary report is negative. We will keep him on antibiotics (penicillin) pending further discussion with orthopedics. Assessment & Plan (01/15/2022 3:32 PM CARDIOLOGY NURSE): Patient had L total Knee arthroplasty on 08/28/21. Current use of custodial anticoagulation 021 Overview (11/24/2020): Xarelto for Afib. [...] this surgery. He will also see his children's minister for a specific cardiac clearance. Assessment & [...] but he should discuss this with his children's minister as well. 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 Assessment & Plan (04/12/2024 4:25 AM CARDIOLOGY NURSE): Chronic, diagnosed 3-4 years ago, status post definitive radiation therapy, comanaged with Urology and Radiation therapy. Assessment & Plan (04/09/2023 4:58 PM CARDIOLOGY NURSE): He was treated with definitive radiation therapy [...] completely. Assessment & Plan (01/29/2021 4:09 PM CARDIOLOGY NURSE): He completed radiation therapy. He has a [...] It. Assessment & Plan (04/09/2023 5:01 PM CARDIOLOGY NURSE): He was prescribed CPAP, but never used [...] (09/26/2017): Added automatically from request for surgery [id number] Chronic left-sided headaches 03/19/2017 Overview (03/19/2017): New [...] moderate anemia postoperatively. He also saw his children's minister at [facility], and a test of some kind was [...] it. Assessment & Plan (02/18/2021 3:03 PM CARDIOLOGY NURSE): His energy level has improved considerably. He [...] same. Assessment & Plan (01/14/2022 4:00 PM CARDIOLOGY NURSE): Patient has a hx of GERD and [...] option. Assessment & Plan (01/22/2017 2:20 PM CARDIOLOGY NURSE): He never got a call from the [...] daily. Assessment & Plan (05/10/2024 9:36 PM CARDIOLOGY NURSE): Chronic, controlled on Multaq and Xarelto at this time. Heart rate regular upon auscultation camejo, vitals stable. See plan for URI above. Assessment & Plan (04/12/2024 4:25 AM CARDIOLOGY NURSE): Chronic/intermittent, present for 10 or more years, controlled on dronedarone 400 mg daily (patient's idiosyncratic dosing), and rivaroxaban 20 mg daily, comanaged with Cardiology. Assessment & Plan (10/09/2023 3:30 PM CDT): Chronic, heart rhythm is irregular but rate is controlled. He is on Xarelto and Multaq. He will keep his follow ups with Dr. Lee. Assessment & Plan (04/09/2023 5:00 PM CARDIOLOGY NURSE): Heart rhythm is regular. He is on [...] same. Assessment & Plan (04/16/2022 10:49 AM CARDIOLOGY NURSE): He is on Multaq and Xarelto. Continue same. The Xarelto will be held for two days before reimplantation of his left knee. Assessment & Plan (01/30/2022 5:24 PM CARDIOLOGY NURSE): He remains on Multaq. We corrected the dose to reflect what the patient reports he is taking, namely 400 mg twice a day instead the non standard 400 mg daily he took previously. Assessment & Plan (01/14/2022 3:57 PM CARDIOLOGY NURSE): Patient has a hx of A-fib and [...] effects. He will discuss this with his children's minister when he sees him for a cardiac clearance to have his left knee replaced. Assessment & Plan (01/29/2021 4:14 PM CARDIOLOGY NURSE): Heart rhythm is currently regular. He is on Multaq and Xarelto. He followed up once with a children's minister but did not do the testing that [...] 12:30 PM CDT): Scanned office note, Dr. Zelaya [facility]. Also in Care Everywhere. Assessment & Plan (08/06/2020 10:39 AM CDT): Heart rhythm is regular. He is on Multaq and Xarelto. He plans to see his children's minister, Dr. Zelaya, sometime next week to get [...] well. Assessment & Plan (02/23/2018 3:29 PM CARDIOLOGY NURSE): There is a history of paroxysmal atrial [...] continues on Multaq and Xarelto from his children's minister. Sometimes he cuts the Multaq dose down if he is taking Motrin for his hip, because he does not want his blood to be too thin. He will follow up with Cardiology for all of these issues. Assessment & Plan (02/02/2017 5:13 PM CARDIOLOGY NURSE): Recent Holter ordered by Dr. Montanez showed [...] 2 Assessment & Plan (04/12/2024 4:24 AM CARDIOLOGY NURSE): Chronic, present for 10 or more years, not currently requiring diuretic or other medical therapy. We will monitor on periodic followups. Assessment & Plan (04/12/2024 4:21 AM CARDIOLOGY NURSE): >>ASSESSMENT AND PLAN FOR DIASTOLIC DYSFUNCTION WRITTEN [...] his complaints of fatigue. He sees his children's minister, Dr. Montanez, in about a month or two, and will ask him about diastolic dysfunction as a possible cause or contributing factor to his symptoms. Assessment & Plan (04/12/2024 4:21 AM CARDIOLOGY NURSE): >>ASSESSMENT AND PLAN FOR DIASTOLIC DYSFUNCTION WRITTEN ON 02/23/2018 3:27 PM BY IRENA REBOLLEDO MD He seems to be doing well. Blood pressure is normal. Lungs are clear. Oxygen saturation is satisfactory. He has a children's minister he sees regularly, Dr. Zelaya. Continue to monitor. Assessment & Plan (04/12/2024 4:21 AM CARDIOLOGY NURSE): >>ASSESSMENT AND PLAN FOR DIASTOLIC DYSFUNCTION WRITTEN [...] Cardiology. Assessment & Plan (04/09/2023 4:53 PM CARDIOLOGY NURSE): He has trace pretibial pitting edema. Lungs are clear in oxygenation is normal. He has not requiring any diuretic therapy at this time. We will monitor clinically. Assessment & Plan (04/03/2022 2:45 PM CARDIOLOGY NURSE): He seems to be clinically stable with no significant edema, no crackles in his lungs. Oxygen saturation is normal. We will monitor clinically without medication. Primary osteoarthritis involving multiple joints 07/08/2012 Assessment & Plan (04/12/2024 4:26 AM CARDIOLOGY NURSE): Chronic, present for 10 or more years, [...] shape. Assessment & Plan (02/18/2021 3:01 PM CARDIOLOGY NURSE): He continues to have various aches and [...] joints. Assessment & Plan (02/23/2018 3:30 PM CARDIOLOGY NURSE): He continues to have problems with aches [...] pain recently that was evaluated by his children's minister at [facility], Dr. Lee. It was felt to [...] 10/03/2023 Assessment & Plan (04/09/2023 4:58 PM CARDIOLOGY NURSE): He does not take anything for cholesterol [...] diet. Assessment & Plan (01/29/2021 4:10 PM CARDIOLOGY NURSE): He is not currently taking anything for [...] medicine. Assessment & Plan (02/23/2018 3:27 PM CARDIOLOGY NURSE): He decided to stop taking cholesterol medicine [...] prescription. Assessment & Plan (01/22/2017 2:16 PM CARDIOLOGY NURSE): He is tolerating his medication without apparent [...] it. Assessment & Plan (01/22/2017 1:59 PM CARDIOLOGY NURSE): No new attacks of gout while on [...] joint. 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 He is thinking of going back to [place] to swim, and I think this would be fine. Intractable left heel pain 02/03/2023 1 Assessment & Plan (04/15/2023 11:25 AM CARDIOLOGY NURSE): He seems to be doing well with regard to most pain complaints, including left heel pain. However, his right wrist carpometacarpal joints flare up from time to time. He presumes it is due to gout. When it happens, he eats cherries which he says makes the problem go away. Assessment & Plan (02/20/2023 1:35 PM CARDIOLOGY NURSE): He notes a sharp pain in his [...] (06/30/2022): Added automatically from request for surgery [id number], s/p successful 2-stage replacement (revision on 04/10/2022). Assessment & Plan (04/03/2022 2:46 PM CARDIOLOGY NURSE): Surgery to reimplant his left knee is planned for next week. He sees Dr. Hoffman tomorrow for a preoperative evaluation. 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 Assessment & Plan (04/03/2022 2:47 PM CARDIOLOGY NURSE): He had explantation of the infected joint [...] resolved. Assessment & Plan (01/30/2022 5:23 PM CARDIOLOGY NURSE): His diarrhea has improved significantly. He has [...] records. Assessment & Plan (01/19/2022 3:49 PM CARDIOLOGY NURSE): The cellulitis involved much of the left [...] cellulitis. Assessment & Plan (01/19/2022 3:48 PM CARDIOLOGY NURSE): He was hospitalized recently for a streptococcal [...] baseline. Assessment & Plan (01/15/2022 3:32 PM CARDIOLOGY NURSE): Blood cultures from 01/12 now growing strep dysgalactiae with repeat blood cultures pending. - On Cefepime and vancomycin (01/13- Fever 01/13/2022 08/16/2024 Overview (06/30/2022): Cellulitis of left leg resulting in sepsis and infection of left knee replacement. Assessment & Plan (01/13/2022 6:48 PM CARDIOLOGY NURSE): I was called by the patient's son [...] 06/30/2022 Assessment & Plan (01/18/2022 5:10 PM CARDIOLOGY NURSE): When I assessed him five days ago at his home, he was markedly confused, more properly encephalopathic then delirious. He improved rapidly with treatment in the hospital and seems back to normal. Assessment & Plan (01/13/2022 6:49 PM CARDIOLOGY NURSE): Probably due to fever and suspected sepsis. Cellulitis of left thigh 01/13/2022 Overview (06/30/2022): See hospital records, [facility]. Assessment & Plan (01/18/2022 5:09 PM CARDIOLOGY NURSE): He says the cellulitis started on his [...] needed. Assessment & Plan (01/15/2022 3:33 PM CARDIOLOGY NURSE): Patient currently has a left knee that [...] dehydrated. Assessment & Plan (01/30/2022 5:23 PM CARDIOLOGY NURSE): He has been drinking fluid and is making plenty of urine. Blood pressure is in a better range. Assessment & Plan (01/29/2022 5:54 AM CARDIOLOGY NURSE): He called the office today. He has [...] (12/03/2019): Added automatically from request for surgery [id number], arthroscopy 10/08/2019, Dr. Hoffman, [facility]. Internal derangement of left knee 09/28/2019 12/03/2019 Overview (12/03/2019): Added automatically from request for surgery [id number], arthroscopy 10/08/2019. Acute gout of knee 03/08/2019 0 Overview (12/03/2019): See office note. Assessment & Plan (03/27/2019 3:18 PM CARDIOLOGY NURSE): He has a history of gout, but [...] note. Assessment & Plan (03/27/2019 3:20 PM CARDIOLOGY NURSE): He denies any history of knee pain [...] 09/20/201806/2023 Assessment & Plan (01/28/2019 2:16 PM CARDIOLOGY NURSE): The left superior trapezius/supraspinatus area has been [...] report. Assessment & Plan (01/28/2019 2:15 PM CARDIOLOGY NURSE): He has had pain in his right [...] needed. Assessment & Plan (03/26/2018 9:46 AM CARDIOLOGY NURSE): For a couple of months or more [...] issue. Assessment & Plan (02/02/2017 5:14 PM CARDIOLOGY NURSE): This is his main concern at this time. It really impairs his quality of life. He has trouble getting his left sock and shoe on. Right now it is not so bad, but there are times when pain is quite severe, and he resorts to an [id number] nonsteroidal. Recent x-ray showed severe osteoarthritis of [...] testing. Assessment & Plan (04/15/2023 11:29 AM CARDIOLOGY NURSE): We are monitoring a mild and intermittent [...] labs. Assessment & Plan (02/23/2018 3:30 PM CARDIOLOGY NURSE): Platelet count in the hospital when last checked at the time of left hip replacement was normal. He was taking B12 for awhile, but no longer takes it. We will monitor labs periodically. Assessment & Plan (01/22/2017 2:21 PM CARDIOLOGY NURSE): This was noted on one of his [...] Obesity Assessment & Plan (04/09/2023 4:59 PM CARDIOLOGY NURSE): He struggles with his weight. He eats [...] needed. Assessment & Plan (02/20/2023 1:37 PM CARDIOLOGY NURSE): He would like to lose some weight. [...] weeks. Assessment & Plan (01/14/2022 3:56 PM CARDIOLOGY NURSE): Patient BMI of 32.83. Assessment & Plan (12/19/2021 3:50 PM CDT): We encouraged attention to his diet, and hopefully some weight loss. Assessment & Plan (06/21/2021 8:31 AM CDT): I urged attention to his diet, and hopefully some weight loss. Assessment & Plan (01/29/2021 4:10 PM CARDIOLOGY NURSE): We encouraged attention to his diet, and [...] apnea. Assessment & Plan (01/22/2017 2:17 PM CARDIOLOGY NURSE): Weight loss could help some of his other issues, especially the pain he has from spinal stenosis and left hip osteoarthritis. He is down a few pounds, and he will continue efforts in this regard. Sepsis due to Streptococcus species without acute organ dysfunction 01/29/2022 06/30/2022 Overview (06/30/2022): See hospital records, [facility]. Assessment & Plan (01/30/2022 5:27 PM CARDIOLOGY NURSE): One of several lood cultures was positive for Strep dysgalactiae. Follow-up blood cultures on antibiotics were negative. There is concern for his left prosthetic knee which has exhibited some warmth and swelling. See discussion elsewhere. Assessment & Plan (01/18/2022 5:11 PM CARDIOLOGY NURSE): He was septic, but organ function remained [...]
== END 2024-08-24 13:43 | disposition home or self-care (01) ==
PROVIDERS: PCP Internal Medicine Infectious Disease; Visit Provider Internal Medicine Infectious Disease
DX: T84.53XA Infection and inflammatory reaction due to internal right knee prosthesis, initial encounter (principal)
CPT/HCPCS: 36415; 80048; 85025; 86140